=== PATIENT | female | born 1960 | race Caucasian/White ===

== ENCOUNTER 2024-03-31 09:37 | Emergency (ER) | payer MEDICAID, SELFPAY ==
[2024-03-31 09:44] VITALS: BP 147/82; PULSE 70; RESP 19; TEMP 36.8; O2SAT 99; BMI 32.1
--- NOTE | 2024-03-31 09:47 | PD.EDRME ---
Rapid Medical Screening Exam E Arrival date/time: 03/31/24 09:37 63-year-old female with history of gastric bypass in 2018 with hiatal hernia repair requiring multiple surgeries since presents with complaints of upper abdominal pain Chief Complaint: Abdominal Pain Time Seen by Provider: 03/31/24 09:40 Vital signs: Vital Signs Temperature 98.3 F 03/31/24 09:44 Pulse Rate 70 03/31/24 09:44 Respiratory Rate 19 03/31/24 09:44 Blood Pressure 147/82 H 03/31/24 09:44 Pulse Oximetry (%) 99 03/31/24 09:44 Oxygen Delivery Method Room Air 03/31/24 09:44
[2024-03-31] MEDS: KETOROLAC INJ 30 MG/ML VIAL IM (09:56)
[2024-03-31] MEDS: ONDANSETRON ODT 4 MG TABRAP PO (09:57)
[2024-03-31 10:50] LABS: Basophils % (Auto) 1 % (0-2.5); Eosinophils % (Auto) 1 % (0-10); Hematocrit 33.9 % (36.0-46.0); Hemoglobin 10.6 g/dL (12.0-16.0); Immature Granulocytes % (Auto) 0 % (0-0); Immature Granulocytes Auto 0.02 Thou/mm3 (0.00-0.00); Lymphocytes # (Auto) 2.4 Thou/mm3 (1.0-4.8); Lymphocytes % (Auto) 33 % (10-50); Mean Corpuscular HGB Conc 31.3 g/dl (31.0-37.0); Mean Corpuscular Hemoglobin 24.8 pg (25.0-35.0); Mean Corpuscular Volume 79 fL (80-100); Monocytes # (Auto) 0.9 Thou/mm3 (0.0-0.8); Monocytes % (Auto) 12 % (0-12); Neutrophils % (Auto) 54 % (37-80); Nucleated Red Blood Cell % 0 /100 WBC (0); Platelet Count 275 Thou/mm3 (140-440); Red Blood Count 4.28 Miln/mm3 (4.00-5.20); White Blood Count 7.5 Thou/mm3 (3.6-11.0)
[2024-03-31 11:10] LABS: Alanine Aminotransferase 29 U/L (10-49); Albumin, Serum 4.1 gm/dL (3.4-4.8); Albumin/Globulin Ratio 1.5 (1.2-2.2); Alkaline Phosphatase 107 U/L (46-116); Anion Gap 5 (7-16); Aspartate Amino Transferase 22 U/L (0-34); BUN/Creatinine Ratio 20 Ratio (12-20); Bilirubin,Total 0.3 mg/dL (0.3-1.2); Blood Urea Nitrogen 14 mg/dL (9-23); Calcium 9.5 mg/dL (8.3-10.6); Calcium (Corrected) 9.5 mg/dL (8.5-10.1); Carbon Dioxide 27.2 mMol/L (20.0-31.0); Chloride 106 mMol/L (98-107); Creatinine (Component) 0.7 mg/dL (0.6-1.3); Estimated Creatinine Clearance 91.9 mL/min (>60); Globulin 2.7 gm/dL (2.3-3.5); Glucose 115 mg/dL (74-106); Lipase 49 U/L (12-53); Osmolality,Calculated 277 (275-295); Sodium 138 mMol/L (136-145); Total Protein 6.8 gm/dL (5.7-8.2); Troponin I < 0.020 ng/mL (0.0-0.045); eGFR > 60 See Note
[2024-03-31 13:25] LABS: Collection Type, Urine Clean Catch
[2024-03-31 13:41] LABS: Bacteria,Urine Rare; Bilirubin,Urine Negative (Negative); Blood,Urine Negative (Negative); Clarity,Urine Clear (Clear/Hazy); Color,Urine Yellow (Lt Yel-Yel); Culture Indicated,Urine Not Indicated; Glucose, Urine Negative (Negative); Ketones,Urine Negative (Negative); Leukocyte Esterase,Urine Positive (Negative); Nitrite,Urine Negative (Negative); Protein,Urine 1+ (Neg - Trace); RBC,Urine 3 /hpf (0-3); Specific Gravity,Urine 1.034 (1.001-1.035); Squamous Epithelial Cell,Urine 2 /hpf (0-5); WBC,Urine 1 /hpf (0-5)
--- NOTE | 2024-03-31 13:45 | EDNOTE_ITS ---
ED Abdominal Pain RME/HPI General Chief Complaint: Abdominal Pain Stated complaint: Epigastric pain due to hiatel hernia x 4 days Time seen by provider: 03/31/24 09:40 Arrival date/time: 03/31/24 09:37 RME / HPI RME / HPI narrative: 03/31/24 09:37 63-year-old female with history of gastric bypass in 2018 with hiatal hernia repair requiring multiple surgeries since presents with complaints of upper abdominal pain DR. FRANKEL MAIN ED EVALUATION 63 year old female with history of gastric bypass and hiatal hernia surgery with multiple hernia revisions, no complications of the gastric bypass (stenosis, leak) who presents to the ED for complaint of abdominal pain today. States the pain is located most to the epigastric region that radiates up to chest and back. Describes as aching in sensation, rating as moderate. Accompanied by nausea and nonbloody vomiting. Denies fevers, chills, cough, shortness of breath, diarrhea, constipation, or urinary symptoms. She notes the pain is chronic and recurring and she typically attributes it to hernia pain . No known modifying factors reported. Related Data Home Medications ?Medication ?Instructions ?Recorded ?Confirmed hydrocodone 10 mg-acetaminophen 1 tab PO Q4H PRN Pain #0 tabs 02/11/14 02/20/24 325 mg tablet omeprazole 20 mg tablet,delayed 20 mg PO QDAY 12/07/18 02/20/24 release calcium citrate 150 mg capsule 150 mg PO QAM 08/24/20 02/20/24 chlorthalidone 50 mg tablet 50 mg PO QDAY 08/24/20 02/20/24 citalopram 20 mg tablet (Celexa) 20 mg PO QDAY 08/24/20 02/20/24 cyclobenzaprine 10 mg tablet 10 mg PO BID PRN Spasms 08/24/20 02/20/24 docusate sodium 250 mg capsule 250 mg PO BID PRN Constipation 08/24/20 02/20/24 gabapentin 600 mg tablet 600 mg PO TID 08/24/20 02/20/24 multivitamin 1 tab PO QAM 08/24/20 02/20/24 ondansetron 4 mg disintegrating 4 mg PO Q6H PRN Nausea 08/24/20 02/20/24 tablet phentermine 37.5 mg capsule 37.5 mg PO QAM 08/24/20 02/20/24 pregabalin 75 mg capsule (Lyrica) 75 mg PO BID PRN Pain 08/24/20 02/20/24 ropinirole 0.5 mg tablet 0.5 mg PO QDAY 08/24/20 02/20/24 Previous Rx's ?Medication ?Instructions ?Recorded docusate sodium 100 mg capsule 100 mg PO QDAY #30 caps 08/24/20 (Colace) ferrous sulfate 325 mg (65 mg 325 mg PO BID #120 tabs 08/24/20 iron) tablet ibuprofen 800 mg tablet 800 mg PO TID PRN pain #30 tabs 08/03/21 hydrocodone 5 mg-acetaminophen 325 1 tab PO Q6H PRN pain #10 tabs 03/22/22 mg tablet amoxicillin 500 mg-potassium 1 tab PO BID #20 tabs 08/07/22 clavulanate 125 mg tablet (Augmentin) hydrocodone 5 mg-acetaminophen 325 1 - 2 tab PO Q8H PRN pain #7 tabs 05/13/23 mg tablet Allergies Allergy/AdvReac Type Severity Reaction Status Date / Time metoclopramide [From Reglan] Allergy Shakiness Verified 03/31/24 09:38 Review of Systems Review of Systems Narrative Review of Systems: Gen: No fever, no chills, no weight loss EYES: No discharge, no visual changes, no pain HEENT: No ear pain, no congestion, no sore throat PULM: no shortness of breath, no cough, no congestion CV: + chest pain, no dyspnea on exertion, no palpitations, no chest tightness GI: + nausea, +vomiting, no diarrhea, + pain, no constipation : No frequency, no urgency,? no dysuria Musc/skel: No joint pain, +back pain Skin: No rash, no ecchymosis, no lesions Psyc: No hallucinations, no depression Heme/Lymph: No easy bleeding or bruising tendencies Neuro: No weakness, no headache Past Medical History Past Medical History NEUROLOGIC: Positive Peripheral Neuropathy CARDIAC: Positive Hypercholesterolemia and Hypertension RESPIRATORY: Positive Chronic Obstructive Pulmonary Disease (COPD), Asthma, Smoking and Smoking Cessation Counseling GASTROINTESTINAL: Positive Hiatal Hernia and Obesity MUSCULOSKELETAL: Positive Musculoskeletal Disorders, Arthritis and Fibromyalgia ENDOCRINE: Positive Diabetes Mellitus Type 2 Surgical History SURGICAL: Positive Abdominal Surgery, Gastric Bypass Surgery and Tubal Ligation Social History SMOKING STATUS: Light (< 1 pack/day) SUBSTANCE USE: does not use ED Exam Narrative Physical exam: GENERAL APPEARANCE: AxOx4, nontoxic appearing HEENT: NC, AT. MMM. EOMI, clear conjunctiva, oropharynx clear. NECK: Supple without lymphadenopathy. No stiffness or restricted ROM. HEART: Normal rate and regular rhythm, normal S1/S1, no m/r/g LUNGS: CTAB, moving air well. No crackles or wheezes are heard. ABDOMEN: Soft, mild to moderate epigastric tenderness, no rebound tenderness, nondistended with good bowel sounds heard. BACK: No midline C/T/L spine pain or deformity, No CVAT, no obvious deformity. EXTREMITIES: Without cyanosis, clubbing or edema. MUSCULOSKELETAL: FROM of all major joints, no chest tenderness NEUROLOGICAL: Grossly nonfocal. Alert and oriented, moving all 4 extremities. CN not formally tested but appear grossly intact. Skin: Warm and dry without any rash. Course Quality Measures none Orders Category Date Time Status CT Screening NOW Care 03/31/24 13:49 Completed EKG (ED ONLY) *Do not use* NOW Care 03/31/24 09:[address] abdomen pelvis w con Stat Exams 03/31/24 13:49 Completed EKG (ED Only) Stat Exams 03/31/24 09:47 Ordered CBC Stat Lab 03/31/24 10:23 Completed Comprehensive Metabolic Panel Stat Lab 03/31/24 10:23 Completed Lipase Stat Lab 03/31/24 10:23 Completed Troponin I Stat Lab 03/31/24 10:23 Completed UA, C/S IF [Urinalysis, C/S if Indicated] Stat Lab 03/31/24 13:15 Completed DiphenhydrAMINE INJ [Benadryl Inj] Med 03/31/24 13:47 Discontinued 50 mg IV X1 ONE Famotidine Inj [Pepcid Inj] Med 03/31/24 13:50 Discontinued 40 mg IVP X1 ONE Ketorolac Inj [Toradol Inj] Med 03/31/24 16:09 Discontinued 15 mg IVP X1 ONE Ketorolac Inj [Toradol Inj] Med 03/31/24 09:47 Discontinued 30 mg IM X1 ONE Ondansetron Inj [Zofran Inj] Med 03/31/24 13:50 Discontinued 4 mg IV X1 ONE Ondansetron Odt [Zofran Odt] Med 03/31/24 09:47 Discontinued 4 mg PO X1 ONE Sodium Chloride 0.9% 1000 ml [Ns] 1,000 ml Med 03/31/24 13:47 Discontinued IV 999 mls/hr Vital Signs Vital signs: Vital Signs Temperature 98.3 F 03/31/24 09:44 Pulse Rate 70 03/31/24 09:44 Respiratory Rate 19 03/31/24 09:44 Blood Pressure 147/82 H 03/31/24 09:44 Pulse Oximetry (%) 99 03/31/24 09:44 Oxygen Delivery Method Room Air 03/31/24 09:44 Pulse ox is 99% on room air which is adequate. Abdominal Pain MDM MDM Narrative MDM Narrative:: 63-year-old female with a history of chronic recurrent epigastric pain, gastric bypass, and hiatal hernia repair, who presents with recurrence of her chronic epigastric pain of which she describes as her hernia pain. Laboratory testing and CT scan shows no acute issues such as stenosis, or leak of her gastric bypass. She does have a nonspecific dilation of her common bile duct. As she has a chronic recurrent issue there are concerns for retained stone versus even tumor mass in this area. This could account for the recurrent nature of her pain and they not actually be due to hernia pain . We discussed these findings with the option of remaining here in the emergency department for an MRCP in the morning, or if she would like to remain in the comfort of her home. She does comment on how the emergency department is very noisy and full (the ED is currently boarding several inpatients due to capacity issues) and she would like to rest at home. We will have her n.p.o. after midnight for for the most precise a.m. MRCP. She agrees to return in the morning for an MRCP Natasha Arguelles am scribing for and in the presence of Dr. Frankel. Patient data External records reviewed:: [facility] previous records (I reviewed ED visit 05/21/2023) Clinical information provided by:: patient Social determinants that could affect healthcare access:: none Patient has the following chronic illnesses:: gastric bypass and hiatal hernia surgery with multiple revisions, mostly because of failed revisions, and stenosis leaking How is presenting disease/condition affected by chronic disease/condition?: exacerbated by Evaluation data The following diagnostics were reviewed and interpreted by me:: lab results, radiology exam(s) and EKG tracing(s) (Normal sinus rhythm, HR 70, normal axis, normal interval, no acute ST or T-wave changes, no STEMI. ) Lab and/or radiology exams considered but not ordered:: None Interpretation Summary: Procedure(s): CT abdomen pelvis w con Accession Number(s): [id number] cc: José Frankel MD; Rodney Santos MD; Hilda Sky MD~ Examination: CT abdomen with intravenous contrast CT pelvis with intravenous contrast 2-D coronal reconstructions 2-D sagittal reconstructions Date and time of exam:March 31, 2024 1457 hours Comparison March 22, 2022 INDICATIONS: Epigastric pain months. CTDI: vol (mGy) 24.11 DLP: (mGycm) 1018 Technique: Multiple axial sections of the abdomen and pelvis have been obtained. 64 slice high-resolution scanner used. 3 mm axial sections have been obtained, post intravenous injection 60 cc [id number] 2-D sagittal, coronal reconstructions obtained. Low dose protocols were performed. One or more of the following dose reduction techniques were used; automated exposure control, adjustment of the mA and/or KV according to patient size, use of iterative reconstruction technique. Findings: No focal liver or splenic lesions Gastric sutures No pancreatic or adrenal mass Moderate bilateral renal parenchymal scar formation Absent gallbladder, common hepatic duct 10 mm Abdominal aortic calcification no aneurysmal dilatation No pericecal inflammatory change No diverticulitis Air distended sigmoid colon Significant osteopenia Contracted urinary bladder IMPRESSION: Absent gallbladder, common bile duct 10 mm no stones noted Moderate bilateral renal parenchymal scar formation No CT findings of appendicitis bowel obstruction or diverticulitis Given the patient's presentation, consider hepatobiliary sonography follow-up Dictated By: Rodney Santos MD Medications / Prescriptions Medications or Prescriptions considered but not ordered:: None Medication administrations:: Medication Administration History Discontinued Medications Diphenhydramine HCl (Diphenhydramine Inj 50 Mg/Ml Vial) 50 mg IV X1 ONE Stop: 03/31/24 13:48 Last Admin: 03/31/24 14:38 Dose: 50 mg Documented By: TM Famotidine (Famotidine Inj 10 Mg/Ml Vial 2 Ml) 40 mg IVP X1 ONE Stop: 03/31/24 13:51 Last Admin: 03/31/24 14:38 Dose: 40 mg Documented By: TM Sodium Chloride (Ns) 1,000 mls @ 999 mls/hr IV .Q1H1M ONE Stop: 03/31/24 14:47 Last Admin: 03/31/24 14:39 Dose: 999 mls/hr Documented By: TM Ketorolac Tromethamine (Ketorolac Inj 30 Mg/Ml Vial) 30 mg IM X1 ONE Stop: 03/31/24 09:48 Last Admin: 03/31/24 09:56 Dose: 30 mg Documented By: TM Ketorolac Tromethamine (Ketorolac Inj 30 Mg/Ml Vial) 15 mg IVP X1 ONE Stop: 03/31/24 16:10 Last Admin: 03/31/24 16:51 Dose: 15 mg Documented By: TM Ondansetron HCl (Ondansetron Odt 4 Mg Tabrap) 4 mg PO X1 ONE; Protocol Stop: 03/31/24 09:48 Last Admin: 03/31/24 09:57 Dose: 4 mg Documented By: TM Ondansetron HCl (Ondansetron Inj 2 Mg/Ml Inj 2 Ml) 4 mg IV X1 ONE; Protocol Stop: 03/31/24 13:51 Last Admin: 03/31/24 14:38 Dose: 4 mg Documented By: TM See above Consultations Consultation(s) initiated? (list below): No Diagnosis Differential diagnosis abdominal pain: abdominal pain, calculus of kidney, diverticulitis, gastroenteritis and pancreatitis Most likely diagnosis given after review of the tests above:: Chronic epigastric pain Admission Indicated Admission indicated?: not indicated Admission Request Was there a request for admission?: No Disposition Plan Disposition Plan: Discharge Discharge Attestation Discharge Attestation: The patient and all family members were given an opportunity to ask questions and understood the discharge instructions. Discharge instructions specifically effects, indications for sooner follow up or return to the emergency department, and the expected course of current diagnosis. Patient condition: Stable Discharge Plan Plan Patient Disposition: HOME (Self Care) Prescriptions/Referrals Prescriptions/Med Rec: No Action hydrocodone-acetaminophen 10-325 mg Tablet 1 tab PO Q4H PRN (Reason: Pain) Qty: 0 omeprazole 20 mg tablet,delayed release (DR/EC) 20 mg PO QDAY Patient Comments: TAKE TWO TABLETS BY MOUTH EVERY DAY HEARTBURN GASTRIC ACIDITY multivitamin Tablet 1 tab PO QAM cyclobenzaprine [Flexeril] 10 mg Tablet 10 mg PO BID PRN (Reason: Spasms) citalopram [Celexa] 20 mg Tablet 20 mg PO QDAY ondansetron [Zofran ODT] 4 mg Tablet,Disintegrating 4 mg PO Q6H PRN (Reason: Nausea) pregabalin [Lyrica] 75 mg Capsule 75 mg PO BID PRN (Reason: Pain) gabapentin 600 mg Tablet 600 mg PO TID chlorthalidone 50 mg Tablet 50 mg PO QDAY ropinirole [Requip] 0.5 mg Tablet 0.5 mg PO QDAY calcium citrate 150 mg Capsule 150 mg PO QAM docusate sodium 250 mg Capsule 250 mg PO BID PRN (Reason: Constipation) phentermine 37.5 mg Capsule 37.5 mg PO QAM ferrous sulfate 325 mg (65 mg iron) tablet 325 mg PO BID Qty: 120 0RF Rx Instructions: Be sure to take your iron pills on an empty stomach, with orange juice docusate sodium [Colace] 100 mg capsule 100 mg PO QDAY Qty: 30 0RF ibuprofen 800 mg tablet 800 mg PO TID PRN (Reason: pain) Qty: 30 0RF amoxicillin-pot clavulanate [Augmentin] 500-125 mg tablet 1 tab PO BID Qty: 20 0RF hydrocodone-acetaminophen 5-325 mg tablet 1 - 2 tab PO Q8H MDD 6 tablets PRN (Reason: pain) Qty: 7 0RF hydrocodone-acetaminophen 5-325 mg tablet 1 tab PO Q6H MDD 3 PRN (Reason: pain) Qty: 10 0RF Referrals: Hilda Sky MD [Primary Care Provider] - In 1 week Problem List Clinical Impression: Chronic epigastric pain Patient/Caregiver Discharge Instructions Education Materials: ED Epigastric Pain (Uncertain Cause) Additional Instructions: Please consider returning to the emergency department ADM for an MRI/MRCP to assess what looks to be some dilation of your liver drainage ducts. Feel free return to the emergency department sooner if symptoms worsen or there is any new, concerning issues. Print Language: Mongolian Stand Alone Forms: [employer] Award Info., Patient Portal Info Letter
--- NOTE | 2024-03-31 13:49 | XR_ITS ---
Examination: CT abdomen with intravenous contrast CT pelvis with intravenous contrast 2-D coronal reconstructions 2-D sagittal reconstructions Date and time of exam:March 31, 2024 1457 hours Comparison March 22, 2022 INDICATIONS: Epigastric pain months. CTDI: vol (mGy) 24.11 DLP: (mGycm) 1018 Technique: Multiple axial sections of the abdomen and pelvis have been obtained. 64 slice high-resolution scanner used. 3 mm axial sections have been obtained, post intravenous injection 60 cc [id number] 2-D sagittal, coronal reconstructions obtained. Low dose protocols were performed. One or more of the following dose reduction techniques were used; automated exposure control, adjustment of the mA and/or KV according to patient size, use of iterative reconstruction technique. Findings: No focal liver or splenic lesions Gastric sutures No pancreatic or adrenal mass Moderate bilateral renal parenchymal scar formation Absent gallbladder, common hepatic duct 10 mm Abdominal aortic calcification no aneurysmal dilatation No pericecal inflammatory change No diverticulitis Air distended sigmoid colon Significant osteopenia Contracted urinary bladder IMPRESSION: Absent gallbladder, common bile duct 10 mm no stones noted Moderate bilateral renal parenchymal scar formation No CT findings of appendicitis bowel obstruction or diverticulitis Given the patient's presentation, consider hepatobiliary sonography follow-up
[2024-03-31] MEDS: FAMOTIDINE INJ 10 MG/ML VIAL 2 ML 40 MG IVP (14:38)
[2024-03-31] MEDS: DiphenhydrAMINE INJ 50 MG/ML VIAL IV (14:38)
[2024-03-31] MEDS: ONDANSETRON INJ 2 MG/ML INJ 2 ML 4 MG IV (14:38)
[2024-03-31] MEDS: SODIUM CHLORIDE 0.9% 1000 ML 1,000 ML 999 ML IV (14:39)
[2024-03-31 16:37] VITALS: BP 171/83; PULSE 79; RESP 18; TEMP 36.8; O2SAT 95
[2024-03-31] MEDS: KETOROLAC INJ 30 MG/ML VIAL 15 MG IVP (16:51)
== END 2024-03-31 16:59 | disposition home or self-care (01) ==
PROVIDERS: Nurse Practitioner Primary Care; Emergency Provider Emergency Medicine; PCP Family Medicine
DX: N28.89 Other specified disorders of kidney and ureter (principal)
CPT/HCPCS: 36415; 74177; 80053; 81001; 83690; 84484; 85025; 93005; 96372; 96374; 96375; 99285; A4649; J1200; J1885; J2405; J3490; J7030; Q0162; Q9967

== ENCOUNTER 2024-04-01 06:54 | Emergency (ER) | payer MEDICAID, SELFPAY ==
--- NOTE | 2024-04-01 | XR_ITS ---
MRI abdomen, without contrast. MRCP Date and time of exam: April 01, 2024 1040 hours INDICATIONS: Epigastric pain abdominal pain beginning yesterday with nausea and vomiting, common bile duct [address] abdomen study yesterday March 31, 2024 Technique: Multiple axial and coronal images of the abdomen have been obtained with the Siemens 1.5T MRI scanner. Images obtained included T1 weighted transverse images, T2-weighted transverse images, T2-weighted transverse images fat-suppressed, T2 weighted haste fat suppressed transverse images, T1 weighted images, in and out of phase images, T2-weighted coronal images, breath hold, T2 weighted haze coronal images as well as T2 weighted coronal thick slab images, MRCP. Findings: No focal liver lesions Absent gallbladder Common hepatic common bile duct 9 mm No common bile duct stones Pancreatic duct is not dilated No pancreatic edema No ascites Aorta normal size Spleen not enlarged IMPRESSION: Negative for common hepatic or common bile duct stones
[2024-04-01 06:55] VITALS: BMI 32.1
[2024-04-01 06:59] VITALS: BP 163/93; PULSE 88; RESP 18; TEMP 36.9; O2SAT 99
--- NOTE | 2024-04-01 07:19 | EDNOTE_ITS ---
ED Abdominal Pain RME/HPI General Chief Complaint: Abdominal Pain Stated complaint: ABDOMINAL PAIN, NEEDS MRI Time seen by provider: 04/01/24 06:55 Arrival date/time: 04/01/24 06:54 RME / HPI RME / HPI narrative: 63 year old female with history of gastric bypass and hiatal hernia surgery with multiple hernia revisions, no complications of the gastric bypass (stenosis, leak) who returns to the ED for complaint of abdominal pain. Pain located most to the epigastric region that remains unchanged from yesterday. Described as aching in sensation, rating 9/10. Accompanied by nausea and vomiting. Patient was evaluated here yesterday and advised to return today for an MRI. Patient last ate at 01:00 am today. Related Data Home Medications ?Medication ?Instructions ?Recorded ?Confirmed hydrocodone 10 mg-acetaminophen 1 tab PO Q4H PRN Pain #0 tabs 02/11/14 02/20/24 325 mg tablet omeprazole 20 mg tablet,delayed 20 mg PO QDAY 12/07/18 02/20/24 release calcium citrate 150 mg capsule 150 mg PO QAM 08/24/20 02/20/24 chlorthalidone 50 mg tablet 50 mg PO QDAY 08/24/20 02/20/24 citalopram 20 mg tablet (Celexa) 20 mg PO QDAY 08/24/20 02/20/24 cyclobenzaprine 10 mg tablet 10 mg PO BID PRN Spasms 08/24/20 02/20/24 docusate sodium 250 mg capsule 250 mg PO BID PRN Constipation 08/24/20 02/20/24 gabapentin 600 mg tablet 600 mg PO TID 08/24/20 02/20/24 multivitamin 1 tab PO QAM 08/24/20 02/20/24 ondansetron 4 mg disintegrating 4 mg PO Q6H PRN Nausea 08/24/20 02/20/24 tablet phentermine 37.5 mg capsule 37.5 mg PO QAM 08/24/20 02/20/24 pregabalin 75 mg capsule (Lyrica) 75 mg PO BID PRN Pain 08/24/20 02/20/24 ropinirole 0.5 mg tablet 0.5 mg PO QDAY 08/24/20 02/20/24 Previous Rx's ?Medication ?Instructions ?Recorded docusate sodium 100 mg capsule 100 mg PO QDAY #30 caps 08/24/20 (Colace) ferrous sulfate 325 mg (65 mg 325 mg PO BID #120 tabs 08/24/20 iron) tablet ibuprofen 800 mg tablet 800 mg PO TID PRN pain #30 tabs 08/03/21 hydrocodone 5 mg-acetaminophen 325 1 tab PO Q6H PRN pain #10 tabs 03/22/22 mg tablet amoxicillin 500 mg-potassium 1 tab PO BID #20 tabs 08/07/22 clavulanate 125 mg tablet (Augmentin) hydrocodone 5 mg-acetaminophen 325 1 - 2 tab PO Q8H PRN pain #7 tabs 05/13/23 mg tablet Allergies Allergy/AdvReac Type Severity Reaction Status Date / Time metoclopramide [From Reglan] Allergy Shakiness Verified 03/31/24 09:38 Review of Systems Review of Systems Narrative Review of Systems: Gen: No fever, no chills, no weight loss EYES: No discharge, no visual changes, no pain HEENT: No ear pain, no congestion, no sore throat PULM: no shortness of breath, no cough, no congestion CV: No chest pain, no dyspnea on exertion, no palpitations, no chest tightness GI: +nausea, +vomiting, no diarrhea, +pain, no constipation : No frequency, no urgency,? no dysuria Musc/skel: No joint pain, no back pain Skin: No rash, no ecchymosis, no lesions Neuro: No weakness, no headache Past Medical History Past Medical History NEUROLOGIC: Positive Peripheral Neuropathy CARDIAC: Positive Hypercholesterolemia and Hypertension RESPIRATORY: Positive Chronic Obstructive Pulmonary Disease (COPD), Asthma, Smoking and Smoking Cessation Counseling GASTROINTESTINAL: Positive Hiatal Hernia and Obesity MUSCULOSKELETAL: Positive Musculoskeletal Disorders, Arthritis and Fibromyalgia ENDOCRINE: Positive Diabetes Mellitus Type 2 Surgical History SURGICAL: Positive Abdominal Surgery, Gastric Bypass Surgery and Tubal Ligation Social History SMOKING STATUS: Current every day smoker SUBSTANCE USE: does not use ED Exam Narrative Physical exam: GENERAL APPEARANCE: AxOx4, nontoxic appearing HEENT: NC, AT. MMM. EOMI, clear conjunctiva, oropharynx clear. NECK: Supple without lymphadenopathy. No stiffness or restricted ROM. HEART: Normal rate and regular rhythm, normal S1/S1, no m/r/g LUNGS: CTAB, moving air well. No crackles or wheezes are heard. ABDOMEN: Soft, epigastric tenderness, no rebound, nondistended with good bowel sounds heard. BACK: No midline C/T/L spine pain or deformity, No CVAT, no obvious deformity. EXTREMITIES: Without cyanosis, clubbing or edema. MUSCULOSKELETAL: FROM of all major joints, no chest tenderness NEUROLOGICAL: Grossly nonfocal. Alert and oriented, moving all 4 extremities. CN not formally tested but appear grossly intact. Skin: Warm and dry without any rash. Course Quality Measures none Orders Category Date Time Status Insert IV NOW Care 04/01/24 07:02 Completed MRI Screening NOW Care 04/01/24 07:01 Completed NPO NOW Care 04/01/24 07:04 Completed Diet NPO (NOW) Diet 04/01/24 07:04 Active MR MRCP Stat Exams 04/01/24 Completed CBC Stat Lab 04/01/24 07:29 Completed CMP [Comprehensive Metabolic Panel] Stat Lab 04/01/24 07:29 Completed Lipase Stat Lab 04/01/24 07:29 Completed Diazepam [Valium] Med 04/01/24 07:24 Discontinued 5 mg PO X1 ONE Famotidine [Pepcid] Med 04/01/24 12:29 Discontinued 40 mg PO X1 ONE Ketorolac Inj [Toradol Inj] Med 04/01/24 07:04 Discontinued 15 mg IVP X1 ONE Lidocaine 2% Viscous [Xylocaine 2% Viscous] Med 04/01/24 12:28 Discontinued 15 ml PO X1 ONE Ondansetron Inj [Zofran Inj] Med 04/01/24 07:04 Discontinued 4 mg IV X1 ONE Sodium Chloride 0.9% 1000 ml [Ns] 1,000 ml Med 04/01/24 07:04 Discontinued IV 999 mls/hr mg Hyd/Al Hyd/Olaf Susp [Maalox Susp] Med 04/01/24 12:28 Discontinued 30 ml PO X1 ONE Reevaluation(s) Reevaluation #1: Patient remains clinically stable throughout the emergency department visit. We reviewed all the results, analysis, and treatment plans. Patient is amenable to discharge. Strict return precautions were outlined. Patient was discharged in stable condition. Time: 12:36 Vital Signs Vital signs: Vital Signs Temperature 98.4 F 04/01/24 06:59 Pulse Rate 88 04/01/24 06:59 Respiratory Rate 18 04/01/24 06:59 Blood Pressure 163/93 H 04/01/24 06:59 Pulse Oximetry (%) 99 04/01/24 06:59 Oxygen Delivery Method Room Air 04/01/24 06:59 Pulse ox is 99% on room air which is adequate. Abdominal Pain MDM MDM Narrative MDM Narrative:: Natasha Arguelles am scribing for and in the presence of Dr. Christensen. Patient data External records reviewed:: [facility] previous records (I reviewed yesterday CT scan which showed an enlarge common bile duct at 10mm ) Clinical information provided by:: patient Social determinants that could affect healthcare access:: none Patient has the following chronic illnesses:: Gastric bypass and hiatal hernia surgery with multiple hernia revisions, no complications of the gastric bypass (stenosis, leak) Chronic recurring abdominal pain How is presenting disease/condition affected by chronic disease/condition?: exacerbated by Evaluation data The following diagnostics were reviewed and interpreted by me:: lab results and radiology exam(s) Lab and/or radiology exams considered but not ordered:: None Interpretation Summary: Ordering Physician: José Christensen MD Date of Service: 04/01/24 Procedure(s): MR MRCP Accession Number(s): [id number] cc: José Christensen MD; Rodney Santos MD; Hilda Sky MD~ MRI abdomen, without contrast. MRCP Date and time of exam: April 01, 2024 1040 hours INDICATIONS: Epigastric pain abdominal pain beginning yesterday with nausea and vomiting, common bile duct [address] abdomen study yesterday March 31, 2024 Technique: Multiple axial and coronal images of the abdomen have been obtained with the Siemens 1.5T MRI scanner. Images obtained included T1 weighted transverse images, T2-weighted transverse images, T2-weighted transverse images fat-suppressed, T2 weighted haste fat suppressed transverse images, T1 weighted images, in and out of phase images, T2-weighted coronal images, breath hold, T2 weighted haze coronal images as well as T2 weighted coronal thick slab images, MRCP. Findings: No focal liver lesions Absent gallbladder Common hepatic common bile duct 9 mm No common bile duct stones Pancreatic duct is not dilated No pancreatic edema No ascites Aorta normal size Spleen not enlarged IMPRESSION: Negative for common hepatic or common bile duct stones Dictated By:Rodney Santos MD Signed By:<Electronically signed by Rodney Santos MD in OV>04/01/24 1114 Medications / Prescriptions Medications or Prescriptions considered but not ordered:: None Medication administrations:: Medication Administration History Discontinued Medications Al Hydrox/Mg Hydrox/Simethicone (Mg Hyd/Al Hyd/Olaf (Maalox Reg) Susp 30 Ml Udc) 30 ml PO X1 ONE Stop: 04/01/24 12:29 Last Admin: 04/01/24 12:54 Dose: 30 ml Documented By: ARF Diazepam (Diazepam 5 Mg Tablet) 5 mg PO X1 ONE Stop: 04/01/24 07:25 Last Admin: 04/01/24 08:13 Dose: 5 mg Documented By: MS Famotidine (Famotidine 20 Mg Tablet) 40 mg PO X1 ONE Stop: 04/01/24 12:30 Last Admin: 04/01/24 12:54 Dose: 40 mg Documented By: ARF Sodium Chloride (Ns) 1,000 mls @ 999 mls/hr IV .Q1H1M ONE Stop: 04/01/24 08:04 Last Infusion: 04/01/24 09:37 Dose: Infused Documented By: Admin: 04/01/24 08:14 Dose: 999 mls/hr Documented By: MS Ketorolac Tromethamine (Ketorolac Inj 30 Mg/Ml Vial) 15 mg IVP X1 ONE Stop: 04/01/24 07:05 Last Admin: 04/01/24 08:13 Dose: 15 mg Documented By: MS Lidocaine HCl (Lidocaine Viscous 2% 15 Ml Udc) 15 ml PO X1 ONE Stop: 04/01/24 12:29 Last Admin: 04/01/24 12:54 Dose: 15 ml Documented By: ARF Ondansetron HCl (Ondansetron Inj 2 Mg/Ml Inj 2 Ml) 4 mg IV X1 ONE; Protocol Stop: 04/01/24 07:05 Last Admin: 04/01/24 08:12 Dose: 4 mg Documented By: MS See above Consultations Consultation(s) initiated? (list below): No Diagnosis Differential diagnosis abdominal pain: abdominal pain and other ([place] olithiasis, cholelithiasis ) Most likely diagnosis given after review of the tests above:: Chronic epigastric pain Gastritis Admission Indicated Admission indicated?: not indicated Admission Request Was there a request for admission?: No Disposition Plan Disposition Plan: Discharge Discharge Attestation Discharge Attestation: The patient and all family members were given an opportunity to ask questions and understood the discharge instructions. Discharge instructions specifically effects, indications for sooner follow up or return to the emergency department, and the expected course of current diagnosis. Patient condition: Stable Discharge Plan Plan Patient Disposition: HOME (Self Care) Prescriptions/Referrals Prescriptions/Med Rec: No Action hydrocodone-acetaminophen 10-325 mg Tablet 1 tab PO Q4H PRN (Reason: Pain) Qty: 0 omeprazole 20 mg tablet,delayed release (DR/EC) 20 mg PO QDAY Patient Comments: TAKE TWO TABLETS BY MOUTH EVERY DAY HEARTBURN GASTRIC ACIDITY multivitamin Tablet 1 tab PO QAM cyclobenzaprine [Flexeril] 10 mg Tablet 10 mg PO BID PRN (Reason: Spasms) citalopram [Celexa] 20 mg Tablet 20 mg PO QDAY ondansetron [Zofran ODT] 4 mg Tablet,Disintegrating 4 mg PO Q6H PRN (Reason: Nausea) pregabalin [Lyrica] 75 mg Capsule 75 mg PO BID PRN (Reason: Pain) gabapentin 600 mg Tablet 600 mg PO TID chlorthalidone 50 mg Tablet 50 mg PO QDAY ropinirole [Requip] 0.5 mg Tablet 0.5 mg PO QDAY calcium citrate 150 mg Capsule 150 mg PO QAM docusate sodium 250 mg Capsule 250 mg PO BID PRN (Reason: Constipation) phentermine 37.5 mg Capsule 37.5 mg PO QAM ferrous sulfate 325 mg (65 mg iron) tablet 325 mg PO BID Qty: 120 0RF Rx Instructions: Be sure to take your iron pills on an empty stomach, with orange juice docusate sodium [Colace] 100 mg capsule 100 mg PO QDAY Qty: 30 0RF ibuprofen 800 mg tablet 800 mg PO TID PRN (Reason: pain) Qty: 30 0RF amoxicillin-pot clavulanate [Augmentin] 500-125 mg tablet 1 tab PO BID Qty: 20 0RF hydrocodone-acetaminophen 5-325 mg tablet 1 - 2 tab PO Q8H MDD 6 tablets PRN (Reason: pain) Qty: 7 0RF hydrocodone-acetaminophen 5-325 mg tablet 1 tab PO Q6H MDD 3 PRN (Reason: pain) Qty: 10 0RF Referrals: Hilda Sky MD [Primary Care Provider] - In 1 week Problem List Clinical Impression: Chronic epigastric pain, Gastritis Patient/Caregiver Discharge Instructions Education Materials: ED PEPTIC ULCER vs GASTRITIS Additional Instructions: You can continue with your normal and acids, omeprazole. For the next 5 days also take [id number] famotidine (Pepcid) 20 mg twice a day. You can also take Maalox 2 large tablespoons twice a day for the next 5 days as well. Follow-up with your primary care doctor in 3 to 5 days for recheck if you are not feeling better. You can return to the emergency department sooner if symptoms worsen or if you notice any new, concerning issues. Print Language: Maori Stand Alone Forms: [employer] Award Info., Patient Portal Info Letter Attestation Attestation The patient was seen by the midlevel practitioner. I, the co-signing physician, was present during the entire ER visit. While I did not physically examine the patient, I was available for consultation as needed.
[2024-04-01 07:36] LABS: Basophils # (Auto) 0.1 Thou/mm3 (0.0-0.2); Basophils % (Auto) 1 % (0-2.5); Eosinophils # (Auto) 0.1 Thou/mm3 (0.0-0.5); Eosinophils % (Auto) 1 % (0-10); Hematocrit 36.3 % (36.0-46.0); Hemoglobin 11.3 g/dL (12.0-16.0); Immature Granulocytes % (Auto) 0 % (0-0); Immature Granulocytes Auto 0.02 Thou/mm3 (0.00-0.00); Lymphocytes # (Auto) 2.5 Thou/mm3 (1.0-4.8); Lymphocytes % (Auto) 31 % (10-50); Mean Corpuscular HGB Conc 31.1 g/dl (31.0-37.0); Mean Corpuscular Hemoglobin 24.5 pg (25.0-35.0); Mean Corpuscular Volume 79 fL (80-100); Monocytes # (Auto) 0.7 Thou/mm3 (0.0-0.8); Monocytes % (Auto) 9 % (0-12); Neutrophils # (Auto) 4.7 Thou/mm3 (1.8-7.7); Neutrophils % (Auto) 59 % (37-80); Nucleated Red Blood Cell % 0 /100 WBC (0); Platelet Count 318 Thou/mm3 (140-440); RDW Standard Deviation 49.9 fL (36.4-46.3); Red Blood Count 4.62 Miln/mm3 (4.00-5.20); White Blood Count 8.1 Thou/mm3 (3.6-11.0)
[2024-04-01 07:57] LABS: Alanine Aminotransferase 33 U/L (10-49); Albumin, Serum 4.6 gm/dL (3.4-4.8); Albumin/Globulin Ratio 1.4 (1.2-2.2); Alkaline Phosphatase 120 U/L (46-116); Anion Gap 8 (7-16); Aspartate Amino Transferase 36 U/L (0-34); BUN/Creatinine Ratio 17 Ratio (12-20); Bilirubin,Total 0.3 mg/dL (0.3-1.2); Blood Urea Nitrogen 17 mg/dL (9-23); Calcium 9.6 mg/dL (8.3-10.6); Calcium (Corrected) 9.6 mg/dL (8.5-10.1); Carbon Dioxide 24.4 mMol/L (20.0-31.0); Chloride 102 mMol/L (98-107); Estimated Creatinine Clearance 64.3 mL/min (>60); Globulin 3.2 gm/dL (2.3-3.5); Glucose 119 mg/dL (74-106); Lipase 55 U/L (12-53); Osmolality,Calculated 270 (275-295); Potassium 4.1 mMol/L (3.4-5.1); Sodium 134 mMol/L (136-145); Total Protein 7.8 gm/dL (5.7-8.2); eGFR > 60 See Note
[2024-04-01] MEDS: ONDANSETRON INJ 2 MG/ML INJ 2 ML 4 MG IV (08:12)
[2024-04-01] MEDS: DIAZEPAM 5 MG TABLET PO (08:13)
[2024-04-01] MEDS: KETOROLAC INJ 30 MG/ML VIAL 15 MG IVP (08:13)
[2024-04-01] MEDS: SODIUM CHLORIDE 0.9% 1000 ML 1,000 ML 999 ML IV (08:14)
[2024-04-01] MEDS: FAMOTIDINE 20 MG TABLET 40 MG PO (12:54)
[2024-04-01] MEDS: MG HYD/AL HYD/SIME (Maalox Reg) SUSP 30 ML UDC PO (12:54)
[2024-04-01] MEDS: LIDOCAINE VISCOUS 2% 15 ML UDC PO (12:54)
== END 2024-04-01 12:55 | disposition home or self-care (01) ==
PROVIDERS: Emergency Provider Emergency Medicine; PCP Family Medicine
DX: K29.70 Gastritis, unspecified, without bleeding (principal)
CPT/HCPCS: 36415; 80053; 83690; 85025; 96374; 99284; J1885; J2405; J3490; J7030; S8037; 74181; A9270

== ENCOUNTER 2024-05-22 14:50 | Outpatient (AMB) | payer MEDICAID, SELFPAY ==
[2024-05-22 15:32] VITALS: BP 123/55; PULSE 77; RESP 8; TEMP 36.1; O2SAT 97; BMI 32.7
--- NOTE | 2024-05-22 15:32 | ORTHONT_ITS ---
Vital signs 05/22/24 15:32 Height 1.68 m Height Method Stated Weight 92.334 kg Weight Measurement Method Standing Scale BMI 32.7 BP 123/55 L Blood Pressure Source Automatic Cuff Blood Pressure Location Left Upper Arm Position Sitting Respiration 8 L Pulse 77 Pulse Source Monitor Temp 97 F Temp Source Temporal Artery Scan Pulse Oximetry (%) 97 Oxygen Delivery Method Room Air Med/Allergies Allergies & Medications Allergies metoclopramide [From Reglan] Allergy (Verified 05/22/24 15:33) Shakiness Medication Reconciliation hydrocodone 10 mg-acetaminophen 325 mg tablet 1 tab PO Q4H PRN Pain #0 tabs 02/11/14 [History Confirmed 05/22/24] omeprazole 20 mg tablet,delayed release 20 mg PO QDAY 12/07/18 [History Confirmed 05/22/24] calcium citrate 150 mg capsule 150 mg PO QAM 08/24/20 [History Confirmed 05/22/24] chlorthalidone 50 mg tablet 50 mg PO QDAY 08/24/20 [History Confirmed 05/22/24] citalopram 20 mg tablet (Celexa) 20 mg PO QDAY 08/24/20 [History Confirmed 05/22/24] cyclobenzaprine 10 mg tablet 10 mg PO BID PRN Spasms 08/24/20 [History Confirmed 05/22/24] docusate sodium 100 mg capsule (Colace) 100 mg PO QDAY #30 caps 08/24/20 [Rx Confirmed 05/22/24] docusate sodium 250 mg capsule 250 mg PO BID PRN Constipation 08/24/20 [History Confirmed 05/22/24] ferrous sulfate 325 mg (65 mg iron) tablet 325 mg PO BID #120 tabs 08/24/20 [Rx Confirmed 05/22/24] gabapentin 600 mg tablet 600 mg PO TID 08/24/20 [History Confirmed 05/22/24] multivitamin 1 tab PO QAM 08/24/20 [History Confirmed 05/22/24] ondansetron 4 mg disintegrating tablet 4 mg PO Q6H PRN Nausea 08/24/20 [History Confirmed 05/22/24] phentermine 37.5 mg capsule 37.5 mg PO QAM 08/24/20 [History Confirmed 05/22/24] pregabalin 75 mg capsule (Lyrica) 75 mg PO BID PRN Pain 08/24/20 [History Confirmed 05/22/24] ropinirole 0.5 mg tablet 0.5 mg PO QDAY 08/24/20 [History Confirmed 05/22/24] ibuprofen 800 mg tablet 800 mg PO TID PRN pain #30 tabs 08/03/21 [Rx Confirmed 05/22/24] hydrocodone 5 mg-acetaminophen 325 mg tablet 1 tab PO Q6H PRN pain #10 tabs 03/22/22 [Rx Confirmed 05/22/24] amoxicillin 500 mg-potassium clavulanate 125 mg tablet (Augmentin) 1 tab PO BID #20 tabs 08/07/22 [Rx Confirmed 05/22/24] hydrocodone 5 mg-acetaminophen 325 mg tablet 1 - 2 tab PO Q8H PRN pain #7 tabs 05/13/23 [Rx Confirmed 05/22/24] Exam Exam Patient is in no acute distress and is cooperative with the examination today. Patient has a normal mood and affect. Breathing is nonlabored. In no respiratory distress. Bilateral extremities were evaluated and demonstrates sensation intact to light touch. Palpable pedal pulses are present. No significant edema is present. Skin demonstrates lesions and open wounds Patient has significant pain with palpation laterally. Range of motion is 5 to 100 degrees X-rays from [facility] view are reviewed this demonstrates lateral joint space narrowing Assessment and Plan Problem List (1) Arthritis of both knees: Status: Acute Plan: 62-year-old female with bilateral knee osteoarthritis. She has failed conservative treatment. She is previously done well with cortisone injections and she would like knee cortisone injections today. She is not an operative candidate due to the lymphedema. Lymphedema has improved however. Recommend knee cortisone injections as patient would like to proceed with conservative treatment at this time. The risks and benefits of the procedure were reviewed with the patient and patient gave verbal consent to continue with the procedure. Procedure: performed by Dr. Mitchell Using sterile technique the Bilateral knees were thoroughly prepped with alcohol, and approximately 1 cc of Kenalog 40 mg/mL and 4 cc of 1% lidocaine was injected into each knee without resistance into the medial tibial femoral joint space. The patient tolerated the procedure. Office Procedures GNS Level of Care Nursing/Assessment Patient Status: Established Patient Nursing Assessment/Reassesment: Medication Reconciliation, Update PMH in EMR and Vital Signs Coordination of Care: Complex Care and Chronic Disease 1-5, Education Complex Pt/Fam, Consent,records obtained, informed consent, Results/Orders obtained and Staff clarify orders Established Patient Charge Established Patient Point Assignment: 95 Established Patient Point Charge: EP Level 3 (80-115) Surgical Proc/IM SQ injection Major Surgical Procedure: Yes (BILATERAL KNEE INJECTIONS ) Medication Given Medication Given Medication Given: Yes Route: Infiitration Medication Given Medication Given Medication Given: Yes Documented Dose Given: 2 Route: Infiitration Office Meds Xylocaine 10 mg/mL (1 %) injection solution Performing Provider: Bolivar Mitchell MD Performing Location: [facility] Administered by: Bolivar Mitchell MD on 05/22/24 16:06 Dose Route Admin Location Dispensed Lot Number Expiration Date [facility] [employer] 40 mL Infiltration 40 mL [id number] [employer] triamcinolone acetonide 40 mg/mL suspension for injection Performing Provider: Bolivar Mitchell MD Performing Location: [facility] Administered by: Bolivar Mitchell MD on 05/22/24 16:06 Dose Route Admin Location Dispensed Lot Number Expiration Date [facility] [employer] 80 mg intra-articular 2 mL [id number] [employer] MA Intake Visit Data Collection New Patient or Established: Established Patient (seen at [facility] within 3 years) Reason for Visit:: REQ INJECTION Seen by Clinical Staff ONLY (RN/MA): No Enterostomal Therapy Nurse Required: No PCP or OBGYN visit in last 3 months: Yes Hx Now: No Do You Feel Safe at Home: Yes Authorities Contacted: N/A Questionairres Past Medical History Past Medical History Have you ever been diagnosed with any of the following: Neurological Problems Peripheral Neuropathy: Yes Cardiology Problems Hypercholesterolemia: Yes Congestive Heart Failure: No Hypertension: Yes Respiratory Problems Chronic Obstructive Pulmonary Disease (COPD): Yes Asthma: Yes Smoking: Yes Smoking Cessation Counseling: Yes Stomache/Intestinal Problems Hiatal Hernia: Yes Obesity: Yes Genital/Urinary Problems Renal Disease: No Musculoskeletal Problems Arthritis: Yes Fibromyalgia: Yes Endocrine Problems Diabetes Mellitus Type 1: No Diabetes Mellitus Type 2: Yes Blood Problems Sickle Cell Disease: No Subjective Visit Visit for: follow up visit and injections Immunization / Flu Flu Vaccine in the Last 12 Months: No Flu Vaccine Exclusion Criteria: No Exclusion Criteria History of Present Illness Chief complaint: bilateral knee injections Patient has bilateral knee pain and significant arthritis. She has lymphedema of bilateral knees and thus cannot get total knee replacement as possible candidate. The injections have provided some relief and she would like new injections today. She has had about 3 months of relief with the injection Pain Pain level (0-10): 10 Pain duration: CONSTANT Pain location: inside (medial) Pain quality: sharp Pain timing: increases with activity Associated signs & symptoms: weakness Ambulatory data Ambulatory device: none Treatments Improvement with previous injections: No Improvement with PT: No Improvement with NSAIDS: no Review of Systems Review of Systems: All systems negative unless otherwise noted in HPI.
== END 2024-05-22 15:49 | disposition home or self-care (01) ==
LOC: HODSRG 14:50
PROVIDERS: Supervising Provider Orthopaedic Surgery Adult Reconstructive Orthopaedic Surgery; Visit Provider Orthopaedic Surgery Adult Reconstructive Orthopaedic Surgery
DX: M17.0 Bilateral primary osteoarthritis of knee (principal); M25.562 Pain in left knee; M25.561 Pain in right knee; I10 Essential (primary) hypertension; E78.00 Pure hypercholesterolemia, unspecified; I89.0 Lymphedema, not elsewhere classified; J44.9 Chronic obstructive pulmonary disease, unspecified; E11.9 Type 2 diabetes mellitus without complications
CPT/HCPCS: 20610; 99213; J3301; J3490; G0463

== ENCOUNTER 2024-08-20 13:12 | Outpatient (AMB) | payer MEDICARE, SELFPAY ==
--- NOTE | 2024-08-20 13:08 | ORTHONT_ITS ---
Vital signs 08/20/24 13:18 Height 1.68 m Height Method Stated Weight 93.015 kg Weight Measurement Method Standing Scale BMI 33.0 BP 145/97 H Blood Pressure Source Automatic Cuff Blood Pressure Location Left Upper Arm Position Sitting Respiration 18 Pulse 119 H Pulse Source Monitor Temp 97.3 F Temp Source Temporal Artery Scan Pulse Oximetry (%) 98 Oxygen Delivery Method Room Air Med/Allergies Allergies & Medications Allergies metoclopramide (From Reglan) Allergy (Verified 08/20/24 13:19) Shakiness Medication Reconciliation hydrocodone 10 mg-acetaminophen 325 mg tablet 1 tab PO Q4H PRN Pain #0 tabs 02/11/14 [History Confirmed 08/20/24] omeprazole 20 mg tablet,delayed release 20 mg PO QDAY 12/07/18 [History Confirmed 08/20/24] calcium citrate 150 mg capsule 150 mg PO QAM 08/24/20 [History Confirmed 08/20/24] chlorthalidone 50 mg tablet 50 mg PO QDAY 08/24/20 [History Confirmed 08/20/24] citalopram 20 mg tablet (Celexa) 20 mg PO QDAY 08/24/20 [History Confirmed 08/20/24] cyclobenzaprine 10 mg tablet 10 mg PO BID PRN Spasms 08/24/20 [History Confirmed 08/20/24] docusate sodium 100 mg capsule (Colace) 100 mg PO QDAY #30 caps 08/24/20 [Rx Confirmed 08/20/24] docusate sodium 250 mg capsule 250 mg PO BID PRN Constipation 08/24/20 [History Confirmed 08/20/24] ferrous sulfate 325 mg (65 mg iron) tablet 325 mg PO BID #120 tabs 08/24/20 [Rx Confirmed 08/20/24] gabapentin 600 mg tablet 600 mg PO TID 08/24/20 [History Confirmed 08/20/24] multivitamin 1 tab PO QAM 08/24/20 [History Confirmed 08/20/24] ondansetron 4 mg disintegrating tablet 4 mg PO Q6H PRN Nausea 08/24/20 [History Confirmed 08/20/24] phentermine 37.5 mg capsule 37.5 mg PO QAM 08/24/20 [History Confirmed 08/20/24] pregabalin 75 mg capsule (Lyrica) 75 mg PO BID PRN Pain 08/24/20 [History Confirmed 08/20/24] ropinirole 0.5 mg tablet 0.5 mg PO QDAY 08/24/20 [History Confirmed 08/20/24] ibuprofen 800 mg tablet 800 mg PO TID PRN pain #30 tabs 08/03/21 [Rx Confirmed 08/20/24] hydrocodone 5 mg-acetaminophen 325 mg tablet 1 tab PO Q6H PRN pain #10 tabs 03/22/22 [Rx Confirmed 08/20/24] amoxicillin 500 mg-potassium clavulanate 125 mg tablet (Augmentin) 1 tab PO BID #20 tabs 08/07/22 [Rx Confirmed 08/20/24] hydrocodone 5 mg-acetaminophen 325 mg tablet 1 - 2 tab PO Q8H PRN pain #7 tabs 05/13/23 [Rx Confirmed 08/20/24] Exam Exam Patient is in no acute distress and is cooperative with the examination today. Patient has a normal mood and affect. Breathing is nonlabored. In no respiratory distress. Bilateral extremities were evaluated and demonstrates sensation intact to light touch. Palpable pedal pulses are present. No significant edema is present. Skin demonstrates lesions and open wounds Patient has significant pain with palpation laterally. Range of motion is 5 to 100 degrees X-rays from [facility] are reviewed this demonstrates lateral joint space narrowing Assessment and Plan Problem List (1) Arthritis of both knees: Status: Acute Plan: 62-year-old female with bilateral knee osteoarthritis. She has failed conservative treatment. She is previously done well with cortisone injections and she would like knee cortisone injections today. She is not an operative can didate due to the lymphedema. Lymphedema has improved however. Recommend knee cortisone injections as patient would like to proceed with conservative treatment at this time. The risks and benefits of the procedure were reviewed with the patient and patient gave verbal consent to continue with the procedure. Procedure: performed by Dr. Mitchell Using sterile technique the Bilateral knees were thoroughly prepped with alcohol, and approximately 1 cc of Kenalog 40 mg/mL and 4 cc of 1% lidocaine was injected into each knee without resistance into the medial tibial femoral joint space. The patient tolerated the procedure. Advanced Care Planning Discussion Advance care planning discussed with:: patient Office Procedures GNS Level of Care Nursing/Assessment Patient Status: Established Patient Nursing Assessment/Reassesment: Medication Reconciliation, Update PMH in EMR and Vital Signs Coordination of Care: Complex Care and Chronic Disease 1-5, Consent,records obtained, informed consent, Education Simp Pt/Fam, Results/Orders obtained and Staff clarify orders Established Patient Charge Established Patient Point Assignment: 90 Established Patient Point Charge: EP Level 3 (80-115) Surgical Proc/IM SQ injection Major Surgical Procedure: Yes (BILATERAL KNEE INJECTION) Medication Given Medication Given Medication Given: Yes Documented Dose Given: 8 Route: Infiitration Medication Given Medication Given Medication Given: Yes Documented Dose Given: 2 Route: Infiitration Office Meds Xylocaine 10 mg/mL (1 %) injection solution Performing Provider: Bolivar Mitchell MD Performing Location: [facility] Administered by: Bolivar Mitchell MD on 08/20/24 13:26 Dose Route Admin Location Dispensed Lot Number Expiration Date [facility] [employer] Super[employer] 40 mL Infiltration 40 mL [id number] 11/03/27 66278-733-84 [facility] triamcinolone acetonide 40 mg/mL suspension for injection Performing Provider: Bolivar Mitchell MD Performing Location: [facility] Administered by: Bolivar Mitchell MD on 08/20/24 13:26 Dose Route Admin Location Dispensed Lot Number Expiration Date [place] [employer] Super[employer] 80 mg intra-articular 2 mL [id number] 03/04/26 0326-3891-58 [employer] Intake Visit Data Collection New Patient or Established: Established Patient (seen at [facility] within 3 years) Reason for Visit:: RT KNEE FU INJECTION Seen by Clinical Staff ONLY (RN/MA): No 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 PCP or OBGYN visit in last 3 months: Yes Hx Now: No Do You Feel Safe at Home: Yes Authorities Contacted: N/A Questionairres Past Medical History Past Medical History Have you ever been diagnosed with any of the following: Neurological Problems Peripheral Neuropathy: Yes Cardiology Problems Hypercholesterolemia: Yes Congestive Heart Failure: No Hypertension: Yes Respiratory Problems Chronic Obstructive Pulmonary Disease (COPD): Yes Asthma: Yes Smoking: Yes Smoking Cessation Counseling: Yes Stomache/Intestinal Problems Hiatal Hernia: Yes Obesity: Yes Genital/Urinary Problems Renal Disease: No Musculoskeletal Problems Arthritis: Yes Fibromyalgia: Yes Endocrine Problems Diabetes Mellitus Type 1: No Diabetes Mellitus Type 2: Yes Blood Problems Sickle Cell Disease: No Subjective Visit Visit for: follow up visit and knee (RIGHT KNEE ) Immunization / Flu Flu Vaccine in the Last 12 Months: Yes Flu Vaccine Exclusion Criteria: Already Received History of Present Illness Chief complaint: bilateral knee injections Patient has bilateral knee pain and significant arthritis. She has lymphedema of bilateral knees and thus cannot get total knee replacement as possible candidate. The injections have provided some relief and she would like new injections today. She has had about 3 months of relief with the injection Personal History Red flag PMH: none Pain Pain level (0-10): 9 Pain duration: 3 DAYS Pain location: anterior Pain quality: sharp, aching and shocking Pain timing: night and increases with activity Associated signs & symptoms: stiffness Ambulatory data Ambulatory device: none Walking distance (minutes): 1 Treatments Number of previous injections: 3 Improvement with previous injections: No Number of Physical Therapy sessions: 0 Improvement with PT: No Improvement with NSAIDS: n/a Review of Systems Review of Systems: All systems negative unless otherwise noted in HPI.
[2024-08-20 13:18] VITALS: BP 145/97; PULSE 119; RESP 18; TEMP 36.3; O2SAT 98; BMI 33.0
== END 2024-08-20 13:28 | disposition home or self-care (01) ==
PROVIDERS: PCP Family Medicine; Referring Provider Family Medicine; Supervising Provider Orthopaedic Surgery Adult Reconstructive Orthopaedic Surgery; Visit Provider Orthopaedic Surgery Adult Reconstructive Orthopaedic Surgery
DX: M17.0 Bilateral primary osteoarthritis of knee (principal); M25.562 Pain in left knee; M25.561 Pain in right knee; I10 Essential (primary) hypertension; E78.00 Pure hypercholesterolemia, unspecified; J44.9 Chronic obstructive pulmonary disease, unspecified; E11.9 Type 2 diabetes mellitus without complications
CPT/HCPCS: 20610; 99213; J3301; J3490; G0463

== ENCOUNTER 2024-11-03 10:53 | Inpatient (IN) | payer MEDICARE, MEDICAID, SELFPAY ==
[2024-11-03 11:19] VITALS: BP 130/85; PULSE 120; RESP 18; TEMP 36.6; O2SAT 97
--- NOTE | 2024-11-03 11:22 | PD.EDRME ---
Rapid Medical Screening Exam [facility] Arrival date/time: 11/03/24 10:53 64-year-old female with no known medical history presents to the emergency room with a chief complaint of a cat bite to his left ankle. This bite occurred 4 days ago and since then the patient has developed severe swelling, tenderness, and erythema to the area I have greeted and performed a focused initial assessment of this patient. A comprehensive ED assessment and evaluation of the patient, analysis of all test results, and completion of the medical decision making process will be conducted by additional ED providers. Chief Complaint: Extremity Injury, Lower Time Seen by Provider: 11/03/24 11:10 Vital signs: Vital Signs Temperature 97.9 F 11/03/24 11:19 Pulse Rate 120 H 11/03/24 11:19 Respiratory Rate 18 11/03/24 11:19 Blood Pressure 130/85 H 11/03/24 11:19 Pulse Oximetry (%) 97 11/03/24 11:19 Oxygen Delivery Method Room Air 11/03/24 11:19 Vital signs reviewed by provider: Yes
[2024-11-03] MEDS: HYDROcodone/APAP 5/325 TABLET 1 TAB PO (11:43)
[2024-11-03 12:17] LABS: Lactate (Lactic Acid) 1.1 mMol/L (0.4-2.0)
[2024-11-03 12:31] LABS: Basophils # (Auto) 0.0 Thou/mm3 (0.0-0.2); Basophils % (Auto) 0 % (0-2.5); Eosinophils # (Auto) 0.0 Thou/mm3 (0.0-0.5); Eosinophils % (Auto) 0 % (0-10); Hematocrit 32.6 % (36.0-46.0); Hemoglobin 10.0 g/dL (12.0-16.0); Immature Granulocytes Auto 0.03 Thou/mm3 (0.00-0.00); Lymphocytes # (Auto) 2.2 Thou/mm3 (1.0-4.8); Lymphocytes % (Auto) 20 % (10-50); Mean Corpuscular HGB Conc 30.7 g/dl (31.0-37.0); Mean Corpuscular Hemoglobin 23.7 pg (25.0-35.0); Mean Corpuscular Volume 77 fL (80-100); Monocytes # (Auto) 1.2 Thou/mm3 (0.0-0.8); Monocytes % (Auto) 11 % (0-12); Neutrophils # (Auto) 7.4 Thou/mm3 (1.8-7.7); Neutrophils % (Auto) 68 % (37-80); Nucleated Red Blood Cell # 0.00 Thou/mm3 (0.00-0.00); Nucleated Red Blood Cell % 0 /100 WBC (0); Platelet Count 321 Thou/mm3 (140-440); RDW Standard Deviation 48.4 fL (36.4-46.3); Red Blood Count 4.22 Miln/mm3 (4.00-5.20); White Blood Count 10.9 Thou/mm3 (3.6-11.0)
[2024-11-03] MEDS: PIPER/TAZO 3.375 GM PREMIX 3.375 GM/50 ML BAG IV (12:50)
[2024-11-03 12:54] VITALS: BMI 35.2
[2024-11-03 12:57] LABS: Alanine Aminotransferase 21 U/L (10-49); Albumin, Serum 4.3 gm/dL (3.4-4.8); Albumin/Globulin Ratio 1.4 (1.2-2.2); Alkaline Phosphatase 122 U/L (46-116); Anion Gap 7 (7-16); Aspartate Amino Transferase 23 U/L (0-34); BUN/Creatinine Ratio 14 Ratio (12-20); Bilirubin,Total 0.3 mg/dL (0.3-1.2); Blood Urea Nitrogen 11 mg/dL (9-23); Calcium 9.4 mg/dL (8.3-10.6); Calcium (Corrected) 9.4 mg/dL (8.5-10.1); Carbon Dioxide 24.3 mMol/L (20.0-31.0); Chloride 106 mMol/L (98-107); Creatinine (Component) 0.8 mg/dL (0.6-1.3); Estimated Creatinine Clearance 83.2 mL/min (>60); Globulin 3.0 gm/dL (2.3-3.5); Glucose 120 mg/dL (74-106); Osmolality,Calculated 274 (275-295); Potassium 4.0 mMol/L (3.4-5.1); Procalcitonin < 0.04 ng/ml (0.0-0.49); Sodium 137 mMol/L (136-145); Total Protein 7.3 gm/dL (5.7-8.2); eGFR > 60 See Note
[2024-11-03 13:00] VITALS: BP 122/70; PULSE 120; RESP 16; TEMP 36.9; O2SAT 98
[2024-11-03] MEDS: ONDANSETRON INJ 2 MG/ML INJ 2 ML 4 MG IVP (13:06)
[2024-11-03] MEDS: MORPHINE SULF INJ 10 MG/ML VIAL 4 MG IVP (13:07)
[2024-11-03 17:37] VITALS: BP 154/84; PULSE 110; RESP 20; TEMP 37.1; O2SAT 96
[2024-11-03 17:58] LABS: Collection Type, Urine Clean Catch
[2024-11-03 18:19] LABS: Bilirubin,Urine Negative (Negative); Blood,Urine Negative (Negative); Clarity,Urine Clear (Clear/Hazy); Color,Urine Yellow (Lt Yel-Yel); Glucose, Urine Negative (Negative); Ketones,Urine Negative (Negative); Leukocyte Esterase,Urine Negative (Negative); Nitrite,Urine Negative (Negative); PH,Urine 6.0 (5.0-7.0); Protein,Urine Negative (Neg - Trace); RBC,Urine 1 /hpf (0-3); Specific Gravity,Urine 1.022 (1.001-1.035); Squamous Epithelial Cell,Urine 1 /hpf (0-5); Urobilinogen,Urine Negative mg/dL (0.0-1.0); WBC,Urine 1 /hpf (0-5)
[2024-11-03 19:47] VITALS: BP 123/85; PULSE 109; RESP 18; TEMP 37.1; O2SAT 94
--- NOTE | 2024-11-03 20:53 | EDNOTE_ITS ---
Lower Extremity Injury RME/HPI General Chief Complaint: Extremity Injury, Lower Stated Complaint: RLL SWELLING/REDNESS/PAIN 02/12 Time Seen by Provider: 11/03/24 11:10 Arrival date/time: 11/03/24 10:53 64-year-old female with a past medical history of hypertension, lymphedema of the left lower extremity, and GERD presents to the ED with a complaint of pain and redness to her left lower extremity after her cat scratched her in the medial ankle area 4 days ago. She denies a cat bite. Very early this morning she woke up with significant pain and mild redness from the [place] distally to the foot. RME / HPI RME / HPI Narrative: 11/03/24 10:53 64-year-old female with no known medical history presents to the emergency room with a chief complaint of a cat bite to his left ankle. This bite occurred 4 days ago and since then the patient has developed severe swelling, tenderness, and erythema to the area I have greeted and performed a focused initial assessment of this patient. A comprehensive ED assessment and evaluation of the patient, analysis of all test results, and completion of the medical decision making process will be conducted by additional ED providers. Related Data Home Medications ?Medication ?Instructions ?Recorded ?Confirmed hydrocodone 10 mg-acetaminophen 1 tab PO Q4H PRN Pain #0 tabs 02/11/14 08/20/24 325 mg tablet omeprazole 20 mg tablet,delayed 20 mg PO QDAY 12/07/18 08/20/24 release calcium citrate 150 mg capsule 150 mg PO QAM 08/24/20 08/20/24 chlorthalidone 50 mg tablet 50 mg PO QDAY 08/24/20 citalopram 20 mg tablet (Celexa) 20 mg PO QDAY 2 1 08/20/24 cyclobenzaprine 10 mg tablet 10 mg PO BID PRN Spasms 0 08/24/20 08/20/24 docusate sodium 250 mg capsule 250 mg PO BID PRN Const ipation 08/24/20 08/20/24 gabapentin 600 mg tablet 600 mg PO TID 08/24/2008/20 multivitamin 1 tab PO QAM 08/24/20 ondansetron 4 mg disintegrating 4 mg PO Q6H PRN Nausea 08/24/20 08/20/24 tablet phentermine 37.5 mg capsule 37.5 mg PO QAM 08/24/20 pregabalin 75 mg capsule (Lyrica) 75 mg PO BID PRN Robin n 08/24/20 08/20/24 ropinirole 0.5 mg tablet 0.5 mg PO QDAY 08/24/2008/04 Previous Rx's ?Medication ?Instructions ?Recorded docusate sodium 100 mg capsule 100 mg PO QDAY #30 caps 08/24/20 (Colace) ferrous sulfate 325 mg (65 mg 325 mg PO BID #120 tabs 08/24/20 iron) tablet ibuprofen 800 mg tablet 800 mg PO TID PRN pain #30 t abs 08/03/21 hydrocodone 5 mg-acetaminophen 325 1 tab PO Q6H PRN pa in #10 tabs 03/22/22 mg tablet amoxicillin 500 mg-potassium 1 tab PO BID #20 tabs 08/26 clavulanate 125 mg tablet (Augmentin) hydrocodone 5 mg-acetaminophen 325 1 - 2 tab PO Q8H AL N pain #7 tabs 05/13/23 mg tablet Allergies Allergy/AdvReac Type Severity Reaction Status Date / Time metoclopramide (From Reglan) Allergy Shakiness Verified 11/03/24 10:57 ED Exam Narrative Physical exam: Alert and oriented, nontoxic-appearing 64-year-old female, mild to moderate acute pain distress. Initial vital signs blood pressure 130/85, pulse 120, respirations 18 nonlabored, temperature 97.9, O2 sat 97% on room air. Lungs are clear, regular rate and rhythm. Abdomen is obese, soft and nontender. Left lower extremity with previously known lymphedema. There is mild erythema, warmth and tenderness noted to the mid lower leg, circumferential in nature, with possible increased swelling. A scratch is noted to the medial portion of her left ankle. Course Course Course Narrative: Labs reveal a normal white count of 10.9, mildly low H&H of 10.0/33.6 with normal platelets of 321. Lactic acid is normal at 1.1, procalcitonin is normal at less than 0.04. Chemistry panel is normal with the exception of a glucose of 120. Urinalysis is negative for infection. Patient was given Zosyn 3.375 mg upon initial arrival to [facility]. She was also given hydrocodone 5 mg p.o. She was also given morphine 4 mg IVP and Zofran IVP. Later she required additional pain medications. She was given Dilaudid 1 mg IVP and Ativan 1 mg IVP. In addition to Zosyn, she was also started on vancomycin 1 g IV. Orders Category Date Time Status Insert IV STAT Care 11/03/24 11:24 Active Blood Culture (Lab) Stat Lab 11/03/24 12:01 Received CBC Stat Lab 11/03/24 12:01 Completed CMP [Comprehensive Metabolic Panel] Stat Lab 11/03/24 11:22 Completed Lactate (Lactic Acid) Stat Lab 11/03/24 12:01 Completed Procalcitonin Stat Lab 11/03/24 11:22 Completed UA [Urinalysis] Stat Lab 11/03/24 17:50 Completed Urine Culture Stat Lab 11/03/24 17:50 Received HYDROcodone*/APAP 5/325 [Cowden 5/325] Med 11/03/24 11:24 Discontinued 1 tab PO X1 ONE HYDROmorphone INJ [Dilaudid Inj] Med 11/03/24 20:39 Discontinued 1 mg IVP X1 ONE LORazepam [Ativan Inj] Med 11/03/24 20:39 Discontinued 1 mg IVP X1 ONE Morphine Inj Med 11/03/24 12:54 Discontinued 4 mg IVP X1 ONE Ondansetron Inj [Zofran Inj] Med 11/03/24 12:54 Discontinued 4 mg IVP X1 ONE Piper/Tazo 3.375 gm Premix [Zosyn] Med 11/03/24 11:24 Discontinued 3.375 gm in 50 ml IV X1 Vancomycin Inj 1,000 mg Med 11/03/24 22:10 Ordered Sodium Chloride 0.9% 250 ml [Ns] 250 ml IV X1 Vital Signs Vital signs: Vital Signs Temperature 97.9 F 11/03/24 11:19 Pulse Rate 120 H 11/03/24 11:19 Respiratory Rate 18 11/03/24 11:19 Blood Pressure 130/85 H 11/03/24 11:19 Pulse Oximetry (%) 97 11/03/24 11:19 Oxygen Delivery Method Room Air 11/03/24 11:19 Extremity Injury, Lower MDM Narrative MDM Narrative:: 64-year-old female with a past medical history of hypertension, lymphedema of the left lower extremity, and GERD presents to the ED with a complaint of pain and redness to her left lower extremity after her cat scratched her in the medial ankle area 4 days ago. She denies a cat bite. Very early this morning she woke up with significant pain and mild redness from the [place] distally to the foot. Alert and oriented, nontoxic-appearing 64-year-old female, mild to moderate acute pain distress. Initial vital signs blood pressure 130/85, pulse 120, respirations 18 nonlabored, temperature 97.9, O2 sat 97% on room air. Lungs are clear, regular rate and rhythm. Abdomen is obese, soft and nontender. Left lower extremity with previously known lymphedema. There is mild erythema, warmth and tenderness noted to the mid lower leg, circumferential in nature, with possible increased swelling. A scratch is noted to the medial portion of her left ankle. Labs reveal a normal white count of 10.9, mildly low H&H of 10.0/33.6 with normal platelets of 321. Lactic acid is normal at 1.1, procalcitonin is normal at less than 0.04. Chemistry panel is normal with the exception of a glucose of 120. Urinalysis is negative for infection. Patient was given Zosyn 3.375 mg upon initial arrival to [facility]. She was also given hydrocodone 5 mg p.o. She was also given morphine 4 mg IVP and Zofran IVP. Later she required additional pain medications. She was given Dilaudid 1 mg IVP and Ativan 1 mg IVP. In addition to Zosyn, she was also started on vancomycin 1 g IV. Discussed case with Dr. Hinojosa who feels the patient needs to be admitted. Contacted hospitalist service who came into evaluate the patient for admission. Patient data External records reviewed:: None Clinical information provided by:: patient Social determinants that could affect healthcare access:: none Patient has the following chronic illnesses:: Hypertension and chronic left lower extremity lymphedema. How is presenting disease/condition affected by chronic disease/condition?: exacerbated by Evaluation data The following diagnostics were reviewed and interpreted by me:: lab results Interpretation Summary: Labs reveal a normal white count of 10.9, mildly low H&H of 10.0/33.6 with normal platelets of 321. Lactic acid is normal at 1.1, procalcitonin is normal at less than 0.04. Chemistry panel is normal with the exception of a glucose of 120. Urinalysis is negative for infection. Medications / Prescriptions Medications or Prescriptions considered but not ordered:: N/A Medication administrations:: Medication Administration History Vancomycin HCl 1,000 mg/ (Sodium Chloride) 250 mls @ 150 mls/hr IV X1 ONE Stop: 11/03/24 23:49 Discontinued Medications Hydrocodone Bitart/Acetaminophen (Hydrocodone/Apap 5/325 Tablet) 1 tab PO X1 ONE Stop: 11/03/24 11:25 Last Admin: 11/03/24 11:43 Dose: 1 tab Documented By: WAYNE Hydromorphone HCl (Hydromorphone Inj 2 Mg/Ml Vial) 1 mg IVP X1 ONE Stop: 11/03/24 20:40 Piperacillin/Tazobactam/Dextrose (Zosyn) 3.375 gm in 50 mls @ 100 mls/hr IV X1 ONE Stop: 11/03/24 11:53 Last Infusion: 11/03/24 13:20 Dose: Infused Documented By: Admin: 11/03/24 12:50 Dose: 100 mls/hr Documented By: WING Lorazepam (Lorazepam 2 Mg/Ml Vial) 1 mg IVP X1 ONE Stop: 11/03/24 20:40 Last Admin: 11/03/24 20:55 Dose: 1 mg Documented By: COLE Morphine Sulfate (Morphine Sulf Inj 10 Mg/Ml Vial) 4 mg IVP X1 ONE Stop: 11/03/24 12:55 Last Admin: 11/03/24 13:07 Dose: 4 mg Documented By: WING Ondansetron HCl (Ondansetron Inj 2 Mg/Ml Inj 2 Ml) 4 mg IVP X1 ONE; Protocol Stop: 11/03/24 12:55 Last Admin: 11/03/24 13:06 Dose: 4 mg Documented By: WING Hydrocodone 5 mg p.o., Zosyn 3.375 g IV, morphine 4 mg IVP, Zofran 4 mg IVP, Dilaudid 1 mg IVP, Ativan 1 mg IVP, vancomycin 1 g IV Consultations Consultation(s) initiated? (list below): Yes Consultation #1 (Physician, Specialty, Details): Discussed case with hospitalist service who agrees to evaluate the patient for admission. Diagnosis Extremity Injury, Lower Differential Diagnosis: other (Left lower extremity cellulitis, cat scratch disease, lymphedema) Most likely diagnosis given after review of the tests above:: All of the above Admission Indicated Admission indicated?: indicated Explain why admission is indicated or not indicated:: Patient will require IV antibiotics for control of the circumferential cellulitis of the left lower extremity. Admission Request Was there a request for admission?: Yes Admission Attestation Admission request attestation: Discussed case with Kraft from Hospitalist service regarding admission. Discussed patients ED course, exam findings, lab results. The Hospitalist agrees to evaluate the patient for admission. Disposition Plan Disposition Plan: Admit Discharge Plan Plan Patient Disposition: Admit Acute Care w/in Hospital Discharge Disposition comment: Stable Prescriptions/Referrals Prescriptions/Med Rec: No Action hydrocodone-acetaminophen 10-325 mg Tablet 1 tab PO Q4H PRN (Reason: Pain) Qty: 0 omeprazole 20 mg tablet,delayed release (DR/EC) 20 mg PO QDAY Patient Comments: TAKE TWO TABLETS BY MOUTH EVERY DAY HEARTBURN GASTRIC ACIDITY multivitamin Tablet 1 tab PO QAM cyclobenzaprine [Flexeril] 10 mg Tablet 10 mg PO BID PRN (Reason: Spasms) citalopram [Celexa] 20 mg Tablet 20 mg PO QDAY ondansetron [Zofran ODT] 4 mg Tablet,Disintegrating 4 mg PO Q6H PRN (Reason: Nausea) pregabalin [Lyrica] 75 mg Capsule 75 mg PO BID PRN (Reason: Pain) gabapentin 600 mg Tablet 600 mg PO TID chlorthalidone 50 mg Tablet 50 mg PO QDAY ropinirole [Requip] 0.5 mg Tablet 0.5 mg PO QDAY calcium citrate 150 mg Capsule 150 mg PO QAM docusate sodium 250 mg Capsule 250 mg PO BID PRN (Reason: Constipation) phentermine 37.5 mg Capsule 37.5 mg PO QAM ferrous sulfate 325 mg (65 mg iron) tablet 325 mg PO BID Qty: 120 0RF Rx Instructions: Be sure to take your iron pills on an empty stomach, with orange juice docusate sodium [Colace] 100 mg capsule 100 mg PO QDAY Qty: 30 0RF ibuprofen 800 mg tablet 800 mg PO TID PRN (Reason: pain) Qty: 30 0RF amoxicillin-pot clavulanate [Augmentin] 500-125 mg tablet 1 tab PO BID Qty: 20 0RF hydrocodone-acetaminophen 5-325 mg tablet 1 - 2 tab PO Q8H MDD 6 tablets PRN (Reason: pain) Qty: 7 0RF hydrocodone-acetaminophen 5-325 mg tablet 1 tab PO Q6H MDD 3 PRN (Reason: pain) Qty: 10 0RF Referrals: No Primary/Family,Physician [Primary Care Provider] - In 1 week Problem List Clinical Impression: Cellulitis, Cat scratch of left lower leg, Lymphedema Patient/Caregiver Discharge Instructions Print Language: Upper Sorbian Stand Alone Forms: [employer] Award Info., Patient Portal Info Letter PA/BOARD RUNNER Supervising Physician PA/BOARD RUNNER Supervising Physician: Dr. Hinojosa
[2024-11-03] MEDS: LORazepam 2 MG/ML VIAL 1 MG IVP (20:55)
--- NOTE | 2024-11-03 22:34 | XR_ITS ---
Examination: Venous duplex lower extremity sonogram, bilateral. Date and time of exam: November 03, 2024 1124 hours INDICATIONS: Left leg swelling redness and pain 5 days Technique: Multiple sonographic images of the deep venous system have been obtained. B-mode/2-D grayscale imaging of vascular structures and Doppler spectral analysis (waveforms) and color performed Both legs are examined. Findings: Deep venous systems do not demonstrate abnormal echogenicity. All visualized deep veins exhibit compressibility. All visualized deep veins exhibit augmentation. Impression: Negative for deep vein thrombosis
--- NOTE | 2024-11-03 22:52 | ESHP_ITS ---
<Statement entered by Brandan Boyle MD - 11/04/24 03:09> I have personally seen and examined the patient. I agree with the resident's assessment and plan as documented below. Brandan Boyle, PGY-2 Internal Medicine - [facility] Documentation for date of: 11/03/24 HPI History of Present Illness Chief complaint: pain History of present illness: Gertrude Norris is a 64F pmhx significant for DM, HTN and BLE lymphedema who presents with severe left lower leg pain. History collection limited due to extreme drowsiness, and often falls asleep mid-interview. Patient reports being scratched at her left inner ankle by a cat 4 days ago. Progressively, the pain and redness became worse spreading from ankle to mid-calf, prompting ED visit. States she has bilateral lower leg lymphedema due to abdominal hernia surgery. 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 Severe left leg pain to touch and on passive left ankle movement, but denies chest pain, SOB or fever. In ED, BP 130/85, WBC 10.9 wnl, lactic acid 1.1, glucose 120, UA neg for infection. In ED, given Zosyn, [place] 5, Zofran, morphine 4 mg, lorazepam 1 mg, and vanc was started. B/l venous doppler neg for DVT. Unable to obtain PMH, surgical, family or social history, allergies or medications due to drowsiness. Reports lives at home with son and is able to ambulate without assistance at baseline. Patient was admitted for further workup. Review of Systems Review of Systems Systems Reviewed: All systems reviewed, normal except as documented Exam Vital Signs Temp Pulse Resp BP Pulse Ox O2 Del Method 98.8 F 109 H 18 123/85 H 94 L Room Air 11/03/24 19:47 11/03/24 19:47 11/03/24 19:47 11/03/24 19:47 11/03/24 19:47 11/03/24 19:47 Narrative Exam General: AOx3, no acute distress, asleep HEENT: NC/AT, mucous membranes moist, bilateral sclera anicteric Cardiovascular: regular rate and rhythm, S1/S2 present, no murmurs appreciated Pulmonary: clear to auscultation bilaterally, no rales/rhonchi/wheezes Abdominal: soft, non-tender, non-distended, no rebound/guarding, bowel sounds present Extremities: - Lt le+ pitting edema, erythema from foot to below knee, warm to touch, extreme pain on dorsiflexion and plantarflexion, amuptated tip of Lt second toe, 1 cm scab under medial malleolus, pedal pulse 2+ - Rt le+ pitting edema, no erythema, pedal pulse 2+ Neuro CN II-XII grossly intact, no focal deficits, following commands Results: Labs 11/03/24 12:01 11/03/24 11:22 Labs: Short CBC 11/03/24 Range/Units 12:01 WBC 10.9 (3.6-11.0) Thou/mm3 Hgb 10.0 L (12.0-16.0) g/dL Hct 32.6 L (36.0-46.0) % Plt Count 321 (140-440) Thou/mm3 BMP 11/03/24 11:22 Sodium 137 Potassium 4.0 Chloride 106 Carbon Dioxide 24.3 BUN 11 Creatinine 0.8 Glucose 120 H Calcium 9.4 Liver Function 11/03/24 Range/Units 11:22 Total Bilirubin 0.3 (0.3-1.2) mg/dL AST 23 (0-34) U/L ALT 21 (10-49) U/L Alkaline Phosphatase 122 H (46-116) U/L Albumin 4.3 (3.4-4.8) gm/dL Urine 11/03/24 Range/Units 17:50 Urine Color Yellow (Lt Yel-Yel) Urine Clarity Clear (Clear/Hazy) Urine pH 6.0 (5.0-7.0) Ur Specific [place] 1.022 (1.001-1.035) Urine Protein Negative (Neg - Trace) Urine Glucose (UA) Negative (Negative) Quality Measures Quality Measures VTE prophylaxis Advance care planning discussed with:: patient Medications Home Medications and Allergies Home Medications ?Medication ?Instructions ?Recorded ?Confirmed ?Type hydrocodone 10 mg-acetaminophen 1 tab PO Q4H PRN Pain #0 tabs 02/11/14 08/20/24 History 325 mg tablet omeprazole 20 mg tablet,delayed 20 mg PO QDAY 12/07/18 08/20/24 History release calcium citrate 150 mg capsule 150 mg PO QAM 08/24/20 08/20/24 History chlorthalidone 50 mg tablet 50 mg PO QDAY 08/24/20 History citalopram 20 mg tablet (Celexa) 20 mg PO QDAY 1 08/20/24 History cyclobenzaprine 10 mg tablet 10 mg PO BID PRN Spasms 0 08/24/20 08/20/24 History docusate sodium 250 mg capsule 250 mg PO BID PRN Const ipation 08/24/20 08/20/24 History gabapentin 600 mg tablet 600 mg PO TID 08/24/2008/20 History multivitamin 1 tab PO QAM 08/24/20 History ondansetron 4 mg disintegrating 4 mg PO Q6H PRN Nausea 08/24/20 08/20/24 History tablet phentermine 37.5 mg capsule 37.5 mg PO QAM 08/24/20 History pregabalin 75 mg capsule (Lyrica) 75 mg PO BID PRN Robin n 08/24/20 08/20/24 History ropinirole 0.5 mg tablet 0.5 mg PO QDAY 08/24/2008/04 History furosemide 40 mg tablet 40 mg PO BID 11/04/24 History losartan 100 mg tablet 100 mg PO DAILY 11/04/2406/30 History Allergies Allergy/AdvReac Type Severity Reaction Status Date / Time metoclopramide (From Reglan) Allergy Shakiness Verified 11/03/24 10:57 Visit Medications Vancomycin HCl 1,000 mg/ (Sodium Chloride) 250 mls @ 150 mls/hr IV X1 ONE Stop: 11/03/24 23:49 Discontinued Medications Hydrocodone Bitart/Acetaminophen (Hydrocodone/Apap 5/325 Tablet) 1 tab PO X1 ONE Stop: 11/03/24 11:25 Last Admin: 11/03/24 11:43 Dose: 1 tab Hydromorphone HCl (Hydromorphone Inj 2 Mg/Ml Vial) 1 mg IVP X1 ONE Stop: 11/03/24 20:40 Piperacillin/Tazobactam/Dextrose (Zosyn) 3.375 gm in 50 mls @ 100 mls/hr IV X1 ONE Stop: 11/03/24 11:53 Last Infusion: 11/03/24 13:20 Dose: Infused Lorazepam (Lorazepam 2 Mg/Ml Vial) 1 mg IVP X1 ONE Stop: 11/03/24 20:40 Last Admin: 11/03/24 20:55 Dose: 1 mg Morphine Sulfate (Morphine Sulf Inj 10 Mg/Ml Vial) 4 mg IVP X1 ONE Stop: 11/03/24 12:55 Last Admin: 11/03/24 13:07 Dose: 4 mg Ondansetron HCl (Ondansetron Inj 2 Mg/Ml Inj 2 Ml) 4 mg IVP X1 ONE; Protocol Stop: 11/03/24 12:55 Last Admin: 11/03/24 13:06 Dose: 4 mg Assessment & Plan Plan Gertrude Norris is a 64F pmhx significant for DM, HTN and BLE lymphedema who is admitted for LLE cellulitis. # LLE cellulitis # B/l lymphedema Hx of cat scratch 4 days ago with progressive increase in pain and spreading redness. WBC 10.9 and lactic acid 1.1. B/l venous doppler neg for DVT. Unable to communicate if lymphedema is being treated or has been worked up. - s/p Zosyn and Vanc in ED - Pain scale regimen - F/u CBC, CMP, Lipid panel, TSH # DM Patient states she is a diabetic and is on medication, but unable to recall. Glucose 120 on admission. - SSI - F/u HbA1c Hospital management: Disposition: admit for abx Diet: cardiac DVT prophylaxis: heparin CODE STATUS: Full code Plan of care discussed with attending Dr. Perez, and PGY-2 Dr. Boyle. Yasemin Kraft, PGY-1 Attending Provider Attestation/Addendum Patient being admitted for left lower extremity cellulitis related to cat scratch, she will recieve IV antibiotics. Discussed with housestaff. I discussed with and supervised the resident physician who took care of this patient. I agree with the assessment and plan as above.
[2024-11-03] MEDS: Vancomycin Inj 1,000 MG in SODIUM CHLORIDE 0.9% 250 ML 250 ML 150 MG IV (23:25)
[2024-11-04] VITALS (9 sets, daily range): BP systolic 107–145; BP diastolic 67–94; PULSE 95–129; RESP 15–20; TEMP 36.2–37.1; O2SAT 93–96; BMI 34.0
[2024-11-04 06:06] LABS: Basophils # (Auto) 0.0 Thou/mm3 (0.0-0.2); Basophils % (Auto) 0 % (0-2.5); Eosinophils # (Auto) 0.0 Thou/mm3 (0.0-0.5); Eosinophils % (Auto) 1 % (0-10); Hematocrit 32.1 % (36.0-46.0); Hemoglobin 9.6 g/dL (12.0-16.0); Immature Granulocytes Auto 0.02 Thou/mm3 (0.00-0.00); Lymphocytes # (Auto) 2.0 Thou/mm3 (1.0-4.8); Lymphocytes % (Auto) 23 % (10-50); Mean Corpuscular HGB Conc 29.9 g/dl (31.0-37.0); Mean Corpuscular Hemoglobin 23.2 pg (25.0-35.0); Mean Corpuscular Volume 78 fL (80-100); Monocytes # (Auto) 1.5 Thou/mm3 (0.0-0.8); Monocytes % (Auto) 17 % (0-12); Neutrophils # (Auto) 5.2 Thou/mm3 (1.8-7.7); Neutrophils % (Auto) 59 % (37-80); Nucleated Red Blood Cell # 0.00 Thou/mm3 (0.00-0.00); Nucleated Red Blood Cell % 0 /100 WBC (0); Platelet Count 300 Thou/mm3 (140-440); RDW Standard Deviation 48.7 fL (36.4-46.3); Red Blood Count 4.13 Miln/mm3 (4.00-5.20); White Blood Count 8.7 Thou/mm3 (3.6-11.0)
[2024-11-04 06:52] LABS: Glucose Estimated Average 114 mg/dL (80-131); Hemoglobin A1C 5.6 % Hgb (4.8-6.0)
[2024-11-04 07:27] LABS: Alanine Aminotransferase 17 U/L (10-49); Albumin, Serum 3.8 gm/dL (3.4-4.8); Albumin/Globulin Ratio 1.4 (1.2-2.2); Alkaline Phosphatase 109 U/L (46-116); Anion Gap 6 (7-16); Aspartate Amino Transferase 18 U/L (0-34); BUN/Creatinine Ratio 19 Ratio (12-20); Bilirubin,Total 0.3 mg/dL (0.3-1.2); Blood Urea Nitrogen 13 mg/dL (9-23); Calcium 9.0 mg/dL (8.3-10.6); Calcium (Corrected) 9.2 mg/dL (8.5-10.1); Carbon Dioxide 25.5 mMol/L (20.0-31.0); Cardiac Risk Estimate 2.7 RATIO (3.7-5.6); Chloride 109 mMol/L (98-107); Cholesterol 96 mg/dL (132-200); Creatinine (Component) 0.7 mg/dL (0.6-1.3); Estimated Creatinine Clearance 93.5 mL/min (>60); Globulin 2.7 gm/dL (2.3-3.5); Glucose 93 mg/dL (74-106); HDL Cholesterol 36 mg/dL (40-60); LDL Cholesterol,Calculated 48 mg/dL (0-130); Osmolality,Calculated 279 (275-295); Potassium 4.0 mMol/L (3.4-5.1); Sodium 140 mMol/L (136-145); Thyroid Stimulating Hormone 0.69 uIU/mL (0.55-4.78); Total Protein 6.5 gm/dL (5.7-8.2); Triglycerides 61 mg/dL (30-150); eGFR > 60 See Note
[2024-11-04] MEDS: INSULIN LISPRO (AdmeLOG) 1 UNIT/0.01 ML UNIT SC ×2 (08:03→17:01)
[2024-11-04] MEDS: DOXYCYCLINE 100 MG TABLET PO ×2 (08:03→23:32)
[2024-11-04] MEDS: HEPARIN SOD INJ 5000 UNIT/ML VIAL SC (08:03)
--- NOTE | 2024-11-04 08:35 | EKG_ITS ---
[facility] Test Date: 2024-11-04 Pat Name: RADHA JORDAN [facility] Gender: Female Pattern Puncher: IBANFranny : 1960 Requested By: Iggy Ornelas Order Number: [id number] Reading MD: Iggy Ornelas Measurements Intervals [place] Rate: 116 P: PA: QRS: -21 QRSD: 100 T: 29 QT: 331 QTc: 460 Interpretive Statements ATRIAL FIBRILLATION WITH RAPID VENTRICULAR RESPONSE INFERIOR MYOCARDIAL INFARCTION , PROBABLY OLD ANTEROSEPTAL MYOCARDIAL INFARCTION , OF INDETERMINATE AGE Compared to ECG 05/21/2023 14:55:53 No significant changes /store/S0/[id number].pdf
--- NOTE | 2024-11-04 08:47 | PC.NURSE ---
notified Dr. connor of pt in a fib at 129. pt asymptomatic and denies chest pain or any SOB. Dr at bedside evaluating pt. new orders received.
[2024-11-04] MEDS: LOSARTAN POTASSIUM 25 MG TABLET 100 MG PO (09:44)
[2024-11-04] MEDS: CITALOPRAM 20 MG TABLET PO (09:48)
--- NOTE | 2024-11-04 10:14 | PC.SS ---
Patient Gertrude Norris is a 64 Year old female admitted for Left Lower Leg Cellulitis. SS met with patient at bedside to discuss discharge plan. patient reports she lives at home with her son, Teodoro Norris who is patient's surrogate decision maker, [phone]. Patient reports she is able to complete all ADL's independently and utilizes a Rollator walker to assist with ambulation. Patient's PCP is Manpreet Meyers. Choice of pharmacy is [facility]. At time of discharge patient will return back home. Discharge plan: Home Next of kin: Son, Teodoro Norris
--- NOTE | 2024-11-04 12:06 | PC.SS ---
SS follow up note; Patient is getting IV ABX. Patient will discharge back home when medically cleared.
[2024-11-04] MEDS: METOPROLOL SUCCINATE XL 25 MG TABCR PO (12:35)
[2024-11-04] MEDS: AZITHROMYCIN 250 MG TABLET 500 MG PO (12:36)
--- NOTE | 2024-11-04 14:41 | PD.IMCONS ---
HPI Data of Consult Requesting Physician: Eliecer Lam MD Primary Care Provider: Physician No Primary/Family Consult Narrative History of present illness: 64 yrs old F with PMX- HTN Lymphoedema , DM admitted with redness and swelln of the legs EKG showed afib ; HR 85-100 cardiology consulted pt poor historian - confused no chest pain / sob/ palpitations troponin negative Unable to obtain PMH, surgical, family or social history, allergies or medications due to drowsiness. Reports lives at home with son and is able to ambulate without assistance at baseline. cc:: cc: Eliecer Lam MD Meds Home Medications and Allergies Home Medications ?Medication ?Instructions ?Recorded ?Confirmed ?Type hydrocodone 10 mg-acetaminophen 1 tab PO Q4H PRN Pain #0 tabs 02/11/14 11/04/24 History 325 mg tablet Held on 11/04/24. Instructions: Doctor's Order omeprazole 20 mg tablet,delayed 20 mg PO QDAY 12/07/18 11/04/24 History release calcium citrate 150 mg capsule 150 mg PO QAM 08/24/20 11/04/24 History Held on 11/04/24. Instructions: Doctor's Order chlorthalidone 50 mg tablet 50 mg PO QDAY 08/24/20 11/04/24 History Held on 11/04/24. Instructions: Doctor's Order citalopram 20 mg tablet (Celexa) 20 mg PO QDAY 08/24/20 11/04/24 History cyclobenzaprine 10 mg tablet 10 mg PO BID PRN Spasms 08/24/20 11/04/24 History Held on 11/04/24. Instructions: Doctor's Order docusate sodium 250 mg capsule 250 mg PO BID PRN Constipation 08/24/20 11/04/24 History Held on 11/04/24. Instructions: Doctor's Order gabapentin 600 mg tablet 600 mg PO TID 08/24/20 11/04/24 History Held on 11/04/24. Instructions: Doctor's Order multivitamin 1 tab PO QAM 08/24/20 11/04/24 History ondansetron 4 mg disintegrating 4 mg PO Q6H PRN Nausea 08/24/20 11/04/24 History tablet phentermine 37.5 mg capsule 37.5 mg PO QAM 08/24/20 11/04/24 History Held on 11/04/24. Instructions: Doctor's Order pregabalin 75 mg capsule (Lyrica) 75 mg PO BID PRN Pain 08/24/20 11/04/24 History Held on 11/04/24. Instructions: Doctor's Order ropinirole 0.5 mg tablet 0.5 mg PO QDAY 08/24/20 11/04/24 History furosemide 40 mg tablet 40 mg PO BID 11/04/24 11/04/24 History losartan 100 mg tablet 100 mg PO DAILY 11/04/24 11/04/24 History Allergies Allergy/AdvReac Type Severity Reaction Status Date / Time metoclopramide (From Reglan) Allergy Shakiness Verified 11/03/24 10:57 Exam Vital Signs Temp Pulse Resp BP Pulse Ox O2 Del Method 97.8 F 95 18 107/76 94 L Room Air 11/04/24 12:00 11/04/24 12:35 11/04/24 12:00 11/04/24 12:35 11/04/24 12:00 11/04/24 12:00 Routine HEENT Exam Head: Present normocephalic and atraumatic Eye: Present EOMI and PERRL ENT: Present mucous membranes moist Routine Neck Exam Neck: Present supple and trachea midline Routine Respiratory Exam Respiratory: Present chest non-tender, lungs clear, normal breath sounds and no resp distress Routine Cardiovascular Exam Cardiovascular: Present RRR Routine Abdominal Exam Abdominal: Present soft and normoactive bowel sounds Routine Extremities Exam Extremities: Present full ROM Routine Skin Exam Skin: Present intact, dry and warm Routine Neurological Exam Neurological: Present alert, oriented X3 and CN II-XII intact Routine Psychiatric Exam Psychiatric: Present normal affect and normal thought process Results Labs 11/04/24 05:24 11/04/24 05:24 Labs: Short CBC 11/04/24 Range/Units 05:24 WBC 8.7 (3.6-11.0) Thou/mm3 Hgb 9.6 L (12.0-16.0) g/dL Hct 32.1 L (36.0-46.0) % Plt Count 300 (140-440) Thou/mm3 BMP 11/04/24 05:24 Sodium 140 Potassium 4.0 Chloride 109 H Carbon Dioxide 25.5 BUN 13 Creatinine 0.7 Glucose 93 Calcium 9.0 Liver Function 11/04/24 Range/Units 05:24 Total Bilirubin 0.3 (0.3-1.2) mg/dL AST 18 (0-34) U/L ALT 17 (10-49) U/L Alkaline Phosphatase 109 (46-116) U/L Albumin 3.8 D (3.4-4.8) gm/dL Urine 11/03/24 Range/Units 17:50 Urine Color Yellow (Lt Yel-Yel) Urine Clarity Clear (Clear/Hazy) Urine pH 6.0 (5.0-7.0) Ur Specific [place] 1.022 (1.001-1.035) Urine Protein Negative (Neg - Trace) Urine Glucose (UA) Negative (Negative) Assessment and Plan Assessment and plan (1) Lymphedema: Status: Acute (2) Cellulitis: Status: Acute (3) HTN (hypertension): Status: Acute (4) Diabetes 1.5, managed as type 2: Status: Acute (5) Atrial fibrillation: Status: Acute Additional Assessment & Plan Additional Plan: obtain echo HR controlled will benefit form anticaogualtion troponin negative stable hemodynamics
[2024-11-04] MEDS: ceFAZolin/D5W 2 GM IV 2 GM/100 ML BAG IV ×2 (14:42→23:32)
--- NOTE | 2024-11-04 18:33 | ESPR_ITS ---
<Statement entered by Eliecer Lam MD - 11/06/24 09:35> I have discussed and was present for the essential components of the history, physical examination, diagnosis, and treatment plan with the resident. I agree with the patient's care as documented by the resident and amended herein by me. Eliecer Lam MD FACP. Documentation for date of: 11/04/24 Subjective Subjective Interval history: no acute events overnight Cards consulted for new afib with rvr Exam Vital Signs Temp Pulse Resp BP Pulse Ox O2 Del Method 97.1 F 99 16 127/94 H 95 Room Air 11/04/24 16:00 11/04/24 16:00 11/04/24 16:00 11/04/24 16:00 11/04/24 16:00 11/04/24 16:00 Narrative Exam General: AOx3, no acute distress, somnolent. HEENT: NC/AT, mucous membranes moist, bilateral sclera anicteric Cardiovascular: tachycardic Pulmonary: CTAB Abdominal: soft, non-tender, non-distended, no rebound/guarding, bowel sounds present Extremities: - Lt le+ pitting edema, erythema from foot to below knee, warm to touch,amuptated tip of Lt second toe, 1 cm scab under medial malleolus, pedal pulse 2+ - Rt le+ pitting edema, no erythema, pedal pulse 2+ Neuro following commands Objective Labs 11/04/24 05:24 11/04/24 05:24 Labs: Laboratory Results - last 24 hr 11/04/24 05:24 WBC 8.7 RBC 4.13 Hgb 9.6 L Hct 32.1 L MCV 78 L MCH 23.2 L MCHC 29.9 L RDW Std Deviation 48.7 H Plt Count 300 Neut % (Auto) 59 Lymph % (Auto) 23 [place] % (Auto) 17 H Eos % (Auto) 1 Baso % (Auto) 0 Neut # (Auto) 5.2 Lymph # (Auto) 2.0 [place] # (Auto) 1.5 H Eos # (Auto) 0.0 Baso # (Auto) 0.0 Immature Gran # (Auto) 0.02 H Absolute Nucleated RBC 0.00 Immature Gran % 0 Nucleated RBC % 0 Sodium 140 Potassium 4.0 Chloride 109 H Carbon Dioxide 25.5 Anion Gap 6 L BUN 13 Creatinine 0.7 Estim Creat Clear Calc 93.5 eGFR > 60 BUN/Creatinine Ratio [address] Glu mg/dL 114 Hemoglobin A1c 5.6 Calculated Osmolality 279 Calcium 9.0 Corrected Calcium 9.2 Total Bilirubin 0.3 AST 18 ALT 17 Alkaline Phosphatase 109 Total Protein 6.5 Albumin 3.8 D Globulin 2.7 Albumin/Globulin Ratio 1.4 Triglycerides 61 Cholesterol 96 L LDL Cholesterol, Calc 48 HDL Cholesterol 36 L Cholesterol/HDL Ratio 2.7 L TSH 0.69 Quality Measures Quality Measures VTE prophylaxis Advance care planning discussed with:: patient Assessment & Plan Assessment Current Active Medications: Generic Name Dose Route Start Last Admin Trade Name Freq PRN Reason Stop Dose Admin Acetaminophen 650 mg 11/03/24 22:42 Acetaminophen 325 Mg Tablet PO 12/03/24 22:41 Q6H PRN pain 1-3 &/or fever >100.1 Hydrocodone Bitart/Acetaminophen 1 tab 11/03/24 22:42 Hydrocodone/Apap 5/325 Tablet PO 11/08/24 22:41 Q4HR PRN PAIN SCALE 4-6 (Moderate Hydrocodone Bitart/Acetaminophen 1 tab 11/03/24 22:42 11/04/24 08:03 Hydrocodone/Apap 10/325 Tab PO 11/08/24 22:41 1 tab Q4HR PRN Administration PAIN SCALE 7-10 (Severe Apixaban 5 mg 11/05/24 09:00 Apixaban 2.5 Mg Tablet PO 12/05/24 08:59 BID ANTONIA Azithromycin 250 mg 11/05/24 09:00 Azithromycin 250 Mg Tablet PO 11/09/24 09:01 QDAY ANTONIA Citalopram Hydrobromide 20 mg 11/04/24 09:30 11/04/24 09:48 Citalopram 20 Mg Tablet PO 12/04/24 09:29 20 mg QDAY ANTONIA Administration Dextrose 25 ml 11/04/24 01:48 Dextrose 50%-Water Inj 50 Ml Syringe IV 12/04/24 01:47 Q15MIN PRN BG 50-70 responsive npo pt Dextrose 50 ml 11/04/24 01:48 Dextrose 50%-Water Inj 50 Ml Syringe IV 12/04/24 01:47 Q15MIN PRN BG <50 OR BG <70 & pt unresponsive Doxycycline Hyclate 100 mg 11/04/24 09:00 11/04/24 08:03 Doxycycline 100 Mg Tablet PO 11/11/24 08:59 100 mg BID ANTONIA Administration Glucagon 1 mg 11/04/24 01:48 Glucagon Inj 1 Mg Vial IM Q15MIN PRN BG <70, and no IV access Cefazolin Sodium 2 gm in 100 mls @ 100 mls/hr 11/04/24 14:10 11/04/24 15:42 Ancef 2gm Ivpb IV 11/11/24 14:09 Infused Q8HR ANTONIA Infusion Insulin Human Lispro 0 unit 11/04/24 07:30 11/04/24 17:01 Insulin Lispro (Admelog) 1 Unit/0.01 Ml Unit SC 12/04/24 07:29 1 unit AC ANTONIA Administration Protocol Losartan Potassium 100 mg 11/04/24 09:30 11/04/24 09:44 Losartan Potassium 25 Mg Tablet PO 12/04/24 09:29 100 mg DAILY ANTONIA Administration Metoprolol Succinate 25 mg 11/04/24 11:45 11/04/24 12:35 Metoprolol Succinate Xl 25 Mg Tabcr PO 12/04/24 11:44 25 mg QDAY ANTONIA Administration Ondansetron HCl 4 mg 11/03/24 22:42 Ondansetron Inj 2 Mg/Ml Inj 2 Ml IVP 12/03/24 22:41 Q6H PRN NAUSEA OR VOMITING Protocol Plan Gertrude Norris is a 64F pmhx significant for DM, HTN and BLE lymphedema who is admitted for LLE swelling post cat scratch 4 days ago c/f cellulitis vs cat scratch disease. #new Afib with RVR Dx - Cards consulted, appreciate recs, - ECHO ordered - Apixiban 5mg BID - metoprolol succs 25 mg QD # LLE possible cellulitis vs cat scratch disease # B/l lymphedema Hx of cat scratch 4 days ago with progressive increase in pain and spreading redness. WBC 10.9 and lactic acid 1.1. B/l venous doppler neg for DVT. Unable to communicate if lymphedema is being treated or has been worked up. - s/p Zosyn and Vanc in ED - Pain scale regimen Tx - doxy 100 mg po BID - azithromycin 500 day 1 and 250 day 2-5 (started 11/04- - cefazolin 2 gm q8h (11/04- # DM Patient states she is a diabetic and is on medication, but unable to recall. Glucose 120 on admission. now wnl - SSI - HbA1c: 5.6 Hospital management: Disposition: admit for abx Diet: cardiac DVT prophylaxis: apix 5mg bid CODE STATUS: Full code Case discussed with my attending Dr. Genaro Whatley MD PGY-1 Patient seen and examined at bedside, no acute overnight events. I discussed and supervised with the environmental intern physician who took care of this patient. I personally saw and examined the patient. I agree with most of the assessment and plan. Patient noted to have rapid heart rate on monitor. EKG showed afib with RVR. CHADVASC score 4, patient started on Eliquis and metoprolol. Cardiology consulted. Patient on doxy, azithromycin, and cefazolin tro cover cath scratch fever and cellulitis. Plan of care discussed with attending Dr. Lam. Iggy Gupta MD PGY-2
--- NOTE | 2024-11-04 19:22 | PC.NURSE ---
MD Kraft made aware that pt had a new episodes of Afib RVR with highest rate of 144 and still on AFIB 108 at this time, pt will be upgraded to Tele floor.
[2024-11-04] MEDS: HYDROcodone/APAP 5/325 TABLET 1 TAB PO (23:47)
[2024-11-05] VITALS (8 sets, daily range): BP systolic 120–146; BP diastolic 74–93; PULSE 77–104; RESP 18–20; TEMP 36.2–36.7; O2SAT 95; BMI 33.7
[2024-11-05] MEDS: ceFAZolin/D5W 2 GM IV 2 GM/100 ML BAG IV ×3 (05:31→21:03)
[2024-11-05 06:24] LABS: Basophils # (Auto) 0.0 Thou/mm3 (0.0-0.2); Basophils % (Auto) 0 % (0-2.5); Eosinophils # (Auto) 0.0 Thou/mm3 (0.0-0.5); Eosinophils % (Auto) 1 % (0-10); Hematocrit 29.8 % (36.0-46.0); Hemoglobin 9.0 g/dL (12.0-16.0); Immature Granulocytes Auto 0.03 Thou/mm3 (0.00-0.00); Lymphocytes # (Auto) 1.9 Thou/mm3 (1.0-4.8); Lymphocytes % (Auto) 24 % (10-50); Mean Corpuscular HGB Conc 30.2 g/dl (31.0-37.0); Mean Corpuscular Hemoglobin 23.6 pg (25.0-35.0); Mean Corpuscular Volume 78 fL (80-100); Monocytes # (Auto) 1.0 Thou/mm3 (0.0-0.8); Monocytes % (Auto) 13 % (0-12); Neutrophils # (Auto) 4.8 Thou/mm3 (1.8-7.7); Neutrophils % (Auto) 62 % (37-80); Nucleated Red Blood Cell # 0.00 Thou/mm3 (0.00-0.00); Nucleated Red Blood Cell % 0 /100 WBC (0); Platelet Count 279 Thou/mm3 (140-440); RDW Standard Deviation 48.9 fL (36.4-46.3); Red Blood Count 3.82 Miln/mm3 (4.00-5.20); White Blood Count 7.8 Thou/mm3 (3.6-11.0)
[2024-11-05 06:44] LABS: Alanine Aminotransferase 13 U/L (10-49); Albumin, Serum 3.4 gm/dL (3.4-4.8); Albumin/Globulin Ratio 1.4 (1.2-2.2); Alkaline Phosphatase 93 U/L (46-116); Anion Gap 6 (7-16); Aspartate Amino Transferase 15 U/L (0-34); BUN/Creatinine Ratio 12 Ratio (12-20); Bilirubin,Total 0.2 mg/dL (0.3-1.2); Blood Urea Nitrogen 11 mg/dL (9-23); Calcium 8.7 mg/dL (8.3-10.6); Calcium (Corrected) 9.2 mg/dL (8.5-10.1); Carbon Dioxide 26.3 mMol/L (20.0-31.0); Chloride 106 mMol/L (98-107); Creatinine (Component) 0.9 mg/dL (0.6-1.3); Estimated Creatinine Clearance 72.4 mL/min (>60); Globulin 2.5 gm/dL (2.3-3.5); Glucose 195 mg/dL (74-106); Osmolality,Calculated 280 (275-295); Potassium 4.1 mMol/L (3.4-5.1); Sodium 138 mMol/L (136-145); Total Protein 5.9 gm/dL (5.7-8.2); eGFR > 60 See Note
--- NOTE | 2024-11-05 08:23 | ESPR_ITS ---
<Statement entered by Eliecer Lam MD - 11/08/24 15:00> I have discussed and was present for the essential components of the history, physical examination, diagnosis, and treatment plan with the resident. I agree with the patient's care as documented by the resident and amended herein by me. Eliecer Lam MD FACP. <Statement entered by Iggy Gupta MD - 11/06/24 13:13> Patient seen and examined at bedside, no acute overnight events. I discussed and supervised with the internet marketing specialist physician who took care of this patient. I personally saw and examined the patient. I agree with most of the assessment and plan. Plan of care discussed with attending Dr. Lam. Iggy Gupta MD PGY-2 Documentation for date of: 11/05/24 Subjective Subjective Interval history: transitioned to telemetry for afib monitoring Exam Vital Signs Temp Pulse Resp BP Pulse Ox O2 Del Method 97.2 F 89 18 146/93 H 95 Room Air 11/05/24 08:00 11/05/24 08:00 11/05/24 08:00 11/05/24 08:00 11/05/24 08:00 11/05/24 08:00 Narrative Exam General: AOx3, no acute distress, alert, HEENT: NC/AT, mucous membranes moist, bilateral sclera anicteric Cardiovascular: RRR Pulmonary: CTAB, nl work of breathing Abdominal: soft, non-tender, non-distended, no rebound/guarding, bowel sounds present Extremities: - allodynia of Lt le+ pitting edema, erythema from foot to below knee, warm to touch,amuptated tip of Lt second toe, 1 cm scab under medial malleolus, pedal pulse 2+ - Rt le+ pitting edema, no erythema, pedal pulse 2+ Objective Labs 11/05/24 05:23 11/05/24 05:23 Labs: Laboratory Results - last 24 hr 11/05/24 05:23 WBC 7.8 RBC 3.82 L Hgb 9.0 L Hct 29.8 L MCV 78 L MCH 23.6 L MCHC 30.2 L RDW Std Deviation 48.9 H Plt Count 279 Neut % (Auto) 62 Lymph % (Auto) 24 [place] % (Auto) 13 H Eos % (Auto) 1 Baso % (Auto) 0 Neut # (Auto) 4.8 Lymph # (Auto) 1.9 [place] # (Auto) 1.0 H Eos # (Auto) 0.0 Baso # (Auto) 0.0 Immature Gran # (Auto) 0.03 H Absolute Nucleated RBC 0.00 Immature Gran % 0 Nucleated RBC % 0 Sodium 138 Potassium 4.1 Chloride 106 Carbon Dioxide 26.3 Anion Gap 6 L BUN 11 Creatinine 0.9 Estim Creat Clear Calc 72.4 eGFR > 60 BUN/Creatinine Ratio 12 Glucose 195 H D Calculated Osmolality 280 Calcium 8.7 Corrected Calcium 9.2 Total Bilirubin 0.2 L AST 15 ALT 13 Alkaline Phosphatase 93 Total Protein 5.9 Albumin 3.4 Globulin 2.5 Albumin/Globulin Ratio 1.4 Quality Measures Quality Measures VTE prophylaxis Advance care planning discussed with:: patient Assessment & Plan Assessment Current Active Medications: Generic Name Dose Route Start Last Admin Trade Name Freq PRN Reason Stop Dose Admin Acetaminophen 650 mg 11/03/24 22:42 Acetaminophen 325 Mg Tablet PO 12/03/24 22:41 Q6H PRN pain 1-3 &/or fever >100.1 Hydrocodone Bitart/Acetaminophen 1 tab 11/03/24 22:42 11/04/24 23:47 Hydrocodone/Apap 5/325 Tablet PO 11/08/24 22:41 1 tab Q4HR PRN Administration PAIN SCALE 4-6 (Moderate Hydrocodone Bitart/Acetaminophen 1 tab 11/03/24 22:42 11/05/24 03:38 Hydrocodone/Apap 10/325 Tab PO 11/08/24 22:41 1 tab Q4HR PRN Administration PAIN SCALE 7-10 (Severe Apixaban 5 mg 11/05/24 09:00 Apixaban 2.5 Mg Tablet PO 12/05/24 08:59 BID ANTONIA Azithromycin 250 mg 11/05/24 09:00 Azithromycin 250 Mg Tablet PO 11/08/24 09:01 QDAY ANTONIA Citalopram Hydrobromide 20 mg 11/04/24 09:30 11/04/24 09:48 Citalopram 20 Mg Tablet PO 12/04/24 09:29 20 mg QDAY ANTONIA Administration Dextrose 25 ml 11/04/24 01:48 Dextrose 50%-Water Inj 50 Ml Syringe IV 12/04/24 01:47 Q15MIN PRN BG 50-70 responsive npo pt Dextrose 50 ml 11/04/24 01:48 Dextrose 50%-Water Inj 50 Ml Syringe IV 12/04/24 01:47 Q15MIN PRN BG <50 OR BG <70 & pt unresponsive Doxycycline Hyclate 100 mg 11/04/24 09:00 11/04/24 23:32 Doxycycline 100 Mg Tablet PO 11/11/24 08:59 100 mg BID ANTONIA Administration Glucagon 1 mg 11/04/24 01:48 Glucagon Inj 1 Mg Vial IM Q15MIN PRN BG <70, and no IV access Cefazolin Sodium 2 gm in 100 mls @ 100 mls/hr 11/04/24 14:10 11/05/24 05:31 Ancef 2gm Ivpb IV 11/11/24 14:09 100 mls/hr Q8HR ANTONIA Administration Insulin Human Lispro 0 unit 11/04/24 07:30 11/05/24 07:51 Insulin Lispro (Admelog) 1 Unit/0.01 Ml Unit SC 12/04/24 07:29 Not Given AC ANTONIA Protocol Losartan Potassium 100 mg 11/04/24 09:30 11/04/24 09:44 Losartan Potassium 25 Mg Tablet PO 12/04/24 09:29 100 mg DAILY ANTONIA Administration Metoprolol Succinate 25 mg 11/04/24 11:45 11/04/24 12:35 Metoprolol Succinate Xl 25 Mg Tabcr PO 12/04/24 11:44 25 mg QDAY ANTONIA Administration Ondansetron HCl 4 mg 11/03/24 22:42 Ondansetron Inj 2 Mg/Ml Inj 2 Ml IVP 12/03/24 22:41 Q6H PRN NAUSEA OR VOMITING Protocol Pharmacy Consult 1 each 11/05/24 03:43 Pharmacy To Consult Patient XX 12/05/24 03:42 PRN PRN CONSULT Plan Gertrude Norris is a 64F pmhx significant for DM, HTN and BLE lymphedema who is admitted for LLE swelling post cat scratch 4 days ago c/f cellulitis vs cat scratch disease,fth new afib with rvr, cards consulted. Continuing abx managment for left LE soft tissue infxn #new Afib with RVR Dx - Cards consulted, appreciate recs, - ECHO pending - Apixiban 5mg BID - metoprolol succs 25 mg QD # LLE possible cellulitis vs cat scratch disease # B/l lymphedema Hx of cat scratch 4 days ago with progressive increase in pain and spreading redness. WBC 10.9 and lactic acid 1.1. B/l venous doppler neg for DVT. Unable to communicate if lymphedema is being treated or has been worked up. - s/p Zosyn and Vanc in ED - Pain scale regimen Tx - doxy 100 mg po BID - azithromycin 500 day 1 and 250 day 2-5 (started 11/04- - cefazolin 2 gm q8h (11/04- # DM Patient states she is a diabetic and is on medication, but unable to recall. Glucose 120 on admission. now wnl - SSI - HbA1c: 5.6 Hospital management: Disposition: admit for abx Diet: cardiac DVT prophylaxis: apix 5mg bid CODE STATUS: Full code Case discussed with my attending Dr. Genaro Whatley MD PGY-1
[2024-11-05] MEDS: APIXABAN 2.5 MG TABLET 5 MG PO ×2 (08:48→21:03)
[2024-11-05] MEDS: METOPROLOL SUCCINATE XL 25 MG TABCR PO (08:49)
[2024-11-05] MEDS: CITALOPRAM 20 MG TABLET PO (08:49)
[2024-11-05] MEDS: LOSARTAN POTASSIUM 25 MG TABLET 100 MG PO (08:49)
[2024-11-05] MEDS: AZITHROMYCIN 250 MG TABLET PO (08:50)
[2024-11-05] MEDS: ONDANSETRON INJ 2 MG/ML INJ 2 ML 4 MG IVP (08:54)
[2024-11-05] MEDS: DOXYCYCLINE 100 MG TABLET PO ×2 (08:57→21:03)
[2024-11-05 09:01] LABS: Magnesium 2.0 mg/dL (1.6-2.6); Phosphorous 3.1 mg/dL (2.4-5.1)
--- NOTE | 2024-11-05 09:34 | XR_ITS ---
Examination: Abdomen AP single view Technique: AP portable supine abdomen, single view Exam date and time: November 05, 2024 1016 hours INDICATIONS: Abdominal pain beginning 2 days ago. FINDINGS: Moderate stool throughout the colon No obstruction Severe osteopenia IMPRESSION: Moderate stool throughout the colon
--- NOTE | 2024-11-05 11:39 | ECHO_ITS ---
Transthoracic Echo Report Ht (in): 66 Wt (lb): 211 Exam Location: Echo Lab Status: Inpatient Leave Manager: Veronika Barrera Indications: Procedure Performed: BP: 107 / 76 HR: 115 Technical Quality: Technically difficult study MEASUREMENTS (Male / Female) Normal Values 2D ECHO LV Diastolic Diameter PLAX 4.2 cm 4.2 - 5.9 / 3.9 - 5.3 cm LV Systolic Diameter PLAX 2.6 cm IVS Diastolic Thickness 1.1 cm 0.6 - 1.0 / 0.6 - 0.9 cm LVPW Diastolic Thickness 1.0 cm 0.6 - 1.0 / 0.6 - 0.9 cm LV Relative Wall Thickness 0.5 LVOT Diameter 1.9 cm Aortic Root Diameter 2.3 cm LA Systolic Diameter LX 3.6 cm 3.0 - 4.0 / 2.7 - 3.8 cm LA Volume Index 37.5 cm?/m? 16 - 28 cm?/m? M-MODE Aortic Root Diameter MM 2.1 cm LA Systolic Diameter MM 4.3 cm LA Ao Ratio MM 2.0 AV Cusp Separation MM 1.3 cm DOPPLER AV Peak Velocity 166.5 cm/s AV Peak Gradient 11.1 mmHg AV Mean Gradient 7.0 mmHg AV Velocity Time Integral 32.2 cm LVOT Peak Velocity 101.3 cm/s LVOT Peak Gradient 4.1 mmHg LVOT Velocity Time Integral 19.2 cm LVOT Cardiac Index 2914.3 cm?/min?m? AV Area Cont Eq vti 1.7 cm? AV Area Cont Eq pk 1.7 cm? MV Peak Velocity 132.5 cm/s MV Peak Gradient 7.0 mmHg MV Mean Velocity 74.9 cm/s MV Mean Gradient 2.5 mmHg MV Area PHT 5.0 cm? MR Peak Velocity 418.0 cm/s MR Peak Gradient 69.9 mmHg Mitral E Point Velocity 121.0 cm/s LV E' Lateral Velocity 9.4 cm/s Mitral E to LV E' Lateral Ratio 12.9 LV E' Septal Velocity 8.2 cm/s Mitral E to LV E' Septal Ratio 14.8 TR Peak Velocity 281.7 cm/s TR Peak Gradient 31.7 mmHg PV Peak Velocity 107.0 cm/s PV Peak Gradient 4.6 mmHg FINDINGS Left Ventricle Normal left ventricular size, wall thickness, systolic function with no obvious regional wall motion abnormalities. Normal left ventricular diastolic filling pattern for age. The ejection fraction is visually estimated at 55-60%. Right Ventricle The right ventricle is normal in size. The right ventricular systolic function is mildly decreased. The estimated right ventricular systolic pressure,48 mmHg. RAP 15. Left Atrium Mildly increased left atrial volume 37.5 mL/m?. Right Atrium The right atrium is normal by two-dimensional imaging, color flow and Doppler imaging with no structural abnormalities, no thrombus formation present. Atrial Septum The interatrial septum appears normal with no evidence of a shunt. Aorta The aorta is normal by two-dimensional, color flow and Doppler interrogation. Mitral Valve Mild mitral annular calcification. Mild mitral regurgitation. Aortic Valve The aortic valve is trileaflet and normal by two-dimensional, color flow and Doppler interrogation. There is no significant aortic valve regurgitation. Tricuspid Valve The tricuspid valve is normal by two-dimensional, color flow and Doppler interrogation. There is mild tricuspid valve regurgitation. Pulmonic Valve The pulmonic valve is not well visualized. There is no significant pulmonic valve regurgitation. Vessels Dilated inferior vena cava. Pericardium The pericardium is normal by two-dimensional imaging. There is no significant pericardial effusion. CONCLUSIONS Indication: New Afib with RVR Normal left ventricular size and function. Estimated EF at 55-60%. The RV is normal in size. The RV systolic function is mildly decreased. The estimated RVSP, 48 mmHg. Mildly dilated left atrium. Mitral annulus calcification mitral valve thickening mild mitral regurgitation. Mild tricuspid valve regurgitation. Marly Holm (Electronically Signed) Final Date: 06 November 2024 15:50
--- NOTE | 2024-11-05 12:07 | PC.SS ---
SS follow up note; Urine cultures pending, Patient is on IV ABX. Patient will discharge home when medically cleared.
[2024-11-06] VITALS (8 sets, daily range): BP systolic 108–141; BP diastolic 69–91; PULSE 84–104; RESP 13–20; TEMP 36.3–37.2; O2SAT 94–98; BMI 33.7
[2024-11-06] MEDS: ceFAZolin/D5W 2 GM IV 2 GM/100 ML BAG IV (05:21)
[2024-11-06] MEDS: SIMETHICONE 80 MG CHEW PO (05:46)
[2024-11-06 07:17] LABS: Alanine Aminotransferase 11 U/L (10-49); Albumin, Serum 3.8 gm/dL (3.4-4.8); Albumin/Globulin Ratio 1.3 (1.2-2.2); Alkaline Phosphatase 104 U/L (46-116); Anion Gap 8 (7-16); Aspartate Amino Transferase 33 U/L (0-34); BUN/Creatinine Ratio 16 Ratio (12-20); Bilirubin,Total < 0.2 mg/dL (0.3-1.2); Blood Urea Nitrogen 11 mg/dL (9-23); Calcium 9.3 mg/dL (8.3-10.6); Calcium (Corrected) 9.5 mg/dL (8.5-10.1); Carbon Dioxide 24.2 mMol/L (20.0-31.0); Chloride 107 mMol/L (98-107); Creatinine (Component) 0.7 mg/dL (0.6-1.3); Estimated Creatinine Clearance 93.1 mL/min (>60); Globulin 2.9 gm/dL (2.3-3.5); Glucose 116 mg/dL (74-106); Magnesium 2.0 mg/dL (1.6-2.6); Osmolality,Calculated 277 (275-295); Phosphorous 3.8 mg/dL (2.4-5.1); Potassium 5.4 mMol/L (3.4-5.1); Sodium 139 mMol/L (136-145); Total Protein 6.7 gm/dL (5.7-8.2); eGFR > 60 See Note
[2024-11-06 08:22] LABS: Basophils # (Auto) 0.0 Thou/mm3 (0.0-0.2); Basophils % (Auto) 0 % (0-2.5); Eosinophils # (Auto) 0.1 Thou/mm3 (0.0-0.5); Eosinophils % (Auto) 1 % (0-10); Hematocrit 30.6 % (36.0-46.0); Hemoglobin 9.2 g/dL (12.0-16.0); Immature Granulocytes Auto 0.04 Thou/mm3 (0.00-0.00); Lymphocytes # (Auto) 1.9 Thou/mm3 (1.0-4.8); Lymphocytes % (Auto) 22 % (10-50); Mean Corpuscular HGB Conc 30.1 g/dl (31.0-37.0); Mean Corpuscular Hemoglobin 23.5 pg (25.0-35.0); Mean Corpuscular Volume 78 fL (80-100); Monocytes # (Auto) 1.0 Thou/mm3 (0.0-0.8); Monocytes % (Auto) 11 % (0-12); Neutrophils # (Auto) 5.8 Thou/mm3 (1.8-7.7); Neutrophils % (Auto) 65 % (37-80); Nucleated Red Blood Cell # 0.00 Thou/mm3 (0.00-0.00); Nucleated Red Blood Cell % 0 /100 WBC (0); Platelet Count 306 Thou/mm3 (140-440); RDW Standard Deviation 47.8 fL (36.4-46.3); Red Blood Count 3.91 Miln/mm3 (4.00-5.20); White Blood Count 8.9 Thou/mm3 (3.6-11.0)
[2024-11-06] MEDS: APIXABAN 2.5 MG TABLET 5 MG PO ×2 (08:35→20:44)
[2024-11-06] MEDS: METOPROLOL SUCCINATE XL 25 MG TABCR PO (08:35)
[2024-11-06] MEDS: DOXYCYCLINE 100 MG TABLET PO (08:36)
[2024-11-06] MEDS: CITALOPRAM 20 MG TABLET PO (08:36)
[2024-11-06] MEDS: AZITHROMYCIN 250 MG TABLET PO (08:36)
[2024-11-06] MEDS: LOSARTAN POTASSIUM 25 MG TABLET 100 MG PO (08:36)
[2024-11-06] MEDS: CALCIUM GLUCONATE 10% INJ 1 GM/10 ML VIAL IV (09:45)
[2024-11-06] MEDS: SOD POLYSTYRENE SULFON SUSP 15 GM/60 ML BTL 30 GM PO (09:45)
[2024-11-06] MEDS: TRIMETHOPRIM/SULFA 160/800 DS TABLET 1 TAB PO ×2 (11:56→20:44)
--- NOTE | 2024-11-06 20:17 | PD.RESPRO ---
Documentation for date of: 11/06/24 Subjective Subjective Interval history: Patient was seen and examined at the bedside. No acute overnight events were reported. Patient reported improvement in her pain in her left lower leg however she stated that pain is still there. jack wrap was placed to decrease edema of left leg. She had abdominal discomfort likely related to Kayexalate given for hyperkalemia. Additionally, calcium gluconate was given. Antibiotics were de-escalated to Bactrim likely to be given for 10 days. Echocardiogram showed EF 55 to 60%. Mildly dilated LA. Mitral annulus calcification mitral valve thickening and mild MR. PT evaluation was ordered to make sure patient is able to ambulate before discharge. Anticipate discharge tomorrow. Exam Vital Signs Temp Pulse Resp BP Pulse Ox O2 Del Method 97.3 F 96 18 108/69 98 Room Air 11/06/24 16:00 11/06/24 16:00 11/06/24 16:00 11/06/24 16:00 11/06/24 16:00 11/06/24 16:00 Narrative Exam General: AOx3, no acute distress, alert. Saturating well on room air. HEENT: NC/AT, mucous membranes moist, bilateral sclera anicteric Cardiovascular: Regular rate and rhythm. Normal S1-S2. Pulmonary: CTAB, nl work of breathing Abdominal: soft, non-tender, non-distended, no rebound/guarding, bowel sounds present Extremities: - allodynia of Lt le+ pitting edema, erythema from foot to below knee, warm to touch,amuptated tip of Lt second toe, 1 cm scab under medial malleolus, pedal pulse 2+ - Rt le+ pitting edema, no erythema, pedal pulse 2+ Objective Labs 11/07/24 04:55 11/07/24 04:55 Labs: Laboratory Results - last 24 hr 11/06/24 11/06/24 05:14 08:30 WBC 8.9 RBC 3.91 L Hgb 9.2 L Hct 30.6 L MCV 78 L MCH 23.5 L MCHC 30.1 L RDW Std Deviation 47.8 H Plt Count 306 Neut % (Auto) 65 Lymph % (Auto) 22 [place] % (Auto) 11 Eos % (Auto) 1 Baso % (Auto) 0 Neut # (Auto) 5.8 Lymph # (Auto) 1.9 [place] # (Auto) 1.0 H Eos # (Auto) 0.1 Baso # (Auto) 0.0 Immature Gran # (Auto) 0.04 H Absolute Nucleated RBC 0.00 Immature Gran % 1 H Nucleated RBC % 0 Sodium 139 Potassium 5.4 H D Chloride 107 Carbon Dioxide 24.2 Anion Gap 8 BUN 11 Creatinine 0.7 Estim Creat Clear Calc 93.1 eGFR > 60 BUN/Creatinine Ratio 16 Glucose 116 H D Calculated Osmolality 277 Calcium 9.3 Corrected Calcium 9.5 Phosphorus 3.8 Magnesium 2.0 Total Bilirubin < 0.2 L AST 33 ALT 11 Alkaline Phosphatase 104 Total Protein 6.7 Albumin 3.8 Globulin 2.9 Albumin/Globulin Ratio 1.3 Quality Measures Quality Measures VTE prophylaxis (Eliquis 5 mg twice daily) Advance care planning discussed with:: other Assessment & Plan Assessment Current Active Medications: Generic Name Dose Route Start Last Admin Trade Name Freq PRN Reason Stop Dose Admin Acetaminophen 650 mg 11/03/24 22:42 Acetaminophen 325 Mg Tablet PO 12/03/24 22:41 Q6H PRN pain 1-3 &/or fever >100.1 Hydrocodone Bitart/Acetaminophen 1 tab 11/03/24 22:42 11/04/24 23:47 Hydrocodone/Apap 5/325 Tablet PO 11/08/24 22:41 1 tab Q4HR PRN Administration PAIN SCALE 4-6 (Moderate Hydrocodone Bitart/Acetaminophen 1 tab 11/03/24 22:42 11/06/24 14:17 Hydrocodone/Apap 10/325 Tab PO 11/08/24 22:41 1 tab Q4HR PRN Administration PAIN SCALE 7-10 (Severe Apixaban 5 mg 11/05/24 09:00 11/06/24 08:35 Apixaban 2.5 Mg Tablet PO 12/05/24 08:59 5 mg BID ANTONIA Administration Citalopram Hydrobromide 20 mg 11/04/24 09:30 11/06/24 08:36 Citalopram 20 Mg Tablet PO 12/04/24 09:29 20 mg QDAY ANTONIA Administration Dextrose 25 ml 11/04/24 01:48 Dextrose 50%-Water Inj 50 Ml Syringe IV 12/04/24 01:47 Q15MIN PRN BG 50-70 responsive npo pt Dextrose 50 ml 11/04/24 01:48 Dextrose 50%-Water Inj 50 Ml Syringe IV 12/04/24 01:47 Q15MIN PRN BG <50 OR BG <70 & pt unresponsive Glucagon 1 mg 11/04/24 01:48 Glucagon Inj 1 Mg Vial IM Q15MIN PRN BG <70, and no IV access Insulin Human Lispro 0 unit 11/04/24 07:30 11/06/24 19:26 Insulin Lispro (Admelog) 1 Unit/0.01 Ml Unit SC 12/04/24 07:29 Not Given AC ANTONIA Protocol Losartan Potassium 100 mg 11/04/24 09:30 11/06/24 08:36 Losartan Potassium 25 Mg Tablet PO 12/04/24 09:29 100 mg DAILY ANTONIA Administration Metoprolol Succinate 25 mg 11/04/24 11:45 11/06/24 08:35 Metoprolol Succinate Xl 25 Mg Tabcr PO 12/04/24 11:44 25 mg QDAY ANTONIA Administration Ondansetron HCl 4 mg 11/03/24 22:42 11/05/24 08:54 Ondansetron Inj 2 Mg/Ml Inj 2 Ml IVP 12/03/24 22:41 4 mg Q6H PRN Administration NAUSEA OR VOMITING Protocol Simethicone 80 mg 11/06/24 05:32 11/06/24 05:46 Simethicone 80 Mg Chew PO 12/06/24 05:31 80 mg QID PRN Administration GAS Trimethoprim/Sulfamethoxazole 1 tab 11/06/24 10:15 11/06/24 11:56 Trimethoprim/Sulfa 160/800 Ds Tablet PO 11/16/24 10:14 1 tab BID ANTONIA Administration Plan Gertrude Norris is a 64F pmhx significant for DM, HTN and BLE lymphedema who is admitted for LLE swelling post cat scratch 4 days ago c/f cellulitis vs cat scratch disease,fth new afib with rvr, cards consulted. Continuing abx managment for left LE soft tissue infxn #new Afib with RVR Dx - Cards consulted, appreciate recs, - ECHO showed Normal left ventricular size and function. Estimated EF at 55-60%. The RV is normal in size. The RV systolic function is mildly decreased. The estimated RVSP, 48 mmHg. Mildly dilated left atrium. Mitral annulus calcification mitral valve thickening mild mitral regurgitation. Mild tricuspid valve regurgitation. -[id number] 2 Tx - Apixiban 5mg BID - metoprolol succs 25 mg QD # LLE possible cellulitis vs cat scratch disease # B/l lymphedema Hx of cat scratch 4 days ago with progressive increase in pain and spreading redness. WBC 10.9 and lactic acid 1.1. B/l venous doppler neg for DVT. Unable to communicate if lymphedema is being treated or has been worked up. - s/p Zosyn and Vanc in ED - Pain scale regimen Tx - Pending PT eval - jack wrap was placed to decrease edema of left leg. -Will give Bactrim 1 tablet twice daily for 10 days - Discontinued azithromycin, Doxy and Ancef - Cultures negative # T2DM Patient states she is a diabetic and is on medication, but unable to recall. Glucose 120 on admission. now wnl - SSI - HbA1c: 5.6 Hospital management: Disposition: Admitted for management of cellulitis. Anticipating discharge tomorrow after PT evaluation. Diet: cardiac DVT prophylaxis: Eliquis 5 mg twice daily CODE STATUS: Full code Patient was seen and discussed with attending physician, Dr. Nirmala Lopez MD, PGY 3 Attending Provider Attestation/Addendum I, Estrellita Silvestre, , attest that I was physically present for the garcia portions of the service and evaluated the patient with the resident and I reviewed and discussed the case with the resident and agree with the resident's findings and plans of care as documented above Patient seen and evaluated this AM. She complains of epigastric pain and left lower extremity pain which has significant edema and mild erythema. LLE remains very tender to palpation. Will apply compression wrap. Patient states she has been seeing vascular surgery outpatient and has pumps at home for her lymphedema. Will switch abx to bactrim due to concern for bartonella and can also cover for MRSA and GNR. Will dc doxycycline, cefazolin and azithromycin. Will continue to monitor overnight. Pending Physical therapy. Anticipate DC within 24h
[2024-11-07] VITALS: BP 130/75; PULSE 103; PULSE 108; RESP 16; TEMP 36.1; O2SAT 97
[2024-11-07] MEDS: HYDROcodone/APAP 5/325 TABLET 1 TAB PO ×2 (01:43→07:08)
[2024-11-07 04:00] VITALS: BP 133/84; PULSE 109; PULSE 92; RESP 16; TEMP 36.2; O2SAT 96
[2024-11-07 06:00] VITALS: BMI 35.6
[2024-11-07 06:02] LABS: Basophils # (Auto) 0.0 Thou/mm3 (0.0-0.2); Basophils % (Auto) 0 % (0-2.5); Eosinophils # (Auto) 0.1 Thou/mm3 (0.0-0.5); Eosinophils % (Auto) 1 % (0-10); Hematocrit 30.8 % (36.0-46.0); Hemoglobin 9.4 g/dL (12.0-16.0); Immature Granulocytes Auto 0.05 Thou/mm3 (0.00-0.00); Lymphocytes # (Auto) 2.1 Thou/mm3 (1.0-4.8); Lymphocytes % (Auto) 27 % (10-50); Mean Corpuscular HGB Conc 30.5 g/dl (31.0-37.0); Mean Corpuscular Hemoglobin 23.4 pg (25.0-35.0); Mean Corpuscular Volume 77 fL (80-100); Monocytes # (Auto) 0.9 Thou/mm3 (0.0-0.8); Monocytes % (Auto) 11 % (0-12); Neutrophils # (Auto) 4.7 Thou/mm3 (1.8-7.7); Neutrophils % (Auto) 60 % (37-80); Nucleated Red Blood Cell # 0.00 Thou/mm3 (0.00-0.00); Nucleated Red Blood Cell % 0 /100 WBC (0); Platelet Count 317 Thou/mm3 (140-440); RDW Standard Deviation 47.9 fL (36.4-46.3); Red Blood Count 4.01 Miln/mm3 (4.00-5.20); White Blood Count 7.9 Thou/mm3 (3.6-11.0)
[2024-11-07 06:52] LABS: Alanine Aminotransferase 9 U/L (10-49); Albumin, Serum 3.6 gm/dL (3.4-4.8); Albumin/Globulin Ratio 1.3 (1.2-2.2); Alkaline Phosphatase 104 U/L (46-116); Anion Gap 9 (7-16); Aspartate Amino Transferase 21 U/L (0-34); BUN/Creatinine Ratio 20 Ratio (12-20); Bilirubin,Total < 0.2 mg/dL (0.3-1.2); Blood Urea Nitrogen 14 mg/dL (9-23); Calcium 9.0 mg/dL (8.3-10.6); Calcium (Corrected) 9.3 mg/dL (8.5-10.1); Carbon Dioxide 27.7 mMol/L (20.0-31.0); Chloride 105 mMol/L (98-107); Creatinine (Component) 0.7 mg/dL (0.6-1.3); Estimated Creatinine Clearance 95.6 mL/min (>60); Globulin 2.7 gm/dL (2.3-3.5); Glucose 136 mg/dL (74-106); Magnesium 2.0 mg/dL (1.6-2.6); Osmolality,Calculated 285 (275-295); Phosphorous 3.8 mg/dL (2.4-5.1); Potassium 4.2 mMol/L (3.4-5.1); Sodium 142 mMol/L (136-145); Total Protein 6.3 gm/dL (5.7-8.2); eGFR > 60 See Note
[2024-11-07 08:00] VITALS: BP 133/68; PULSE 90; PULSE 95; RESP 18; TEMP 36.1; O2SAT 94
--- NOTE | 2024-11-07 08:05 | ESDS_ITS ---
<Statement entered by Estrellita Silvestre DO - 11/08/24 08:58> I, Estrellita Silvestre DO, attest that I was physically present for the garcia portions of the service and evaluated the patient with the resident and I reviewed and discussed the case with the resident and agree with the resident's findings and plans of care as documented above <Statement entered by Leonardo Lopez MD - 11/07/24 19:21> I discussed and supervised with the senior internet sales consultant physician who took care of this patient. I personally saw and examined the patient. I agree with most of the assessment and plan. Disclaimer: Despite multiple revisions, due to the dictation software being used, the document bellow may not be free of grammatical errors including phonetic/typographic errors. However, this does not deter from our commitment to providing health care in the patient's best interest in mind. Plan of care discussed with attending Physician Dr. Nirmala Lopez MD PGY-3 Planned Discharge Date 11/07/24 DS: Providers Provider Date of admission: 11/03/24 22:42 Primary care physician: Physician Gayle Primary/Family Admitting Provider: Parag Perez MD Attending Provider on Admission: Eliecer Lam MD Consults: 11/04/24 11:27 Consult to Cardiology Urgent Comment: new afib with rvr Consulting Provider: Richard Murillo 11/06/24 10:14 Referral Physical Therapy Routine Comment: Physician Instructions: Attending Provider on DC: Dr. Silvestre Discharging Provider: RESIDENT Gogo DS: Diagnosis Problem List Completed Was Problem List Reviewed/Reconciled?: Yes Hospital Course Hospital Course Hospital course: Ms. Norris is a 64 woman with pmhx significant for DM, HTN and BLE lymphedema who is admitted for LLE swelling post cat scratch 4 days ago c/f cellulitis vs cat scratch disease,fth new afib with rvr, cards consulted while inpatient. Her ECHO showed Normal left ventricular size and function. Estimated EF at 55-60%.[id number] 2, so she was started on apixiban 5mg bid. Her Left leg swelling improved while on ABx. Diagnoses #Cellulitis vs cat scratch #BLE lymphedema #new afib with RVR #T2DM d/c plan : Continue taking Bactrim 1 tablet twice daily for 9 more days to complete course for cellulitis of your left lower leg Apply Prince wrap/compression to help with swelling in your leg You were diagnosed with A-fib during the hospital stay continue taking metoprolol succinate 25 mg once a day daily, Eliquis 5 mg twice daily Take simethicone 80 mg 4 times a day as needed for bloating Continue taking your home medications as prescribed Follow-up with your PCP as outpatient within a week Follow-up with your water pollution scientist as outpatient within a week In case of emergency or worsening signs symptoms call 911 or come back to the ED Case discussed with my attending Dr. Nirmala Whatley MD PGY-1 Time Spent with Patient Time attestation: Total time spent providing and/or coordinating discharge services: Time spent: Greater than 30 minutes Exam Vital Signs Temp Pulse Resp BP Pulse Ox O2 Del Method 97.1 F 92 16 133/84 H 96 Room Air 11/07/24 04:00 11/07/24 04:00 11/07/24 04:00 11/07/24 04:00 11/07/24 04:00 11/07/24 04:00 Narrative Exam General: AOx3, no acute distress, alert. Saturating well on room air. HEENT: NC/AT, mucous membranes moist, bilateral sclera anicteric Cardiovascular: Regular rate and rhythm. Normal S1-S2. Pulmonary: CTAB, nl work of breathing Abdominal: soft, non-tender, non-distended, no rebound/guarding, bowel sounds present Extremities: - Lt leg (decreased swelling and no allodynia) : 3+ pitting edema, erythema from foot to below knee, warm to touch,amuptated tip of Lt second toe, 1 cm scab under medial malleolus, pedal pulse 2+ - Rt le+ pitting edema, no erythema, pedal pulse 2+ Discharge Plan Plan Patient Disposition: Home w/HOME HEALTH Patient condition on transfer: Stable Care Plan Goals: Continue taking Bactrim 1 tablet twice daily for 9 more days to complete course for cellulitis of your left lower leg Apply Prince wrap/compression to help with swelling in your leg You were diagnosed with A-fib during the hospital stay continue taking metoprolol succinate 25 mg once a day daily, Eliquis 5 mg twice daily Take simethicone 80 mg 4 times a day as needed for bloating Continue taking your home medications as prescribed Follow-up with your PCP as outpatient within a week Follow-up with your water pollution scientist as outpatient within a week In case of emergency or worsening signs symptoms call 911 or come back to the ED Prescriptions/Referrals Prescriptions/Med Rec: New apixaban 5 mg tablet 5 mg PO BID Qty: 90 0RF sulfamethoxazole-trimethoprim 800-160 mg Tablet 1 tab PO BID 9 Days Qty: 18 0RF simethicone 80 mg Tablet,Chewable 80 mg PO QID PRN (Reason: Gas) Qty: 90 0RF metoprolol succinate 25 mg Tablet Extended Release 24 Hr 25 mg PO QDAY Qty: 90 0RF tramadol 25 mg tablet 25 mg PO Q8H PRN (Reason: pain) Qty: 5 0RF Continued omeprazole 20 mg tablet,delayed release (DR/EC) 20 mg PO QDAY Patient Comments: TAKE TWO TABLETS BY MOUTH EVERY DAY HEARTBURN GASTRIC ACIDITY multivitamin Tablet 1 tab PO QAM citalopram [Celexa] 20 mg Tablet 20 mg PO QDAY ondansetron 4 mg Tablet,Disintegrating 4 mg PO Q6H PRN (Reason: Nausea) ropinirole 0.5 mg Tablet 0.5 mg PO QDAY furosemide 40 mg tablet 40 mg PO BID Patient Comments: TAKE ONE TABLET EVERY DAY A DIURETIC losartan 100 mg tablet 100 mg PO DAILY Patient Comments: TAKE ONE TABLET BY MOUTH EVERY DAY FOR BLOOD PRESSURE Discontinued hydrocodone-acetaminophen 10-325 mg Tablet 1 tab PO Q4H PRN (Reason: Pain) Qty: 0 cyclobenzaprine [Flexeril] 10 mg Tablet 10 mg PO BID PRN (Reason: Spasms) chlorthalidone 50 mg Tablet 50 mg PO QDAY calcium citrate 150 mg Capsule 150 mg PO QAM docusate sodium 250 mg Capsule 250 mg PO BID PRN (Reason: Constipation) phentermine 37.5 mg Capsule 37.5 mg PO QAM ferrous sulfate 325 mg (65 mg iron) tablet 325 mg PO BID Qty: 120 0RF Rx Instructions: Be sure to take your iron pills on an empty stomach, with orange juice docusate sodium [Colace] 100 mg capsule 100 mg PO QDAY Qty: 30 0RF amoxicillin-pot clavulanate [Augmentin] 500-125 mg tablet 1 tab PO BID Qty: 20 0RF hydrocodone-acetaminophen 5-325 mg tablet 1 - 2 tab PO Q8H MDD 6 tablets PRN (Reason: pain) Qty: 7 0RF hydrocodone-acetaminophen 5-325 mg tablet 1 tab PO Q6H MDD 3 PRN (Reason: pain) Qty: 10 0RF No Action pregabalin [Lyrica] 75 mg Capsule 75 mg PO BID PRN (Reason: Pain) gabapentin 600 mg Tablet 600 mg PO TID ibuprofen 800 mg tablet 800 mg PO TID PRN (Reason: pain) Qty: 30 0RF Referrals: No Primary/Family,Physician [Primary Care Provider] - Patient/Caregiver Discharge Instructions Education Materials: AFL/Afib, Animal Bites and Scratches, ED Cellulitis Print Language: Bolivian Stand Alone Forms: [facility] Award Info., Patient Portal Info Letter Discharge Order Discharge Orders: Discharge (Routine); Ordered 11/07/24 Ordered By: Estrellita Silvestre Quality Discharge Quality Measures VTE prophylaxis
[2024-11-07 08:58] VITALS: BMI 35.4
[2024-11-07 09:10] VITALS: BP 133/68; PULSE 90
[2024-11-07] MEDS: METOPROLOL SUCCINATE XL 25 MG TABCR PO (09:10)
[2024-11-07] MEDS: APIXABAN 2.5 MG TABLET 5 MG PO (09:10)
[2024-11-07 09:11] VITALS: BP 133/68; PULSE 90
[2024-11-07] MEDS: TRIMETHOPRIM/SULFA 160/800 DS TABLET 1 TAB PO (09:11)
[2024-11-07] MEDS: CITALOPRAM 20 MG TABLET PO (09:11)
[2024-11-07] MEDS: LOSARTAN POTASSIUM 25 MG TABLET 100 MG PO (09:11)
[2024-11-07 12:00] VITALS: BP 133/85; PULSE 90; RESP 17; TEMP 36.2; O2SAT 97
--- NOTE | 2024-11-07 12:23 | PC.CC ---
Case opened on [facility]
--- NOTE | 2024-11-07 13:51 | PC.PT ---
Patient is safe to ambulate to the bathroom xI with the FWW. Patient will need a FWW and 1 staff assist to ambulate in the hallway. RN made aware.
--- NOTE | 2024-11-10 08:12 | PC.CC ---
[facility] is 11/11/2024
--- NOTE | 2024-11-17 08:50 | PC.CC ---
ASW received a call from the pt who reported she was recently d/c from the hospital and was supposed to receive a wheel chair. Pt reported she has not received her wheel chair and wanted to f/u with SS with updates. ASW transferred pt to for assistance.
== END 2024-11-07 12:25 | disposition home health service (06) | DRG 603 ==
LOC: SERX 22:31 → SERHOLD 22:59 → S3NX 11-04 01:41
PROVIDERS: Nurse Practitioner Family; Admitting Provider Internal Medicine; Emergency Provider Emergency Medicine; Visit Provider Internal Medicine
DX: L03.116 Cellulitis of left lower limb (principal); E11.9 Type 2 diabetes mellitus without complications; I10 Essential (primary) hypertension; I89.0 Lymphedema, not elsewhere classified; W55.03XA Scratched by cat, initial encounter; K21.9 Gastro-esophageal reflux disease without esophagitis; I48.91 Unspecified atrial fibrillation; E87.5 Hyperkalemia; E13.9 Other specified diabetes mellitus without complications; I34.81 Nonrheumatic mitral (valve) annulus calcification; Z79.01 Long term (current) use of anticoagulants; Z79.899 Other long term (current) drug therapy
CPT/HCPCS: 36415; 74018; 80053; 80061; 81001; 83036; 83605; 83735; 84100; 84145; 84443; 85025; 87040; 87086; 93005; 93225; 93306; 93970; 96365; 96366; 96375; 97162; 99285; J0612; J0689; J1644; J1815; J2060; J2270; J2405; J2543; J3370; J7050; A9270

== ENCOUNTER 2024-11-27 13:03 | Outpatient (AMB) | payer MEDICARE, MEDICAID, SELFPAY ==
--- NOTE | 2024-11-27 13:11 | PD.ORTHCLVIS ---
Vital signs 11/27/24 13:12 Height 1.68 m Height Method Stated Weight 92.731 kg Weight Measurement Method Standing Scale BMI 32.8 BP 97/66 Blood Pressure Source Automatic Cuff Blood Pressure Location Left Upper Arm Position Sitting Respiration 18 Pulse 115 H Pulse Source Monitor Temp 96.8 F Temp Source Temporal Artery Scan Pulse Oximetry (%) 98 Oxygen Delivery Method Room Air Med/Allergies Allergies & Medications Allergies metoclopramide (From Reglan) Allergy (Verified 11/27/24 13:13) Shakiness Medication Reconciliation omeprazole 20 mg tablet,delayed release 20 mg PO QDAY 12/07/18 [History Confirmed 11/27/24] citalopram 20 mg tablet (Celexa) 20 mg PO QDAY 08/24/20 [History Confirmed 11/27/24] gabapentin 600 mg tablet 600 mg PO TID 08/24/20 [History Confirmed 11/27/24] Held on 11/04/24. Instructions: Doctor's Order multivitamin 1 tab PO QAM 08/24/20 [History Confirmed 11/27/24] ondansetron 4 mg disintegrating tablet 4 mg PO Q6H PRN Nausea 08/24/20 [History Confirmed 11/27/24] pregabalin 75 mg capsule (Lyrica) 75 mg PO BID PRN Pain 08/24/20 [History Confirmed 11/27/24] Held on 11/04/24. Instructions: Doctor's Order ropinirole 0.5 mg tablet 0.5 mg PO QDAY 08/24/20 [History Confirmed 11/27/24] ibuprofen 800 mg tablet 800 mg PO TID PRN pain #30 tabs 08/03/21 [Rx Confirmed 11/27/24] Held on 11/04/24. Instructions: Doctor's Order furosemide 40 mg tablet 40 mg PO BID 11/04/24 [History Confirmed 11/27/24] losartan 100 mg tablet 100 mg PO DAILY 11/04/24 [History Confirmed 11/27/24] apixaban 5 mg tablet 5 mg PO BID #90 tabs 11/07/24 [Rx Confirmed 11/27/24] metoprolol succinate 25 mg tablet,extended release 24 hr 25 mg PO QDAY #90 tabs 11/07/24 [Rx Confirmed 11/27/24] simethicone 80 mg chewable tablet 80 mg PO QID PRN Gas #90 tabs 11/07/24 [Rx Confirmed 11/27/24] tramadol 25 mg tablet 25 mg PO Q8H PRN pain #5 tabs 11/07/24 [Rx Confirmed 11/27/24] Exam Exam Patient is in no acute distress and is cooperative with the examination today. Patient has a normal mood and affect. Breathing is nonlabored. In no respiratory distress. Bilateral extremities were evaluated and demonstrates sensation intact to light touch. Palpable pedal pulses are present. No significant edema is present. Skin demonstrates lesions and open wounds Patient has significant pain with palpation laterally. Range of motion is 5 to 100 degrees X-rays from [facility] view are reviewed this demonstrates lateral joint space narrowing Assessment and Plan Problem List (1) Arthritis of both knees: Status: Acute Plan: 62-year-old female with bilateral knee osteoarthritis. She has failed conservative treatment. She is previously done well with cortisone injections and she would like knee cortisone injections today. She is not an operative candidate due to the lymphedema. Lymphedema has improved however. Recommend knee cortisone injection as patient would like to proceed with conservative treatment at this time. The risks and benefits of the procedure were reviewed with the patient and patient gave verbal consent to continue with the procedure. Procedure: performed by Dr. Mitchell Using sterile technique the left knee was thoroughly prepped with alcohol, and approximately 1 cc of Depo-Medrol 80mg/mL and 4 cc of 0.2% ropivacaine was injected without resistance into the medial tibial femoral joint space. The patient tolerated the procedure. Recommend knee cortisone injection as patient would like to proceed with conservative treatment at this time. The risks and benefits of the procedure were reviewed with the patient and patient gave verbal consent to continue with the procedure. Procedure: performed by Dr. Mitchell Using sterile technique the left knee was thoroughly prepped with alcohol, and approximately 1 cc of Depo-Medrol 80mg/mL and 4 cc of 0.2% ropivacaine was injected without resistance into the medial tibial femoral joint space. The patient tolerated the procedure. Advanced Care Planning Discussion Advance care planning discussed with:: patient Office Procedures GNS Level of Care Nursing/Assessment Patient Status: Established Patient Nursing Assessment/Reassesment: Medication Reconciliation, Update PMH in EMR and Vital Signs Coordination of Care: Complex Care and Chronic Disease 1-5, Education Complex Pt/Fam, Consent,records obtained, informed consent, Results/Orders obtained and Staff clarify orders Established Patient Charge Established Patient Point Assignment: 95 Established Patient Point Charge: EP Level 3 (80-115) MA Intake Visit Data Collection New Patient or Established: Established Patient (seen at [facility] within 3 years) Reason for Visit:: FOLLOW UP BL KNEE INJECTION Seen by Clinical Staff ONLY (RN/MA): No Carbonating Stone Cleaner Required: No PCP or OBGYN visit in last 3 months: Yes Hx Now: No Do You Feel Safe at Home: Yes Authorities Contacted: N/A Questionairres Past Medical History Past Medical History Have you ever been diagnosed with any of the following: Neurological Problems Peripheral Neuropathy: Yes Cardiology Problems Hypercholesterolemia: Yes Congestive Heart Failure: No Hypertension: Yes Respiratory Problems Chronic Obstructive Pulmonary Disease (COPD): Yes Asthma: Yes Smoking: Yes Smoking Cessation Counseling: Yes Stomache/Intestinal Problems Hiatal Hernia: Yes Obesity: Yes Genital/Urinary Problems Renal Disease: No Musculoskeletal Problems Arthritis: Yes Fibromyalgia: Yes Endocrine Problems Diabetes Mellitus Type 1: No Diabetes Mellitus Type 2: Yes Blood Problems Sickle Cell Disease: No Subjective Visit Visit for: follow up visit, knee (RIGHT KNEE ) and injections Immunization / Flu Flu Vaccine in the Last 12 Months: Yes Flu Vaccine Exclusion Criteria: Already Received History of Present Illness Chief complaint: bilateral knee injections Patient has bilateral knee pain and significant arthritis. She has lymphedema of bilateral knees and thus cannot get total knee replacement as possible candidate. The injections have provided some relief and she would like new injections today. She has had about 3 months of relief with the injection Personal History Red flag PMH: none Pain Pain level (0-10): 9 Pain duration: 3 DAYS Pain location: anterior Pain quality: sharp, aching and shocking Pain timing: night and increases with activity Associated signs & symptoms: stiffness Ambulatory data Ambulatory device: none Walking distance (minutes): 1 Treatments Number of previous injections: 3 Improvement with previous injections: Yes Number of Physical Therapy sessions: 0 Improvement with PT: No Improvement with NSAIDS: n/a Review of Systems Review of Systems: All systems negative unless otherwise noted in HPI.
[2024-11-27 13:12] VITALS: BP 97/66; PULSE 115; RESP 18; TEMP 36; O2SAT 98; BMI 32.8
== END 2024-11-27 13:18 | disposition home or self-care (01) ==
LOC: HODSRG 13:03
PROVIDERS: PCP Family Medicine; Referring Provider Family Medicine; Supervising Provider Orthopaedic Surgery Adult Reconstructive Orthopaedic Surgery; Visit Provider Orthopaedic Surgery Adult Reconstructive Orthopaedic Surgery
DX: M17.0 Bilateral primary osteoarthritis of knee (principal); M25.562 Pain in left knee; M25.561 Pain in right knee; I89.0 Lymphedema, not elsewhere classified; I10 Essential (primary) hypertension; E78.00 Pure hypercholesterolemia, unspecified; J44.9 Chronic obstructive pulmonary disease, unspecified; E66.9 Obesity, unspecified; Z68.32 Body mass index [BMI] 32.0-32.9, adult
CPT/HCPCS: 20610; 99213; J1010; J2795; G0463

== ENCOUNTER 2025-01-10 10:21 | Inpatient (IN) | payer MEDICARE, MEDICAID, SELFPAY ==
[2025-01-10 10:22] VITALS: PULSE 98; RESP 20; O2SAT 98; BMI 32.5
[2025-01-10 10:25] VITALS: BP 120/87; PULSE 90; RESP 18; TEMP 36.4; O2SAT 99
--- NOTE | 2025-01-10 10:36 | EKG_ITS ---
[facility] Test Date: 2025-01-10 Pat Name: RADHA JORDAN Department: Room: - Gender: Female Rn Hyperbaric: : 1960 Requested By: ED Temporary Provider Order Number: [id number] Reading MD: ED Temporary Provider Measurements Intervals [place] Rate: 87 P: MO: QRS: -27 QRSD: 85 T: 50 QT: 382 QTc: 462 Interpretive Statements ATRIAL FIBRILLATION ANTEROSEPTAL MYOCARDIAL INFARCTION , PROBABLY OLD [40+ ms Q WAVE IN V1-V4] Compared to ECG 11/04/2024 09:11:23 No significant changes /store/S0/[id number].pdf
--- NOTE | 2025-01-10 10:36 | PC.NURSE ---
PT WAS TRIAGED OFF [facility] THEN SENT TO WAIT IN THE E.D. LOBBY. PT WAS WITHOUT COMPLAINTS UNTIL FAMILY ARRIVED THEN STARTED C/O CHEST PAIN
--- NOTE | 2025-01-10 10:49 | PD.EDRME ---
Rapid Medical Screening Exam RME Arrival date/time: 01/10/25 10:21 This is a 64-year-old female that comes into the emergency room with complaints of chest pain. Patient states she went grocery shopping and approximately at 930 she started having the chest pain and shortness of breath. Patient admits to using meth this morning. 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 Patient has a history of high blood pressure, depression, newly diagnosed atrial fibrillation. And diabetes I have greeted and performed a focused initial assessment of this patient. Initial appropriate labs ordered at this time. A comprehensive ED assessment and evaluation of the patient and analysis of all test and completion of medical decision making process will be conducted by additional ED provider. Chief Complaint: Abdominal Pain Time Seen by Provider: 01/10/25 10:36 Vital signs: Vital Signs Temperature 97.6 F 01/10/25 10:25 Pulse Rate 90 01/10/25 10:25 Respiratory Rate 18 01/10/25 10:25 Blood Pressure 120/87 H 01/10/25 10:25 Pulse Oximetry (%) 99 01/10/25 10:25 Oxygen Delivery Method Room Air 01/10/25 10:25
--- NOTE | 2025-01-10 10:51 | XR_ITS ---
Examination: AP chest single view Technique: Sitting AP portable chest single view Date and time: January 10, 2025, 11:20 AM, comparison May 21, 2023. Indications: Chest pain. Findings: Possible air beneath right hemidiaphragm versus colon interposed between the liver and the hemidiaphragm Mild enlargement cardiac contour. No lobar pneumonia Impression: Recommend 3 way abdominal series follow-up to exclude free air as clinically warranted
[2025-01-10 12:11] LABS: Basophils # (Auto) 0.0 Thou/mm3 (0.0-0.2); Basophils % (Auto) 1 % (0-2.5); Eosinophils # (Auto) 0.0 Thou/mm3 (0.0-0.5); Eosinophils % (Auto) 0 % (0-10); Hematocrit 36.3 % (36.0-46.0); Hemoglobin 10.6 g/dL (12.0-16.0); Immature Granulocytes Auto 0.02 Thou/mm3 (0.00-0.00); Lymphocytes # (Auto) 2.3 Thou/mm3 (1.0-4.8); Lymphocytes % (Auto) 30 % (10-50); Mean Corpuscular HGB Conc 29.2 g/dl (31.0-37.0); Mean Corpuscular Hemoglobin 22.8 pg (25.0-35.0); Mean Corpuscular Volume 78 fL (80-100); Monocytes # (Auto) 0.6 Thou/mm3 (0.0-0.8); Monocytes % (Auto) 8 % (0-12); Neutrophils # (Auto) 4.5 Thou/mm3 (1.8-7.7); Neutrophils % (Auto) 61 % (37-80); Nucleated Red Blood Cell # 0.00 Thou/mm3 (0.00-0.00); Nucleated Red Blood Cell % 0 /100 WBC (0); Platelet Count 299 Thou/mm3 (140-440); RDW Standard Deviation 54.7 fL (36.4-46.3); Red Blood Count 4.64 Miln/mm3 (4.00-5.20); White Blood Count 7.4 Thou/mm3 (3.6-11.0)
[2025-01-10 12:40] LABS: Alanine Aminotransferase 20 U/L (10-49); Albumin, Serum 4.3 gm/dL (3.4-4.8); Albumin/Globulin Ratio 1.4 (1.2-2.2); Alkaline Phosphatase 109 U/L (46-116); Anion Gap 14 (7-16); Aspartate Amino Transferase 30 U/L (0-34); BUN/Creatinine Ratio 12 Ratio (12-20); Bilirubin,Total 0.4 mg/dL (0.3-1.2); Blood Urea Nitrogen 16 mg/dL (9-23); Calcium 9.8 mg/dL (8.3-10.6); Calcium (Corrected) 9.8 mg/dL (8.5-10.1); Carbon Dioxide 23.9 mMol/L (20.0-31.0); Chloride 104 mMol/L (98-107); Creatinine (Component) 1.3 mg/dL (0.6-1.3); Estimated Creatinine Clearance 49.2 mL/min (>60); Globulin 3.1 gm/dL (2.3-3.5); Glucose 96 mg/dL (74-106); Osmolality,Calculated 284 (275-295); Potassium 3.2 mMol/L (3.4-5.1); Sodium 142 mMol/L (136-145); Total Protein 7.4 gm/dL (5.7-8.2); Troponin I < 0.020 ng/mL (0.0-0.045); eGFR 46 See Note
--- NOTE | 2025-01-10 12:43 | PD.EDABDPN ---
ED Abdominal Pain RME/HPI General Chief Complaint: Abdominal Pain Stated complaint: ABDOMINAL PAIN Time seen by provider: 01/10/25 10:36 Arrival date/time: 01/10/25 10:21 RME / HPI RME / HPI narrative: 01/10/25 10:21 This is a 64-year-old female that comes into the emergency room with complaints of chest pain. Patient states she went grocery shopping and approximately at 930 she started having the chest pain and shortness of breath. Patient admits to using meth this morning. 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 Patient has a history of high blood pressure, depression, newly diagnosed atrial fibrillation. And diabetes I have greeted and performed a focused initial assessment of this patient. Initial appropriate labs ordered at this time. A comprehensive ED assessment and evaluation of the patient and analysis of all test and completion of medical decision making process will be conducted by additional ED provider. See MDM for Dr. Polanco's HPI documentation. Related Data Home Medications ?Medication ?Instructions ?Recorded ?Confirmed omeprazole 20 mg tablet,delayed 20 mg PO QDAY 12/07/18 11/27/24 release citalopram 20 mg tablet (Celexa) 20 mg PO QDAY 08/24/20 11/27/24 gabapentin 600 mg tablet 600 mg PO TID 08/24/20 11/27/24 Held on 11/04/24. Instructions: Doctor's Order multivitamin 1 tab PO QAM 08/24/20 11/27/24 ondansetron 4 mg disintegrating 4 mg PO Q6H PRN Nausea 08/24/20 11/27/24 tablet pregabalin 75 mg capsule (Lyrica) 75 mg PO BID PRN Pain 08/24/20 11/27/24 Held on 11/04/24. Instructions: Doctor's Order ropinirole 0.5 mg tablet 0.5 mg PO QDAY 08/24/20 11/27/24 furosemide 40 mg tablet 40 mg PO BID 11/04/24 11/27/24 losartan 100 mg tablet 100 mg PO DAILY 11/04/24 11/27/24 Previous Rx's ?Medication ?Instructions ?Recorded ibuprofen 800 mg tablet 800 mg PO TID PRN pain #30 tabs 08/03/21 Held on 11/04/24. Instructions: Doctor's Order apixaban 5 mg tablet 5 mg PO BID #90 tabs 11/07/24 metoprolol succinate 25 mg 25 mg PO QDAY #90 tabs 11/07/24 tablet,extended release 24 hr simethicone 80 mg chewable tablet 80 mg PO QID PRN Gas #90 tabs 11/07/24 tramadol 25 mg tablet 25 mg PO Q8H PRN pain #5 tabs 11/07/24 Allergies Allergy/AdvReac Type Severity Reaction Status Date / Time metoclopramide (From Reglan) Allergy Shakiness Verified 01/10/25 10:26 Review of Systems Review of Systems Systems Reviewed: All systems reviewed, normal except as documented Past Medical History Past Medical History NEUROLOGIC: Positive Peripheral Neuropathy CARDIAC: Positive Hypercholesterolemia and Hypertension; Negative Cardiac Disorders or Congestive Heart Failure RESPIRATORY: Positive Chronic Obstructive Pulmonary Disease (COPD), Asthma, Smoking and Smoking Cessation Counseling GASTROINTESTINAL: Positive Hiatal Hernia and Obesity GENITOURINARY: Negative Renal Disease MUSCULOSKELETAL: Positive Musculoskeletal Disorders, Arthritis and Fibromyalgia ENDOCRINE: Positive Diabetes Mellitus Type 2; Negative Diabetes Mellitus Type 1 HEMATOLOGIC: Negative Sickle Cell Disease Surgical History SURGICAL: Positive Abdominal Surgery, Gastric Bypass Surgery and Tubal Ligation Social History SMOKING STATUS: Current every day smoker SUBSTANCE USE: does not use ED Exam Narrative Physical exam: See [facility] for Dr. Polanco's physical exam documentation. Course Course Course Narrative: CXR is ordered for determining the etiology of chest pain. Quality Measures none Orders Category Date Time Status CT Screening NOW Care 01/10/25 13:13 Active Fast Food Shift Lead STAT Care 01/10/25 12:51 Active Continuous Pulse Oximetry ONCE Care 01/10/25 12:51 Active EKG (ED ONLY) *Do not use* NOW Care 01/10/25 10:36 Completed In and Out Catheter X1 Care 01/10/25 12:51 Active Insert IV STAT Care 01/10/25 12:[address] chest abdomen pelvis w Stat Exams 01/10/25 13:12 Taken EKG (ED Only) Stat Exams 01/10/25 10:36 Draft XR chest 1V Stat Exams 01/10/25 10:51 Completed BNP [B-Type Natriuretic Peptide] Stat Lab 01/10/25 11:35 Completed Blood Culture (Lab) Stat Lab 01/10/25 16:24 Received CBC Stat Lab 01/10/25 11:35 Completed Comprehensive Metabolic Panel Stat Lab 01/10/25 11:35 Completed Drug Screen,Urine Stat Lab 01/10/25 17:41 Ordered Lactate (Lactic Acid) Stat Lab 01/10/25 16:24 Completed Magnesium Stat Lab 01/10/25 11:35 Completed Procalcitonin Stat Lab 01/10/25 16:24 Completed Prothrombin Time with INR Stat Lab 01/10/25 11:35 Completed Troponin I Stat Lab 01/10/25 11:35 Completed Urinalysis, C/S if Indicated Stat Lab 01/10/25 17:41 Ordered Doxycycline Inj [Vibramycin Inj] 100 mg Med 01/10/25 15:53 Discontinued Sodium Chloride 0.9% (Pop) [NS 0.9% mini bag] 100 ml IV X1 HYDROmorphone INJ [Dilaudid Inj] Med 01/10/25 14:45 Discontinued 1 mg IVP X1 ONE Morphine* Inj Med 01/10/25 13:15 Discontinued 2 mg IVP Q30M PRN Ondansetron Inj [Zofran Inj] Med 01/10/25 13:15 Discontinued 4 mg IVP X1 ONE Piper/Tazo Inj [Zosyn Inj] 4.5 gm Med 01/10/25 15:53 Discontinued Sodium Chloride 0.9% (Pop) [NS 0.9% mini bag] 100 ml IV X1 Potassium Chloride [K-Dur] Med 01/10/25 12:45 Discontinued 20 meq PO X1 ONE Sodium Chloride 0.9% 1000 ml [Ns] 1,000 ml Med 01/10/25 15:54 Discontinued IV 999 mls/hr Oxygen Delivery NOW RT 01/10/25 12:51 Active Vital Signs Vital signs: Vital Signs Temperature 97.6 F 01/10/25 10:25 Pulse Rate 90 01/10/25 10:25 Respiratory Rate 18 01/10/25 10:25 Blood Pressure 120/87 H 01/10/25 10:25 Pulse Oximetry (%) 99 01/10/25 10:25 Oxygen Delivery Method Room Air 01/10/25 10:25 Abdominal Pain MDM MDM Narrative MDM Narrative:: This section includes all my notes and documentations, including HPI, PE, and ED course. Jamari Polanco MD HPI: 64yo female with a history of gastric bypass, aFib on Eliquis BIBA presents to the ED for a chief complaint of chest pain that started this morning while she was out in the grocery store. Pain radiates to her neck and shoulders. She also has chronic abdominal pain that has worsened since yesterday. She is on Ozempic. Denies any fever, chills, or any other associated symptoms. ROS: All negative except as documented in HPI. Physical Exam: GENERAL APPEARANCE: alert and oriented x 4, well-developed, well-nourished, appears to be in pain VITALS: All vitals were reviewed and the pulse ox is 99% on room air, which is normal according to my interpretation. HEENT: Normocephalic, atraumatic; pupils equal, round, reactive to light; EOMI; mucous membranes pink, moist; oropharynx clear NECK: Supple LUNGS: CTABL; no wheezes, no rales, no rhonchi HEART: Regular rate, regular rhythm; normal S1, S2; no murmurs ABDOMEN: non distended; normal BS; soft, exquisite generalized tenderness, voluntary guarding EXTREMITIES: atraumatic; no edema NEUROLOGIC: awake; alert and oriented x4; cranial nerves II-XII grossly intact; no focal sensory or motor deficits; observed to stand with minimal assistance SKIN: warm, dry, normal color; no rashes I reviewed EMS notes. I reviewed all diagnostic test results. My interpretation of the EKG is aFib without STEMI. My interpretation of the chest x-ray is possible air beneath right hemidiaphragm versus colon interposed between the liver and the hemidiaphragm. My review of the CT chest abdomen pelvis report is Blood tests are unremarkable except for K 3.2. At this point, diagnoses include: perforated bowel Treatment here included: Oral KCl, Dilaudid, Zofran, IV fluid, Doxycycline, Zosyn At 1547, I discussed case with Dr. Blandon from general surgery regarding consultation. Discussed patients ED course, exam findings, labs, and radiology results. States she will come and evaluate the patient. 1800: Care signed out to Dr. Meyers (emergency physician). Past medical, surgical, social and family history reviewed. Vitals and home medications reviewed. Results and treatment plan discussed. They will assume the care of the patient at this time and will follow the patient, pending CT chest abdomen pelvis and evaluation by Dr. Blandon. Patient data External records reviewed:: [facility] previous records (Per chart review, patient was seen here on 03/31/24 for chronic epigastric pain.) Clinical information provided by:: patient Social determinants that could affect healthcare access:: substance use Patient has the following chronic illnesses:: DM, HTN, HLD How is presenting disease/condition affected by chronic disease/condition?: uneffected by Evaluation data The following diagnostics were reviewed and interpreted by me:: lab results, radiology exam(s) and EKG tracing(s) (done at 1039, aFib, rate of 87, normal axis, Q waves in V1-V4, no STEMI, according to my interpretation.) Lab and/or radiology exams considered but not ordered:: none Interpretation Summary: [facility] Report Signed Patient: RADHA JORDAN Record#: [id number] Birthdate: 1960 Age/Sex: 64 / F Location: [facility] Attending Dr: Ordering Physician: Jessa Ulrich NP Date of Service: 01/10/25 Procedure(s): XR chest 1V Accession Number(s): [id number] cc: Елена Parkinson; Rodney Santos MD; Jessa Ulrich NP~ Examination: AP chest single view Technique: Sitting AP portable chest single view Date and time: January 10, 2025, 11:20 AM, comparison May 21, 2023. Indications: Chest pain. Findings: Possible air beneath right hemidiaphragm versus colon interposed between the liver and the hemidiaphragm Mild enlargement cardiac contour. No lobar pneumonia Impression: Recommend 3 way abdominal series follow-up to exclude free air as clinically warranted Dictated By: Rodney Santos MD Signed By: <Electronically signed by Rodney Santos MD in OV> 01/10/25 1341 Medications / Prescriptions Medications or Prescriptions considered but not ordered:: none Medication administrations:: Medication Administration History Discontinued Medications Hydromorphone HCl (Hydromorphone Inj 2 Mg/Ml Vial) 1 mg IVP X1 ONE Stop: 01/10/25 14:46 Last Admin: 01/10/25 14:52 Dose: 1 mg Documented By: AA Piperacillin Sod/Tazobactam (Sod 4.5 gm/ Sodium Chloride) 100 mls @ 200 mls/hr IV X1 ONE Stop: 01/10/25 16:22 Last Admin: 01/10/25 16:44 Dose: 200 mls/hr Documented By: CS Doxycycline Hyclate 100 mg/ (Sodium Chloride) 100 mls @ 100 mls/hr IV X1 ONE Stop: 01/10/25 16:52 Last Admin: 01/10/25 16:44 Dose: 100 mls/hr Documented By: CS Sodium Chloride (Ns) 1,000 mls @ 999 mls/hr IV .Q1H1M ONE Stop: 01/10/25 16:54 Last Admin: 01/10/25 16:45 Dose: 999 mls/hr Documented By: BHAKTI Morphine Sulfate (Morphine Sulf Inj 4 Mg/Ml Vial) 2 mg IVP Q30M PRN PRN Reason: abdominal pain Ondansetron HCl (Ondansetron Inj 2 Mg/Ml Inj 2 Ml) 4 mg IVP X1 ONE; Protocol Stop: 01/10/25 13:16 Last Admin: 01/10/25 14:52 Dose: 4 mg Documented By: CORINNA Potassium Chloride (Potassium Chloride 20 Meq Tabcr) 20 meq PO X1 ONE Stop: 01/10/25 12:46 Last Admin: 01/10/25 16:44 Dose: 20 meq Documented By: BHAKTI see above Consultations Consultation(s) initiated? (list below): Yes Consultation #1 (Physician, Specialty, Details): At 1547, I discussed case with Dr. Blandon from general surgery regarding consultation. Discussed patients ED course, exam findings, labs, and radiology results. States she will come and evaluate the patient. Diagnosis Differential diagnosis abdominal pain: small bowel obstruction and other (acute appendicitis, gallbladder pathology, bowel perforation) Most likely diagnosis given after review of the tests above:: pending at signout Admission Indicated Admission indicated?: not indicated Admission Request Was there a request for admission?: No Disposition Plan Disposition Plan: other (specify) (Signed out to Dr. Meyers at 1800.) Discharge Plan Prescriptions/Referrals Prescriptions/Med Rec: No Action omeprazole 20 mg tablet,delayed release (DR/EC) 20 mg PO QDAY Patient Comments: TAKE TWO TABLETS BY MOUTH EVERY DAY HEARTBURN GASTRIC ACIDITY multivitamin Tablet 1 tab PO QAM citalopram [Celexa] 20 mg Tablet 20 mg PO QDAY ondansetron 4 mg Tablet,Disintegrating 4 mg PO Q6H PRN (Reason: Nausea) pregabalin [Lyrica] 75 mg Capsule 75 mg PO BID PRN (Reason: Pain) gabapentin 600 mg Tablet 600 mg PO TID ropinirole 0.5 mg Tablet 0.5 mg PO QDAY ibuprofen 800 mg tablet 800 mg PO TID PRN (Reason: pain) Qty: 30 0RF furosemide 40 mg tablet 40 mg PO BID Patient Comments: TAKE ONE TABLET EVERY DAY A DIURETIC losartan 100 mg tablet 100 mg PO DAILY Patient Comments: TAKE ONE TABLET BY MOUTH EVERY DAY FOR BLOOD PRESSURE apixaban 5 mg tablet 5 mg PO BID Qty: 90 0RF simethicone 80 mg Tablet,Chewable 80 mg PO QID PRN (Reason: Gas) Qty: 90 0RF metoprolol succinate 25 mg Tablet Extended Release 24 Hr 25 mg PO QDAY Qty: 90 0RF tramadol 25 mg tablet 25 mg PO Q8H PRN (Reason: pain) Qty: 5 0RF Referrals: Елена Parkinson FNP-C [Primary Care Provider] - In 1 week Problem List Clinical Impression: Perforated bowel Patient/Caregiver Discharge Instructions Print Language: Syriac
--- NOTE | 2025-01-10 13:12 | XR_ITS ---
Examination: CT chest with intravenous contrast CT abdomen with intravenous contrast CT pelvis with intravenous contrast 2-D coronal and sagittal reconstructions Time of exam: January 10, 2025, 1519 hrs. Indications: Onset abdominal pain shortness of breath today. CTDI: vol (mGy) : 11.6. DLP: (mGycm): 706. Technique: Multiple axial images of the chest, abdomen and pelvis with intravenous contrast, 3.0 mm slice thickness. Images obtained post intravenous injection Isovue 370 60 cc. 2-D sagittal and coronal reconstructions. Low dose protocols were performed. One or more of the following dose reduction techniques were used; automated exposure control, adjustment of the mA and/or KV according to patient size, use of iterative reconstruction technique. Findings: No thoracic aortic aneurysm dilatation No pulmonary artery emboli. No pneumonia or pulmonary edema or pleural disease. Extensive pneumoperitoneum. Enlarged common bile duct 12 mm no definite stones No pancreatic mass Extensive colonic diverticula with air droplets adjacent to the sigmoid diverticula Significant free fluid in the pelvis Urinary bladder is intact Impression: Extensive pneumoperitoneum Extensive colonic diverticula with air droplets adjacent to the sigmoid colon diverticula, but extensive free fluid in the pelvis, differential would include rupture of the diverticula as well as ischemia involving the colon, clinical correlation advised
[2025-01-10 13:32] LABS: INR 1.1 (0.9-1.3); Prothrombin Time 11.8 Seconds (9.0-12.2)
[2025-01-10 14:23] LABS: Magnesium 1.8 mg/dL (1.6-2.6)
[2025-01-10] MEDS: HYDROmorphone INJ 2 MG/ML VIAL 1 MG IVP ×2 (14:52→21:15)
[2025-01-10] MEDS: ONDANSETRON INJ 2 MG/ML INJ 2 ML 4 MG IVP (14:52)
[2025-01-10 15:00] LABS: B-Type Natriuretic Peptide 132 pg/mL (0-100)
[2025-01-10 16:38] LABS: Lactate (Lactic Acid) 1.0 mMol/L (0.4-2.0)
[2025-01-10] MEDS: PIPER/TAZO INJ 4.5 GM in SODIUM CHLORIDE 0.9% (POP) 100 ML IV (16:44)
[2025-01-10] MEDS: DOXYCYCLINE INJ 100 MG in SODIUM CHLORIDE 0.9% (POP) 100 ML IV (16:44)
[2025-01-10] MEDS: SODIUM CHLORIDE 0.9% 1000 ML 1,000 ML 999 ML IV (16:45)
[2025-01-10 17:09] LABS: Procalcitonin 0.28 ng/ml (0.0-0.49)
--- NOTE | 2025-01-10 18:21 | EDNOTE_ITS ---
Emergency Room Addendum <Katlin Solis - Last Filed: 01/10/25 20:29> Addendum Narrative: 1800: Care assumed from Dr. Polanco (emergency physician). Past medical, surgical, social and family history reviewed. Vitals and home medications reviewed. Results and treatment plan discussed. I will assume the care of the patient at this time and will follow the patient, pending CT and evaluation by Dr. Blandon. The following addendum documentation note is intended to reflect any pending information, findings, or radiology results not included in the patient?s initial chart by the previous shift scribe. RADIOLOGY Chest/Abdomen/Pelvis CT: Findings: No thoracic aortic aneurysm dilatation No pulmonary artery emboli. No pneumonia or pulmonary edema or pleural disease. Extensive pneumoperitoneum. Enlarged common bile duct 12 mm no definite stones No pancreatic mass Extensive colonic diverticula with air droplets adjacent to the sigmoid diverticula Significant free fluid in the pelvis Urinary bladder is intact Impression: Extensive pneumoperitoneum Extensive colonic diverticula with air droplets adjacent to the sigmoid colon diverticula, but extensive free fluid in the pelvis, differential would include rupture of the diverticula as well as ischemia involving the colon, clinical correlation advised 2028: Dr. Blandon made aware of the patient?s HPI, PMHx, lab and/or radiology results. Discussed treatment plan. Will consult an admission to the hospitalist. <Sanford Meyers DO - Last Filed: 01/10/25 20:40> Addendum Narrative: 1800: Care assumed from Dr. Polanco (emergency physician). Past medical, surgical, social and family history reviewed. Vitals and home medications reviewed. Results and treatment plan discussed. I will assume the care of the patient at this time and will follow the patient, pending CT and evaluation by Dr. Blandon. The following addendum documentation note is intended to reflect any pending information, findings, or radiology results not included in the patient?s initial chart by the previous shift scribe. RADIOLOGY Chest/Abdomen/Pelvis CT: Findings: No thoracic aortic aneurysm dilatation No pulmonary artery emboli. No pneumonia or pulmonary edema or pleural disease. Extensive pneumoperitoneum. Enlarged common bile duct 12 mm no definite stones No pancreatic mass Extensive colonic diverticula with air droplets adjacent to the sigmoid diverticula Significant free fluid in the pelvis Urinary bladder is intact Impression: Extensive pneumoperitoneum Extensive colonic diverticula with air droplets adjacent to the sigmoid colon diverticula, but extensive free fluid in the pelvis, differential would include rupture of the diverticula as well as ischemia involving the colon, clinical correlation advised 2028: Dr. Blandon made aware of the patient?s HPI, PMHx, lab and/or radiology results. Discussed treatment plan. Will consult an admission to the hospitalist. Case was signed out to me. General surgeon, Dr. Blandon has already come down and seeing the patient. It is uncertain whether or not the patient has pneumoperitoneum versus a loop of bowel between the liver and diaphragm. Patient has had 3 abdominal wall hernia surgeries in the past as well as gastric bypass surgery. She has atrial fibrillation and is on Eliquis last taking Eliquis last night. She also has recently done methamphetamine. CT scan done of the chest abdomen and pelvis with IV contrast did not fact show extensive pneumoperitoneum. Patient has received Zosyn for antibiotic coverage through the IV. I have discussed this case again with general surgeon Dr. Blandon who eliz l follow the patient. She is asking for the hospitalist to admit the patient to the for further treatment and evaluation. I went to examine the patient. The patient's abdomen is tender but no rebound tenderness. Patient will receive morphine for pain. I have discussed this case with the hospitalist who will admit the patient to hospital for further treatment and evaluation for her abdominal pain with pneumoperitoneum.
[2025-01-10 18:39] VITALS: BP 163/110; PULSE 78; RESP 19; TEMP 36.6; O2SAT 95
--- NOTE | 2025-01-10 20:36 | PD.SURCONS ---
HPI Consult details History of present illness: 64F with HTN, DMII, afib, history of gastric bypass in 2006 who presented to ER this am initially reporting chest pain and shortness of breath after using meth. Pt underwent CXR read as possible pneumoperitoneum vs colon interposed above the liver, followed by CT CAP read as extensive pneumoperitoneum however she does not have any clinical signs of peritonitis, has remained afebrile with intermittent tachycardia and EKG consistent with her known afib, has received one dose of pain medicine at 3pm On my exam pt stated she does have abdominal pain which has been present for the last two (2) days and is similar to pain she has experienced before. She reports nausea and decreased appetite, last had a BM yesterday. Her last colonoscopy was years ago and she has not had any recent EGD PMH: HTN, DMII, afib PSHx: Gastric bypass in 2006 in [place], multiple hernia repairs Meds: includes eliquis last taken yesterday morning Allergies: Reglan Social hx: smokes 1/2 PPD cigarettes Review of Systems Review of Systems ROS Unobtainable: All systems reviewed & no additional complaints except as documented Meds Home Medications and Allergies Home Medications ?Medication ?Instructions ?Recorded ?Confirmed ?Type omeprazole 20 mg tablet,delayed 20 mg PO QDAY 12/07/18 11/27/24 History release citalopram 20 mg tablet (Celexa) 20 mg PO QDAY 08/24/20 11/27/24 History gabapentin 600 mg tablet 600 mg PO TID 08/24/20 11/27/24 History Held on 11/04/24. Instructions: Doctor's Order multivitamin 1 tab PO QAM 08/24/20 11/27/24 History ondansetron 4 mg disintegrating 4 mg PO Q6H PRN Nausea 08/24/20 11/27/24 History tablet pregabalin 75 mg capsule (Lyrica) 75 mg PO BID PRN Pain 08/24/20 11/27/24 History Held on 11/04/24. Instructions: Doctor's Order ropinirole 0.5 mg tablet 0.5 mg PO QDAY 08/24/20 11/27/24 History furosemide 40 mg tablet 40 mg PO BID 11/04/24 11/27/24 History losartan 100 mg tablet 100 mg PO DAILY 11/04/24 11/27/24 History Allergies Allergy/AdvReac Type Severity Reaction Status Date / Time metoclopramide (From Reglan) Allergy Shakiness Verified 01/10/25 10:26 Exam Vital Signs Temp Pulse Resp BP Pulse Ox O2 Del Method 97.8 F 78 19 163/110 H 95 Room Air 01/10/25 18:39 01/10/25 18:39 01/10/25 18:39 01/10/25 18:39 01/10/25 18:39 01/10/25 18:39 Constitutional Constitutional: no acute distress Routine Respiratory Exam Respiratory: Present no resp distress Routine Abdominal Exam Abdominal: Present soft, tenderness (moderate tenderness at left abdomen), distended (mild distention) and surgical scars (healed midline scar); Absent rebound, guarding, firm or rigid Results Results: Laboratory Laboratory results: results reviewed Results: Imaging Chest x-ray: report reviewed and image reviewed CT scan - abdomen: report reviewed and image reviewed Assessment & Plan Plan 64F with HTN, DMII, afib, history of gastric bypass in 2006 who presented to ER this am initially reporting chest pain and shortness of breath after using meth. Pt underwent CXR read as possible pneumoperitoneum vs colon interposed above the liver, followed by CT CAP read as extensive pneumoperitoneum however she does not have any clinical signs of peritonitis, with a benign abdominal exam, overall normal vitals, normal WBC with no shift, normal lactate and procalcitonin. Given the reported duration of her pain I would not expect this clinical picture if she truly had a perforated viscus and so I do not recommend surgical exploration but will follow up tomorrow am NPO for now Will follow
--- NOTE | 2025-01-10 21:10 | XR_ITS ---
Examination: Abdomen AP single view Technique: AP portable supine abdomen, single view Exam date and time: January 10 mm thousand 25, 2123 hrs. Indications: Onset abdominal pain beginning 2 days ago Findings: Moderate to large amounts of stool throughout the colon. No obstruction. No free air. Surgical clips right and left abdomen Impression: Nonobstructive bowel gas pattern
[2025-01-10 21:21] VITALS: PULSE 71; PULSE 88; RESP 19; RESP 93
--- NOTE | 2025-01-10 21:27 | PD.RESHP ---
Documentation for date of: 01/10/25 HPI History of Present Illness Chief complaint: acute severe abdominal pain and nausea History of present illness: Patient is a 64year-old female with past medical history HTN, DMII, A-fib (on eliquis) who presented to the ED on 01/10/2025 with abdominal pain and nausea.Patient reported acute onset constant severe abdominal pain that started about 2 days ago. The abdominal pain is sharp, acute, and severe pain that radiates to the left shoulder then from chest to right shoulder, the pain radiates in cyclical pattern. Pain associated with nausea and shortness of breath and decrease appetite.Last bowel movement was 2 days ago with diarrhea but no hematochezia, melena. Patient also reported associated shortness of breath worsen on inspiration. She denies, chills, fever, lightheadedness, chest palpitation and vomiting. Of note, patient had a fall 5 days ago at home and hit her chin on the coffee table and another one in the clinic 2 days ago while standing up. ED Course: -Initial vitals were BP 120/87, pulse 90, respiratory 1897.6 O2 sat 99% on room air. -Labs significant for leukocytosis WBC 15.5, Hgb 10.5, HCT 35.3, MCV 74, hypokalemia 3.2, eGFR 46, BNP 132. Trops negative (<0.002). Utox positive for meth and opiates. -Imaging included kub showed evidence of right hemidiaphragm and non-obstructive bowel gas pattern, CT CAP extensive pneumoperitoneum. EKG showed A-fib with rate 87 -In the ED, patient was given Zofran, 1mg Dilaudid x2, potassium chloride, Zosyn, doxycycline, 1L NS -Patient was admitted for pneumoperitoneum evaluation and management Review of Systems Review of systems otherwise negative except what is mentioned above. Past Medical History: HTN, DMII, afib Family History: dad- [place] Surgical History: Gastric bypass in 2006 in [place], multiple hernia repairs Social History:smokes 1/2 [employer] cigarettes, meth user. Denies alcohol use Current Medications: (Source: ) Allergies: reglan Exam Vital Signs Temp Pulse Resp BP Pulse Ox O2 Del Method 97.8 F 71 19 163/110 H 95 Room Air 01/10/25 18:39 01/10/25 21:21 01/10/25 21:21 01/10/25 18:39 01/10/25 18:39 01/10/25 18:39 Narrative Exam General: Alert,moderate distress and ill-appearing Skin: Warm, dry, intact. No rash or ecchymoses. Head: Normocephalic, atraumatic. Eye: Normal conjunctiva, PERRL. Throat: dry oral mucosa. No obvious lesions in oropharynx. Cardiovascular: Regular rate and rhythm, no murmur, +S1/S2. Respiratory: Lungs are clear to auscultation, respirations unlabored, no crackles, no wheezing. Gastrointestinal:diffusely tender to palpation left>right, distended. Bowel sound present Extremities:Bilateral lymphedema, varicoses vein, right knee contusion Neuro: Alert and oriented x3.No focal deficits observed. Conversant, moving all extremities. No overt cerebellar signs/incoordination. Psychiatric: Cooperative, appropriate affect Results: Labs 01/16/25 05:27 01/16/25 05:27 Labs: Short CBC 01/10/25 Range/Units 11:35 WBC 7.4 (3.6-11.0) Thou/mm3 Hgb 10.6 L (12.0-16.0) g/dL Hct 36.3 (36.0-46.0) % Plt Count 299 (140-440) Thou/mm3 BMP 01/10/25 11:35 Sodium 142 Potassium 3.2 L Chloride 104 Carbon Dioxide 23.9 BUN 16 Creatinine 1.3 Glucose 96 Calcium 9.8 Cardiac Enzymes 01/10/25 Range/Units 11:35 Troponin I < 0.020 (0.0-0.045) ng/mL Liver Function 01/10/25 Range/Units 11:35 Total Bilirubin 0.4 (0.3-1.2) mg/dL AST 30 (0-34) U/L ALT 20 (10-49) U/L Alkaline Phosphatase 109 (46-116) U/L Albumin 4.3 (3.4-4.8) gm/dL Quality Measures Quality Measures VTE prophylaxis and none Advance care planning discussed with:: patient and child Medications Home Medications and Allergies Home Medications ?Medication ?Instructions ?Recorded ?Confirmed ?Type omeprazole 20 mg tablet,delayed 20 mg PO QDAY 12/07/18 01/11/25 History release citalopram 20 mg tablet (Celexa) 20 mg PO QDAY 08/24/20 01/11/25 History multivitamin 1 tab PO QAM 08/24/20 01/11/25 History ropinirole 0.5 mg tablet 0.5 mg PO QDAY 08/24/20 01/11/25 History furosemide 40 mg tablet 40 mg PO BID 11/04/24 01/11/25 History losartan 100 mg tablet 100 mg PO DAILY 11/04/24 01/11/25 History citalopram 40 mg tablet 40 mg PO DAILY 01/11/25 01/11/25 History ergocalciferol (vitamin D2) 1,250 1,250 mcg PO QWEEK 01/11/25 01/11/25 History mcg (50,000 unit) capsule loratadine 10 mg tablet 10 mg PO Q24H 01/11/25 01/11/25 History omeprazole 20 mg capsule,delayed 40 mg PO QAM 01/11/25 01/11/25 History release potassium chloride 20 mEq 20 meq PO DAILY 01/11/25 01/11/25 History tablet,extended release(part/cryst) tirzepatide 2.5 mg/0.5 mL 2.5 mg subcut QWEEK 01/11/25 01/11/25 History subcutaneous pen injector (Trini) Allergies Allergy/AdvReac Type Severity Reaction Status Date / Time metoclopramide (From Reglan) Allergy Shakiness Verified 01/10/25 10:26 Visit Medications Hydromorphone HCl (Hydromorphone Inj 2 Mg/Ml Vial) 1 mg IVP Q4H PRN PRN Reason: PAIN SCALE 7-10 (Severe Stop: 01/15/25 21:10 Acetaminophen (Ofirmev Inj) 1,000 mg in 100 mls @ 250 mls/hr IV Q6HR PRN PRN Reason: Fever > 100.4, pain 1-3 Stop: 01/11/25 12:23 Amiodarone HCl/Dextrose (Nexterone Ivpb) 360 mg in 200 mls @ 33.333 mls/hr IV .Q6H ONE Stop: 01/11/25 03:16 Amiodarone HCl/Dextrose (Nexterone Ivpb) 360 mg in 200 mls @ 16.667 mls/hr IV .Q12H ANTONIA Stop: 01/11/25 21:16 Piperacillin/Tazobactam/Dextrose (Zosyn) 50 mls @ 100 mls/hr IV Q6HR [facility] Stop: 01/17/25 21:18 Doxycycline Hyclate 100 mg/ (Sodium Chloride) 100 mls @ 100 mls/hr IV BID [facility] Stop: 01/18/25 08:59 Lactated Ringer's (Lactated Ringers) 1,000 mls @ 60 mls/hr IV .[id number] [facility] Stop: 01/11/25 13:59 Morphine Sulfate (Morphine Sulf Inj 4 Mg/Ml Vial) 2 mg IVP Q6HR PRN PRN Reason: PAIN SCALE 4-6 (Moderate Stop: 01/15/25 21:10 Discontinued Medications Hydromorphone HCl (Hydromorphone Inj 2 Mg/Ml Vial) 1 mg IVP X1 ONE Stop: 01/10/25 14:46 Last Admin: 01/10/25 14:52 Dose: 1 mg Hydromorphone HCl (Hydromorphone Inj 2 Mg/Ml Vial) 1 mg IVP X1 ONE Stop: 01/10/25 21:00 Last Admin: 01/10/25 21:15 Dose: 1 mg Piperacillin Sod/Tazobactam (Sod 4.5 gm/ Sodium Chloride) 100 mls @ 200 mls/hr IV X1 ONE Stop: 01/10/25 16:22 Last Infusion: 01/10/25 21:20 Dose: Infused Doxycycline Hyclate 100 mg/ (Sodium Chloride) 100 mls @ 100 mls/hr IV X1 ONE Stop: 01/10/25 16:52 Last Infusion: 01/10/25 21:19 Dose: Infused Sodium Chloride (Ns) 1,000 mls @ 999 mls/hr IV .Q1H1M ONE Stop: 01/10/25 16:54 Last Infusion: 01/10/25 21:20 Dose: Infused Morphine Sulfate (Morphine Sulf Inj 4 Mg/Ml Vial) 2 mg IVP Q30M PRN PRN Reason: abdominal pain Ondansetron HCl (Ondansetron Inj 2 Mg/Ml Inj 2 Ml) 4 mg IVP X1 ONE; Protocol Stop: 01/10/25 13:16 Last Admin: 01/10/25 14:52 Dose: 4 mg Potassium Chloride (Potassium Chloride 20 Meq Tabcr) 20 meq PO X1 ONE Stop: 01/10/25 12:46 Last Admin: 01/10/25 16:44 Dose: 20 meq Assessment & Plan Plan Patient is a 64 year-old female with past medical history HTN, DMII, A-fib (on eliquis) who presented to the ED on 01/10/2025 with abdominal pain and nausea. Found to have extensive extensive pneumoperitoneumon on CTCAP admitted for pneumoperitoneum evaluation management. #Pneumoperitoneum #Abdominal pain/ Nausea and vomiting #s/p hernia repair surgery (2006) #Leukocytosis Patient presented with acute abdominal pain, moderately diffusely tender to palpation more prevalent on the left quadrant.CXR showed possible air beneath right hemidiaphragm. CT CAP was ordered and showed extensive pneumoperitoneum, extensive colonic diverticula with air droplets adjacent to sigmoid colon diverticula. Surgery consulted, however had no surgical exploration recommendations. Repeat CBC was positive for leukocytosis WBC 15.5 likely reactive. Pt was afebrile but tachycardic due to pain. Repeat lactate was order to rule out bowel ischemia, however was 1.7 (normal). In ED patient recieved Zosyn and doxycycline. Dilaudid for pain. Concern for Pnemoperitoneum likely due to rupture of colonic diverticula. Plan - Per Surgery - does not recommend surgical exploration but will follow up tomorrow am - Diet NPO - Pain control with Dilaudid 1mg q4h prn and morphine 2mg Q6H PRN - Continue with Zosyn 3.275 - Follow up with PTT and PT W/INR - 1L NS IVF at 60mls/hr - Pending blood culture #A-fib, rate controlled Patient has a history of atrial fibrillation on Eliquis 5mg. Home meds eliquis, metoprolol succinate EKG showed a-fib with rate of 87 and QTc 462. Troponin normal CHADsVAS score 4?AND 6.7% risk of stroke/TIA/systemic embolism HAS BLED score 2 Repleted potassium and Magnesium Plan - Held all home po meds for pneumoperitoneum suspicion - Started amiodarone drip - Labetatol IV 10mg Q2H PRN - Plan to resumed home Eliquis 5mg p.o after surgery - Will continue to monitor telemetry - Keep K > 4 and Mg > #ANNALISA, pre-renal #Hypokalemia Cr on admission is 1.3. Last creatinine 0.7 on 11/07/24. ANNALISA likely prerenal secondary to dehydration and poor oral intake due to acute abdominal pain. On admission k3.2, repleted with 30meq KCl Plan - IV fluids as above - Daily BMP - Avoid nephrotoxin - Renally dose medications # Primary Hypertension Pt of home medication losartan 100mg Plan - consider resuming home meds once ANNALISA resolved - Labetalol PRN on board(as above) #Chronic microcytic anemia On admission hemoglobin 10.5 (previous 9.4), hematocrit 35.3, MCV 77, MCH 23. Pt is not actively bleeding. Denies hematemesis, hematochezia and melena. Plan -Continue to monitor H&H -Follow outpatient with pcp #Methamphetamine intoxication Utox positive for amphetamine/methamphetamine - Monitor for withdrawals symptoms -Counseled regarding dangers and consequences. -Social service referral #Non-insulin dependent Type 2 diabetes Patient reports history of diabetes that resolve after gastric bypass. Last A1c 5.6 on 11/04/24 Plan - Pending A1c - glucose checks ACHS #Hx Bilateral Lymphedema Hospital management: Lines: peripheral IV Diet: NPO DVT prophylaxis: heparin SC Disposition: tele for possible perforated viscus evaluation and management. CODE STATUS: Full code Patient seen and assessed under supervision of attending physician and discuss with senior resident Dr. Ferrara PGY-2 Marissa Dickson MD PGY-1, Internal Medicine Please note: this document was transcribed using voice recognition technology; minor inaccuracies may be present. Attending Provider Attestation/Addendum After examination of the patient and review of the clinical data I feel that this patient needs admission to the hospital for further treatment/evaluation. Plan of care discussed with patient and is in agreement. I Lina Marks MD, attest that I was physically present for garcia portions of evaluation, and examined patient, labs and imagings and plan of care were discussed with IM residents team, and I agree with the findings and plans documented above.
[2025-01-10 21:47] VITALS: BP 141/93; PULSE 101; RESP 16; TEMP 36.9; O2SAT 93
[2025-01-10 21:50] VITALS: BP 141/93; PULSE 111
[2025-01-10] MEDS: AMIODARONE 360 MG IVPB 360 MG/200 ML BAG 33.333 MG IV (21:50)
[2025-01-10] MEDS: RINGERS LACTATED 1000 ML 1,000 ML 60 ML IV (21:55)
[2025-01-10] MEDS: Magnesium Sulfate 2 GM Ivpb 2 GM/50 ML BAG IV (21:58)
[2025-01-10] MEDS: POTASSIUM CHL 10 mEq IVPB 10 MEQ/100 ML BAG 100 MEQ IV (21:59)
--- NOTE | 2025-01-10 22:02 | PC.NURSE ---
CALLED TO VERIFY IF SHE WANTED LOADING DOES OF AMIODARONE SHE STATED NO LOADING DOSE
[2025-01-10 22:07] LABS: Lactate (Lactic Acid) 1.7 mMol/L (0.4-2.0)
[2025-01-10 22:10] LABS: Basophils # (Auto) 0.0 Thou/mm3 (0.0-0.2); Basophils % (Auto) 0 % (0-2.5); Eosinophils # (Auto) 0.0 Thou/mm3 (0.0-0.5); Eosinophils % (Auto) 0 % (0-10); Hematocrit 35.3 % (36.0-46.0); Hemoglobin 10.5 g/dL (12.0-16.0); Immature Granulocytes Auto 0.06 Thou/mm3 (0.00-0.00); Lymphocytes # (Auto) 0.6 Thou/mm3 (1.0-4.8); Lymphocytes % (Auto) 4 % (10-50); Mean Corpuscular HGB Conc 29.7 g/dl (31.0-37.0); Mean Corpuscular Hemoglobin 23.0 pg (25.0-35.0); Mean Corpuscular Volume 77 fL (80-100); Monocytes # (Auto) 0.6 Thou/mm3 (0.0-0.8); Monocytes % (Auto) 4 % (0-12); Neutrophils # (Auto) 14.2 Thou/mm3 (1.8-7.7); Neutrophils % (Auto) 92 % (37-80); Nucleated Red Blood Cell # 0.00 Thou/mm3 (0.00-0.00); Nucleated Red Blood Cell % 0 /100 WBC (0); Platelet Count 288 Thou/mm3 (140-440); RDW Standard Deviation 54.1 fL (36.4-46.3); Red Blood Count 4.56 Miln/mm3 (4.00-5.20); White Blood Count 15.5 Thou/mm3 (3.6-11.0)
[2025-01-10 22:28] LABS: Troponin I < 0.002 ng/mL (0.0-0.045)
--- NOTE | 2025-01-10 22:53 | PC.NURSE ---
HEPARIN WAS ORDERED IVP PAHRMACY CALLED ADVISED PROVIDER PHARMACY ADVISED SHOULD BE SUBQ WILL PUT NEW ORDER IN FOR SUBQ HEPARIN
[2025-01-10] MEDS: POTASSIUM CHL 10 mEq IVPB 10 MEQ/100 ML BAG 75 MEQ IV (23:57)
[2025-01-11] VITALS (73 sets, daily range): BP systolic 79–134; BP diastolic 39–94; PULSE 50–117; RESP 8–96; TEMP 36.1–36.7; O2SAT 84–99; BMI 32.9
[2025-01-11] MEDS: SODIUM CHLORIDE 0.9% 1000 ML 1,000 ML 60 ML IV (00:06)
[2025-01-11] MEDS: PIPER/TAZO 3.375 GM PREMIX 3.375 GM/50 ML BAG IV ×5 (00:15→23:21)
[2025-01-11 00:45] LABS: Collection Type, Urine Clean Catch; Squamous Epithelial Cell,Urine 0 /hpf (0-5); WBC,Urine 0 /hpf (0-5)
[2025-01-11 01:00] LABS: Amphetamine/Methamp Scrn,U Positive (Negative); Barbiturate Screen,Urine Negative (Negative); Benzodiazepines Screen,Urine Negative (Negative); Benzoylecgonine Screen, Ur Negative (Negative); Fentanyl Screen,Urine Negative (Negative); Opiate Screen,Urine Positive (Negative); THC Screen,Urine Negative (Negative)
--- NOTE | 2025-01-11 01:01 | PRELIM_ITS ---
Radiograph of the chest (single view). January 10, 2025 1119 hours Clinical history: chest pain No prior study is available for comparison. Findings: The heart, mediastinum and pulmonary juany are unremarkable. The lungs are clear. There is no pleural effusion. The bony thorax is unremarkable. Impression: No acute cardiopulmonary process. Report Electronically Signed By: Alex Don 01/11/2025 1:01:12 AM [EST]
[2025-01-11 01:35] LABS: Bilirubin,Urine Negative (Negative); Blood,Urine Negative (Negative); Clarity,Urine Clear (Clear/Hazy); Color,Urine Yellow (Lt Yel-Yel); Culture Indicated,Urine Not Indicated; Glucose, Urine Negative (Negative); Ketones,Urine Negative (Negative); Leukocyte Esterase,Urine Positive (Negative); Nitrite,Urine Negative (Negative); PH,Urine 6.0 (5.0-7.0); Protein,Urine Trace (Neg - Trace); RBC,Urine < 1 /hpf (0-3); Urobilinogen,Urine Negative mg/dL (0.0-1.0)
[2025-01-11 01:36] LABS: Specific Gravity,Urine 1.020 (1.001-1.035)
[2025-01-11] MEDS: POTASSIUM CHL 10 mEq IVPB 10 MEQ/100 ML BAG 50 MEQ IV ×2 (01:41→03:40)
[2025-01-11] MEDS: HYDROmorphone INJ 2 MG/ML VIAL 1 MG IVP ×2 (02:43→12:16)
[2025-01-11] MEDS: AMIODARONE 360 MG IVPB 360 MG/200 ML BAG 16.667 MG IV ×2 (03:45→16:47)
[2025-01-11] MEDS: HEPARIN SOD INJ 5000 UNIT/ML VIAL SC (03:47)
[2025-01-11 05:50] LABS: Basophils # (Auto) 0.0 Thou/mm3 (0.0-0.2); Basophils % (Auto) 0 % (0-2.5); Eosinophils # (Auto) 0.0 Thou/mm3 (0.0-0.5); Eosinophils % (Auto) 0 % (0-10); Lymphocytes # (Auto) 0.7 Thou/mm3 (1.0-4.8); Lymphocytes % (Auto) 6 % (10-50); Mean Corpuscular Volume 79 fL (80-100); Monocytes # (Auto) 0.7 Thou/mm3 (0.0-0.8); Monocytes % (Auto) 6 % (0-12); Neutrophils % (Auto) 88 % (37-80); Nucleated Red Blood Cell # 0.00 Thou/mm3 (0.00-0.00); Nucleated Red Blood Cell % 0 /100 WBC (0)
[2025-01-11 05:51] LABS: Hematocrit 25.5 % (36.0-46.0); INR 1.3 (0.9-1.3); Immature Granulocytes Auto 0.04 Thou/mm3 (0.00-0.00); Mean Corpuscular HGB Conc 29.4 g/dl (31.0-37.0); Mean Corpuscular Hemoglobin 23.1 pg (25.0-35.0); Neutrophils # (Auto) 10.9 Thou/mm3 (1.8-7.7); Partial Thromboplastin Time 31.7 Seconds (22.0-36.0); Platelet Count 190 Thou/mm3 (140-440); Prothrombin Time 14.0 Seconds (9.0-12.2); RDW Standard Deviation 55.4 fL (36.4-46.3); Red Blood Count 3.25 Miln/mm3 (4.00-5.20); White Blood Count 12.3 Thou/mm3 (3.6-11.0)
[2025-01-11] MEDS: MORPHINE SULF INJ 4 MG/ML VIAL 2 MG IVP (06:31)
[2025-01-11 07:01] LABS: Magnesium 2.0 mg/dL (1.6-2.6); Phosphorous 4.1 mg/dL (2.4-5.1)
[2025-01-11 07:50] LABS: Glucose Estimated Average 131 mg/dL (80-131); Hemoglobin 7.5 g/dL (12.0-16.0); Hemoglobin A1C 6.2 % Hgb (4.8-6.0)
[2025-01-11] MEDS: POTASSIUM CHL 10 mEq IVPB 100 ML 100 MEQ IV ×2 (09:32→17:53)
[2025-01-11] MEDS: oxyCODONE HCL 5 MG IR TAB PO (09:33)
[2025-01-11] MEDS: LIDOCAINE 5% 1 PATCH TOP (09:33)
--- NOTE | 2025-01-11 10:00 | ESCONSULT_ITS ---
HPI Data of Consult Patient: new to practice Consult date: 01/11/25 Requesting Physician: Sammie Dickinson MD Admitting Provider: Lina Marks MD Attending Provider: Sammie Dickinson MD Primary Care Provider: SHEY Joel Consult Narrative Reason for consult: Pneumoperitoneum History of present illness: HPI: Patient is a 64-year-old female past medical history significant for paroxysmal atrial fibrillation on Eliquis, primary hypertension, pfo-cfstmfu-wzdlnrixa diabetes mellitus type 2 [6.2%], osteoarthritis of bilateral knees and chronic bilateral lower extremity lymphedema presenting with a chief complaint of acute onset generalized abdominal pain over the past 48 hours. Patient describes the pain as acute onset, stabbing, left abdomen, radiating to her left arm and constant. Associated with nausea, shortness of breath and palpitations. No relieving factors and aggravated by movement. Since onset of the pain patient has had decreased appetite and no bowel movements in the past 48 hours. At this moment patient denies passing any flatus. Denies any diarrhea, vomiting, fever, sick contacts and recent travel. Of note patient was recently hospitalized from 11/03 - 11/07 for left lower extremity cellulitis and was treated with a doxycycline and azithromycin for 2 days while in hospital and discharged with a 10-day course of sulfamethoxazole/trimethoprim. ED course: BP 120/87, pulse 90, RR 18, temp 97 Labs WBC 15.5, Hb 10.5, PLT 288, NA 143, K3.2, BNP 142, troponin <0.02. EKG showed atrial fibrillation, rate 87. No acute ST changes. Chest x-ray showed right sided pneumoperitoneum. CT abdomen/pelvis with contrast extensive colonic diverticulae with air droplets adjacent to sigmoid colon Extensive free fluid in the pelvis and extensive pneumoperitoneum In the ED patient received ondansetron 4 Mg IV x 1, hydromorphone 1 Mg IV x 1, KCl 20 mEq p.o. x 1, Zosyn 4.5 g IV x 1 and doxycycline 100 mg IV x1. Patient was initially admitted to the floor for treatment and management of pneumoperitoneum secondary to suspected perforated viscus. General surgery, Dr. Blandon was consulted. Overnight patient's abdominal pain worsened and today she appears to have an acute abdomen on exam. Patient was upgraded to the ICU for serial monitoring of bladder pressures due to high risk of progression to abdominal compartment syndrome. cc:: cc: Sammie Dickinson MD Review of Systems Review of Systems Narrative Review of Systems: GENERAL: Denies fever/chills or diaphoresis. HEENT: Denies headaches or visual changes. Denies discharge. Neuro: Denies unusual weakness or difficulty speaking. CARDIO: Denies chest pain. Palpitations PULM: As above GI: As above URO: Denies burning/itching/pain/urinary changes. 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 MSK/EXT/SKIN: Denies joint/skeletal/muscle pain, issues/changes in upper or lower extremities, itchiness, or superficial pain. PSYCH: In pain The rest of the review of systems is otherwise negative. Past Medical History Past Medical History Comments PMH COMMENT: Past medical history: Primary hypertension Avh-dtutlbg-iipedivfp diabetes mellitus type 2 Bilateral knees osteoarthritis Chronic bilateral lower extremity lymphedema Atrial fibrillation on Eliquis Medication list: Apixaban 5 mg p.o. twice daily Simethicone 80 mg p.o. 4 times daily as needed Metoprolol XL 25 mg p.o. daily Tramadol 25 mg p.o. Q8 hourly Omeprazole 20 mg p.o. daily Citalopram 20 mg p.o. daily Ropinirole 0.5 mg p.o. daily Furosemide 40 mg p.o. twice daily Losartan 100 mg p.o. daily Past surgical history: Yessi-en-Y gastric bypass?2007 in [place] Multiple abdominal wall hernia repairs Allergies: Metoclopramide?tremors Social history: Occupational History: Unemployed. 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 Education Level: Graduated high school Marital Status: , 2 kids Tobacco use: Approximately 92-anef-lwue history ETHO use: Denies Illicit drug use: Methamphetamine use. Social History Note: Lives with her son, ambulates independently but requires help provide some ADLs Exam Vital Signs Temp Pulse Resp BP Pulse Ox O2 Del Method 97.0 F 92 19 105/80 90 L Room Air 01/11/25 08:00 01/11/25 08:00 01/11/25 08:00 01/11/25 08:00 01/11/25 08:00 01/11/25 08:00 Narrative Exam Constitutional Alert, oriented x 3 and in mild distress. Elderly female, disheveled HEENT Vision grossly intact. Patent nares. Trachea midline Respiratory Chest normal on inspection and clear auscultation bilaterally. Reduced air entry at bases Cardiovascular S1 and S2 audible, RRR. No murmurs carotid bruit. No gross JVD. Abdominal Distended, extremely tender to palpation in left quadrant, rebound tenderness, reduced bowel sounds, multiple healed surgical scars noted. Genitourinary No bladder tenderness, no flank pain. Normal to palpation. Pulido catheter noted Musculoskeletal Extremities tone within normal limits. Nonpitting edema bilateral lower extremities up to knees Neurological CN II - XII grossly intact. Extremity motor and sensation grossly intact. Skin Warm, dry and intact. Diffuse area approximately 8 x 5 cm ecchymoses below right knee Psychiatric Patient has agitated affect, is cooperative Results Labs 01/13/25 04:30 01/13/25 04:30 Labs: Short CBC 01/10/25 01/10/25 01/11/25 Range/Units 11:35 21:51 04:17 WBC 7.4 15.5 H D 12.3 H (3.6-11.0) Thou/mm3 Hgb 10.6 L 10.5 L 7.5 L D (12.0-16.0) g/dL Hct 36.3 35.3 L 25.5 L (36.0-46.0) % Plt Count 299 288 190 D (140-440) Thou/mm3 BMP 01/10/25 01/11/25 11:35 04:17 Sodium 142 Cancelled Potassium 3.2 L Cancelled Chloride 104 Cancelled Carbon Dioxide 23.9 Cancelled BUN 16 Cancelled Creatinine 1.3 Cancelled Glucose 96 Cancelled Calcium 9.8 Cancelled Cardiac Enzymes 01/10/25 01/10/25 Range/Units 11:35 21:51 Troponin I < 0.020 < 0.002 (0.0-0.045) ng/mL Liver Function 01/10/25 01/11/25 Range/Units 11:35 04:17 Total Bilirubin 0.4 Cancelled (0.3-1.2) mg/dL AST 30 Cancelled (0-34) U/L ALT 20 Cancelled (10-49) U/L Alkaline Phosphatase 109 Cancelled (46-116) U/L Albumin 4.3 Cancelled (3.4-4.8) gm/dL Urine 01/11/25 Range/Units 00:27 Urine Color Yellow (Lt Yel-Yel) Urine Clarity Clear (Clear/Hazy) Urine pH 6.0 (5.0-7.0) Ur Specific [place] 1.020 (1.001-1.035) Urine Protein Trace (Neg - Trace) Urine Glucose (UA) Negative (Negative) Quality Measures Quality Measures VTE prophylaxis and none Advance care planning discussed with:: patient Medications Home Medications and Allergies Home Medications ?Medication ?Instructions ?Recorded ?Confirmed ?Type omeprazole 20 mg tablet,delayed 20 mg PO QDAY 12/07/18 01/11/25 History release citalopram 20 mg tablet (Celexa) 20 mg PO QDAY 1 01/11/25 History multivitamin 1 tab PO QAM 08/24/20 History ropinirole 0.5 mg tablet 0.5 mg PO QDAY 08/24/2012/28 History furosemide 40 mg tablet 40 mg PO BID 11/04/24 History losartan 100 mg tablet 100 mg PO DAILY 11/04/2412/28 History citalopram 40 mg tablet 40 mg PO DAILY 01/11/2512/28 History ergocalciferol (vitamin D2) 1,250 1,250 mcg PO QWEEK 0 01/11/25 01/11/25 History mcg (50,000 unit) capsule loratadine 10 mg tablet 10 mg PO Q24H 01/11/2501/11 History omeprazole 20 mg capsule,delayed 40 mg PO QAM 01/11/25 01/11/25 History release potassium chloride 20 mEq 20 meq PO DAILY 01/11/2512/28 History tablet,extended release(part/cryst) tirzepatide 2.5 mg/0.5 mL 2.5 mg subcut QWEEK 01/11/25 01/11/25 History subcutaneous pen injector (Mounjaro) Allergies Allergy/AdvReac Type Severity Reaction Status Date / Time metoclopramide (From Reglan) Allergy Shakiness Verified 01/10/25 10:26 Visit Medications Heparin Sodium (Porcine) (Heparin Sod Inj 5000 Unit/Ml Vial) 5,000 unit SC BID ANTONIA On Hold: 01/10/25 23:50 Stop: 01/24/25 22:44 Hydromorphone HCl (Hydromorphone Inj 2 Mg/Ml Vial) 1 mg IVP Q4H PRN On Hold: 01/11/25 09:18 Comment: OXYCODONE ACTIVE FOR PAIN 7-10 PRN Reason: PAIN SCALE 7-10 (Severe Stop: 01/15/25 21:10 Last Admin: 01/11/25 02:43 Dose: 1 mg Amiodarone HCl/Dextrose (Nexterone Ivpb) 360 mg in 200 mls @ 16.667 mls/hr IV .Q12H [facility] Stop: 01/11/25 21:16 Last Admin: 01/11/25 03:45 Dose: 16.667 mls/hr Piperacillin/Tazobactam/Dextrose (Zosyn) 3.375 gm in 50 mls @ 12.5 mls/hr IV Q6HR [facility] Stop: 01/17/25 22:29 Last Admin: 01/11/25 05:41 Dose: 12.5 mls/hr Sodium Chloride (Ns) 1,000 mls @ 60 mls/hr IV .[id number] ONE Stop: 01/11/25 16:29 Last Admin: 01/11/25 00:06 Dose: 60 mls/hr Potassium Chloride (Kcl Ivpb) 100 mls @ 100 mls/hr IV Q1H [facility] Stop: 01/11/25 12:59 Last Admin: 01/11/25 09:32 Dose: 100 mls/hr Acetaminophen (Ofirmev Inj) 1,000 mg in 100 mls @ 250 mls/hr IV Q6HR [facility] Stop: 01/13/25 12:23 Lactated Ringer's (Lactated Ringers) 1,000 mls @ 999 mls/hr IV .Q1H1M ONE Stop: 01/11/25 10:46 Labetalol HCl (Labetalol Inj 5 Mg/Ml Vial 20 Ml) 10 mg IVP Q2H PRN PRN Reason: SBP>170 Stop: 02/09/25 21:31 Lidocaine (Lidocaine 5% 1 Patch) 1 patch TOP UD [facility] Stop: 02/10/25 09:14 Last Admin: 01/11/25 09:33 Dose: 1 patch Morphine Sulfate (Morphine Sulf Inj 4 Mg/Ml Vial) 2 mg IVP Q6HR PRN PRN Reason: PAIN SCALE 4-6 (Moderate Stop: 01/15/25 21:10 Last Admin: 01/11/25 06:31 Dose: 2 mg Oxycodone HCl (Oxycodone Hcl 5 Mg Ir Tab) 5 mg PO Q6HR PRN PRN Reason: PAIN SCALE 7-10 (Severe Stop: 01/16/25 09:12 Last Admin: 01/11/25 09:33 Dose: 5 mg Discontinued Medications Heparin Sodium (Porcine) (Heparin Sod Inj 5000 Unit/Ml Vial) 5,000 unit IVP BID ANTONIA Stop: 01/24/25 21:44 Last Admin: 01/10/25 22:53 Dose: Not Given Heparin Sodium (Porcine) (Heparin Sod Inj 5000 Unit/Ml Vial) 5,000 unit SC X1 ONE Stop: 01/11/25 03:34 Last Admin: 01/11/25 03:47 Dose: 5,000 unit Hydromorphone HCl (Hydromorphone Inj 2 Mg/Ml Vial) 1 mg IVP X1 ONE Stop: 01/10/25 14:46 Last Admin: 01/10/25 14:52 Dose: 1 mg Hydromorphone HCl (Hydromorphone Inj 2 Mg/Ml Vial) 1 mg IVP X1 ONE Stop: 01/10/25 21:00 Last Admin: 01/10/25 21:15 Dose: 1 mg Piperacillin Sod/Tazobactam (Sod 4.5 gm/ Sodium Chloride) 100 mls @ 200 mls/hr IV X1 ONE Stop: 01/10/25 16:22 Last Infusion: 01/10/25 21:20 Dose: Infused Doxycycline Hyclate 100 mg/ (Sodium Chloride) 100 mls @ 100 mls/hr IV X1 ONE Stop: 01/10/25 16:52 Last Infusion: 01/10/25 21:19 Dose: Infused Sodium Chloride (Ns) 1,000 mls @ 999 mls/hr IV .Q1H1M ONE Stop: 01/10/25 16:54 Last Infusion: 01/10/25 21:20 Dose: Infused Acetaminophen (Ofirmev Inj) 1,000 mg in 100 mls @ 250 mls/hr IV Q6HR PRN PRN Reason: Fever > 100.4, pain 1-3 Stop: 01/11/25 12:23 Amiodarone HCl/Dextrose (Nexterone Ivpb) 360 mg in 200 mls @ 33.333 mls/hr IV .Q6H ONE Stop: 01/11/25 03:16 Last Infusion: 01/11/25 03:53 Dose: Infused Doxycycline Hyclate 100 mg/ (Sodium Chloride) 100 mls @ 100 mls/hr IV BID ANTONIA Stop: 01/18/25 08:59 Lactated Ringer's (Lactated Ringers) 1,000 mls @ 60 mls/hr IV .[id number] ANTONIA Stop: 01/11/25 13:59 Last Infusion: 01/11/25 00:07 Dose: 0 mls/hr Magnesium Sulfate (Magnesium Sulfate Ivpb) 2 gm in 50 mls @ 25 mls/hr IV X1 ONE Stop: 01/10/25 23:29 Last Infusion: 01/11/25 00:07 Dose: Infused Potassium Chloride (Kcl Ivpb) 10 meq in 100 mls @ 100 mls/hr IV Q1H ANTONIA Stop: 01/11/25 01:29 Last Admin: 01/11/25 03:40 Dose: 50 mls/hr Potassium Chloride (Kcl Ivpb) 20 meq in 100 mls @ 50 mls/hr IV Q2H ANTONIA Stop: 01/11/25 11:57 Morphine Sulfate (Morphine Sulf Inj 4 Mg/Ml Vial) 2 mg IVP Q30M PRN PRN Reason: abdominal pain Ondansetron HCl (Ondansetron Inj 2 Mg/Ml Inj 2 Ml) 4 mg IVP X1 ONE; Protocol Stop: 01/10/25 13:16 Last Admin: 01/10/25 14:52 Dose: 4 mg Potassium Chloride (Potassium Chloride 20 Meq Tabcr) 20 meq PO X1 ONE Stop: 01/10/25 12:46 Last Admin: 01/10/25 16:44 Dose: 20 meq Assessment & Plan Plan Patient is a 64-year-old female past medical history significant for paroxysmal atrial fibrillation on Eliquis, primary hypertension, fnx-aogqmoj-ealwhodqd diabetes mellitus type 2 [6.2%], osteoarthritis of bilateral knees and chronic bilateral lower extremity lymphedema presenting with a chief complaint of acute onset generalized abdominal pain over the past [address] abdomen/pelvis with contrast extensive colonic diverticulae with air droplets adjacent to sigmoid colon Extensive free fluid in the pelvis and extensive pneumoperitoneum. Patient was initially admitted to the floor for treatment and management of pneumoperitoneum secondary to suspected perforated viscus. General surgery, Dr. Blandon was consulted. Overnight patient's abdominal pain worsened and today she appears to have an acute abdomen on exam. Patient was upgraded to the ICU for serial monitoring of bladder pressures due to high risk of progression to abdominal compartment syndrome. 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 Currently has signs of acute abdomen with rebound tenderness and distention DDx: Perforated viscus, ruptured sigmoid diverticula Dx: - CT abdomen/pelvis with contrast extensive colonic diverticulae with air droplets adjacent to sigmoid colon Extensive free fluid in the pelvis and extensive pneumoperitoneum. - Lactic acid 1.0?>1.7?>2 ? Bladder pressure 9 mmHg at 10 AM. Rx: -Serial bladder pressure monitoring every 4 hours, serial abdominal exams. -Trend lactates and BMP every 4 hourly to monitor kidney function and signs of hypoperfusion RRX: Follow lactate levels for signs of hypoperfusion. Possible CT mesenteric angiogram if signs of hypoperfusion. General surgery, Dr. Blandon consulted. Appreciate recommendations NEURO No acute problems CVS History of primary hypertension Rx: Antihypertensives on hold due to normotension PULM No acute problems RENAL Acute kidney injury, prerenal versus postrenal DDx: dehydration, compression from increased intra-abdominal pressure Dx: Baseline CR 0.7. This admission CR 1.3 Rx: Lactated Ringer's 1L IVF bolus. Continue maintenance LR IVF at 90 cc/h RRX: Monitor BMP and lactate. HEME/ONC Acute blood loss anemia Chronic microcytic anemia DDx: Perforated viscus, dilutional, SCOOTER Dx: Baseline Hb 10.5. Hb today 7.5 Rx: 1 unit PRBC ordered for transfusion. 2 units for standby RRX: Posttransfusion H&H Leukocytosis DDx: Reactive Dx: WBC 12.3 Rx: Monitor CBC ENDO Gfk-rhxhptx-wccqqjuom diabetes mellitus type [6.2%] Rx: Insulin sliding scale Q6 hourly ID Possible peritonitis DDx:Peritonits, complicated diverticulitis Dx: CT showed possible perforated sigmoid diverticulosis. Abdomen tender with rebound on exam Rx: Zosyn 3.375 g IV every 6 hourly started on [01/11? ICU Health maintenance: Dispo: Admit to ICU for IV pain control, serial abdominal exams, bladder pressure monitoring Diet: NPO DVT ppx: None GI ppx: None IV lines: 2 pIV, 22G Central line: No Arterial line: No Pulido: Yes (started 01/11 - Code status: FULL CODE Plan of care discussed with Attending Dr. Rosalba Salomon MD PGY 2 Disclaimer: This note was dictated by speech recognition. Minor errors in ballroom dance instructor may be present due to voice recognition software. Attending Provider Attestation/Addendum Patient seen and examined with above resident, Cristobal Salomon MD. patient with free air in the abdomen without clear etiology though suspected potentially within the lower GI tract with free fluid and has been expanding on serial CT imaging. General surgery continues to follow with transfer the patient and started broad-spectrum antibiotics for appropriate anaerobic and gram-negative eryn coverage. Patient remains clinically stable otherwise significant pain. Continues to have adequate urine output after volume resuscitation and no need for pressor requirements at this point. No suspicion of ischemic bowel with continued normal lactic acid and CK. Patient will continue to be closely monitored in the ICU with general surgery aware of potential need for intervention should the patient have clinical deterioration. Patient may develop loculated peritoneal fluid/abscess and require drainage in the future this has been discussed with the patient and her family. Delayed surgical intervention is reasonable given the patient also has use of Eliquis and risk of bleeding as well as recent methamphetamine use which she continues to improve from. Low threshold for repeat discussion with general surgery for intervention. In interim continue continue to maintain adequate fluid resuscitation and pain control. Monitor urine output closely as per sign of intra-abdominal hypertension/compartment syndrome. Total critical care time: Personally spent 35 minutes for review of physiologic parameters, directing plan of care for today, coordination of care with other specialists, and counseling patient and her family at bedside. This is exclusive of time spent teaching of staff performing any separate billable procedures. Patient remains at significant risk for further morbidity and mortality warranting close monitoring and care when available in the ICU. Critical care services required for acute peritonitis secondary to possible viscus perforation and acute renal failure.
[2025-01-11] MEDS: ACETAMINOPHEN IVPB 1,000 MG/100 ML VIAL 250 MG IV ×3 (10:02→23:20)
[2025-01-11] MEDS: RINGERS LACTATED 1000 ML 1,000 ML 999 ML IV (10:36)
[2025-01-11 10:45] LABS: Lactate (Lactic Acid) 2.0 mMol/L (0.4-2.0)
[2025-01-11 11:14] LABS: Alanine Aminotransferase < 7 U/L (10-49); Albumin, Serum 3.6 gm/dL (3.4-4.8); Albumin/Globulin Ratio 1.5 (1.2-2.2); Alkaline Phosphatase 81 U/L (46-116); Anion Gap 13 (7-16); Aspartate Amino Transferase 21 U/L (0-34); BUN/Creatinine Ratio 14 Ratio (12-20); Bilirubin,Total 0.3 mg/dL (0.3-1.2); Blood Urea Nitrogen 14 mg/dL (9-23); Calcium 9.2 mg/dL (8.3-10.6); Calcium (Corrected) 9.5 mg/dL (8.5-10.1); Carbon Dioxide 22.4 mMol/L (20.0-31.0); Chloride 104 mMol/L (98-107); Creatine Kinase 31 U/L (34-171); Creatinine (Component) 1.0 mg/dL (0.6-1.3); Estimated Creatinine Clearance 64.4 mL/min (>60); Globulin 2.4 gm/dL (2.3-3.5); Glucose 262 mg/dL (74-106); Osmolality,Calculated 287 (275-295); Potassium 4.0 mMol/L (3.4-5.1); Sodium 139 mMol/L (136-145); Total Protein 6.0 gm/dL (5.7-8.2); eGFR > 60 See Note
--- NOTE | 2025-01-11 12:06 | ESPR_ITS ---
<Statement entered by Perico Harrell MD - 01/11/25 20:38> Overnight admission and found to have extensive pneumoperitoneum and free fluid throughout the abdomen. Seen and examined at bedside and patient appeared to be in significant pain and stated that pain radiated across abdomen and up into left shoulder that was not relieved with morphine. General surgery consulted immediately and recommended continuing medical management. Due to patient's clinical picture, decision was made to speak with ICU who decided to take patient in for serial monitoring. ----- Note reviewed and agree with care plan as documented. Please refer to the note below for further details. Plan discussed with attending physician Dr. Alok Harrell MD PGY-2 Internal Medicine Documentation for date of: 01/11/25 Subjective Subjective Interval history: The patient reports a sudden onset of constant, severe abdominal pain that began approximately two days ago. The pain is described as sharp and severe, rated 10/10, radiating to the left shoulder, then across the chest to the right shoulder, occurring in a cyclical pattern. It is accompanied by nausea, shortness of breath (worsening with inspiration), and decreased appetite. The last bowel movement was two days ago and consisted of diarrhea, with no hematochezia or melena. She denies fever, chills, lightheadedness, palpitations, or vomiting. Exam Vital Signs Temp Pulse Resp BP Pulse Ox O2 Del Method 97.0 F 92 19 105/80 90 L Room Air 01/11/25 08:00 01/11/25 08:00 01/11/25 08:00 01/11/25 08:00 01/11/25 08:00 01/11/25 08:00 Narrative Exam General: Alert and oriented x3, in acute distress Skin: Intact, Warm, no rashes. HEENT: Normocephalic, Atraumatic. Normal neck range of motion, Supple. Trachea midline. Dry muscus membranes. Respiratory: Lungs are clear to auscultation, Breath sounds are equal bilaterally with equal chest expansion. Cardiovascular: RRR, normal S1, S2, No murmurs. Distal pulses 2+ Abdomen: Abdomen firm, guarding, and diffusely tender to palpation Lt >Rt, without erythema, or lesions. Decreased bowel sounds x4. Percussion tympanic. Palpation nontender in all four quadrants. No organomagely. No guarding or rebound present. Musculoskeletal/Extremities: No erythema, swelling, tenderness of any joints. No edema of BLE. DP pulses +2/3 b/l. Full active ROM of all four extremities. b/l lymphedema, varicose veins, right knee contusion. Neurologic: NEURO: Oriented x3, cranial nerves II to XII grossly intact. Muscle strength 5/5 on UE and LE b/l, Moves extremities x4. Sensation intact to gross touch along C6-T1 and L2-S1 dermatomes. No focal neurologic deficits noted Psych: Thoughts linear and responses appropriate. Objective Labs 01/14/25 05:10 01/14/25 05:10 Labs: Laboratory Results - last 24 hr 01/10/25 01/10/25 01/10/25 11:35 16:24 21:51 WBC 7.4 15.5 H D RBC 4.64 4.56 Hgb 10.6 L 10.5 L Hct 36.3 35.3 L MCV 78 L 77 L MCH 22.8 L 23.0 L MCHC 29.2 L 29.7 L RDW Std Deviation 54.7 H 54.1 H Plt Count 299 288 Neut % (Auto) 61 92 H Lymph % (Auto) 30 4 L [place] % (Auto) 8 4 Eos % (Auto) 0 0 Baso % (Auto) 1 0 Neut # (Auto) 4.5 14.2 H Lymph # (Auto) 2.3 0.6 L [place] # (Auto) 0.6 0.6 Eos # (Auto) 0.0 0.0 Baso # (Auto) 0.0 0.0 Immature Gran # (Auto) 0.02 H 0.06 H Absolute Nucleated RBC 0.00 0.00 Immature Gran % 0 0 Nucleated RBC % 0 0 PT 11.8 INR 1.1 APTT Sodium 142 Potassium 3.2 L Chloride 104 Carbon Dioxide 23.9 Anion Gap 14 BUN 16 Creatinine 1.3 Estim Creat Clear Calc 49.2 L eGFR 46 L BUN/Creatinine Ratio [address] Glu mg/dL Hemoglobin A1c Calculated Osmolality 284 Lactic Acid 1.0 1.7 Calcium 9.8 Corrected Calcium 9.8 Phosphorus Magnesium 1.8 Total Bilirubin 0.4 AST 30 ALT 20 Alkaline Phosphatase 109 Total Creatine Kinase Troponin I < 0.020 < 0.002 B-Natriuretic Peptide 132 H Total Protein 7.4 Albumin 4.3 Globulin 3.1 Albumin/Globulin Ratio 1.4 Procalcitonin 0.28 Ur Collection Type Urine Color Urine Clarity Urine pH Ur Specific [place] Urine Protein Urine Glucose (UA) Urine Ketones Urine Blood Urine Nitrite Urine Bilirubin Urine Urobilinogen (Auto) Ur Leukocyte Esterase Urine RBC Urine WBC Ur Squamous Epith Cells Urine Bacteria Ur Culture Indicated? Urine Opiates Screen Urine Fentanyl Screen Ur Barbiturates Screen U Amphetamin/Meth Scrn U Benzodiazepines Scrn U Cocaine Metab Screen U Marijuana (THC) Screen Blood Type Antibody Screen Crossmatch Blood Bank Wristband ID 01/11/25 01/11/25 01/11/25 00:27 04:17 06:24 WBC 12.3 H RBC 3.25 L Hgb 7.5 L D Hct 25.5 L MCV 79 L MCH 23.1 L MCHC 29.4 L RDW Std Deviation 55.4 H Plt Count 190 D Neut % (Auto) 88 H Lymph % (Auto) 6 L [place] % (Auto) 6 Eos % (Auto) 0 Baso % (Auto) 0 Neut # (Auto) 10.9 H Lymph # (Auto) 0.7 L [place] # (Auto) 0.7 Eos # (Auto) 0.0 Baso # (Auto) 0.0 Immature Gran # (Auto) 0.04 H Absolute Nucleated RBC 0.00 Immature Gran % 0 Nucleated RBC % 0 PT 14.0 H INR 1.3 APTT 31.7 Sodium Cancelled Potassium Cancelled Chloride Cancelled Carbon Dioxide Cancelled Anion Gap Cancelled BUN Cancelled Creatinine Cancelled Estim Creat Clear Calc Cancelled eGFR Cancelled BUN/Creatinine Ratio Cancelled Glucose Cancelled Estimated Ave Glu mg/dL 131 Hemoglobin A1c 6.2 H Calculated Osmolality Cancelled Lactic Acid Calcium Cancelled Corrected Calcium Cancelled Phosphorus 4.1 Magnesium 2.0 Total Bilirubin Cancelled AST Cancelled ALT Cancelled Alkaline Phosphatase Cancelled Total Creatine Kinase Troponin I B-Natriuretic Peptide Total Protein Cancelled Albumin Cancelled Globulin Cancelled Albumin/Globulin Ratio Cancelled Procalcitonin Ur Collection Type Clean Catch Urine Color Yellow Urine Clarity Clear Urine pH 6.0 Ur Specific [place] 1.020 Urine Protein Trace Urine Glucose (UA) Negative Urine Ketones Negative Urine Blood Negative Urine Nitrite Negative Urine Bilirubin Negative Urine Urobilinogen (Auto) Negative Ur Leukocyte Esterase Positive Urine RBC < 1 Urine WBC 0 Ur Squamous Epith Cells 0 Urine Bacteria None Ur Culture Indicated? Not Indicated Urine Opiates Screen Positive A Urine Fentanyl Screen Negative Ur Barbiturates Screen Negative U Amphetamin/Meth Scrn Positive A U Benzodiazepines Scrn Negative U Cocaine Metab Screen Negative U Marijuana (THC) Screen Negative Blood Type Antibody Screen Crossmatch Blood Bank Wristband ID 01/11/25 10:17 WBC RBC Hgb Hct MCV MCH MCHC RDW Std Deviation Plt Count Neut % (Auto) Lymph % (Auto) [place] % (Auto) Eos % (Auto) Baso % (Auto) Neut # (Auto) Lymph # (Auto) [place] # (Auto) Eos # (Auto) Baso # (Auto) Immature Gran # (Auto) Absolute Nucleated RBC Immature Gran % Nucleated RBC % PT INR APTT Sodium 139 Potassium 4.0 D Chloride 104 Carbon Dioxide 22.4 Anion Gap 13 BUN 14 Creatinine 1.0 Estim Creat Clear Calc 64.4 eGFR > 60 BUN/Creatinine Ratio 14 Glucose [address] Glu mg/dL Hemoglobin A1c Calculated Osmolality 287 Lactic Acid 2.0 Calcium 9.2 Corrected Calcium 9.5 Phosphorus Magnesium Total Bilirubin 0.3 AST 21 ALT < 7 L Alkaline Phosphatase 81 D Total Creatine Kinase 31 L Troponin I B-Natriuretic Peptide Total Protein 6.0 Albumin 3.6 D Globulin 2.4 Albumin/Globulin Ratio 1.5 Procalcitonin Ur Collection Type Urine Color Urine Clarity Urine pH Ur Specific [place] Urine Protein Urine Glucose (UA) Urine Ketones Urine Blood Urine Nitrite Urine Bilirubin Urine Urobilinogen (Auto) Ur Leukocyte Esterase Urine RBC Urine WBC Ur Squamous Epith Cells Urine Bacteria Ur Culture Indicated? Urine Opiates Screen Urine Fentanyl Screen Ur Barbiturates Screen U Amphetamin/Meth Scrn U Benzodiazepines Scrn U Cocaine Metab Screen U Marijuana (THC) Screen Blood Type O Positive Antibody Screen NEGATIVE Crossmatch See Detail Blood Bank Wristband ID Yes Quality Measures Quality Measures VTE prophylaxis and none Advance care planning discussed with:: patient Assessment & Plan Assessment Current Active Medications: Generic Name Dose Route Start Last Admin Trade Name Freq PRN Reason Stop Dose Admin Dextrose 50 ml 01/11/25 11:33 Dextrose 50%-Water Inj 50 Ml Syringe IV 02/10/25 11:32 Q15MIN PRN BG <50 OR BG <70 & pt unresponsive Glucagon 1 mg 01/11/25 11:33 Glucagon Inj 1 Mg Vial IM Q15MIN PRN BG <70, and no IV access Hydromorphone HCl 1 mg 01/10/25 21:11 01/11/25 02:43 Hydromorphone Inj 2 Mg/Ml Vial IVP 01/15/25 21:10 1 mg On Hold: 01/11/25 09:18 Q4H PRN Administration Comment: OXYCODONE ACTIVE FOR PAIN SCALE 7-10 (Severe PAIN 7-10 Amiodarone HCl/Dextrose 360 mg in 200 mls @ 16.667 mls/hr 01/10/25 21:17 01/11/25 03:45 Nexterone Ivpb IV 01/11/25 21:16 16.667 mls/hr .Q12H ANTONIA Administration Piperacillin/Tazobactam/Dextrose 3.375 gm in 50 mls @ 12.5 mls/hr 01/10/25 22:30 01/11/25 05:41 Zosyn IV 01/17/25 22:29 12.5 mls/hr Q6HR ANTONIA Administration Potassium Chloride 100 mls @ 100 mls/hr 01/11/25 09:00 01/11/25 09:32 Kcl Ivpb IV 01/11/25 12:59 100 mls/hr Q1H ANTONIA Administration Acetaminophen 1,000 mg in 100 mls @ 250 mls/hr 01/11/25 09:17 01/11/25 10:02 Ofirmev Inj IV 01/13/25 12:23 250 mls/hr Q6HR ANTONIA Administration Lactated Ringer's 1,000 mls @ 90 mls/hr 01/11/25 11:37 Lactated Ringers IV 02/10/25 11:36 .Q11H7M ANTONIA Insulin Human Lispro 0 unit 01/11/25 12:00 Insulin Lispro (Admelog) 1 Unit/0.01 Ml Unit SC 02/10/25 11:59 Q6HR ANTONIA Protocol Lidocaine 1 patch 01/11/25 09:15 01/11/25 09:33 Lidocaine 5% 1 Patch TOP 02/10/25 09:14 1 patch UD ANTONIA Administration Morphine Sulfate 2 mg 01/10/25 21:11 01/11/25 06:31 Morphine Sulf Inj 4 Mg/Ml Vial IVP 01/15/25 21:10 2 mg Q6HR PRN Administration PAIN SCALE 4-6 (Moderate Ondansetron HCl 4 mg 01/11/25 11:08 Ondansetron Inj 2 Mg/Ml Inj 2 Ml IVP 02/10/25 11:07 Q6HR PRN NAUSEA OR VOMITING Protocol Oxycodone HCl 5 mg 01/11/25 09:13 01/11/25 09:33 Oxycodone Hcl 5 Mg Ir Tab PO 01/16/25 09:12 5 mg Q6HR PRN Administration PAIN SCALE 7-10 (Severe Plan #Pneumoperitoneum #Abdominal pain/ Nausea and vomiting #s/p hernia repair surgery (2006) #Leukocytosis Patient presented with acute abdominal pain, moderately diffusely tender to palpation more prevalent on the left quadrant.CXR showed possible air beneath right hemidiaphragm.? CT CAP was ordered and showed? extensive pneumoperitoneum, extensive colonic diverticula with air droplets adjacent to sigmoid colon diverticula. Surgery consulted, however had no surgical exploration recommendations. Pt was afebrile but tachycardic due to pain. Repeat lactate was order to rule out bowel ischemia, however was 1.7 (normal). In ED patient recieved Zosyn and doxycycline. Dilaudid for pain. Concern for Pnemoperitoneum likely due to rupture of colonic diverticula. + Repeat CBC was positive for leukocytosis WBC 15.5 likely reactive, trended down to 12.3. + procalcitonin negative Plan - Per Surgery - does not recommend surgical exploration but will follow up tomorrow am - Diet NPO - Pain control with Dilaudid 1mg q4h prn and morphine 2mg Q6H PRN - Continue with Zosyn 3.275 - Follow up with PTT and PT W/INR - 1L NS IVF at 60mls/hr - Pending blood culture #A-fib, rate controlled Patient has a history of atrial fibrillation on Eliquis 5mg. Home meds eliquis, metoprolol succinate EKG showed a-fib with rate of 87 and QTc 462. Troponin normal CHADsVAS score 4 AND 6.7% risk of stroke/TIA/systemic embolism HAS BLED score 2 Repleted potassium and Magnesium Plan - Held all home po meds for pneumoperitoneum suspicion - Started amiodarone drip - Labetatol IV 10mg Q2H PRN - Plan to resumed home Eliquis 5mg p.o after surgery - Will continue to monitor telemetry - Keep K > 4 and Mg > #ANNALISA, pre-renal #Hypokalemia Cr on admission is 1.3. Last creatinine 0.7 on 11/07/24. ANNALISA likely prerenal secondary to dehydration and poor oral intake due to acute abdominal pain. On admission k3.2, repleted with 30meq KCl Plan - IV fluids as above - Daily BMP - Avoid nephrotoxin - Renally dose medications # Primary Hypertension Pt of home medication losartan 100mg Plan - consider resuming home meds once ANNALISA resolved - Labetalol PRN on board(as above) #Chronic microcytic anemia On admission hemoglobin 10.5 (previous 9.4), hematocrit 35.3, MCV 77, MCH 23. Pt is not actively bleeding. Denies hematemesis, hematochezia and melena. Plan -Continue to monitor H&H -Follow outpatient with pcp #Methamphetamine intoxication Utox positive for amphetamine/methamphetamine - Monitor for withdrawals symptoms -Counseled regarding dangers and consequences. -Social service referral #Non-insulin dependent Type 2 diabetes Patient reports history of diabetes that resolve after gastric bypass. Last A1c 5.6 on 11/04/24 Plan - Pending A1c - glucose checks ACHS #Hx Bilateral Lymphedema Hospital management: Lines: peripheral IV Diet: NPO DVT prophylaxis: heparin SC Disposition: tele for possible perforated viscus evaluation and management.? CODE STATUS: Full code This case was discussed with my attending physician, Dr. Dickinson, and senior resident, Dr Sharri Perez, DO PGY I Attending Provider Attestation/Addendum 64-year-old female with multiple comorbidities including hypertension, hyperlipidemia and atrial fibrillation on Eliquis who presented with abdominal pain found to have pneumoperitoneum likely related to gastric perforation. As of now, patient is n.p.o. and likely will undergo surgical intervention. In addition, plan to continue IV antibiotic therapy and appreciate general surgery input.I reviewed above note and agree with findings and plans. I have also personally examined the patient with medicine team and went over assessment and plan with medical team including culinary intern and resident physician.
[2025-01-11] MEDS: RINGERS LACTATED 1000 ML 1,000 ML 90 ML IV (12:25)
[2025-01-11] MEDS: ONDANSETRON INJ 2 MG/ML INJ 2 ML 4 MG IVP (12:26)
--- NOTE | 2025-01-11 13:20 | XR_ITS ---
Examination: CTA abdomen, with intravenous contrast. CTA pelvis, with intravenous contrast. 2-D sagittal and coronal reconstructions. 3-D reconstructions. Date and time of exam: January 11, 2025 1511 hours, comparison 01/10/2025 INDICATIONS: Pneumoperitoneum, clinical diagnosis bowel ischemia CTDI vol (mgy) 15.1 DLP (MGycm) 708 Technique: Multiple CTA images, 2.0 mm slice thickness, obtained abdomen, pelvis, with the high-resolution 64 slice scanner. 100 cc Isovue-370 is administered intravenously. Sagittal and coronal 2-D reconstructions are obtained. 3-D reconstructions, angiographic images are obtained. 3-D postprocessing, including vascular maximum intensity projections. Low dose protocols were performed. One or more of the following dose reduction techniques were used; automated exposure control, adjustment of the mA and/or KV according to patient size, use of iterative reconstruction technique. Findings: Extensive pneumoperitoneum Mild free fluid throughout the abdomen No visualized liver lesions No hydronephrosis No pancreatic mass Stool and fluid distended colon Colonic diverticulosis with air droplets outside the diverticula in the sigmoid colon Air distended rectosigmoid Contracted urinary bladder Prominent osteopenia IMPRESSION: Extensive pneumoperitoneum Mild free fluid throughout the abdomen Colonic diverticulosis with air droplets outside the diverticula in the sigmoid colon Mildly dilated small bowel loops No definite ischemic bowel
--- NOTE | 2025-01-11 14:04 | XR_ITS ---
Examination: AP chest single view TECHNIQUE: AP portable semiupright chest single view Date and time: January 11, 2025 1413 hours, comparison 01/10/2025 INDICATIONS: Post central line placement FINDINGS: Free air beneath right hemidiaphragm. Mild enlargement cardiac contour. Mitral valvular calcification. Right internal jugular central line tip right atrium No pneumothorax IMPRESSION: Right internal jugular central line tip right atrium, no pneumothorax
--- NOTE | 2025-01-11 14:18 | PD.INTPROC ---
PROCEDURES: Procedure Date / Time 01/11/25 1418 Procedure Narrative Procedure Narrative: Attending attestation: I was not present at the time of procedure. However, I am agreeable to placement patient is in need of appropriate vascular access in case of worsening/decline due to potential intra-abdominal catastrophe. Primary complications. Follow-up chest x-ray shows no significant postprocedural pneumothorax. Tip of CVC catheter closer to right atrium, will retract in case of any ectopy. Central Line Placement Right IJ: Procedure comment: PROCEDURE: Right IJ vascular catheter INDICATION: Venous access PROCEDURE MOTOR EQUIPMENT CAPTAIN : Dr Salomon ATTENDING PHYSICIAN : Dr Navarrete CONSENT : Informed consent was obtained from family, with discussion regarding the procedure, or treatment. I explained the following to the designee: a. Nature of the procedure or treatment and who will perform the procedure or treatment b. Necessity for procedure and the possible benefits. c. Risks and complications (most common and serious) d. Alternative treatments and the risks, benefits and side effects of each (including no treatment). e. Likelihood of the patient achieving his/her goals without this procedure and surgery treatment f. Problems that might occur during the recuperation g. Conflicts of interest, if any PROCEDURE SUMMARY: The Central Line Venous Catheter Insertion Practices form was completed. Starting with the first handwash prior to starting sterile technique. A time out was performed . My hands were washed immediately prior to the procedure. I wore a surgical cap, mask with protective eyewear, full gown and sterile gloves throughout the procedure. The patient was placed in Trendelenburg position. RIGHT chest region was prepped using chlorhexidine scrub and draped in sterile fashion using a full drape and sterile probe cover and sterile gel employed. The medial and lateral heads of the sternocliedomastoid muscle were identified as was the carotid pulse. The Right Internal Jugular vein was identified using the ultrasound. Anesthesia was achieved over the vein using 1% lidocaine. Using real-time out of plane guidance, the introducer needle was inserted into the Right Internal Jugular Vein by ultrasound. A small incision was made at the skin surface with a scalpel and the introducer needle was exchanged for a dilator over the guidewire. After appropriate dilation was obtained, the dilator was exchanged over the wire for a central venous catheter. The wire was removed and the catheter was sutured in place at skin. A sterile sobraview shield was placed over the catheter at the insertion site. The patient tolerated the procedure without any hemodynamic compromise. At time of procedure completion, all ports aspirated and flushed properly. Estimated blood loss is ~ 5 ml. Post-procedure chest x-ray confirmed appropriate placement Under the supervision of my attending Dr Rosalba Salomon MD [PGY2]
[2025-01-11] MEDS: POTASSIUM CHL 10 mEq IVPB 100 ML 25 MEQ IV (14:56)
[2025-01-11] MEDS: RINGERS LACTATED 500 ML 500 ML 999 ML IV (15:00)
--- NOTE | 2025-01-11 15:54 | ESPR_ITS ---
Documentation for date of: 01/11/25 Subjective Subjective Brief History: 64F with HTN, DMII, afib, history of gastric bypass in 2006 who presented to ER this am initially reporting chest pain and shortness of breath after using meth. Pt underwent CXR read as possible pneumoperitoneum vs colon interposed above the liver, followed by CT CAP read as extensive pneumoperitoneum however she does not have any clinical signs of peritonitis, has remained afebrile with intermittent tachycardia and EKG consistent with her known afib, has received one dose of pain medicine at 3pm On my exam pt stated she does have abdominal pain which has been present for the last two (2) days and is similar to pain she has experienced before. She reports nausea and decreased appetite, last had a BM yesterday. Her last colonoscopy was years ago and she has not had any recent EGD PMH: HTN, DMII, afib PSHx: Gastric bypass in 2006 in [place], multiple hernia repairs Meds: includes eliquis last taken yesterday morning Allergies: Reglan Social hx: smokes 1/2 PPD cigarettes Narrative: Pt was examined this morning and afternoon, in the morning she was continuing to have significant pain as well as nausea. In the interim she was transferred to ICU for pain management and started on an amiodarone drip, has remained afebrile with some periodic hypotension but has not required pressor support. As of around 330pm pt reported pain is zero (0) out of 10 and she is feeling hungry, denies nausea though she has not passed gas or had a BM. She underwent repeat CT again showing pneumoperitoneum with air droplets adjacent to sigmoid diverticula though no signs of diverticulitis Exam Vital Signs Temp Pulse Resp BP Pulse Ox O2 Del Method 98.0 F 96 13 92/61 95 Room Air 01/11/25 12:00 01/11/25 12:45 01/11/25 12:45 01/11/25 12:45 01/11/25 12:45 01/11/25 12:00 Constitutional Constitutional: no acute distress Routine Respiratory Exam Respiratory: Present no resp distress Routine Abdominal Exam Abdominal: Present soft and tenderness (mild tenderness diffusely); Absent distended, rebound or guarding Results Results: Laboratory Laboratory results: results reviewed Results: Imaging Chest x-ray: report reviewed and image reviewed CT scan - abdomen: report reviewed and image reviewed Assessment & Plan Plan 64F with HTN, DMII, afib, history of gastric bypass in 2006 who presented to ER 01/10 initially reporting chest pain and shortness of breath after using meth, with now two CTs indicating extensive pneumoperitoneum. Pt had been having si gnificant abdominal pain for which she was transferred to ICU, but has remained afebrile, with intermittent hypotension on IV amiodarone and now reporting pain is resolved. As pt is overall clinically well I recommend continuing medical management, but if pt has any decline in her overall status would discuss with her and family the risks/benefits of laparotomy. Per ACS NSQIP risk calculator she has a 37% risk of serious complication, 35% risk of any complication and approximately 9% risk of . Pt expressed understanding at this plan and also prefers not to have surgery Continue abx and close observation Will follow up AM, please reach out if clinical status changes in the meantime
[2025-01-11 16:34] LABS: Lactate (Lactic Acid) 0.7 mMol/L (0.4-2.0)
[2025-01-11] MEDS: POTASSIUM CHL 10 mEq IVPB 100 ML 75 MEQ IV (16:41)
[2025-01-11 16:58] LABS: Albumin, Serum 3.3 gm/dL (3.4-4.8); Anion Gap 10 (7-16); BUN/Creatinine Ratio 20 Ratio (12-20); Blood Urea Nitrogen 18 mg/dL (9-23); Calcium 8.7 mg/dL (8.3-10.6); Calcium (Corrected) 9.3 mg/dL (8.5-10.1); Carbon Dioxide 23.3 mMol/L (20.0-31.0); Chloride 108 mMol/L (98-107); Creatinine (Component) 0.9 mg/dL (0.6-1.3); Estimated Creatinine Clearance 71.6 mL/min (>60); Glucose 111 mg/dL (74-106); Osmolality,Calculated 284 (275-295); Phosphorous 3.4 mg/dL (2.4-5.1); Potassium 3.6 mMol/L (3.4-5.1); Sodium 141 mMol/L (136-145); eGFR > 60 See Note
--- NOTE | 2025-01-11 17:21 | ESCONSULT_ITS ---
HPI Data of Consult Requesting Physician: Sammie Dickinson MD Admitting Provider: Lina Marks MD Attending Provider: Sammie Dickinson MD Primary Care Provider: SHEY Joel Consult Narrative Reason for consult: Afib with RVR History of present illness: HPI: A 64-year-old female patient with past medical history of paroxysmal A-fib on Eliquis, hypertension, type 2 diabetes mellitus, osteoarthritis, bilateral lower extremity lymphedema, presented to the ED due to abdominal pain that radiate to the left shoulder for 2 days before admission. Patient reported that the pain started gradually epigastric and worsened over time become severe and. She reported 1 episode of diarrhea however she denied any nausea or vomiting. Of note patient has been on Eliquis for her A-fib since she was initially diagnosed with paroxysmal A-fib during her previous admission in November. She was also prescribed metoprolol 25 mg for rate control. At the ED patient was found to Have WBC of 15.5, hemoglobin 10.5, 771, 132, troponin 7, creatinine 2.7. CT abdomen and pelvis showed extensive pneumoperitoneum with possible diverticular perforation. EKG showed atrial fibrillation, troponin was negative and BNP was 200s. General surgeon Dr. Henriquez was consulted she recommended no surgical intervention at that time and recommended conservative management. Patient was admitted for management of intractable abdominal pain with possible sepsis secondary to peritonitis. Today 01/11/2025, patient seen, with mild localized rigidity. Patient was upgraded to the ICU for serial blood pressure monitoring due to the high risk of progression to abdominal compartment syndrome. Patient was noticed to have some episodes of drop in the blood pressure to 79/45, patient was resuscitated with IV fluids, and was put on IV amiodarone drip secondary to her worsening atrial fibrillation. Her Eliquis was held due to anticipated possible surgery and laparotomy. Past Medical History: HTN, DMII, afib On Eliquis, Lymphedema Family History: dad- [place] Surgical History: Gastric bypass in 2006 in [place], multiple hernia repairs Social History:smokes 1/2 PPD cigarettes, meth user. Denies alcohol use Allergies: reglan cc:: cc: Sammie Dickinson MD Exam Vital Signs Temp Pulse Resp BP Pulse Ox O2 Del Method 98.1 F 102 H 20 116/77 95 Room Air 01/11/25 17:14 01/11/25 17:14 01/11/25 17:14 01/11/25 17:14 01/11/25 17:14 01/11/25 16:00 Narrative Exam GEN: AOx3, sleepy, able to speak full sentences HEENT: NC/AC, PERRLA, oral mucosa dry, neck supple CVS: RRR, S1-S2 present, no murmurs appreciated RESP: CTAB GI: Multiple healed surgical scar, moderately distended, tender, localized rigidity on the umbilical area, and right flank. Reduced bowel sounds MSK: able to move all 4 limbs, no lower extremity edema SKIN: warm and dry LEASE ADMINISTRATOR: CN II-XII and Sensation grossly intact. Results Labs 01/12/25 04:55 01/12/25 04:55 Labs: Short CBC 01/10/25 01/11/25 Range/Units 21:51 04:17 WBC 15.5 H D 12.3 H (3.6-11.0) Thou/mm3 Hgb 10.5 L 7.5 L D (12.0-16.0) g/dL Hct 35.3 L 25.5 L (36.0-46.0) % Plt Count 288 190 D (140-440) Thou/mm3 BMP 01/11/25 01/11/25 01/11/25 04:17 10:17 16:32 Sodium Cancelled 139 141 Potassium Cancelled 4.0 D 3.6 Chloride Cancelled 104 108 H Carbon Dioxide Cancelled 22.4 23.3 BUN Cancelled 14 18 Creatinine Cancelled 1.0 0.9 Glucose Cancelled 262 H D 111 H D Calcium Cancelled 9.2 8.7 Cardiac Enzymes 01/10/25 01/11/25 Range/Units 21:51 10:17 Total Creatine Kinase 31 L (34-171) U/L Troponin I < 0.002 (0.0-0.045) ng/mL Liver Function 01/11/25 01/11/25 01/11/25 Range/Units 04:17 10:17 16:32 Total Bilirubin Cancelled 0.3 AST Cancelled 21 ALT Cancelled < 7 L Alkaline Phosphatase Cancelled 81 D Albumin Cancelled 3.6 D 3.3 L Urine 01/11/25 Range/Units 00:27 Urine Color Yellow (Lt Yel-Yel) Urine Clarity Clear (Clear/Hazy) Urine pH 6.0 (5.0-7.0) Ur Specific [place] 1.020 (1.001-1.035) Urine Protein Trace (Neg - Trace) Urine Glucose (UA) Negative (Negative) Quality Measures Quality Measures VTE prophylaxis and none Advance care planning discussed with:: patient and child Medications Home Medications and Allergies Home Medications ?Medication ?Instructions ?Recorded ?Confirmed ?Type omeprazole 20 mg tablet,delayed 20 mg PO QDAY 12/07/18 01/11/25 History release citalopram 20 mg tablet (Celexa) 20 mg PO QDAY 1 01/11/25 History multivitamin 1 tab PO QAM 08/24/20 History ropinirole 0.5 mg tablet 0.5 mg PO QDAY 08/24/2012/28 History furosemide 40 mg tablet 40 mg PO BID 11/04/24 History losartan 100 mg tablet 100 mg PO DAILY 11/04/2412/28 History citalopram 40 mg tablet 40 mg PO DAILY 01/11/2512/28 History ergocalciferol (vitamin D2) 1,250 1,250 mcg PO QWEEK 0 01/11/25 01/11/25 History mcg (50,000 unit) capsule loratadine 10 mg tablet 10 mg PO Q24H 01/11/2501/11 History omeprazole 20 mg capsule,delayed 40 mg PO QAM 01/11/25 01/11/25 History release potassium chloride 20 mEq 20 meq PO DAILY 01/11/2512/28 History tablet,extended release(part/cryst) tirzepatide 2.5 mg/0.5 mL 2.5 mg subcut QWEEK 01/11/25 01/11/25 History subcutaneous pen injector (Mounjaro) Allergies Allergy/AdvReac Type Severity Reaction Status Date / Time metoclopramide (From Reglan) Allergy Shakiness Verified 01/10/25 10:26 Visit Medications Dextrose (Dextrose 50%-Water Inj 50 Ml Syringe) 50 ml IV Q15MIN PRN PRN Reason: BG <50 OR BG <70 & pt unresponsive Stop: 02/10/25 11:32 Glucagon (Glucagon Inj 1 Mg Vial) 1 mg IM Q15MIN PRN PRN Reason: BG <70, and no IV access Heparin Sodium (Porcine) (Heparin Sod Inj 1000 Unit/Ml Vial 10 Ml) 5,000 unit INDWELLCAT PRN PRN PRN Reason: After Use for Hep Lock Stop: 01/25/25 15:40 Hydromorphone HCl (Hydromorphone Inj 2 Mg/Ml Vial) 1 mg IVP Q4H PRN PRN Reason: PAIN SCALE 7-10 (Severe Stop: 01/15/25 21:10 Last Admin: 01/11/25 12:16 Dose: 1 mg Amiodarone HCl/Dextrose (Nexterone Ivpb) 360 mg in 200 mls @ 16.667 mls/hr IV .Q12H [facility] Stop: 01/11/25 21:16 Last Admin: 01/11/25 16:47 Dose: 16.667 mls/hr Piperacillin/Tazobactam/Dextrose (Zosyn) 3.375 gm in 50 mls @ 12.5 mls/hr IV Q6HR [facility] Stop: 01/17/25 22:29 Last Admin: 01/11/25 12:25 Dose: 12.5 mls/hr Acetaminophen (Ofirmev Inj) 1,000 mg in 100 mls @ 250 mls/hr IV Q6HR [facility] Stop: 01/13/25 12:23 Last Admin: 01/11/25 16:48 Dose: Not Given Lactated Ringer's (Lactated Ringers) 1,000 mls @ 100 mls/hr IV .Q10H [facility] Stop: 02/10/25 15:39 Insulin Human Lispro (Insulin Lispro (Admelog) 1 Unit/0.01 Ml Unit) 0 unit SC Q6HR [facility]; Protocol Stop: 02/10/25 11:59 Last Admin: 01/11/25 12:40 Dose: Not Given Lidocaine (Lidocaine 5% 1 Patch) 1 patch [facility] [place] [place] Stop: 02/10/25 09:14 Last Admin: 01/11/25 09:33 Dose: 1 patch Morphine Sulfate (Morphine Sulf Inj 4 Mg/Ml Vial) 2 mg IVP Q6HR PRN PRN Reason: PAIN SCALE 4-6 (Moderate Stop: 01/15/25 21:10 Last Admin: 01/11/25 06:31 Dose: 2 mg Ondansetron HCl (Ondansetron Inj 2 Mg/Ml Inj 2 Ml) 4 mg IVP Q6HR PRN; Protocol PRN Reason: NAUSEA OR VOMITING Stop: 02/10/25 11:07 Last Admin: 01/11/25 12:26 Dose: 4 mg Oxycodone HCl (Oxycodone Hcl 5 Mg Ir Tab) 5 mg PO Q6HR PRN On Hold: 01/11/25 12:08 Comment: ON HYDROMORPHONE IVP PRN Reason: PAIN SCALE 7-10 (Severe Stop: 01/16/25 09:12 Last Admin: 01/11/25 09:33 Dose: 5 mg Discontinued Medications Heparin Sodium (Porcine) (Heparin Sod Inj 5000 Unit/Ml Vial) 5,000 unit IVP BID [facility] Stop: 01/24/25 21:44 Last Admin: 01/10/25 22:53 Dose: Not Given Heparin Sodium (Porcine) (Heparin Sod Inj 5000 Unit/Ml Vial) 5,000 unit SC BID [facility] Stop: 01/24/25 22:44 Heparin Sodium (Porcine) (Heparin Sod Inj 5000 Unit/Ml Vial) 5,000 unit SC X1 ONE Stop: 01/11/25 03:34 Last Admin: 01/11/25 03:47 Dose: 5,000 unit Hydromorphone HCl (Hydromorphone Inj 2 Mg/Ml Vial) 1 mg IVP X1 ONE Stop: 01/10/25 14:46 Last Admin: 01/10/25 14:52 Dose: 1 mg Hydromorphone HCl (Hydromorphone Inj 2 Mg/Ml Vial) 1 mg IVP X1 ONE Stop: 01/10/25 21:00 Last Admin: 01/10/25 21:15 Dose: 1 mg Piperacillin Sod/Tazobactam (Sod 4.5 gm/ Sodium Chloride) 100 mls @ 200 mls/hr IV X1 ONE Stop: 01/10/25 16:22 Last Infusion: 01/10/25 21:20 Dose: Infused Doxycycline Hyclate 100 mg/ (Sodium Chloride) 100 mls @ 100 mls/hr IV X1 ONE Stop: 01/10/25 16:52 Last Infusion: 01/10/25 21:19 Dose: Infused Sodium Chloride (Ns) 1,000 mls @ 999 mls/hr IV .Q1H1M ONE Stop: 01/10/25 16:54 Last Infusion: 01/10/25 21:20 Dose: Infused Acetaminophen (Ofirmev Inj) 1,000 mg in 100 mls @ 250 mls/hr IV Q6HR PRN PRN Reason: Fever > 100.4, pain 1-3 Stop: 01/11/25 12:23 Amiodarone HCl/Dextrose (Nexterone Ivpb) 360 mg in 200 mls @ 33.333 mls/hr IV .Q6H ONE Stop: 01/11/25 03:16 Last Infusion: 01/11/25 03:53 Dose: Infused Doxycycline Hyclate 100 mg/ (Sodium Chloride) 100 mls @ 100 mls/hr IV BID [facility] Stop: 01/18/25 08:59 Lactated Ringer's (Lactated Ringers) 1,000 mls @ 60 mls/hr IV .[id number] [facility] Stop: 01/11/25 13:59 Last Infusion: 01/11/25 00:07 Dose: 0 mls/hr Magnesium Sulfate (Magnesium Sulfate Ivpb) 2 gm in 50 mls @ 25 mls/hr IV X1 ONE Stop: 01/10/25 23:29 Last Infusion: 01/11/25 00:07 Dose: Infused Potassium Chloride (Kcl Ivpb) 10 meq in 100 mls @ 100 mls/hr IV Q1H [facility] Stop: 01/11/25 01:29 Last Admin: 01/11/25 03:40 Dose: 50 mls/hr Sodium Chloride (Ns) 1,000 mls @ 60 mls/hr IV .[id number] ONE Stop: 01/11/25 16:29 Last Admin: 01/11/25 00:06 Dose: 60 mls/hr Potassium Chloride (Kcl Ivpb) 20 meq in 100 mls @ 50 mls/hr IV Q2H [facility] Stop: 01/11/25 11:57 Potassium Chloride (Kcl Ivpb) 100 mls @ 100 mls/hr IV Q1H [facility] Stop: 01/11/25 12:59 Last Admin: 01/11/25 16:41 Dose: 75 mls/hr Lactated Ringer's (Lactated Ringers) 1,000 mls @ 999 mls/hr IV .Q1H1M ONE Stop: 01/11/25 10:46 Last Admin: 01/11/25 10:36 Dose: 999 mls/hr Lactated Ringer's (Lactated Ringers) 1,000 mls @ 90 mls/hr IV .Q11H7M [facility] Stop: 02/10/25 11:36 Last Admin: 01/11/25 12:25 Dose: 90 mls/hr Lactated Ringer's (Lactated Ringers) 500 mls @ 999 mls/hr IV .Q31M ONE Stop: 01/11/25 14:39 Last Admin: 01/11/25 15:00 Dose: 999 mls/hr Labetalol HCl (Labetalol Inj 5 Mg/Ml Vial 20 Ml) 10 mg IVP Q2H PRN PRN Reason: SBP>170 Stop: 02/09/25 21:31 Morphine Sulfate (Morphine Sulf Inj 4 Mg/Ml Vial) 2 mg IVP Q30M PRN PRN Reason: abdominal pain Ondansetron HCl (Ondansetron Inj 2 Mg/Ml Inj 2 Ml) 4 mg IVP X1 ONE; Protocol Stop: 01/10/25 13:16 Last Admin: 01/10/25 14:52 Dose: 4 mg Potassium Chloride (Potassium Chloride 20 Meq Tabcr) 20 meq PO X1 ONE Stop: 01/10/25 12:46 Last Admin: 01/10/25 16:44 Dose: 20 meq Assessment & Plan Plan Summary: A 64-year-old female patient with past medical history of paroxysmal A- fib on Eliquis, hypertension, type 2 diabetes mellitus, osteoarthritis, bilateral lower extremity lymphedema, presented to the ED due to abdominal pain that radiate to the left shoulder for 2 days before admission. Patient reported that the pain started gradually epigastric and worsened over time become severe. Patient was admitted for management of pneumoperitoneum with possible peritonitis. Assessment and plan #Paroxysmal A-fib Patient recently diagnosed with A-fib in November 2024, she was discharged metoprolol 25 and Eliquis 5 mg twice daily. Patient developed abdominal pain and found to have pneumoperitoneum with possible peritonitis. Patient was noticed to have A-fib on telemetry, she was also found to have some episodes of drop in her blood pressure to the 70s systolic. Patient was started on amiodarone drip by the primary team and Eliquis was held in anticipation for surgery. Troponin was normal, EKG showed atrial fibrillation. No ischemic changes, BNP was in the 200s. Echo was done in November during her last admission and showed Normal left ventricular size and function. Estimated EF at 55-60%. The RV is normal in size. The RV systolic function is mildly decreased. The estimated RVSP, 48 mmHg. Mildly dilated left atrium. Mitral annulus calcification mitral valve thickening mild mitral regurgitation. Mild tricuspid valve regurgitation Plan ? Continue patient on amiodarone drip ? Continue holding on Eliquis in anticipation for surgery ? Keep magnesium and potassium above 2 and 4 respectively within normal range. ? Keep telemonitoring ? Strict in and out #Diabetes mellitus #Pneumoperitoneum #Questionable peritonitis #Hypertension #Osteoarthritis #Lymphedema Plan ? Follow-up with the primary team recommendations Thank you for your consultation please do not hesitate to reach out if you have any question or concern - Patient's plan and care discussed with my attending, Dr. Brandin Boykin MD Internal Medicine PGY-3 Attending Provider Attestation/Addendum I have personally seen and examined the patient separately on the above date of service and discussed the plan of care with the resident. I reviewed the resident consultation progress note and agree with the resident findings and plan in the note above and have also edited the documentation to reflect my findings and plan. Brandin العلي M.D. Interventional Cardiology
[2025-01-11] MEDS: RINGERS LACTATED 1000 ML 1,000 ML 100 ML IV (20:36)
[2025-01-11 20:55] LABS: Hematocrit 34.6 % (36.0-46.0); Hemoglobin 10.5 g/dL (12.0-16.0)
[2025-01-12] VITALS (72 sets, daily range): BP systolic 106–169; BP diastolic 66–114; PULSE 93–133; RESP 9–96; TEMP 36.2–36.9; O2SAT 91–100
[2025-01-12] MEDS: HYDROmorphone INJ 2 MG/ML VIAL 1 MG IVP ×2 (00:20→07:44)
[2025-01-12] MEDS: ACETAMINOPHEN IVPB 1,000 MG/100 ML VIAL 250 MG IV ×3 (05:35→23:47)
[2025-01-12] MEDS: PIPER/TAZO 3.375 GM PREMIX 3.375 GM/50 ML BAG IV ×4 (05:35→23:47)
[2025-01-12] MEDS: RINGERS LACTATED 1000 ML 1,000 ML 100 ML IV ×2 (05:43→21:50)
[2025-01-12 06:11] LABS: Basophils # (Auto) 0.0 Thou/mm3 (0.0-0.2); Basophils % (Auto) 0 % (0-2.5); Eosinophils # (Auto) 0.0 Thou/mm3 (0.0-0.5); Eosinophils % (Auto) 0 % (0-10); Hematocrit 33.9 % (36.0-46.0); Hemoglobin 10.3 g/dL (12.0-16.0); Immature Granulocytes Auto 0.08 Thou/mm3 (0.00-0.00); Lymphocytes # (Auto) 1.1 Thou/mm3 (1.0-4.8); Lymphocytes % (Auto) 7 % (10-50); Mean Corpuscular HGB Conc 30.4 g/dl (31.0-37.0); Mean Corpuscular Hemoglobin 23.8 pg (25.0-35.0); Mean Corpuscular Volume 78 fL (80-100); Monocytes # (Auto) 1.2 Thou/mm3 (0.0-0.8); Monocytes % (Auto) 7 % (0-12); Neutrophils # (Auto) 13.9 Thou/mm3 (1.8-7.7); Neutrophils % (Auto) 85 % (37-80); Nucleated Red Blood Cell # 0.00 Thou/mm3 (0.00-0.00); Nucleated Red Blood Cell % 0 /100 WBC (0); Platelet Count 247 Thou/mm3 (140-440); RDW Standard Deviation 54.4 fL (36.4-46.3); Red Blood Count 4.33 Miln/mm3 (4.00-5.20); White Blood Count 16.2 Thou/mm3 (3.6-11.0)
[2025-01-12 06:32] LABS: Anion Gap 11 (7-16); BUN/Creatinine Ratio 25 Ratio (12-20); Blood Urea Nitrogen 20 mg/dL (9-23); Calcium 9.2 mg/dL (8.3-10.6); Carbon Dioxide 23.7 mMol/L (20.0-31.0); Chloride 107 mMol/L (98-107); Creatinine (Component) 0.8 mg/dL (0.6-1.3); Estimated Creatinine Clearance 80.6 mL/min (>60); Glucose 101 mg/dL (74-106); Magnesium 1.8 mg/dL (1.6-2.6); Osmolality,Calculated 285 (275-295); Phosphorous 2.8 mg/dL (2.4-5.1); Potassium 3.4 mMol/L (3.4-5.1); Sodium 142 mMol/L (136-145); eGFR > 60 See Note
[2025-01-12] MEDS: LIDOCAINE 5% 1 PATCH TOP (08:17)
--- NOTE | 2025-01-12 08:22 | PD.SURPROG ---
Documentation for date of: 01/12/25 Subjective Subjective Brief History: 64F with HTN, DMII, afib, history of gastric bypass in 2006 who presented to ER this am initially reporting chest pain and shortness of breath after using meth. Pt underwent CXR read as possible pneumoperitoneum vs colon interposed above the liver, followed by CT CAP read as extensive pneumoperitoneum however she does not have any clinical signs of peritonitis, has remained afebrile with intermittent tachycardia and EKG consistent with her known afib, has received one dose of pain medicine at 3pm On my exam pt stated she does have abdominal pain which has been present for the last two (2) days and is similar to pain she has experienced before. She reports nausea and decreased appetite, last had a BM yesterday. Her last colonoscopy was years ago and she has not had any recent EGD PMH: HTN, DMII, afib PSHx: Gastric bypass in 2006 in [place], multiple hernia repairs Meds: includes eliquis last taken yesterday morning Allergies: Reglan Social hx: smokes 1/2 PPD cigarettes Narrative: Pt reports having more pain this morning, 9/10 and most pronounced on the left abdomen but it is improved with dilaudid. Denies nausea/vomiting, has not yet passed gas or had a BM. Remaining afebrile, WBC 16 from 12, Hgb 10.5 after 1u PRBC for Hgb 7.5. HRs 90s-120s which pt states is baseline (takes metoprolol at home), BPs normal-high off amlodipine, having normal urine output Exam Vital Signs Temp Pulse Resp BP Pulse Ox O2 Del Method O2 Flow Rate 97.3 F 102 H 28 H 154/69 H 99 Nasal Cannula 2 01/12/25 08:00 01/12/25 08:00 01/12/25 08:00 01/12/25 08:00 01/12/25 08:00 01/12/25 08:00 01/12/25 08:00 Constitutional Constitutional: mild distress Routine Respiratory Exam Respiratory: Present no resp distress Routine Abdominal Exam Abdominal: Present soft, tenderness (diffusely tender) and surgical scars (midline scar healed); Absent distended, rebound, guarding, firm or rigid Results Results: Laboratory Laboratory results: results reviewed Results: Imaging Chest x-ray: report reviewed and image reviewed CT scan - abdomen: report reviewed and image reviewed Assessment & Plan Plan 64F with HTN, DMII, afib, history of gastric bypass in 2006 who presented to ER 01/10 initially reporting chest pain and shortness of breath after using meth, with now two CTs indicating extensive pneumoperitoneum. Patient does have ongoing abdominal pain, however she has remained hemodynamically normal (aside from her baseline A-fib), with no fever and normal urine output. I explained to patient in person and to her daughter by phone that per ACS NSQIP risk calculator she has a 37% risk of serious complication, translating to a greater than 1 out of 3 chance that surgery would cause more harm than benefit. I did let them know that if her clinical status were to decline, we can visit the option of surgery but for now we all agreed to continue medical management. All questions were answered and patient and daughter expressed understanding
--- NOTE | 2025-01-12 08:56 | PD.RESCONSUL ---
HPI Data of Consult Requesting Physician: Tomi Navarrete MD Admitting Provider: Lina Marks MD Attending Provider: Tomi Navarrete MD Primary Care Provider: SHEY Joel Consult Narrative cc:: cc: Tomi Navarrete MD Exam Vital Signs Temp Pulse Resp BP Pulse Ox O2 Del Method O2 Flow Rate 97.3 F 102 H 28 H 154/69 H 99 Nasal Cannula 2 01/12/25 08:00 01/12/25 08:00 01/12/25 08:00 01/12/25 08:00 01/12/25 08:00 01/12/25 08:00 01/12/25 08:00 Results Labs 01/12/25 04:55 01/12/25 04:55 Labs: Short CBC 01/11/25 01/12/25 Range/Units 20:17 04:55 WBC 16.2 H (3.6-11.0) Thou/mm3 Hgb 10.5 L D 10.3 L (12.0-16.0) g/dL Hct 34.6 L 33.9 L (36.0-46.0) % Plt Count 247 D (140-440) Thou/mm3 BMP 01/11/25 01/11/25 01/12/25 10:17 16:32 04:55 Sodium 139 141 142 Potassium 4.0 D 3.6 3.4 Chloride 104 108 H 107 Carbon Dioxide 22.4 23.3 23.7 BUN 14 18 20 Creatinine 1.0 0.9 0.8 Glucose 262 H D 111 H D 101 Calcium 9.2 8.7 9.2 Cardiac Enzymes 01/11/25 Range/Units 10:17 Total Creatine Kinase 31 L (34-171) U/L Liver Function 01/11/25 01/11/25 Range/Units 10:17 16:32 Total Bilirubin 0.3 (0.3-1.2) mg/dL AST 21 (0-34) U/L ALT < 7 L (10-49) U/L Alkaline Phosphatase 81 D (46-116) U/L Albumin 3.6 D 3.3 L (3.4-4.8) gm/dL Quality Measures Quality Measures VTE prophylaxis and none Medications Home Medications and Allergies Home Medications ?Medication ?Instructions ?Recorded ?Confirmed ?Type omeprazole 20 mg tablet,delayed 20 mg PO QDAY 12/07/18 01/11/25 History release citalopram 20 mg tablet (Celexa) 20 mg PO QDAY 08/24/20 01/11/25 History multivitamin 1 tab PO QAM 08/24/20 01/11/25 History ropinirole 0.5 mg tablet 0.5 mg PO QDAY 08/24/20 01/11/25 History furosemide 40 mg tablet 40 mg PO BID 11/04/24 01/11/25 History losartan 100 mg tablet 100 mg PO DAILY 11/04/24 01/11/25 History citalopram 40 mg tablet 40 mg PO DAILY 01/11/25 01/11/25 History ergocalciferol (vitamin D2) 1,250 1,250 mcg PO QWEEK 01/11/25 01/11/25 History mcg (50,000 unit) capsule loratadine 10 mg tablet 10 mg PO Q24H 01/11/25 01/11/25 History omeprazole 20 mg capsule,delayed 40 mg PO QAM 01/11/25 01/11/25 History release potassium chloride 20 mEq 20 meq PO DAILY 01/11/25 01/11/25 History tablet,extended release(part/cryst) tirzepatide 2.5 mg/0.5 mL 2.5 mg subcut QWEEK 01/11/25 01/11/25 History subcutaneous pen injector (Trini) Allergies Allergy/AdvReac Type Severity Reaction Status Date / Time metoclopramide (From Reglan) Allergy Shakiness Verified 01/10/25 10:26 Visit Medications Dextrose (Dextrose 50%-Water Inj 50 Ml Syringe) 50 ml IV Q15MIN PRN PRN Reason: BG <50 OR BG <70 & pt unresponsive Stop: 02/10/25 11:32 Glucagon (Glucagon Inj 1 Mg Vial) 1 mg IM Q15MIN PRN PRN Reason: BG <70, and no IV access Heparin Sodium (Porcine) (Heparin Sod Inj 1000 Unit/Ml Vial 10 Ml) 5,000 unit INDWELLCAT PRN PRN PRN Reason: After Use for Hep Lock Stop: 01/25/25 15:40 Hydromorphone HCl (Hydromorphone Inj 2 Mg/Ml Vial) 1 mg IVP Q4H PRN PRN Reason: PAIN SCALE 7-10 (Severe Stop: 01/15/25 21:10 Last Admin: 01/12/25 07:44 Dose: 1 mg Piperacillin/Tazobactam/Dextrose (Zosyn) 3.375 gm in 50 mls @ 12.5 mls/hr IV Q6HR [facility] Stop: 01/17/25 22:29 Last Admin: 01/12/25 05:35 Dose: 12.5 mls/hr Acetaminophen (Ofirmev Inj) 1,000 mg in 100 mls @ 250 mls/hr IV Q6HR [facility] Stop: 01/13/25 12:23 Last Admin: 01/12/25 05:35 Dose: 250 mls/hr Lactated Ringer's (Lactated Ringers) 1,000 mls @ 100 mls/hr IV .Q10H [facility] Stop: 02/10/25 15:39 Last Admin: 01/12/25 05:43 Dose: 100 mls/hr Magnesium Sulfate (Magnesium Sulfate Ivpb) 4 gm in 50 mls @ 12.5 mls/hr IV X1 ONE Stop: 01/12/25 12:13 Potassium Chloride (Kcl Ivpb) 100 mls @ 50 mls/hr IV Q2H [facility] Stop: 01/12/25 14:59 Insulin Human Lispro (Insulin Lispro (Admelog) 1 Unit/0.01 Ml Unit) 0 unit SC Q6HR [facility]; Protocol Stop: 02/10/25 11:59 Last Admin: 01/12/25 05:21 Dose: Not Given Lidocaine (Lidocaine 5% 1 Patch) 1 patch [facility] [place]: 02/10/25 09:14 Last Admin: 01/12/25 08:17 Dose: 1 patch Morphine Sulfate (Morphine Sulf Inj 4 Mg/Ml Vial) 2 mg IVP Q6HR PRN PRN Reason: PAIN SCALE 4-6 (Moderate Stop: 01/15/25 21:10 Last Admin: 01/11/25 06:31 Dose: 2 mg Ondansetron HCl (Ondansetron Inj 2 Mg/Ml Inj 2 Ml) 4 mg IVP Q6HR PRN; Protocol PRN Reason: NAUSEA OR VOMITING Stop: 02/10/25 11:07 Last Admin: 01/11/25 12:26 Dose: 4 mg Oxycodone HCl (Oxycodone Hcl 5 Mg Ir Tab) 5 mg PO Q6HR PRN On Hold: 01/11/25 12:08 Comment: ON HYDROMORPHONE IVP PRN Reason: PAIN SCALE 7-10 (Severe Stop: 01/16/25 09:12 Last Admin: 01/11/25 09:33 Dose: 5 mg Discontinued Medications Heparin Sodium (Porcine) (Heparin Sod Inj 5000 Unit/Ml Vial) 5,000 unit IVP BID [facility] Stop: 01/24/25 21:44 Last Admin: 01/10/25 22:53 Dose: Not Given Heparin Sodium (Porcine) (Heparin Sod Inj 5000 Unit/Ml Vial) 5,000 unit SC BID [facility] Stop: 01/24/25 22:44 Heparin Sodium (Porcine) (Heparin Sod Inj 5000 Unit/Ml Vial) 5,000 unit SC X1 ONE Stop: 01/11/25 03:34 Last Admin: 01/11/25 03:47 Dose: 5,000 unit Hydromorphone HCl (Hydromorphone Inj 2 Mg/Ml Vial) 1 mg IVP X1 ONE Stop: 01/10/25 14:46 Last Admin: 01/10/25 14:52 Dose: 1 mg Hydromorphone HCl (Hydromorphone Inj 2 Mg/Ml Vial) 1 mg IVP X1 ONE Stop: 01/10/25 21:00 Last Admin: 01/10/25 21:15 Dose: 1 mg Piperacillin Sod/Tazobactam (Sod 4.5 gm/ Sodium Chloride) 100 mls @ 200 mls/hr IV X1 ONE Stop: 01/10/25 16:22 Last Infusion: 01/10/25 21:20 Dose: Infused Doxycycline Hyclate 100 mg/ (Sodium Chloride) 100 mls @ 100 mls/hr IV X1 ONE Stop: 01/10/25 16:52 Last Infusion: 01/10/25 21:19 Dose: Infused Sodium Chloride (Ns) 1,000 mls @ 999 mls/hr IV .Q1H1M ONE Stop: 01/10/25 16:54 Last Infusion: 01/10/25 21:20 Dose: Infused Acetaminophen (Ofirmev Inj) 1,000 mg in 100 mls @ 250 mls/hr IV Q6HR PRN PRN Reason: Fever > 100.4, pain 1-3 Stop: 01/11/25 12:23 Amiodarone HCl/Dextrose (Nexterone Ivpb) 360 mg in 200 mls @ 33.333 mls/hr IV .Q6H ONE Stop: 01/11/25 03:16 Last Infusion: 01/11/25 03:53 Dose: Infused Amiodarone HCl/Dextrose (Nexterone Ivpb) 360 mg in 200 mls @ 16.667 mls/hr IV .Q12H [facility] Stop: 01/11/25 21:16 Last Admin: 01/11/25 16:47 Dose: 16.667 mls/hr Doxycycline Hyclate 100 mg/ (Sodium Chloride) 100 mls @ 100 mls/hr IV BID [facility] Stop: 01/18/25 08:59 Lactated Ringer's (Lactated Ringers) 1,000 mls @ 60 mls/hr IV .[id number] [facility] Stop: 01/11/25 13:59 Last Infusion: 01/11/25 00:07 Dose: 0 mls/hr Magnesium Sulfate (Magnesium Sulfate Ivpb) 2 gm in 50 mls @ 25 mls/hr IV X1 ONE Stop: 01/10/25 23:29 Last Infusion: 01/11/25 00:07 Dose: Infused Potassium Chloride (Kcl Ivpb) 10 meq in 100 mls @ 100 mls/hr IV Q1H [facility] Stop: 01/11/25 01:29 Last Admin: 01/11/25 03:40 Dose: 50 mls/hr Sodium Chloride (Ns) 1,000 mls @ 60 mls/hr IV .[id number] ONE Stop: 01/11/25 16:29 Last Admin: 01/11/25 00:06 Dose: 60 mls/hr Potassium Chloride (Kcl Ivpb) 20 meq in 100 mls @ 50 mls/hr IV Q2H [facility] Stop: 01/11/25 11:57 Last Admin: 01/11/25 20:59 Dose: Not Given Potassium Chloride (Kcl Ivpb) 100 mls @ 100 mls/hr IV Q1H [facility] Stop: 01/11/25 12:59 Last Admin: 01/11/25 17:53 Dose: 100 mls/hr Lactated Ringer's (Lactated Ringers) 1,000 mls @ 999 mls/hr IV .Q1H1M ONE Stop: 01/11/25 10:46 Last Admin: 01/11/25 10:36 Dose: 999 mls/hr Lactated Ringer's (Lactated Ringers) 1,000 mls @ 90 mls/hr IV .Q11H7M [facility] Stop: 02/10/25 11:36 Last Admin: 01/11/25 12:25 Dose: 90 mls/hr Lactated Ringer's (Lactated Ringers) 500 mls @ 999 mls/hr IV .Q31M ONE Stop: 01/11/25 14:39 Last Admin: 01/11/25 15:00 Dose: 999 mls/hr Potassium Chloride (Kcl Ivpb) 100 mls @ 50 mls/hr IV Q1H [facility] Stop: 01/12/25 11:59 Labetalol HCl (Labetalol Inj 5 Mg/Ml Vial 20 Ml) 10 mg IVP Q2H PRN PRN Reason: SBP>170 Stop: 02/09/25 21:31 Morphine Sulfate (Morphine Sulf Inj 4 Mg/Ml Vial) 2 mg IVP Q30M PRN PRN Reason: abdominal pain Ondansetron HCl (Ondansetron Inj 2 Mg/Ml Inj 2 Ml) 4 mg IVP X1 ONE; Protocol Stop: 01/10/25 13:16 Last Admin: 01/10/25 14:52 Dose: 4 mg Potassium Chloride (Potassium Chloride 20 Meq Tabcr) 20 meq PO X1 ONE Stop: 01/10/25 12:46 Last Admin: 01/10/25 16:44 Dose: 20 meq Assessment & Plan Plan Summary: A 64-year-old female patient with past medical history of paroxysmal A-fib on Eliquis, hypertension, type 2 diabetes mellitus, osteoarthritis, bilateral lower extremity lymphedema, presented to the ED due to abdominal pain that radiate to the left shoulder for 2 days before admission. Patient reported that the pain started gradually epigastric and worsened over time become severe. Patient was admitted for management of pneumoperitoneum with possible peritonitis. Assessment and plan #Paroxysmal A-fib Patient recently diagnosed with A-fib in November 2024, she was discharged metoprolol 25 and Eliquis 5 mg twice daily. Patient developed abdominal pain and found to have pneumoperitoneum with possible peritonitis. Patient was noticed to have A-fib on telemetry, she was also found to have some episodes of drop in her blood pressure to the 70s systolic. Patient was started on amiodarone drip by the primary team and Eliquis was held in anticipation for surgery. Troponin was normal, EKG showed atrial fibrillation. No ischemic changes, BNP was in the 200s. Echo was done in November during her last admission and showed Normal left ventricular size and function. Estimated EF at 55-60%. The RV is normal in size. The RV systolic function is mildly decreased. The estimated RVSP, 48 mmHg. Mildly dilated left atrium. Mitral annulus calcification mitral valve thickening mild mitral regurgitation. Mild tricuspid valve regurgitation 01/12/2025, patient was seen and examined at bedside. Reviewed with the patient telemonitoring showed only A-fib with heart rate range between 100-120, however her blood pressure is stable. Plan ? Continue patient on amiodarone drip ? We recommend there is no anticipated surgery patient to be started on heparin drip for anticoagulation after 48 hours stopping the Eliquis and if no contraindication. ? Keep magnesium and potassium above 2 and 4 respectively within normal range. ? Keep telemonitoring ? Strict in and out #Diabetes mellitus #Pneumoperitoneum #Questionable peritonitis #Hypertension #Osteoarthritis #Lymphedema Plan ? Follow-up with the primary team recommendations Thank you for your consultation please do not hesitate to reach out if you have any question or concern - Patient's plan and care discussed with my attending, Dr. Brandin Boykin MD Internal Medicine PGY-3
[2025-01-12] MEDS: Magnesium Sulfate 4 GM Ivpb 4 GM/50 ML BAG IV (09:06)
[2025-01-12] MEDS: POTASSIUM CHL 20 mEq IVPB 100 ML 50 MEQ IV ×3 (09:07→17:09)
--- NOTE | 2025-01-12 11:25 | ESPR_ITS ---
Documentation for date of: 01/12/25 Subjective Subjective Interval history: Patient was seen and examined at bedside. Patient denied any palpitation, shortness of breath, orthopnea, or paroxysmal nocturnal dyspnea. She still have some chest pain especially when she takes a deep breath. Regarding her pneumoperitoneum as per surgery patient is not a candidate for surgical intervention. Patient still off Eliquis in anticipation for any need for surgical intervention. Review of the patient today monitor showed fluctuation of heart rate between 130 and low 90s. However, her blood pressure stable throughout the day. Exam Vital Signs Temp Pulse Resp BP Pulse Ox O2 Del Method O2 Flow Rate 97.3 F 113 H 17 147/90 H 100 Nasal Cannula 2 01/12/25 08:00 01/12/25 10:30 01/12/25 10:30 01/12/25 10:30 01/12/25 10:30 01/12/25 08:00 01/12/25 08:00 Narrative Exam GEN: AOx3, sleepy, able to speak full sentences HEENT: NC/AC, PERRLA, oral mucosa dry, neck supple CVS: RRR, S1-S2 present, no murmurs appreciated RESP: CTAB GI: Multiple healed surgical scar, moderately distended, tender, localized rigidity on the umbilical area, and right flank. Reduced bowel sounds MSK: able to move all 4 limbs, no lower extremity edema SKIN: warm and dry ACCOUNTS RECEIVABLE COORDINATOR: CN II-XII and Sensation grossly intact. Objective Labs 01/12/25 04:55 01/12/25 04:55 Labs: Laboratory Results - last 24 hr 01/11/25 01/11/25 01/11/25 10:17 16:32 20:17 WBC RBC Hgb 10.5 L D Hct 34.6 L MCV MCH MCHC RDW Std Deviation Plt Count Neut % (Auto) Lymph % (Auto) [place] % (Auto) Eos % (Auto) Baso % (Auto) Neut # (Auto) Lymph # (Auto) [place] # (Auto) Eos # (Auto) Baso # (Auto) Immature Gran # (Auto) Absolute Nucleated RBC Immature Gran % Nucleated RBC % Sodium 139 141 Potassium 4.0 D 3.6 Chloride 104 108 H Carbon Dioxide 22.4 23.3 Anion Gap 13 10 BUN 14 18 Creatinine 1.0 0.9 Estim Creat Clear Calc 64.4 71.6 eGFR > 60 > 60 BUN/Creatinine Ratio 14 20 Glucose 262 H D 111 H D Calculated Osmolality 287 284 Lactic Acid 0.7 Calcium 9.2 8.7 Corrected Calcium 9.5 9.3 Phosphorus 3.4 Magnesium Total Bilirubin 0.3 AST 21 ALT < 7 L Alkaline Phosphatase 81 D Total Creatine Kinase 31 L Total Protein 6.0 Albumin 3.6 D 3.3 L Globulin 2.4 Albumin/Globulin Ratio 1.5 Blood Type O Positive Antibody Screen NEGATIVE Crossmatch See Detail Blood Bank Wristband ID Yes 01/12/25 04:55 WBC 16.2 H RBC 4.33 Hgb 10.3 L Hct 33.9 L MCV 78 L MCH 23.8 L MCHC 30.4 L RDW Std Deviation 54.4 H Plt Count 247 D Neut % (Auto) 85 H Lymph % (Auto) 7 L [place] % (Auto) 7 Eos % (Auto) 0 Baso % (Auto) 0 Neut # (Auto) 13.9 H Lymph # (Auto) 1.1 [place] # (Auto) 1.2 H Eos # (Auto) 0.0 Baso # (Auto) 0.0 Immature Gran # (Auto) 0.08 H Absolute Nucleated RBC 0.00 Immature Gran % 1 H Nucleated RBC % 0 Sodium 142 Potassium 3.4 Chloride 107 Carbon Dioxide 23.7 Anion Gap 11 BUN 20 Creatinine 0.8 Estim Creat Clear Calc 80.6 eGFR > 60 BUN/Creatinine Ratio 25 H Glucose 101 Calculated Osmolality 285 Lactic Acid Calcium 9.2 Corrected Calcium Phosphorus 2.8 Magnesium 1.8 Total Bilirubin AST ALT Alkaline Phosphatase Total Creatine Kinase Total Protein Albumin Globulin Albumin/Globulin Ratio Blood Type Antibody Screen Crossmatch Blood Bank Wristband ID Quality Measures Quality Measures VTE prophylaxis and none Advance care planning discussed with:: patient Assessment & Plan Assessment Current Active Medications: Generic Name Dose Route Start Last Admin Trade Name Freq PRN Reason Stop Dose Admin Dextrose 50 ml 01/11/25 11:33 Dextrose 50%-Water Inj 50 Ml Syringe IV 02/10/25 11:32 Q15MIN PRN BG <50 OR BG <70 & pt unresponsive Glucagon 1 mg 01/11/25 11:33 Glucagon Inj 1 Mg Vial IM Q15MIN PRN BG <70, and no IV access Heparin Sodium (Porcine) 5,000 unit 01/11/25 15:41 Heparin Sod Inj 1000 Unit/Ml Vial 10 Ml INDWELLCAT 01/25/25 15:40 PRN PRN After Use for Hep Lock Hydromorphone HCl 1 mg 01/10/25 21:11 01/12/25 07:44 Hydromorphone Inj 2 Mg/Ml Vial IVP 01/15/25 21:10 1 mg Q4H PRN Administration PAIN SCALE 7-10 (Severe Piperacillin/Tazobactam/Dextrose 3.375 gm in 50 mls @ 12.5 mls/hr 01/10/25 22:30 01/12/25 05:35 Zosyn IV 01/17/25 22:29 12.5 mls/hr Q6HR [facility] Administration Acetaminophen 1,000 mg in 100 mls @ 250 mls/hr 01/11/25 09:17 01/12/25 05:35 Ofirmev Inj IV 01/13/25 12:23 250 mls/hr Q6HR [facility] Administration Lactated Ringer's 1,000 mls @ 100 mls/hr 01/11/25 15:40 01/12/25 05:43 Lactated Ringers IV 02/10/25 15:39 100 mls/hr .Q10H [facility] Administration Magnesium Sulfate 4 gm in 50 mls @ 12.5 mls/hr 01/12/25 08:14 01/12/25 09:06 Magnesium Sulfate Ivpb IV 01/12/25 12:13 12.5 mls/hr X1 ONE Administration Potassium Chloride 100 mls @ 50 mls/hr 01/12/25 09:00 01/12/25 10:37 Kcl Ivpb IV 01/12/25 14:59 50 mls/hr Q2H [facility] Administration Insulin Human Lispro 0 unit 01/11/25 12:00 01/12/25 05:21 Insulin Lispro (Admelog) 1 Unit/0.01 Ml Unit SC 02/10/25 11:59 Not Given Q6HR [facility] Protocol Lidocaine 1 patch 01/11/25 09:15 01/12/25 08:17 Lidocaine 5% 1 Patch TOP 02/10/25 09:14 1 patch UD [facility] Administration Morphine Sulfate 2 mg 01/10/25 21:11 01/11/25 06:31 Morphine Sulf Inj 4 Mg/Ml Vial IVP 01/15/25 21:10 2 mg Q6HR PRN Administration PAIN SCALE 4-6 (Moderate Ondansetron HCl 4 mg 01/11/25 11:08 01/11/25 12:26 Ondansetron Inj 2 Mg/Ml Inj 2 Ml IVP 02/10/25 11:07 4 mg Q6HR PRN Administration NAUSEA OR VOMITING Protocol Oxycodone HCl 5 mg 01/11/25 09:13 01/11/25 09:33 Oxycodone Hcl 5 Mg Ir Tab PO 01/16/25 09:12 5 mg On Hold: 01/11/25 12:08 Q6HR PRN Administration Comment: ON HYDROMORPHONE IVP PAIN SCALE 7-10 (Severe Plan Summary: A 64-year-old female patient with past medical history of paroxysmal A- fib on Eliquis, hypertension, type 2 diabetes mellitus, osteoarthritis, bilateral lower extremity lymphedema, presented to the ED due to abdominal pain that radiate to the left shoulder for 2 days before admission. Patient reported that the pain started gradually epigastric and worsened over time become severe. Patient was admitted for management of pneumoperitoneum with possible peritonitis. Assessment and plan #Paroxysmal A-fib Patient recently diagnosed with A-fib in November 2024, she was discharged metoprolol 25 and Eliquis 5 mg twice daily. Patient developed abdominal pain and found to have pneumoperitoneum with possible peritonitis. Patient was noticed to have A-fib on telemetry, she was also found to have some episodes of drop in her blood pressure to the 70s systolic. Patient was started on amiodarone drip by the primary team and Eliquis was held in anticipation for surgery. Troponin was normal, EKG showed atrial fibrillation. No ischemic changes, BNP was in the 200s. Echo was done in November during her last admission and showed Normal left ventricular size and function. Estimated EF at 55-60%. The RV is normal in size. The RV systolic function is mildly decreased. The estimated RVSP, 48 mmHg. Mildly dilated left atrium. Mitral annulus calcification mitral valve thickening mild mitral regurgitation. Mild tricuspid valve regurgitation 01/12/2025, patient 3.4, magnesium 2.2. Review of her telemetry box showed max heart rate of 140 and lowest low 90s irregularly irregular heartbeat. No V. tach or V-fib. ? Continue patient on amiodarone drip ? Continue holding on Eliquis in anticipation for surgery ? Keep magnesium and potassium above 2 and 4 respectively within normal range. ? Keep telemonitoring ? Strict in and out #Diabetes mellitus #Pneumoperitoneum #Questionable peritonitis #Hypertension #Osteoarthritis #Lymphedema Plan ? Follow-up with the primary team recommendations Thank you for your consultation please do not hesitate to reach out if you have any question or concern - Patient's plan and care discussed with my attending, Dr.Anumandla Eugenio Boykin MD Internal Medicine PGY-3 Attending Provider Attestation/Addendum I have personally seen and examined the patient separately on the above date of service and discussed the plan of care with the resident. I reviewed the resident consultation progress note and agree with the resident findings and plan in the note above and have also edited the documentation to reflect my findings and plan. Brandin العلي M.D. Interventional Cardiology
--- NOTE | 2025-01-12 12:30 | PC.NURSE ---
Patient taken to surgery. Dr. Blandon was at bedside and spoke with patient and daughter (shoshana) regarding procedure. Patient and family questions were answered. They both verbalized to proceed with surgery. 1240: surgical team here to pick patient up and take to OR.
--- NOTE | 2025-01-12 12:51 | PC.SS ---
COST MANAGER conducted bedside contact with the patient conduct initial assessment and to discuss discharge planning.? Patient confirmed demographic information.? Patient resides alone at home.? Patient receives disability from [employer].? Patient does not utilize DME to assist with ambulation.? Patient does not utilize home oxygen.? Patient describes ability to complete ADL?s independently.? Patient reports still possessing the ability to drive vehicle.? Patient identified daughter, Renetta Norris ; as surrogate medical decision maker.? Patient?s PCP is Marivel Joel; [facility].? Patient?s supervisor properties is Dr. العلي.? Patient utilizes [facility] for medication services.? If oxygen required at the time of discharge, social science research assistant to order.? No preferred vendor identified.? COST MANAGER informed by patient that PCP has submitted order for patient to obtain a walker.? COST MANAGER addressed with the patient results of toxicology report indicating that patient was positive for methamphetamine.? Patient confirmed recent use of methamphetamine.? Per patient use is not daily.? Patient informed COST MANAGER plan to discontinue use.? Patient receptive to receiving AOD resources.? Patient reports not being coerced into use of methamphetamine.? Patient possesses access to appropriate provisions and utilizes.? No concerns reported by the patient.? No further discharge needs identified by the patient.? No further intervention required at this time, social science research assistant will be available to address any further concerns.? Next of Kin: Renetta Norris D/C Plan: Home
--- NOTE | 2025-01-12 15:13 | ESOP_ITS ---
Date of Procedure 01/12/25 Pre Op Diagnosis Perforated viscus Post Op Diagnosis Gastric perforation Procedure Exploratory laparotomy, repair of gastric perforation with Tommy patch, washout and drain placement Findings Perforation at the anterior stomach with clean edges, no palpable mass Procedure Description After discussion of risks and benefits with patient and family, patient was brought to the operating room, SCDs were placed and general anesthesia was induced. She was placed in lithotomy position with proper padding and was pre pped and draped in the usual sterile fashion. Given the concern for possible diverticular perforation, first the incision was made in the low midline. The tissues were dissected with electrocautery and the mesh was encountered which was also dissected with electrocautery. There was a small amount of seropurulent fluid in the abdomen, no feculent contamination in the sigmoid colon was examined with no signs of perforation. At this point I opted to extend the incision cephalad again using electrocautery. There were some adhesions of the omentum to the mesh which were dissected bluntly and sharply with scissors. In the right paracolic gutter there was a fair amount of purulent drainage which was irrigated and there were some dense adhesions of the omentum to the surface of the liver. These were bluntly and sharply dissected with scissors until the stomach was visible. In this area there was more purulent drainage and a circular 5 x 5 mm perforation was noted at the anterior surface of the stomach. This was repaired in 2 layers, first with interrupted 3-0 silk sutures and then a Tommy patch was placed with adjacent omentum which was sutured over the this repair again using interrupted 3-0 silk sutures. The abdomen was irrigated with warm saline until the effluent was clear. A 19 Arabic JEROMY was placed through the left lower quadrant with the end terminating near the site of gastric perforation. The fascia was closed with two #1 PDS sutures and the wound was irrigated. The skin was reapproximated with 2-0 Vicryl sutures and then reinforced with blanca. The wound was covered with gauze and secured with Medipore tape. Patient was extubated and brought to PACU in stable condition Pathology / specimen None Estimated Blood Loss 100 Surgeon Yas Blandon MD Surgical Staff Operation Date: 01/12/25 12:45 Case Staff Assisting Surgeon: Rosa Isela Flaherty SHIPS OR BARGES LOADER: Rad Rodriguez RN First Assistant: Karuna Campos
--- NOTE | 2025-01-12 15:18 | SUR.PHASEI ---
1518: Pt. AAOx4, vitals stable, breathing unlabored, no complaint of pain or nausea, dressing to ABD CDI, JEROMY Drain in place draining serosanguinous fluid, davila catheter in place, NG tube in place on LIS, report received from Rad GREENWOOD and Nicholas PANIAGUA.
--- NOTE | 2025-01-12 15:29 | PD.RESPRO ---
Documentation for date of: 01/12/25 Subjective Subjective Interval history: Patient is a 64-year-old female past medical history significant for paroxysmal atrial fibrillation on Eliquis, primary hypertension, hte-[id number]-blhopeqbf diabetes mellitus type 2 [6.2%], osteoarthritis of bilateral knees and chronic bilateral lower extremity lymphedema presenting with a chief complaint of acute onset generalized abdominal pain over the past 48 hours. Patient describes the pain as acute onset, stabbing, left abdomen, radiating to her left arm and constant. Associated with nausea, shortness of breath and palpitations. No relieving factors and aggravated by movement. Since onset of the pain patient has had decreased appetite and no bowel movements in the past 48 hours. At this moment patient denies passing any flatus. Denies any diarrhea, vomiting, fever, sick contacts and recent travel. Of note patient was recently hospitalized from 11/03 - 11/07 for left lower extremity cellulitis and was treated with a doxycycline and azithromycin for 2 days while in hospital and discharged with a 10-day course of sulfamethoxazole/trimethoprim. ED course: BP 120/87, pulse 90, RR 18, temp 97 Labs WBC 15.5, Hb 10.5, PLT 288, NA 143, K3.2, BNP 142, troponin <0.02. EKG showed atrial fibrillation, rate 87. No acute ST changes. Chest x-ray showed right sided pneumoperitoneum. CT abdomen/pelvis with contrast extensive colonic diverticulae with air droplets adjacent to sigmoid colon Extensive free fluid in the pelvis and extensive pneumoperitoneum In the ED patient received ondansetron 4 Mg IV x 1, hydromorphone 1 Mg IV x 1, KCl 20 mEq p.o. x 1, Zosyn 4.5 g IV x 1 and doxycycline 100 mg IV x1. Patient was initially admitted to the floor for treatment and management of pneumoperitoneum secondary to suspected perforated viscus. General surgery, Dr. Blandon was consulted. Overnight patient's abdominal pain worsened and today she appears to have an acute abdomen on exam. Patient was upgraded to the ICU for serial monitoring of bladder pressures due to high risk of progression to abdominal compartment syndrome. 01/12/2025: Overnight patient had no events. This morning patient complained of left-sided abdominal pain but only 1/10 in intensity with no radiation. Labs showed WBC 16.2, Hb 10.3, PLT 247, NA 142, K3.4, BUN 20, CR 0.8, Mg 1.8.Abdomen/pelvis CTA showed extensive pneumoperitoneum, mild free fluid throughout the abdomen. Colonic diverticulosis with air droplets outside the diverticuli in the sigmoid colon. KCl 60 mEq IV x 1 and magnesium sulfate 2 g IV x 1 given. General surgeon, Dr. Blandon plans to take patient to the OR today for exploratory laparotomy. Exam Vital Signs Temp Pulse Resp BP Pulse Ox O2 Del Method O2 Flow Rate 97.5 F 118 H 22 H 137/82 H 98 Nasal Cannula 2 01/12/25 12:00 01/12/25 12:30 01/12/25 12:30 01/12/25 12:30 01/12/25 12:30 01/12/25 12:00 01/12/25 12:00 Narrative Exam Constitutional Alert, oriented x 3 and in mild distress. Elderly female, disheveled HEENT Vision grossly intact. Patent nares. Trachea midline Respiratory Chest normal on inspection and clear auscultation bilaterally. Reduced air entry at bases Cardiovascular S1 and S2 audible, RRR. No murmurs carotid bruit. No gross JVD. Abdominal Distended, tender to palpation in left quadrant, rebound tenderness, reduced bowel sounds, multiple healed surgical scars noted. Genitourinary No bladder tenderness, no flank pain. Normal to palpation. Pulido catheter noted Musculoskeletal Extremities tone within normal limits. Nonpitting edema bilateral lower extremities up to knees Neurological CN II - XII grossly intact. Extremity motor and sensation grossly intact. Skin Warm, dry and intact. Diffuse area approximately 8 x 5 cm ecchymoses below right knee Psychiatric Patient has flat affect, is cooperative Objective Labs 01/13/25 04:30 01/13/25 04:30 Labs: Laboratory Results - last 24 hr 01/11/25 01/11/25 01/11/25 10:17 16:32 20:17 WBC RBC Hgb 10.5 L D Hct 34.6 L MCV MCH MCHC RDW Std Deviation Plt Count Neut % (Auto) Lymph % (Auto) [place] % (Auto) Eos % (Auto) Baso % (Auto) Neut # (Auto) Lymph # (Auto) [place] # (Auto) Eos # (Auto) Baso # (Auto) Immature Gran # (Auto) Absolute Nucleated RBC Immature Gran % Nucleated RBC % Sodium 141 Potassium 3.6 Chloride 108 H Carbon Dioxide 23.3 Anion Gap 10 BUN 18 Creatinine 0.9 Estim Creat Clear Calc 71.6 eGFR > 60 BUN/Creatinine Ratio 20 Glucose 111 H D Calculated Osmolality 284 Lactic Acid 0.7 Calcium 8.7 Corrected Calcium 9.3 Phosphorus 3.4 Magnesium Albumin 3.3 L Blood Type O Positive Antibody Screen NEGATIVE Crossmatch See Detail Blood Bank Wristband ID Yes 01/12/25 04:55 WBC 16.2 H RBC 4.33 Hgb 10.3 L Hct 33.9 L MCV 78 L MCH 23.8 L MCHC 30.4 L RDW Std Deviation 54.4 H Plt Count 247 D Neut % (Auto) 85 H Lymph % (Auto) 7 L [place] % (Auto) 7 Eos % (Auto) 0 Baso % (Auto) 0 Neut # (Auto) 13.9 H Lymph # (Auto) 1.1 [place] # (Auto) 1.2 H Eos # (Auto) 0.0 Baso # (Auto) 0.0 Immature Gran # (Auto) 0.08 H Absolute Nucleated RBC 0.00 Immature Gran % 1 H Nucleated RBC % 0 Sodium 142 Potassium 3.4 Chloride 107 Carbon Dioxide 23.7 Anion Gap 11 BUN 20 Creatinine 0.8 Estim Creat Clear Calc 80.6 eGFR > 60 BUN/Creatinine Ratio 25 H Glucose 101 Calculated Osmolality 285 Lactic Acid Calcium 9.2 Corrected Calcium Phosphorus 2.8 Magnesium 1.8 Albumin Blood Type Antibody Screen Crossmatch Blood Bank Wristband ID Quality Measures Quality Measures VTE prophylaxis and none Advance care planning discussed with:: patient Assessment & Plan Assessment Current Active Medications: Generic Name Dose Route Start Last Admin Trade Name Freq PRN Reason Stop Dose Admin Albuterol/Ipratropium 3 ml 01/12/25 13:37 Albuterol/Ipratropium (Duoneb) Rt Echo 3 Ml Nebu INH 02/11/25 13:36 Q4HRRT PRN SHORTNESS OF BREATH Dextrose 50 ml 01/11/25 11:33 Dextrose 50%-Water Inj 50 Ml Syringe IV 02/10/25 11:32 Q15MIN PRN BG <50 OR BG <70 & pt unresponsive Fentanyl Citrate 50 mcg 01/12/25 13:37 Fentanyl Cit Inj 50 Mcg/Ml Amp 2ml IVP 01/12/25 15:37 Q5M PRN PAIN SCALE 4-6 (Moderate Glucagon 1 mg 01/11/25 11:33 Glucagon Inj 1 Mg Vial IM Q15MIN PRN BG <70, and no IV access Heparin Sodium (Porcine) 5,000 unit 01/11/25 15:41 Heparin Sod Inj 1000 Unit/Ml Vial 10 Ml INDWELLCAT 01/25/25 15:40 PRN PRN After Use for Hep Lock Hydralazine HCl 10 mg 01/12/25 13:37 Hydralazine Inj 20 Mg/Ml Vial IVP 01/12/25 15:37 X1 ONE Hydromorphone HCl 1 mg 01/10/25 21:11 01/12/25 07:44 Hydromorphone Inj 2 Mg/Ml Vial IVP 01/15/25 21:10 1 mg On Hold: 01/12/25 15:29 Q4H PRN Administration Comment: HYDROMORPHINE FLAME CHANNELER PAIN SCALE 7-10 (Severe ACTIVE Hydromorphone HCl 0.5 mg 01/12/25 13:37 Hydromorphone Inj 2 Mg/Ml Vial IVP 01/12/25 15:37 Q10MIN PRN severe pain 7-10 Hydromorphone HCl 30 mg 01/12/25 15:27 Hydromorphone 1 Mg/Ml Mortgage Branch Manager Syringe 30ml IV 01/17/25 15:26 PER ORDER PRN Per Protocol (Pain) Protocol Piperacillin/Tazobactam/Dextrose 3.375 gm in 50 mls @ 12.5 mls/hr 01/10/25 22:30 01/12/25 12:16 Zosyn IV 01/17/25 22:29 12.5 mls/hr Q6HR ANTONIA Administration Acetaminophen 1,000 mg in 100 mls @ 250 mls/hr 01/11/25 09:17 01/12/25 12:11 Ofirmev Inj IV 01/13/25 12:23 Not Given Q6HR ANTONIA Lactated Ringer's 1,000 mls @ 100 mls/hr 01/11/25 15:40 01/12/25 05:43 Lactated Ringers IV 02/10/25 15:39 100 mls/hr .Q10H ANTONIA Administration Promethazine HCl 12.5 mg/ 50.5 mls @ 2.5 mls/min 01/12/25 13:37 Sodium Chloride IV 01/12/25 15:37 Q30M PRN NAUSEA Protocol Insulin Human Lispro 0 unit 01/11/25 12:00 01/12/25 12:11 Insulin Lispro (Admelog) 1 Unit/0.01 Ml Unit SC 02/10/25 11:59 Not Given Q6HR ANTONIA Protocol Labetalol HCl 5 mg 01/12/25 13:37 Labetalol Inj 5 Mg/Ml Vial 20 Ml IVP 01/12/25 15:37 Q10MIN PRN SBP >180 DBP>100 or HR >100 Lidocaine 1 patch 01/11/25 09:15 01/12/25 08:17 Lidocaine 5% 1 Patch TOP 02/10/25 09:14 1 patch UD ANTONIA Administration Metoprolol Tartrate 2.5 mg 01/12/25 13:37 Metoprolol Tartrate Inj 1 Mg/Ml Amp 5 Ml IVP 01/12/25 15:37 PRN PRN Heart Rate- High Morphine Sulfate 2 mg 01/10/25 21:11 01/11/25 06:31 Morphine Sulf Inj 4 Mg/Ml Vial IVP 01/15/25 21:10 2 mg Q6HR PRN Administration PAIN SCALE 4-6 (Moderate Ondansetron HCl 4 mg 01/11/25 11:08 01/11/25 12:26 Ondansetron Inj 2 Mg/Ml Inj 2 Ml IVP 02/10/25 11:07 4 mg Q6HR PRN Administration NAUSEA OR VOMITING Protocol Oxycodone HCl 5 mg 01/11/25 09:13 01/11/25 09:33 Oxycodone Hcl 5 Mg Ir Tab PO 01/16/25 09:12 5 mg On Hold: 01/11/25 12:08 Q6HR PRN Administration Comment: ON HYDROMORPHONE IVP PAIN SCALE 7-10 (Severe Plan Patient is a 64-year-old female past medical history significant for paroxysmal atrial fibrillation on Eliquis, primary hypertension, jbd-bvgaaow-tinowwdnd diabetes mellitus type 2 [6.2%], osteoarthritis of bilateral knees and chronic bilateral lower extremity lymphedema presenting with a chief complaint of acute onset generalized abdominal pain over the past [address] abdomen/pelvis with contrast extensive colonic diverticulae with air droplets adjacent to sigmoid colon Extensive free fluid in the pelvis and extensive pneumoperitoneum. Patient was initially admitted to the floor for treatment and management of pneumoperitoneum secondary to suspected perforated viscus. General surgery, Dr. Blandon was consulted. Overnight patient's abdominal pain worsened and today she appears to have an acute abdomen on exam. Patient was upgraded to the ICU for serial monitoring of bladder pressures due to high risk of progression to abdominal compartment syndrome. 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 Currently has signs of acute abdomen with rebound tenderness and distention DDx: Perforated viscus, ruptured sigmoid diverticula Dx: - CT abdomen/pelvis with contrast extensive colonic diverticulae with air droplets adjacent to sigmoid colon Extensive free fluid in the pelvis and extensive pneumoperitoneum. - Lactic acid 1.0?>1.7?>2 ? Bladder pressure 9 mmHg at 10 AM. Rx: - General Surgery, Dr. Blandon consulted. Appreciate recommendations. NEURO No acute problems CVS History of primary hypertension Rx: Antihypertensives on hold due to normotension Atrial fibrillation?paroxysmal At home patient was on metoprolol XL and apixaban. Dx: -[id number] 4 points. [4.8% stroke risk per year] - From telemetry monitoring patient alternates between A-fib and sinus. Rates between 80s?160s. Rx: - Continue amiodarone infusion as per cardiology recommendations. -Will wait at least 24 hours postoperatively before starting heparin infusion for stroke prophylaxis. PULM No acute problems RENAL Acute kidney injury, prerenal versus postrenal - resolved DDx: dehydration, compression from increased intra-abdominal pressure Dx: Baseline CR 0.7. This admission CR 1.3 -> 0.8 Rx: Continue maintenance LR IVF at 90 cc/h RRX: Monitor BMP and lactate. HEME/ONC Acute blood loss anemia Chronic microcytic anemia DDx: Perforated viscus, dilutional, SCOOTER Dx: -1 unit PRBC on 01/11 - Baseline Hb 10.5. Hb today 7.5 -> 10.3 Rx: monitor Hb on CBC Leukocytosis DDx: Reactive Dx: WBC 12.3 -> 16.3 Rx: Monitor CBC ENDO Yxo-xhczkjp-snenmmvlu diabetes mellitus type [6.2%] Rx: Insulin sliding scale Q6 hourly ID Likely peritonitis - resolving DDx:Peritonits, complicated diverticulitis Dx: - CT showed possible perforated sigmoid diverticulosis. Abdomen tender with rebound on exam - Patient s/p exploratory laparotomy today with abdominal washout and repair of gastric perforation. Rx: - Zosyn 3.375 g IV every 6 hourly started on [01/11? - started fluconazole 400 mg IV daily on [01/12? ICU Health maintenance: Dispo: Pain control, IV antibiotics. Telemetry monitoring. Diet: NPO DVT ppx: None GI ppx: None IV lines: 2 pIV, 22G Central line: Yes [RIJ started on 01/11? Arterial line: No Pulido: Yes [started 01/11 - Code status: FULL CODE Plan of care discussed with Attending Dr. Rosalba Salomon MD PGY 2 Disclaimer: This note was dictated by speech recognition. Minor errors in sub plant manager may be present due to voice recognition software. Attending Provider Attestation/Addendum Patient seen and examined with above resident, Cristobal Salomon MD. I agree with the findings, assessment, and plan of care as documented except for any differences below. Patient taken to the OR this afternoon. Patient will remain in ICU post procedure given significant component of peritonitis likely expected. Patient will remain on empiric antibiotics. Notified about definitive gastric perforation during exploratory laparotomy, will proceed with addition of Diflucan. Patient was started on FLAME CHANNELER for pain control she remains hemodynamically stable with atrial fibrillation adequately controlled on amiodarone alone. Will reassess ability to begin anticoagulation with general surgery in the coming days. Patient remains strict n.p.o. with NG tube to suction. Should the patient do well tomorrow morning, will likely able to transfer back to [facility] for ongoing management. Total critical care time: I personally spent 35 minutes for review of physiologic parameters, directing plan of care throughout the day, coordination of care with other specialist, and counseling patient/family at bedside. This is exclusive of time spent teaching of staff performing any separate billable procedures. Patient remains at significant risk for further morbidity and mortality warranting close monitoring and care when available in the ICU. Critical care required for gastric perforation, peritonitis, atrial fibrillation with RVR, and acute blood loss anemia.
[2025-01-12] MEDS: HYDROmorphone 1 MG/ML PCA SYRINGE 30ML 30 MG IV (15:47)
--- NOTE | 2025-01-12 16:20 | SUR.PHASEI ---
1620: Pt. AAOx4, vitals stable, breathing unlabored, no complaint of pain or nausea, dressing to ABD CDI, no active bleed noted, NG tube in place and clamped for transfer, JEROMY drain in place, davila catheter in place, gave report to Isabel PANIAGUA prior to transfer to room 256. Family made aware of transfer. Pt. transferred with her dentures.
[2025-01-12] MEDS: FLUCONAZOLE/NS 400 MG IVPB 400 MG/200 ML BAG 100 MG IV (17:10)
--- NOTE | 2025-01-12 19:03 | PC.NURSE ---
1630 Patient returned from OR. Pt had exp lap with gastric perforation repair. Pt has a mid abdominal incision with staple, JEROMY drain also in place and binder.
[2025-01-12] MEDS: AMIODARONE 360 MG IVPB 360 MG/200 ML BAG 16.667 MG IV (19:58)
[2025-01-13] VITALS (31 sets, daily range): BP systolic 122–159; BP diastolic 69–101; PULSE 105–135; RESP 11–36; TEMP 36–36.6; O2SAT 10–100; BMI 35.6
[2025-01-13] MEDS: ACETAMINOPHEN IVPB 1,000 MG/100 ML VIAL 250 MG IV ×2 (05:40→11:48)
[2025-01-13] MEDS: PIPER/TAZO 3.375 GM PREMIX 3.375 GM/50 ML BAG IV ×3 (05:40→18:36)
[2025-01-13 05:59] LABS: Basophils # (Auto) 0.0 Thou/mm3 (0.0-0.2); Basophils % (Auto) 0 % (0-2.5); Eosinophils # (Auto) 0.0 Thou/mm3 (0.0-0.5); Eosinophils % (Auto) 0 % (0-10); Hematocrit 32.4 % (36.0-46.0); Hemoglobin 10.0 g/dL (12.0-16.0); Immature Granulocytes Auto 0.03 Thou/mm3 (0.00-0.00); Lymphocytes # (Auto) 0.5 Thou/mm3 (1.0-4.8); Lymphocytes % (Auto) 5 % (10-50); Mean Corpuscular HGB Conc 30.9 g/dl (31.0-37.0); Mean Corpuscular Hemoglobin 24.0 pg (25.0-35.0); Mean Corpuscular Volume 78 fL (80-100); Monocytes # (Auto) 0.6 Thou/mm3 (0.0-0.8); Monocytes % (Auto) 5 % (0-12); Neutrophils # (Auto) 10.3 Thou/mm3 (1.8-7.7); Neutrophils % (Auto) 90 % (37-80); Nucleated Red Blood Cell # 0.00 Thou/mm3 (0.00-0.00); Nucleated Red Blood Cell % 0 /100 WBC (0); Platelet Count 232 Thou/mm3 (140-440); RDW Standard Deviation 53.9 fL (36.4-46.3); Red Blood Count 4.16 Miln/mm3 (4.00-5.20); White Blood Count 11.5 Thou/mm3 (3.6-11.0)
[2025-01-13 06:20] LABS: Anion Gap 10 (7-16); BUN/Creatinine Ratio 21 Ratio (12-20); Blood Urea Nitrogen 15 mg/dL (9-23); Calcium 9.3 mg/dL (8.3-10.6); Carbon Dioxide 23.3 mMol/L (20.0-31.0); Chloride 108 mMol/L (98-107); Creatinine (Component) 0.7 mg/dL (0.6-1.3); Estimated Creatinine Clearance 96.0 mL/min (>60); Glucose 128 mg/dL (74-106); Magnesium 2.2 mg/dL (1.6-2.6); Osmolality,Calculated 284 (275-295); Phosphorous 3.1 mg/dL (2.4-5.1); Potassium 4.1 mMol/L (3.4-5.1); Sodium 141 mMol/L (136-145); eGFR > 60 See Note
[2025-01-13] MEDS: RINGERS LACTATED 1000 ML 1,000 ML 100 ML IV ×2 (07:27→18:34)
[2025-01-13] MEDS: AMIODARONE 360 MG IVPB 360 MG/200 ML BAG 16.667 MG IV ×2 (07:28→20:50)
[2025-01-13] MEDS: FLUCONAZOLE/NS 400 MG IVPB 400 MG/200 ML BAG 100 MG IV (09:00)
[2025-01-13] MEDS: BUMETANIDE INJ 0.25 MG/ML VIAL 4 ML 2 MG IVP (09:00)
--- NOTE | 2025-01-13 09:24 | ESPR_ITS ---
Documentation for date of: 01/13/25 Subjective Subjective Brief History: 64F with HTN, DMII, afib, history of gastric bypass in 2006 who presented to ER this am initially reporting chest pain and shortness of breath after using meth. Pt underwent CXR read as possible pneumoperitoneum vs colon interposed above the liver, followed by CT CAP read as extensive pneumoperitoneum however she does not have any clinical signs of peritonitis, has remained afebrile with intermittent tachycardia and EKG consistent with her known afib, has received one dose of pain medicine at 3pm On my exam pt stated she does have abdominal pain which has been present for the last two (2) days and is similar to pain she has experienced before. She reports nausea and decreased appetite, last had a BM yesterday. Her last colonoscopy was years ago and she has not had any recent EGD PMH: HTN, DMII, afib PSHx: Gastric bypass in 2006 in [place], multiple hernia repairs Meds: includes eliquis last taken yesterday morning Allergies: Reglan Social hx: smokes 1/2 PPD cigarettes Narrative: Feeling much better today with minimal pain, no nausea, remaining afebrile with no hypotension, WBC 11 from 16, having adequate urine output and JEROMY 40cc serosanguinous. Not yet passing gas or having BM Exam Vital Signs Temp Pulse Resp BP Pulse Ox O2 Del Method O2 Flow Rate 97.9 F 119 H 13 150/99 H 98 Nasal Cannula 2 01/13/25 04:00 01/13/25 09:00 01/13/25 07:33 01/13/25 09:00 01/13/25 07:01 01/13/25 04:00 01/13/25 04:00 Constitutional Constitutional: no acute distress Routine Respiratory Exam Respiratory: Present no resp distress Routine Abdominal Exam Abdominal: Present soft and drain (JEROMY with serosanguinous output); Absent tenderness or distended Results Results: Laboratory Laboratory results: results reviewed Assessment & Plan Plan 64F with HTN, DMII, afib, history of gastric bypass in 2006 who presented to ER 01/10 initially reporting chest pain and shortness of breath after using meth, with now two CTs indicating extensive pneumoperitoneum. Pt had been hemodynamically normal throughout with no fever however given her ongoing severe pain I did ultimately offer exploration 01/12 with findings of gastric perforation s/p repair with miguelangel patch and drain placement Continue NG to LIS to allow healing of gastric repair Monitor JEROMY output Physical therapy, OK to get out of bed as tolerated with abdominal binder Continue abx PROCEDURES: Procedures Exploratory laparotomy, repair of gastric perforation with Miguelangel patch, washout and drain placement
[2025-01-13] MEDS: RINGERS LACTATED 1000 ML 1,000 ML 999 ML IV (09:43)
[2025-01-13] MEDS: HEPARIN SOD INJ 5000 UNIT/ML VIAL SC ×2 (09:44→22:02)
--- NOTE | 2025-01-13 12:09 | PD.RESPRO ---
Documentation for date of: 01/13/25 Subjective Subjective Interval history: Patient is a 64-year-old female past medical history significant for paroxysmal atrial fibrillation on Eliquis, primary hypertension, rad-bmwrkpt-tunnugszz diabetes mellitus type 2 [6.2%], osteoarthritis of bilateral knees and chronic bilateral lower extremity lymphedema presenting with a chief complaint of acute onset generalized abdominal pain over the past 48 hours. Patient describes the pain as acute onset, stabbing, left abdomen, radiating to her left arm and constant. Associated with nausea, shortness of breath and palpitations. No relieving factors and aggravated by movement. Since onset of the pain patient has had decreased appetite and no bowel movements in the past 48 hours. At this moment patient denies passing any flatus. Denies any diarrhea, vomiting, fever, sick contacts and recent travel. Of note patient was recently hospitalized from 11/03 - 11/07 for left lower extremity cellulitis and was treated with a doxycycline and azithromycin for 2 days while in hospital and discharged with a 10-day course of sulfamethoxazole/trimethoprim. ED course: BP 120/87, pulse 90, RR 18, temp 97 Labs WBC 15.5, Hb 10.5, PLT 288, NA 143, K3.2, BNP 142, troponin <0.02. EKG showed atrial fibrillation, rate 87. No acute ST changes. Chest x-ray showed right sided pneumoperitoneum. CT abdomen/pelvis with contrast extensive colonic diverticulae with air droplets adjacent to sigmoid colon Extensive free fluid in the pelvis and extensive pneumoperitoneum In the ED patient received ondansetron 4 Mg IV x 1, hydromorphone 1 Mg IV x 1, KCl 20 mEq p.o. x 1, Zosyn 4.5 g IV x 1 and doxycycline 100 mg IV x1. Patient was initially admitted to the floor for treatment and management of pneumoperitoneum secondary to suspected perforated viscus. General surgery, Dr. Blandon was consulted. Overnight patient's abdominal pain worsened and today she appears to have an acute abdomen on exam. Patient was upgraded to the ICU for serial monitoring of bladder pressures due to high risk of progression to abdominal compartment syndrome. 01/12/2025: Overnight patient had no events. This morning patient complained of left-sided abdominal pain but only 1/10 in intensity with no radiation. Labs showed WBC 16.2, Hb 10.3, PLT 247, NA 142, K3.4, BUN 20, CR 0.8, Mg 1.8.Abdomen/pelvis CTA showed extensive pneumoperitoneum, mild free fluid throughout the abdomen. Colonic diverticulosis with air droplets outside the diverticuli in the sigmoid colon. KCl 60 mEq IV x 1 and magnesium sulfate 2 g IV x 1 given. General surgeon, Dr. Blandon plans to take patient to the OR today for exploratory laparotomy. 01/13/2025: Overnight patient had no events. Input 30 to 35 cc, output 35 cc, balance 1740 cc. This morning patient feels well pain controlled with STONE GANG SAWYER hydromorphone. Endorses passinf flatus. Denies any, chest pain/pressure or palpitations labs showed 1.5, Hb 10, PLT 232 141, K4.1, CR 0.7, Mg 2.2. Patient day 1 postop exploratory laparotomy and repair of gastric perforation. Stable for downgrade to telemetry Exam Vital Signs Temp Pulse Resp BP Pulse Ox O2 Del Method O2 Flow Rate 97.1 F 119 H 13 156/93 H 100 Nasal Cannula 2 01/13/25 12:00 01/13/25 12:00 01/13/25 12:00 01/13/25 12:00 01/13/25 12:00 01/13/25 12:00 01/13/25 12:00 Narrative Exam Constitutional Alert, oriented x 3 and in mild distress. Elderly female, disheveled HEENT Vision grossly intact. Patent nares. Trachea midline Respiratory Chest normal on inspection and clear auscultation bilaterally. Reduced air entry at bases Cardiovascular S1 and S2 audible, RRR. No murmurs carotid bruit. No gross JVD. Abdominal Abdominal binder noted, bandages clean, JEROMY drain seen with serosanguineous drainage. BS positive. Genitourinary No bladder tenderness, no flank pain. Normal to palpation. Pulido catheter noted Musculoskeletal Extremities tone within normal limits. Nonpitting edema bilateral lower extremities up to knees Neurological CN II - XII grossly intact. Extremity motor and sensation grossly intact. Skin Warm, dry and intact. Diffuse area approximately 8 x 5 cm ecchymoses below right knee Psychiatric Patient has flat affect, is cooperative Objective Labs 01/13/25 04:30 01/13/25 04:30 Labs: Laboratory Results - last 24 hr 01/13/25 04:30 WBC 11.5 H RBC 4.16 Hgb 10.0 L Hct 32.4 L MCV 78 L MCH 24.0 L MCHC 30.9 L RDW Std Deviation 53.9 H Plt Count 232 Neut % (Auto) 90 H Lymph % (Auto) 5 L [place] % (Auto) 5 Eos % (Auto) 0 Baso % (Auto) 0 Neut # (Auto) 10.3 H Lymph # (Auto) 0.5 L [place] # (Auto) 0.6 Eos # (Auto) 0.0 Baso # (Auto) 0.0 Immature Gran # (Auto) 0.03 H Absolute Nucleated RBC 0.00 Immature Gran % 0 Nucleated RBC % 0 Sodium 141 Potassium 4.1 D Chloride 108 H Carbon Dioxide 23.3 Anion Gap 10 BUN 15 Creatinine 0.7 Estim Creat Clear Calc 96.0 eGFR > 60 BUN/Creatinine Ratio 21 H Glucose 128 H Calculated Osmolality 284 Calcium 9.3 Phosphorus 3.1 Magnesium 2.2 Quality Measures Quality Measures VTE prophylaxis and none Advance care planning discussed with:: patient Assessment & Plan Assessment Current Active Medications: Generic Name Dose Route Start Last Admin Trade Name Freq PRN Reason Stop Dose Admin Dextrose 50 ml 01/11/25 11:33 Dextrose 50%-Water Inj 50 Ml Syringe IV 02/10/25 11:32 Q15MIN PRN BG <50 OR BG <70 & pt unresponsive Glucagon 1 mg 01/11/25 11:33 Glucagon Inj 1 Mg Vial IM Q15MIN PRN BG <70, and no IV access Heparin Sodium (Porcine) 5,000 unit 01/11/25 15:41 Heparin Sod Inj 1000 Unit/Ml Vial 10 Ml INDWELLCAT 01/25/25 15:40 PRN PRN After Use for Hep Lock Heparin Sodium (Porcine) 5,000 unit 01/13/25 09:15 01/13/25 09:44 Heparin Sod Inj 5000 Unit/Ml Vial SC 01/27/25 09:14 5,000 unit Q8HR ANTONIA Administration Hydromorphone HCl 30 mg 01/12/25 15:27 01/12/25 15:47 Hydromorphone 1 Mg/Ml Communication Center Operator Syringe 30ml IV 01/17/25 15:26 30 mg PER ORDER PRN Administration Per Protocol (Pain) Protocol Piperacillin/Tazobactam/Dextrose 3.375 gm in 50 mls @ 12.5 mls/hr 01/10/25 22:30 01/13/25 11:48 Zosyn IV 01/17/25 22:29 12.5 mls/hr Q6HR ANTONIA Administration Acetaminophen 1,000 mg in 100 mls @ 250 mls/hr 01/11/25 09:17 01/13/25 11:48 Ofirmev Inj IV 01/13/25 12:23 250 mls/hr Q6HR ANTONIA Administration Lactated Ringer's 1,000 mls @ 100 mls/hr 01/11/25 15:40 01/13/25 07:27 Lactated Ringers IV 02/10/25 15:39 100 mls/hr .Q10H ANTONIA Administration Fluconazole 400 mg in 200 mls @ 100 mls/hr 01/12/25 16:02 01/13/25 09:00 Diflucan/Ns Ivpb IV 01/19/25 16:01 100 mls/hr QDAY ANTONIA Administration Amiodarone HCl/Dextrose 360 mg in 200 mls @ 16.667 mls/hr 01/12/25 18:30 01/13/25 07:28 Nexterone Ivpb IV 01/13/25 18:29 16.667 mls/hr .Q12H ANTONIA Administration Insulin Human Lispro 0 unit 01/11/25 12:00 01/13/25 11:54 Insulin Lispro (Admelog) 1 Unit/0.01 Ml Unit SC 02/10/25 11:59 Not Given Q6HR ANTONIA Protocol Lidocaine 1 patch 01/11/25 09:15 01/13/25 08:56 Lidocaine 5% 1 Patch TOP 02/10/25 09:14 Not Given UD ANTONIA Ondansetron HCl 4 mg 01/11/25 11:08 01/11/25 12:26 Ondansetron Inj 2 Mg/Ml Inj 2 Ml IVP 02/10/25 11:07 4 mg Q6HR PRN Administration NAUSEA OR VOMITING Protocol Plan Patient is a 64-year-old female past medical history significant for paroxysmal atrial fibrillation on Eliquis, primary hypertension, tzd-qdmvxmj-ahvakajar diabetes mellitus type 2 [6.2%], osteoarthritis of bilateral knees and chronic bilateral lower extremity lymphedema presenting with a chief complaint of acute onset generalized abdominal pain over the past [address] abdomen/pelvis with contrast extensive colonic diverticulae with air droplets adjacent to sigmoid colon Extensive free fluid in the pelvis and extensive pneumoperitoneum. Patient was initially admitted to the floor for treatment and management of pneumoperitoneum secondary to suspected perforated viscus. General surgery, Dr. Blandon was consulted. Overnight patient's abdominal pain worsened and today she appears to have an acute abdomen on exam. Patient was upgraded to the ICU for serial monitoring of bladder pressures due to high risk of progression to abdominal compartment syndrome. 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 Currently has signs of acute abdomen with rebound tenderness and distention DDx: Perforated viscus, ruptured sigmoid diverticula Dx: - CT abdomen/pelvis with contrast extensive colonic diverticulae with air droplets adjacent to sigmoid colon Extensive free fluid in the pelvis and extensive pneumoperitoneum. - Lactic acid 1.0?>1.7?>2 ? Bladder pressure 9 mmHg at 10 AM. Rx: - Continue to keep NGT on free drainage - Pain control with STONE GANG SAWYER Hydromorphone pump - General Surgery, Dr. Blandon consulted. Appreciate recommendations. NEURO No acute problems CVS History of primary hypertension Rx: Antihypertensives on hold due to normotension Atrial fibrillation?paroxysmal At home patient was on metoprolol XL and apixaban. Dx: -[id number] 4 points. [4.8% stroke risk per year] - From telemetry monitoring patient alternates between A-fib and sinus. Rates between 80s?160s. Rx: -Start non-titratable diltiazem infusion as per cardiology recommendations - Continue amiodarone infusion as per cardiology recommendations. -Will wait at least 24-48 hours postoperatively before starting heparin infusion for stroke prophylaxis. PULM No acute problems RENAL Acute kidney injury, prerenal versus postrenal - resolved DDx: dehydration, compression from increased intra-abdominal pressure Dx: Baseline CR 0.7. This admission CR 1.3 -> 0.8 Rx: Continue maintenance LR IVF at 90 cc/h RRX: Monitor BMP HEME/ONC Acute blood loss anemia - resolved Chronic microcytic anemia DDx: Perforated viscus, dilutional, SCOOTER Dx: -1 unit PRBC on 01/11 - Baseline Hb 10.5. Hb today 7.5 -> 10.3 Rx: monitor Hb on CBC Leukocytosis - resolved DDx: Reactive Dx: WBC 12.3 -> 16.3 -> 10.3 Rx: Monitor CBC ENDO Hpo-zqaugti-vxkqbrhyu diabetes mellitus type [6.2%] Rx: Insulin sliding scale Q6 hourly ID Likely peritonitis - resolving DDx:Peritonits, complicated diverticulitis Dx: - CT showed possible perforated sigmoid diverticulosis. Abdomen tender with rebound on exam - Patient s/p exploratory laparotomy today with abdominal washout and repair of gastric perforation. Rx: - Zosyn 3.375 g IV every 6 hourly started on [01/11? - Continue fluconazole 400 mg IV daily on [01/12? ICU Health maintenance: Dispo: Pain control, IV antibiotics. Telemetry monitoring. Downgrade to telemetry Diet: NPO DVT ppx: None GI ppx: None IV lines: 2 pIV, 22G Central line: Yes [RIJ started on 01/11? Arterial line: No Pulido: Yes [started 01/11 - Code status: FULL CODE Plan of care discussed with Attending Dr. Rosalba Salomon MD PGY 2 Disclaimer: This note was dictated by speech recognition. Minor errors in wall taper helper may be present due to voice recognition software. Attending Provider Attestation/Addendum Patient seen and examined with above resident, Cristobal Salomon MD. I agree with the findings, assessment, and plan of care as document except for any differences below. Patient doing significant better after exploratory laparotomy yesterday with Tommy patch for perforation at site of previous gastric bypass by Yessi-en-Y. Patient was abdominal pain significantly better controlled with STONE GANG SAWYER pump available to her. She remains hemodynamically stable with atrial fibrillation with RVR. Cardizem drip along with amiodarone started by cardiology. Hold off on anticoagulation at this point but subcutaneous VTE prophylaxis can be resumed per surgery. Overall risk of stroke already discussed with the patient and timing of anticoagulation is best addressed after acute phase of illness has improved. Patient will remain with NG tube in place for lower limit wall suction. She should remain strict n.p.o. and no plans for TPN at this point. Patient will likely be able to discharge with oral diet. In the interim continue to optimize fluid and electrolyte status to prevent potential refeeding syndrome with resumption of diet in the coming days. Patient and family updated at bedside on plan of care including plan to transfer back to [facility] for ongoing management. Discussed with general surgery as well as medicine team. Total critical care time: I personally spent 35 minutes for review of physiologic parameters, directing plan of care time today, coordination of care with other specialist, and counseling patient at bedside. This is exclusive of time spent teaching on staff performing any separate billable procedures. Patient remains at significant risk for further morbidity and mortality warranting close monitoring and care only available in the ICU. Critical care services required for perforated viscus with peritonitis, sepsis, atrial fibrillation with RVR, and acute renal failure.
--- NOTE | 2025-01-13 14:35 | PC.SS ---
Update: Patient downgraded from ICU on 01-13-25.
--- NOTE | 2025-01-13 14:56 | ESPR_ITS ---
<Statement entered by Perico Harrell MD - 01/13/25 15:30> ICU downgrade s/p ex lap for gastric perforation. Initially admitted to floors on 01/10 for acute onset abdominal pain and found to have pneumoperitoneum without signs of peritonitis on CT A/P. Upgraded to ICU on same day and eventually underwent ex lap on 01/12 where seropurulent fluid was found in the abdomen with no feculent contamination. A 5 x 5 mm perforation was noted in the anterior surface of the stomach that was repaired in 2 layers. Plan is to keep patient n.p.o. until Saturday and is currently on HAND HEEL SEAT FITTER with plans to transition to oral pain medication. Given history of A-fib on Eliquis in setting of GI perforation, will discuss with both general surgery and cardiology best plan moving forward. At this time, she remains on amiodarone and diltiazem drips for her A-fib and we will order echo in the meantime. ----- Note reviewed and agree with care plan as documented. Please refer to the note below for further details. Plan discussed with attending physician Dr. Alok Harrell MD PGY-2 Internal Medicine Documentation for date of: 01/13/25 Subjective Subjective Interval history: 64year-old female with past medical history HTN, DMII, A-fib (on eliquis) who presented to the ED on 01/10/2025 with abdominal pain and nausea, patient was admitted to the ICU for pneumoperitium. ICU downgrade to floors on 01/13/25 post exploratory laparotomy, repair of gastric perforation with Tommy patch, washout and drain placement. Patient was seen at bedside today morning by Dr. Dickinson and the whole team. Patient was still in the ICU, and seemed to be in alot of pain post surgery. Patient had a HAND HEEL SEAT FITTER (patient controlled analgecia). Had an NG tube in place to decompress the gasric content. Exam Vital Signs Temp Pulse Resp BP Pulse Ox O2 Del Method O2 Flow Rate 97.1 F 119 H 13 156/93 H 100 Nasal Cannula 2 01/13/25 12:00 01/13/25 12:00 01/13/25 12:00 01/13/25 12:00 01/13/25 12:00 01/13/25 12:01/13/25 12:00 Narrative Exam Gen: Alert, oriented x 3 and in distress due to pain. Elderly female, disheveled HEENT: Vision grossly intact. Patent nares. Trachea midline Respiratory: Chest normal on inspection and clear auscultation bilaterally. Cardio: RRR. No murmurs carotid bruit. No gross JVD. Abdominal: s/p surgery, diffuse tenderness to mild palpation, reduced bowel sounds. Extensive exam postponed. MSK/Extremities: Extremities tone within normal limits. 1+ pitting edema in lower extremities upto the knees. No signs of cyanosis. Neurological: CN II - XII grossly intact. Extremity motor and sensation grossly intact. Pych: Patient has flat affect, is cooperative Objective Labs 01/14/25 05:10 01/14/25 05:10 Labs: Laboratory Results - last 24 hr 01/13/25 04:30 WBC 11.5 H RBC 4.16 Hgb 10.0 L Hct 32.4 L MCV 78 L MCH 24.0 L MCHC 30.9 L RDW Std Deviation 53.9 H Plt Count 232 Neut % (Auto) 90 H Lymph % (Auto) 5 L [place] % (Auto) 5 Eos % (Auto) 0 Baso % (Auto) 0 Neut # (Auto) 10.3 H Lymph # (Auto) 0.5 L [place] # (Auto) 0.6 Eos # (Auto) 0.0 Baso # (Auto) 0.0 Immature Gran # (Auto) 0.03 H Absolute Nucleated RBC 0.00 Immature Gran % 0 Nucleated RBC % 0 Sodium 141 Potassium 4.1 D Chloride 108 H Carbon Dioxide 23.3 Anion Gap 10 BUN 15 Creatinine 0.7 Estim Creat Clear Calc 96.0 eGFR > 60 BUN/Creatinine Ratio 21 H Glucose 128 H Calculated Osmolality 284 Calcium 9.3 Phosphorus 3.1 Magnesium 2.2 Quality Measures Quality Measures VTE prophylaxis and none Advance care planning discussed with:: patient Assessment & Plan Assessment Current Active Medications: Generic Name Dose Route Start Last Admin Trade Name Freq PRN Reason Stop Dose Admin Dextrose 50 ml 01/11/25 11:33 Dextrose 50%-Water Inj 50 Ml Syringe IV 02/10/25 11:32 Q15MIN PRN BG <50 OR BG <70 & pt unresponsive Glucagon 1 mg 01/11/25 11:33 Glucagon Inj 1 Mg Vial IM Q15MIN PRN BG <70, and no IV access Heparin Sodium (Porcine) 5,000 unit 01/11/25 15:41 Heparin Sod Inj 1000 Unit/Ml Vial 10 Ml INDWELLCAT 01/25/25 15:40 PRN PRN After Use for Hep Lock Heparin Sodium (Porcine) 5,000 unit 01/13/25 09:15 01/13/25 14:01 Heparin Sod Inj 5000 Unit/Ml Vial SC 01/27/25 09:14 Not Given Q8HR ANTONIA Hydromorphone HCl 30 mg 01/12/25 15:27 01/12/25 15:47 Hydromorphone 1 Mg/Ml Contact Centre Supervisor Syringe 30ml IV 01/17/25 15:26 30 mg PER ORDER PRN Administration Per Protocol (Pain) Protocol Piperacillin/Tazobactam/Dextrose 3.375 gm in 50 mls @ 12.5 mls/hr 01/10/25 22:30 01/13/25 11:48 Zosyn IV 01/17/25 22:29 12.5 mls/hr Q6HR ANTONIA Administration Lactated Ringer's 1,000 mls @ 100 mls/hr 01/11/25 15:40 01/13/25 07:27 Lactated Ringers IV 02/10/25 15:39 100 mls/hr .Q10H ANTONIA Administration Fluconazole 400 mg in 200 mls @ 100 mls/hr 01/12/25 16:02 01/13/25 09:00 Diflucan/Ns Ivpb IV 01/19/25 16:01 100 mls/hr QDAY ANTONIA Administration Amiodarone HCl/Dextrose 360 mg in 200 mls @ 16.667 mls/hr 01/12/25 18:30 01/13/25 07:28 Nexterone Ivpb IV 01/13/25 18:29 16.667 mls/hr .Q12H ANTONIA Administration Diltiazem HCl 125 mg in 125 mls @ 5 mls/hr 01/13/25 14:47 Diltiazem In D5w 125 Mg IV 02/12/25 14:43 .Q24H ANTONIA 5 MG/HR Insulin Human Lispro 0 unit 01/11/25 12:00 01/13/25 11:54 Insulin Lispro (Admelog) 1 Unit/0.01 Ml Unit SC 02/10/25 11:59 Not Given Q6HR ANTONIA Protocol Lidocaine 1 patch 01/11/25 09:15 01/13/25 08:56 Lidocaine 5% 1 Patch TOP 02/10/25 09:14 Not Given UD [facility] Ondansetron HCl 4 mg 01/11/25 11:08 01/11/25 12:26 Ondansetron Inj 2 Mg/Ml Inj 2 Ml IVP 02/10/25 11:07 4 mg Q6HR PRN Administration NAUSEA OR VOMITING Protocol Plan Patient is a 64-year-old female past medical history significant for paroxysmal atrial fibrillation on Eliquis, primary hypertension, gsj-toommex-gdrubwmgz diabetes mellitus type 2 [6.2%], osteoarthritis of bilateral knees and chronic bilateral lower extremity lymphedema presenting with a chief complaint of acute onset generalized abdominal pain over the past 48 hours. Patient was admitted to ICU for management of worsening pneumoperitoneum, GI perforation and empiric management/prevention of peritonitis. Patient is downgraded from ICU s/p Exploratory laparotomy, repair of gastric perforation with Tommy patch, washout and drain placement #Extensive pneumoperitoneum secondary to gastric ulcer perforation # s/p exploratory laparotomy with repair on 01/12/25 CT abdomen/pelvis with contrast extensive colonic diverticulae with air droplets adjacent to sigmoid colon Extensive free fluid in the pelvis and extensive pneumoperitoneum. Exploratory laparotomy, repair of gastric perforation with Tommy patch, washout and drain placement on 01/12/25 - NPO until Saturday as per surgery - NGT suction on - Multimodel pain control - Monitor JEROMY output - Physical therapy as tolerated with abdominal binder - Continue Zosyn 3.375 gm Q6H (started on 01/12/25) - Flucanazol 100 mls/hr for GI prophylaxis #Atrial fibrillation?paroxysmal At home patient was on metoprolol XL and apixaban. [id number] 4 points. [4.8% stroke risk per year] From telemetry monitoring patient alternates between A-fib and sinus. Rates between 80s?160s. Rx: - Continue amiodarone infusion as per cardiology recommendations - Diltiazem 5 mg/hr drip - Holding eliquis until cleared by surgery, anticipate 01/15 #History of primary hypertension - Will continue to monitor, patient currently normotensive #Leukocytosis- resolving WBC 11.5 (16.2 yesterday), likely reactive - Will cont to monitor #Microcytic anemia- stable Hgb of 10.0, Hct of 32.4 - Cont to monitor daily CBC - Tranfuse if Hgb drops under 7. 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 Patient seen and care discussed with my attending physician, Dr. Dickinson and my senior residents, Dr. Porter and Dr. Swapnil Barker, [facility] [place] Attending Provider Attestation/Addendum 64-year-old female with multiple comorbidities including hypertension, hyperlipidemia and atrial fibrillation on Eliquis who presented with abdominal pain found to have pneumoperitoneum likely related to gastric perforation. As of now, patient is n.p.o. and likely will undergo surgical intervention. As of now, patient underwent expiratory laparotomy and subsequently required ICU stay. Furthermore, patient was subsequently downgraded to MedSurg and currently on HAND HEEL SEAT FITTER of Dilaudid (0.2 mg every 15 minutes with max for doses every 1 hour). In addition, continues to be in A-fib with RVR despite being on diltiazem however likely related to pain. Plan to keep the patient n.p.o. until Saturday. I have also personally examined the patient with medicine team and went over assessment and plan with medical team including legal intern and resident physician.
--- NOTE | 2025-01-13 17:14 | PD.RESPRO ---
Documentation for date of: 01/13/25 Subjective Subjective Interval history: Patient was seen and examined at bedside. She is postoperative day 1 laparotomy to repair perforated gastric ulcer. And the patient patient was found to have 5 x 5 mm of gastric perforation circular in shape. Was repaired. Overnight patient did not have any acute event, her heart rate was persistently in the 120s 130s irregularly irregular. Her blood pressure continue to improve today was mildly elevated 146/81, heart rate was 125 bpm irregularly irregular. Telemetry monitoring system for the past 24 hours showed A-fib with RVR persistent. Patient denied any chest pain, shortness of breath. However, she reported significant improvement of her abdominal pain after the surgery. Exam Vital Signs Temp Pulse Resp BP Pulse Ox O2 Del Method O2 Flow Rate 97.7 F 112 H 25 H 146/81 H 95 Nasal Cannula 2 01/13/25 16:01 01/13/25 16:01 01/13/25 16:01 01/13/25 16:01/13/25 16:01/13/25 16:01/13/25 16:01 Narrative Exam GEN: AOx3, sleepy, able to speak full sentences HEENT: NC/AC, PERRLA, oral mucosa dry, neck supple CVS: RRR, S1-S2 present, no murmurs appreciated RESP: CTAB GI: Multiple healed surgical scar, moderately distended, tender, localized rigidity on the umbilical area, and right flank. JEROMY drain in place, draining clear serosanguineous fluid. Reduced bowel sounds MSK: able to move all 4 limbs, no lower extremity edema SKIN: warm and dry ATTENDANT COIN OPERATED LAUNDRY: CN II-XII and Sensation grossly intact. Objective Labs 01/13/25 04:30 01/13/25 04:30 Labs: Laboratory Results - last 24 hr 01/13/25 04:30 WBC 11.5 H RBC 4.16 Hgb 10.0 L Hct 32.4 L MCV 78 L MCH 24.0 L MCHC 30.9 L RDW Std Deviation 53.9 H Plt Count 232 Neut % (Auto) 90 H Lymph % (Auto) 5 L Falls % (Auto) 5 Eos % (Auto) 0 Baso % (Auto) 0 Neut # (Auto) 10.3 H Lymph # (Auto) 0.5 L Falls # (Auto) 0.6 Eos # (Auto) 0.0 Baso # (Auto) 0.0 Immature Gran # (Auto) 0.03 H Absolute Nucleated RBC 0.00 Immature Gran % 0 Nucleated RBC % 0 Sodium 141 Potassium 4.1 D Chloride 108 H Carbon Dioxide 23.3 Anion Gap 10 BUN 15 Creatinine 0.7 Estim Creat Clear Calc 96.0 eGFR > 60 BUN/Creatinine Ratio 21 H Glucose 128 H Calculated Osmolality 284 Calcium 9.3 Phosphorus 3.1 Magnesium 2.2 Quality Measures Quality Measures VTE prophylaxis and none Advance care planning discussed with:: patient Assessment & Plan Assessment Current Active Medications: Generic Name Dose Route Start Last Admin Trade Name Freq PRN Reason Stop Dose Admin Dextrose 50 ml 01/11/25 11:33 Dextrose 50%-Water Inj 50 Ml Syringe IV 02/10/25 11:32 Q15MIN PRN BG <50 OR BG <70 & pt unresponsive Glucagon 1 mg 01/11/25 11:33 Glucagon Inj 1 Mg Vial IM Q15MIN PRN BG <70, and no IV access Heparin Sodium (Porcine) 5,000 unit 01/11/25 15:41 Heparin Sod Inj 1000 Unit/Ml Vial 10 Ml INDWELLCAT 01/25/25 15:40 PRN PRN After Use for Hep Lock Heparin Sodium (Porcine) 5,000 unit 01/13/25 09:15 01/13/25 14:01 Heparin Sod Inj 5000 Unit/Ml Vial SC 01/27/25 09:14 Not Given Q8HR ANTONIA Hydromorphone HCl 30 mg 01/12/25 15:27 01/12/25 15:47 Hydromorphone 1 Mg/Ml Placing Judge Syringe 30ml IV 01/17/25 15:26 30 mg PER ORDER PRN Administration Per Protocol (Pain) Protocol Piperacillin/Tazobactam/Dextrose 3.375 gm in 50 mls @ 12.5 mls/hr 01/10/25 22:30 01/13/25 11:48 Zosyn IV 01/17/25 22:29 12.5 mls/hr Q6HR ANTONIA Administration Lactated Ringer's 1,000 mls @ 100 mls/hr 01/11/25 15:40 01/13/25 07:27 Lactated Ringers IV 02/10/25 15:39 100 mls/hr .Q10H ANTONIA Administration Fluconazole 400 mg in 200 mls @ 100 mls/hr 01/12/25 16:02 01/13/25 09:00 Diflucan/Ns Ivpb IV 01/19/25 16:01 100 mls/hr QDAY ANTONIA Administration Amiodarone HCl/Dextrose 360 mg in 200 mls @ 16.667 mls/hr 01/12/25 18:30 01/13/25 07:28 Nexterone Ivpb IV 01/13/25 18:29 16.667 mls/hr .Q12H ANTONIA Administration Diltiazem HCl 125 mg in 125 mls @ 5 mls/hr 01/13/25 14:47 Diltiazem In D5w 125 Mg IV 02/12/25 14:43 .Q24H ANTONIA 5 MG/HR Insulin Human Lispro 0 unit 01/11/25 12:00 01/13/25 11:54 Insulin Lispro (Admelog) 1 Unit/0.01 Ml Unit SC 02/10/25 11:59 Not Given Q6HR ANTONIA Protocol Lidocaine 1 patch 01/11/25 09:15 01/13/25 08:56 Lidocaine 5% 1 Patch TOP 02/10/25 09:14 Not Given UD ANTONIA Ondansetron HCl 4 mg 01/11/25 11:08 01/11/25 12:26 Ondansetron Inj 2 Mg/Ml Inj 2 Ml IVP 02/10/25 11:07 4 mg Q6HR PRN Administration NAUSEA OR VOMITING Protocol Plan Summary: A 64-year-old female patient with past medical history of paroxysmal A-fib on Eliquis, hypertension, type 2 diabetes mellitus, osteoarthritis, bilateral lower extremity lymphedema, presented to the ED due to abdominal pain that radiate to the left shoulder for 2 days before admission. Patient reported that the pain started gradually epigastric and worsened over time become severe. Patient was admitted for management of pneumoperitoneum with possible peritonitis. Assessment and plan #Paroxysmal A-fib Patient recently diagnosed with A-fib in November 2024, she was discharged metoprolol 25 and Eliquis 5 mg twice daily. Patient developed abdominal pain and found to have pneumoperitoneum with possible peritonitis. Patient was noticed to have A-fib on telemetry, she was also found to have some episodes of drop in her blood pressure to the 70s systolic. Patient was started on amiodarone drip by the primary team and Eliquis was held in anticipation for surgery. Troponin was normal, EKG showed atrial fibrillation. No ischemic changes, BNP was in the 200s. Echo was done in November during her last admission and showed Normal left ventricular size and function. Estimated EF at 55-60%. The RV is normal in size. The RV systolic function is mildly decreased. The estimated RVSP, 48 mmHg. Mildly dilated left atrium. Mitral annulus calcification mitral valve thickening mild mitral regurgitation. Mild tricuspid valve regurgitation 01/12/2025, patient 3.4, magnesium 2.2. Review of her telemetry box showed max heart rate of 140 and lowest low 90s irregularly irregular heartbeat. No V. tach or V-fib. 01/19/2025, patient heart rate continued to be in A-fib with RVR. Patient remains n.p.o. per the surgical team they will Saturday. Even though the patient on amiodarone drip, heart rates remain elevated and patient remained in A-fib with RVR. Given the fact that the patient has ejection fraction of 55 to 60%, her blood pressure improved and it was 152/89. For that reason, we will start the patient on diltiazem drip fixed dose of 5 mg/h. As soon as the NG tube is removed we will switch the patient to oral beta-keren. Plan: ? Start the patient on diltiazem drip 5 mg/h and titrate up as needed, hold if heart rate less than 60 and systolic blood pressure less than 100 mmHg. ? Continue patient on amiodarone drip ? Continue holding on Eliquis until cleared by general surgeon ? Keep magnesium and potassium above 2 and 4 respectively within normal range. ? Keep telemonitoring ? Strict in and out #Diabetes mellitus #Pneumoperitoneum #Questionable peritonitis #Hypertension #Osteoarthritis #Lymphedema Plan ? Follow-up with the primary team recommendations Thank you for your consultation please do not hesitate to reach out if you have any question or concern - Patient's plan and care discussed with my attending, Dr.Anumandla Eugenio Boykin MD Internal Medicine PGY-3 Attending Provider Attestation/Addendum I have personally seen and examined the patient separately on the above date of service and discussed the plan of care with the resident. I reviewed the resident Dr. Boykin consultation progress note and agree with the resident findings and plan in the note above and have also edited the documentation to reflect my findings and plan. Brandin العلي M.D. Interventional Cardiology
[2025-01-13] MEDS: DILTIAZEM in D5W 125 MG 125 MG/125 ML BAG IV (18:35)
[2025-01-14] VITALS (16 sets, daily range): BP systolic 128–148; BP diastolic 68–105; PULSE 79–126; RESP 13–96; TEMP 36.4–37; O2SAT 90–99; BMI 35.6
[2025-01-14] MEDS: PIPER/TAZO 3.375 GM PREMIX 3.375 GM/50 ML BAG IV ×4 (00:24→17:53)
[2025-01-14] MEDS: RINGERS LACTATED 1000 ML 1,000 ML 100 ML IV ×2 (04:45→19:27)
[2025-01-14 05:59] LABS: Basophils # (Auto) 0.0 Thou/mm3 (0.0-0.2); Basophils % (Auto) 0 % (0-2.5); Eosinophils # (Auto) 0.0 Thou/mm3 (0.0-0.5); Eosinophils % (Auto) 0 % (0-10); Hematocrit 31.4 % (36.0-46.0); Hemoglobin 9.6 g/dL (12.0-16.0); Immature Granulocytes Auto 0.04 Thou/mm3 (0.00-0.00); Lymphocytes # (Auto) 1.4 Thou/mm3 (1.0-4.8); Lymphocytes % (Auto) 13 % (10-50); Mean Corpuscular HGB Conc 30.6 g/dl (31.0-37.0); Mean Corpuscular Hemoglobin 23.6 pg (25.0-35.0); Mean Corpuscular Volume 77 fL (80-100); Monocytes # (Auto) 0.9 Thou/mm3 (0.0-0.8); Monocytes % (Auto) 9 % (0-12); Neutrophils # (Auto) 8.4 Thou/mm3 (1.8-7.7); Neutrophils % (Auto) 78 % (37-80); Nucleated Red Blood Cell # 0.00 Thou/mm3 (0.00-0.00); Nucleated Red Blood Cell % 0 /100 WBC (0); Platelet Count 222 Thou/mm3 (140-440); RDW Standard Deviation 54.0 fL (36.4-46.3); Red Blood Count 4.06 Miln/mm3 (4.00-5.20); White Blood Count 10.8 Thou/mm3 (3.6-11.0)
[2025-01-14] MEDS: HEPARIN SOD INJ 5000 UNIT/ML VIAL SC ×3 (06:12→21:48)
[2025-01-14 06:25] LABS: Alanine Aminotransferase 29 U/L (10-49); Albumin, Serum 2.9 gm/dL (3.4-4.8); Albumin/Globulin Ratio 1.7 (1.2-2.2); Alkaline Phosphatase 79 U/L (46-116); Anion Gap 10 (7-16); Aspartate Amino Transferase 30 U/L (0-34); BUN/Creatinine Ratio 34 Ratio (12-20); Bilirubin,Total 0.2 mg/dL (0.3-1.2); Blood Urea Nitrogen 17 mg/dL (9-23); Calcium 8.8 mg/dL (8.3-10.6); Calcium (Corrected) 9.7 mg/dL (8.5-10.1); Carbon Dioxide 27.4 mMol/L (20.0-31.0); Chloride 106 mMol/L (98-107); Creatinine (Component) 0.5 mg/dL (0.6-1.3); Estimated Creatinine Clearance 134.3 mL/min (>60); Globulin 1.7 gm/dL (2.3-3.5); Glucose 117 mg/dL (74-106); Osmolality,Calculated 287 (275-295); Potassium 4.1 mMol/L (3.4-5.1); Sodium 143 mMol/L (136-145); Total Protein 4.6 gm/dL (5.7-8.2); eGFR > 60 See Note
[2025-01-14] MEDS: AMIODARONE 360 MG IVPB 360 MG/200 ML BAG 16.667 MG IV (09:15)
[2025-01-14] MEDS: FLUCONAZOLE/NS 400 MG IVPB 400 MG/200 ML BAG 100 MG IV (09:15)
[2025-01-14] MEDS: DILTIAZEM in D5W 125 MG 125 MG/125 ML BAG 10 MG IV (11:59)
[2025-01-14] MEDS: ACETAMINOPHEN IVPB 1,000 MG/100 ML VIAL 250 MG IV ×2 (12:03→17:53)
--- NOTE | 2025-01-14 12:38 | PD.SURPROG ---
Documentation for date of: 01/14/25 Subjective Subjective Brief History: 64F with HTN, DMII, afib, history of gastric bypass in 2006 who presented to ER this am initially reporting chest pain and shortness of breath after using meth. Pt underwent CXR read as possible pneumoperitoneum vs colon interposed above the liver, followed by CT CAP read as extensive pneumoperitoneum however she does not have any clinical signs of peritonitis, has remained afebrile with intermittent tachycardia and EKG consistent with her known afib, has received one dose of pain medicine at 3pm On my exam pt stated she does have abdominal pain which has been present for the last two (2) days and is similar to pain she has experienced before. She reports nausea and decreased appetite, last had a BM yesterday. Her last colonoscopy was years ago and she has not had any recent EGD PMH: HTN, DMII, afib PSHx: Gastric bypass in 2006 in [place], multiple hernia repairs Meds: includes eliquis last taken yesterday morning Allergies: Reglan Social hx: smokes 1/2 PPD cigarettes Narrative: Pt reports more pain today, she is sitting in a chair and reports taking some steps yesterday. Denies nausea but has not yet passed gas or had a BM, NG had 600cc output overnight and JEROMY 110cc since yesterday, remaining afebrile, WBC 10 Exam Vital Signs Temp Pulse Resp BP Pulse Ox O2 Del Method O2 Flow Rate 97.6 F 102 H 17 141/105 H 96 Nasal Cannula 2 01/14/25 04:01 01/14/25 11:59 01/14/25 12:00 01/14/25 11:59 01/14/25 06:56 01/13/25 16:01 01/14/25 06:56 Constitutional Constitutional: no acute distress Routine Respiratory Exam Respiratory: Present no resp distress Routine Abdominal Exam Abdominal: Present soft and drain (JEROMY with serosanguinous output); Absent tenderness or distended Results Results: Laboratory Laboratory results: results reviewed Assessment & Plan Plan 64F with HTN, DMII, afib, history of gastric bypass in 2006 who presented to ER 01/10 initially reporting chest pain and shortness of breath after using meth, with now two CTs indicating extensive pneumoperitoneum. 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
--- NOTE | 2025-01-14 15:35 | PC.SS ---
Update: Patient on 2L nasal cannula. Patient is NPO. JEROMY drain in place. Dr. Blandon consulting. Patient is afebrile. Pulido catheter in place. Physical Therapy conducted assessment with patient. Recommended SNF. Patient declined SNF placement.
--- NOTE | 2025-01-14 15:42 | ESPR_ITS ---
<Statement entered by Sammie Dickinson MD - 01/25/25 09:07> I reviewed above note and agree with findings and plans. I have also personally examined the patient with medicine team and went over assessment and plan with medical team including manager of internal and resident physician. <Statement entered by Perico Harrell MD - 01/14/25 15:58> No acute overnight events. Seen and examined at bedside and patient states that BULLDOZER PRESS OPERATOR has not been effective for her. Spoke to general surgery and will make adjustments and will reevaluate. Otherwise, we will continue complete bowel rest until tomorrow and coordinate with both general surgery and cardiology to resume her Eliquis given history of atrial fibrillation. She remains on IV amiodarone and diltiazem, heart rate currently at 96. CBC shows improving leukocytosis, stable hemoglobin, and CHEM panel largely unremarkable. Continue fluconazole and Zosyn for GI prophylaxis and follow cultures. ----- Note reviewed and agree with care plan as documented. Please refer to the note below for further details. Plan discussed with attending physician Dr. lAok Harrell MD PGY-2 Internal Medicine Documentation for date of: 01/14/25 Subjective Subjective Interval history: Patient was seen and examined at bedside. No acute events took place overnight. Patient is still in considerable pain rated 7 out of 10 in the abdominal area which is wrapped in bandages post exploratory laparoscopic and gastric perforation repair. A 5 x 5 mm perforation was noted in the anterior surface of the stomach that was repaired in 2 layers. Patient states that BULLDOZER PRESS OPERATOR with Dilaudid has not been effective for controlling her pain. Patient was tachycardic overnight with heart rate in 120s likely secondary to pain. Plan is to keep patient n.p.o. until Saturday. Exam Vital Signs Temp Pulse Resp BP Pulse Ox O2 Del Method O2 Flow Rate 98.2 F 96 13 145/80 H 96 Nasal Cannula 2 01/14/25 12:01/14/25 12:01/14/25 12:01/14/25 12:01/14/25 12:01/13/25 16:01/14/25 06:56 Narrative Exam Gen: Alert, oriented x 3 and in distress due to pain. Elderly female, disheveled HEENT: Vision grossly intact. Patent nares. Trachea midline Respiratory: Chest normal on inspection and clear auscultation bilaterally. Cardio: RRR. No murmurs carotid bruit. No gross JVD. Abdominal: s/p surgery, surgical incisions wrapped in bandages and an abdominal binder in place. diffuse tenderness to mild palpation, reduced bowel sounds. Extensive exam postponed. MSK/Extremities: Extremities tone within normal limits. 1+ pitting edema in lower extremities upto the knees. No signs of cyanosis. Neurological: CN II - XII grossly intact. Extremity motor and sensation grossly intact. Pych: Patient has flat affect, is cooperative Objective Labs 01/14/25 05:10 01/14/25 05:10 Labs: Laboratory Results - last 24 hr 01/11/25 01/14/25 10:17 05:10 WBC 10.8 RBC 4.06 Hgb 9.6 L Hct 31.4 L MCV 77 L MCH 23.6 L MCHC 30.6 L RDW Std Deviation 54.0 H Plt Count 222 Neut % (Auto) 78 Lymph % (Auto) 13 Cass % (Auto) 9 Eos % (Auto) 0 Baso % (Auto) 0 Neut # (Auto) 8.4 H Lymph # (Auto) 1.4 Cass # (Auto) 0.9 H Eos # (Auto) 0.0 Baso # (Auto) 0.0 Immature Gran # (Auto) 0.04 H Absolute Nucleated RBC 0.00 Immature Gran % 0 Nucleated RBC % 0 Sodium 143 Potassium 4.1 Chloride 106 Carbon Dioxide 27.4 Anion Gap 10 BUN 17 Creatinine 0.5 L Estim Creat Clear Calc 134.3 eGFR > 60 BUN/Creatinine Ratio 34 H Glucose 117 H Calculated Osmolality 287 Calcium 8.8 Corrected Calcium 9.7 Total Bilirubin 0.2 L AST 30 ALT 29 Alkaline Phosphatase 79 Total Protein 4.6 L Albumin 2.9 L Globulin 1.7 L Albumin/Globulin Ratio 1.7 Crossmatch See Detail Quality Measures Quality Measures VTE prophylaxis and none Advance care planning discussed with:: patient Assessment & Plan Assessment Current Active Medications: Generic Name Dose Route Start Last Admin Trade Name Freq PRN Reason Stop Dose Admin Dextrose 50 ml 01/11/25 11:33 Dextrose 50%-Water Inj 50 Ml Syringe IV 02/10/25 11:32 Q15MIN PRN BG <50 OR BG <70 & pt unresponsive Glucagon 1 mg 01/11/25 11:33 Glucagon Inj 1 Mg Vial IM Q15MIN PRN BG <70, and no IV access Heparin Sodium (Porcine) 5,000 unit 01/11/25 15:41 Heparin Sod Inj 1000 Unit/Ml Vial 10 Ml INDWELLCAT 01/25/25 15:40 PRN PRN After Use for Hep Lock Heparin Sodium (Porcine) 5,000 unit 01/13/25 09:15 01/14/25 14:49 Heparin Sod Inj 5000 Unit/Ml Vial SC 01/27/25 09:14 5,000 unit Q8HR ANTONAI Administration Hydromorphone HCl 30 mg 01/14/25 10:52 Hydromorphone 1 Mg/Ml Grid Operator Syringe 30ml IV 01/19/25 10:51 PER ORDER PRN Per Protocol (Pain) Protocol Piperacillin/Tazobactam/Dextrose 3.375 gm in 50 mls @ 12.5 mls/hr 01/10/25 22:30 01/14/25 13:01 Zosyn IV 01/17/25 22:29 12.5 mls/hr Q6HR ANTONIA Administration Lactated Ringer's 1,000 mls @ 100 mls/hr 01/11/25 15:40 01/14/25 04:45 Lactated Ringers IV 02/10/25 15:39 100 mls/hr .Q10H ANTONIA Administration Fluconazole 400 mg in 200 mls @ 100 mls/hr 01/12/25 16:02 01/14/25 09:15 Diflucan/Ns Ivpb IV 01/19/25 16:01 100 mls/hr QDAY ANTONIA Administration Amiodarone HCl/Dextrose 360 mg in 200 mls @ 16.667 mls/hr 01/13/25 21:01 01/14/25 09:15 Nexterone Ivpb IV 01/14/25 21:00 16.667 mls/hr .Q12H ANTONIA Administration Diltiazem HCl 125 mg in 125 mls @ 10 mls/hr 01/14/25 08:27 01/14/25 11:59 Diltiazem In D5w 125 Mg IV 02/13/25 08:26 10 mg/hr .[id number] ANTONIA 10 mls/hr 10 MG/HR Administration Acetaminophen 1,000 mg in 100 mls @ 250 mls/hr 01/14/25 11:00 01/14/25 12:03 Ofirmev Inj IV 01/18/25 06:23 250 mls/hr Q6HR ANTONIA Administration Insulin Human Lispro 0 unit 01/11/25 12:00 01/14/25 13:48 Insulin Lispro (Admelog) 1 Unit/0.01 Ml Unit SC 02/10/25 11:59 Not Given Q6HR ANTONIA Protocol Lidocaine 1 patch 01/11/25 09:15 01/14/25 09:25 Lidocaine 5% 1 Patch TOP 02/10/25 09:14 Not Given UD ANTONIA Ondansetron HCl 4 mg 01/11/25 11:08 01/11/25 12:26 Ondansetron Inj 2 Mg/Ml Inj 2 Ml IVP 02/10/25 11:07 4 mg Q6HR PRN Administration NAUSEA OR VOMITING Protocol Plan Patient is a 64-year-old female past medical history significant for paroxysmal atrial fibrillation on Eliquis, primary hypertension, [id number] diabetes mellitus type 2 [6.2%], osteoarthritis of bilateral knees and chronic bilateral lower extremity lymphedema presenting with a chief complaint of acute onset generalized abdominal pain over the past 48 hours. Patient was admitted to ICU for management of worsening pneumoperitoneum, GI perforation and empiric management/prevention of peritonitis. Patient is downgraded from ICU s/p Exploratory laparotomy, repair of gastric perforation with Tommy patch, washout and drain placement #Extensive pneumoperitoneum secondary to gastric ulcer perforation # s/p exploratory laparotomy with repair on 01/12/25 CT abdomen/pelvis with contrast extensive colonic diverticulae with air droplets adjacent to sigmoid colon Extensive free fluid in the pelvis and extensive pneumoperitoneum. Exploratory laparotomy, repair of gastric perforation with Tommy patch, washout and drain placement on 01/12/25 - NPO until Saturday as per surgery - NGT suction on - Morphine 2mg Q4h PRN - Monitor JEROMY output - Physical therapy as tolerated with abdominal binder - Continue Zosyn 3.375 gm Q6H (started on 01/12/25) - Flucanazol 100 mls/hr for GI prophylaxis - Continue NG to LIS to allow healing of gastric repair - Monitor JEROMY output - Physical therapy, OK to get out of bed as tolerated with abdominal binder #Atrial fibrillation?paroxysmal At home patient was on metoprolol XL and apixaban. [id number] 4 points. [4.8% stroke risk per year] From telemetry monitoring patient alternates between A-fib and sinus. Rates between 80s?160s. Rx: ? Increase diltiazem drip to 10mg/h and titrate up as needed max of 15 mg/h, hold if heart rate less than 60 and systolic blood pressure less than 100 mmHg. ? Continue patient on amiodarone drip 0.5 mg/h?Will switch the patient to metoprolol p.o. as soon as the NG tube is removed - Holding eliquis until cleared by surgery, anticipate 01/15 #History of primary hypertension - Will continue to monitor, patient currently normotensive #Leukocytosis- resolving WBC 11.5 (16.2 yesterday), likely reactive - Will cont to monitor #Microcytic anemia- stable Hgb of 10.0, Hct of 32.4 - Cont to monitor daily CBC - Tranfuse if Hgb drops under 7. 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 Patient seen and care discussed with my attending physician, Dr. Dickinson and my senior residents, Dr. Porter and Dr. Swapnil Perez, DO PGY 1
--- NOTE | 2025-01-14 17:00 | ESPR_ITS ---
Documentation for date of: 01/14/25 Subjective Subjective Interval history: Patient was seen and examined at bedside. She denied any new symptoms no chest pain, no palpitation, no dizziness and no orthopnea or paroxysmal nocturnal dyspnea., NG tube still in place cannot tolerate p.o. intake at this time. Expected to remove NG tube on Saturday as per the general surgeon recommendations. Vitally patient remained tachycardic with average heart rate of 115 - 125. Blood pressure was stable. Potassium is 4.1, magnesium was not performed. Exam Vital Signs Temp Pulse Resp BP Pulse Ox O2 Del Method O2 Flow Rate 98.2 F 96 13 145/80 H 96 Nasal Cannula 2 01/14/25 12:01/14/25 12:01/14/25 12:01/14/25 12:01/14/25 12:01/13/25 16:01/14/25 06:56 Narrative Exam GEN: AOx3, able to speak full sentences HEENT: NC/AC, PERRLA, oral mucosa dry, neck supple CVS: RRR, S1-S2 present, no murmurs appreciated RESP: CTAB GI: Multiple healed surgical scar, moderately distended, tender, localized rigidity on the umbilical area, and right flank. JEROMY drain in place, draining clear serosanguineous fluid started to decrease. Reduced bowel sounds MSK: able to move all 4 limbs, trace extremity edema specially on the feet SKIN: warm and dry DRIVE THRU ORDER TAKER: CN II-XII and Sensation grossly intact. Objective Labs 01/17/25 11:20 01/17/25 05:17 Labs: Laboratory Results - last 24 hr 01/11/25 01/14/25 10:17 05:10 WBC 10.8 RBC 4.06 Hgb 9.6 L Hct 31.4 L MCV 77 L MCH 23.6 L MCHC 30.6 L RDW Std Deviation 54.0 H Plt Count 222 Neut % (Auto) 78 Lymph % (Auto) 13 [place] % (Auto) 9 Eos % (Auto) 0 Baso % (Auto) 0 Neut # (Auto) 8.4 H Lymph # (Auto) 1.4 [place] # (Auto) 0.9 H Eos # (Auto) 0.0 Baso # (Auto) 0.0 Immature Gran # (Auto) 0.04 H Absolute Nucleated RBC 0.00 Immature Gran % 0 Nucleated RBC % 0 Sodium 143 Potassium 4.1 Chloride 106 Carbon Dioxide 27.4 Anion Gap 10 BUN 17 Creatinine 0.5 L Estim Creat Clear Calc 134.3 eGFR > 60 BUN/Creatinine Ratio 34 H Glucose 117 H Calculated Osmolality 287 Calcium 8.8 Corrected Calcium 9.7 Total Bilirubin 0.2 L AST 30 ALT 29 Alkaline Phosphatase 79 Total Protein 4.6 L Albumin 2.9 L Globulin 1.7 L Albumin/Globulin Ratio 1.7 Crossmatch See Detail Quality Measures Quality Measures VTE prophylaxis and none Advance care planning discussed with:: patient Assessment & Plan Assessment Current Active Medications: Generic Name Dose Route Start Last Admin Trade Name Freq PRN Reason Stop Dose Admin Dextrose 50 ml 01/11/25 11:33 Dextrose 50%-Water Inj 50 Ml Syringe IV 02/10/25 11:32 Q15MIN PRN BG <50 OR BG <70 & pt unresponsive Glucagon 1 mg 01/11/25 11:33 Glucagon Inj 1 Mg Vial IM Q15MIN PRN BG <70, and no IV access Heparin Sodium (Porcine) 5,000 unit 01/11/25 15:41 Heparin Sod Inj 1000 Unit/Ml Vial 10 Ml INDWELLCAT 01/25/25 15:40 PRN PRN After Use for Hep Lock Heparin Sodium (Porcine) 5,000 unit 01/13/25 09:15 01/14/25 14:49 Heparin Sod Inj 5000 Unit/Ml Vial SC 01/27/25 09:14 5,000 unit Q8HR ANTONIA Administration Hydromorphone HCl 30 mg 01/14/25 10:52 Hydromorphone 1 Mg/Ml Field Map Technician Syringe 30ml IV 01/19/25 10:51 PER ORDER PRN Per Protocol (Pain) Protocol Piperacillin/Tazobactam/Dextrose 3.375 gm in 50 mls @ 12.5 mls/hr 01/10/25 22:30 01/14/25 13:01 Zosyn IV 01/17/25 22:29 12.5 mls/hr Q6HR ANTONIA Administration Lactated Ringer's 1,000 mls @ 100 mls/hr 01/11/25 15:40 01/14/25 04:45 Lactated Ringers IV 02/10/25 15:39 100 mls/hr .Q10H ANTONIA Administration Fluconazole 400 mg in 200 mls @ 100 mls/hr 01/12/25 16:02 01/14/25 09:15 Diflucan/Ns Ivpb IV 01/19/25 16:01 100 mls/hr QDAY ANTONIA Administration Amiodarone HCl/Dextrose 360 mg in 200 mls @ 16.667 mls/hr 01/13/25 21:01 01/14/25 09:15 Nexterone Ivpb IV 01/14/25 21:00 16.667 mls/hr .Q12H ANTONIA Administration Diltiazem HCl 125 mg in 125 mls @ 10 mls/hr 01/14/25 08:27 01/14/25 11:59 Diltiazem In D5w 125 Mg IV 02/13/25 08:26 10 mg/hr .[id number] ANTONIA 10 mls/hr 10 MG/HR Administration Acetaminophen 1,000 mg in 100 mls @ 250 mls/hr 01/14/25 11:00 01/14/25 12:03 Ofirmev Inj IV 01/18/25 06:23 250 mls/hr Q6HR ANTONIA Administration Insulin Human Lispro 0 unit 01/11/25 12:00 01/14/25 13:48 Insulin Lispro (Admelog) 1 Unit/0.01 Ml Unit SC 02/10/25 11:59 Not Given Q6HR ANTONIA Protocol Lidocaine 1 patch 01/11/25 09:15 01/14/25 09:25 Lidocaine 5% 1 Patch TOP 02/10/25 09:14 Not Given UD ANTONIA Ondansetron HCl 4 mg 01/11/25 11:08 01/11/25 12:26 Ondansetron Inj 2 Mg/Ml Inj 2 Ml IVP 02/10/25 11:07 4 mg Q6HR PRN Administration NAUSEA OR VOMITING Protocol Plan Summary: A 64-year-old female patient with past medical history of paroxysmal A- fib on Eliquis, hypertension, type 2 diabetes mellitus, osteoarthritis, bilateral lower extremity lymphedema, presented to the ED due to abdominal pain that radiate to the left shoulder for 2 days before admission. Patient reported that the pain started gradually epigastric and worsened over time become severe. Patient was admitted for management of pneumoperitoneum with possible peritonitis. Assessment and plan #Paroxysmal A-fib Patient recently diagnosed with A-fib in November 2024, she was discharged metoprolol 25 and Eliquis 5 mg twice daily. Patient developed abdominal pain and found to have pneumoperitoneum with possible peritonitis. Patient was noticed to have A-fib on telemetry, she was also found to have some episodes of drop in her blood pressure to the 70s systolic. Patient was started on amiodarone drip by the primary team and Eliquis was held in anticipation for surgery. Troponin was normal, EKG showed atrial fibrillation. No ischemic changes, BNP was in the 200s. Echo was done in November during her last admission and showed Normal left ventricular size and function. Estimated EF at 55-60%. The RV is normal in size. The RV systolic function is mildly decreased. The estimated RVSP, 48 mmHg. Mildly dilated left atrium. Mitral annulus calcification mitral valve thickening mild mitral regurgitation. Mild tricuspid valve regurgitation patient heart rate continued to be in A-fib with RVR. Patient remains n.p.o. per the surgical team they will Saturday. Even though the patient on amiodarone drip, heart rates remain elevated and patient remained in A-fib with RVR. Given the fact that the patient has ejection fraction of 55 to 60%, her blood pressure improved and it was 142/80. Plan: ? Increase diltiazem drip to 10mg/h and titrate up as needed max of 15 mg/h, hold if heart rate less than 60 and systolic blood pressure less than 100 mmHg. ? Continue patient on amiodarone drip 0.5 mg/h?Will switch the patient to metoprolol p.o. as soon as the NG tube is removed ? Continue holding on Eliquis until cleared by general surgeon ? Keep magnesium and potassium above 2 and 4 respectively within normal range. ? Keep telemonitoring ? Strict in and out #Diabetes mellitus #Pneumoperitoneum #Questionable peritonitis #Hypertension #Osteoarthritis #Lymphedema Plan ? Follow-up with the primary team recommendations Thank you for your consultation please do not hesitate to reach out if you have any question or concern - Patient's plan and care discussed with my attending, Dr.Anumandla Eugenio Boykin MD Internal Medicine PGY-3 Attending Provider Attestation/Addendum I have personally seen and examined the patient separately on the above date of service and discussed the plan of care with the resident. I reviewed the resident Dr. Boykin consultation progress note and agree with the resident findings and plan in the note above and have also edited the documentation to reflect my findings and plan. Brandin العلي M.D. Interventional Cardiology
[2025-01-14] MEDS: MORPHINE SULF INJ 4 MG/ML VIAL 2 MG IVP (21:48)
[2025-01-15] VITALS (12 sets, daily range): BP systolic 116–144; BP diastolic 66–86; PULSE 69–109; RESP 14–24; TEMP 36.2–37; O2SAT 95–99; BMI 35.6; BMI 13.0
[2025-01-15] MEDS: ACETAMINOPHEN IVPB 1,000 MG/100 ML VIAL 250 MG IV ×4 (00:24→18:17)
[2025-01-15] MEDS: PIPER/TAZO 3.375 GM PREMIX 3.375 GM/50 ML BAG IV ×4 (00:24→18:17)
[2025-01-15] MEDS: DILTIAZEM in D5W 125 MG 125 MG/125 ML BAG 10 MG IV ×2 (00:25→13:10)
[2025-01-15] MEDS: MORPHINE SULF INJ 4 MG/ML VIAL 2 MG IVP ×4 (03:07→20:10)
[2025-01-15] MEDS: HEPARIN SOD INJ 5000 UNIT/ML VIAL SC ×2 (05:33→14:25)
[2025-01-15 05:53] LABS: Basophils # (Auto) 0.0 Thou/mm3 (0.0-0.2); Basophils % (Auto) 0 % (0-2.5); Eosinophils # (Auto) 0.1 Thou/mm3 (0.0-0.5); Eosinophils % (Auto) 1 % (0-10); Hematocrit 30.3 % (36.0-46.0); Hemoglobin 9.2 g/dL (12.0-16.0); Immature Granulocytes Auto 0.04 Thou/mm3 (0.00-0.00); Lymphocytes # (Auto) 1.4 Thou/mm3 (1.0-4.8); Lymphocytes % (Auto) 15 % (10-50); Mean Corpuscular HGB Conc 30.4 g/dl (31.0-37.0); Mean Corpuscular Hemoglobin 23.7 pg (25.0-35.0); Mean Corpuscular Volume 78 fL (80-100); Monocytes # (Auto) 1.0 Thou/mm3 (0.0-0.8); Monocytes % (Auto) 11 % (0-12); Neutrophils # (Auto) 6.4 Thou/mm3 (1.8-7.7); Neutrophils % (Auto) 72 % (37-80); Nucleated Red Blood Cell # 0.02 Thou/mm3 (0.00-0.00); Nucleated Red Blood Cell % 0 /100 WBC (0); Platelet Count 224 Thou/mm3 (140-440); RDW Standard Deviation 55.7 fL (36.4-46.3); Red Blood Count 3.88 Miln/mm3 (4.00-5.20); White Blood Count 8.8 Thou/mm3 (3.6-11.0)
[2025-01-15 06:16] LABS: Anion Gap 9 (7-16); BUN/Creatinine Ratio 22 Ratio (12-20); Blood Urea Nitrogen 11 mg/dL (9-23); Carbon Dioxide 29.6 mMol/L (20.0-31.0); Chloride 104 mMol/L (98-107); Creatinine (Component) 0.5 mg/dL (0.6-1.3); Estimated Creatinine Clearance 134.3 mL/min (>60); Potassium 4.0 mMol/L (3.4-5.1); Sodium 143 mMol/L (136-145); eGFR > 60 See Note
[2025-01-15 06:17] LABS: Alanine Aminotransferase 22 U/L (10-49); Albumin, Serum 2.9 gm/dL (3.4-4.8); Albumin/Globulin Ratio 1.3 (1.2-2.2); Alkaline Phosphatase 73 U/L (46-116); Aspartate Amino Transferase 19 U/L (0-34); Bilirubin,Total 0.3 mg/dL (0.3-1.2); Calcium 8.8 mg/dL (8.3-10.6); Calcium (Corrected) 9.7 mg/dL (8.5-10.1); Globulin 2.3 gm/dL (2.3-3.5); Glucose 111 mg/dL (74-106); Magnesium 1.7 mg/dL (1.6-2.6); Osmolality,Calculated 285 (275-295); Phosphorous 1.9 mg/dL (2.4-5.1); Total Protein 5.2 gm/dL (5.7-8.2)
[2025-01-15] MEDS: RINGERS LACTATED 1000 ML 1,000 ML 100 ML IV ×2 (06:33→20:10)
[2025-01-15] MEDS: FLUCONAZOLE/NS 400 MG IVPB 400 MG/200 ML BAG 100 MG IV (09:31)
[2025-01-15] MEDS: POTASSIUM PHOS 22.5 MMOL in SODIUM CHLORIDE 0.9% 500 ML 500 ML 82.778 MMOL IV (09:31)
[2025-01-15] MEDS: Magnesium Sulfate 4 GM Ivpb 4 GM/50 ML BAG IV (09:32)
--- NOTE | 2025-01-15 10:48 | ESPR_ITS ---
Documentation for date of: 01/15/25 Subjective Subjective Brief History: 64F with HTN, DMII, afib, history of gastric bypass in 2006 who presented to ER this am initially reporting chest pain and shortness of breath after using meth. Pt underwent CXR read as possible pneumoperitoneum vs colon interposed above the liver, followed by CT CAP read as extensive pneumoperitoneum however she does not have any clinical signs of peritonitis, has remained afebrile with intermittent tachycardia and EKG consistent with her known afib, has received one dose of pain medicine at 3pm On my exam pt stated she does have abdominal pain which has been present for the last two (2) days and is similar to pain she has experienced before. She reports nausea and decreased appetite, last had a BM yesterday. Her last colonoscopy was years ago and she has not had any recent EGD PMH: HTN, DMII, afib PSHx: Gastric bypass in 2006 in [place], multiple hernia repairs Meds: includes eliquis last taken yesterday morning Allergies: Reglan Social hx: smokes 1/2 PPD cigarettes Narrative: Pt transferred to telemetry, pain now better controlled with IV tylenol and morphine, no nausea, passing gas and had no NG output overnight, JEROMY with 150cc serosanguinous/24h, remaining afebrile with normal WBC Exam Vital Signs Temp Pulse Resp BP Pulse Ox O2 Del Method O2 Flow Rate 97.1 F 90 14 138/69 H 96 Nasal Cannula 2 01/15/25 08:00 01/15/25 08:00 01/15/25 08:00 01/15/25 08:00 01/15/25 08:00 01/15/25 08:00 01/15/25 08:00 Constitutional Constitutional: no acute distress Routine Respiratory Exam Respiratory: Present no resp distress Routine Abdominal Exam Abdominal: Present soft, wound (midline incision with blanca c/d/i) and drain (JEROMY with serosanguinous output); Absent tenderness or distended Results Results: Laboratory Laboratory results: results reviewed Assessment & Plan Plan 64F with HTN, DMII, afib, history of gastric bypass in 2006 who presented to ER 01/10 initially reporting chest pain and shortness of breath after using meth, with now two CTs indicating extensive pneumoperitoneum. Pt had been hemodynamically normal throughout with no fever however given her ongoing severe pain I did ultimately offer exploration 01/12 with findings of gastric perforation s/p repair with miguelangel patch and drain placement DC NG and start CLD OK to resume PO meds, I added PO oxycodone PRN DC davila Continue to monitor JEROMY output PT Continue abx OK to start heparin gtt PROCEDURES: Procedures Exploratory laparotomy, repair of gastric perforation with Miguelangel patch, washout and drain placement
--- NOTE | 2025-01-15 11:23 | PC.SS ---
Follow up note: SS met with patient to discuss final d/c plans. Patient states she does not want to go to a SNF. She wants to return home. SS discussed home health services. Patient states her daughter, Renetta, will be able to stay with her. SS contacted daughter, Renetta, who confirmed she will temporarily stay with patient or her son an also assist. D/c plan: HH. PCP: Dr. Parkinson and last visit was 2 weeks ago. Patient requesting a walker for home.
--- NOTE | 2025-01-15 13:48 | ESPR_ITS ---
<Statement entered by Perico Harrell MD - 01/16/25 01:20> No acute overnight events. Seen and examined at bedside and patient states that her pain is better controlled compared to yesterday on current pain regimen after switching to morphine. Spoke to general surgery who was in favor of starting heparin versus Eliquis and thus heparin drip was started given her history of A-fib. Otherwise, she was started on a clear liquid diet and recommended to take it slowly. Vital signs are stable, hemoglobin stable, no leukocytosis, CHEM panel showed hypophosphatemia and was repleted. Will continue IV antibiotics and antifungal for GI prophylaxis. ----- Note reviewed and agree with care plan as documented. Please refer to the note below for further details. Plan discussed with attending physician Dr. Nirmala Harrell MD PGY-2 Internal Medicine Documentation for date of: 01/15/25 Subjective Subjective Interval history: Patient was seen and examined at bedside. No acute events took place overnight. Patient reports her abdominal pain was well-controlled with the transition to morphine 2 mg every 4 hour from Dilaudid. She denied active pain in her abdomen. Abdominal area which is wrapped in bandages post exploratory laparoscopic and gastric perforation repair. NG tube in place, and JEROMY tube shows moderate drainage. Through the day, NG tube was removed and diet was advanced to clear liquid. Patient reported being bloated and had passed gas. Patient was sedated secondary to the effect of stronger pain medicines. Exam Vital Signs Temp Pulse Resp BP Pulse Ox O2 Del Method O2 Flow Rate 97.8 F 90 18 142/70 H 95 Nasal Cannula 2 01/15/25 12:00 01/15/25 13:10 01/15/25 12:04 01/15/25 13:10 01/15/25 12:04 01/15/25 12:00 01/15/25 12:04 Narrative Exam Gen: Alert, drowsy secondary to strong pain meds administrations. Elderly female, disheveled HEENT: Vision grossly intact. Patent nares. Trachea midline Respiratory: Chest normal on inspection and clear auscultation bilaterally. Cardio: RRR. No murmurs carotid bruit. No gross JVD. Abdominal: s/p surgery, surgical incisions wrapped in bandages and an abdominal binder in place. diffuse tenderness to mild palpation, reduced bowel sounds. Extensive exam postponed. JEROMY bag shows moderate drainage and NGT tube with low intermittent suctioning protocol in place. MSK/Extremities: Extremities tone within normal limits. 1+ pitting edema in lower extremities upto the knees. No signs of cyanosis. Neurological: CN II - XII grossly intact. Extremity motor and sensation grossly intact. Pych: Patient has flat affect, is cooperative Objective Labs 01/16/25 05:27 01/16/25 05:27 Labs: Laboratory Results - last 24 hr 01/15/25 04:46 WBC 8.8 RBC 3.88 L Hgb 9.2 L Hct 30.3 L MCV 78 L MCH 23.7 L MCHC 30.4 L RDW Std Deviation 55.7 H Plt Count 224 Neut % (Auto) 72 Lymph % (Auto) 15 [place] % (Auto) 11 Eos % (Auto) 1 Baso % (Auto) 0 Neut # (Auto) 6.4 Lymph # (Auto) 1.4 [place] # (Auto) 1.0 H Eos # (Auto) 0.1 Baso # (Auto) 0.0 Immature Gran # (Auto) 0.04 H Absolute Nucleated RBC 0.02 H Immature Gran % 1 H Nucleated RBC % 0 Sodium 143 Potassium 4.0 Chloride 104 Carbon Dioxide 29.6 Anion Gap 9 BUN 11 Creatinine 0.5 L Estim Creat Clear Calc 134.3 eGFR > 60 BUN/Creatinine Ratio 22 H Glucose 111 H Calculated Osmolality 285 Calcium 8.8 Corrected Calcium 9.7 Phosphorus 1.9 L Magnesium 1.7 Total Bilirubin 0.3 AST 19 ALT 22 Alkaline Phosphatase 73 Total Protein 5.2 L Albumin 2.9 L Globulin 2.3 Albumin/Globulin Ratio 1.3 Quality Measures Quality Measures VTE prophylaxis and none Advance care planning discussed with:: patient Assessment & Plan Assessment Current Active Medications: Generic Name Dose Route Start Last Admin Trade Name Freq PRN Reason Stop Dose Admin Dextrose 50 ml 01/11/25 11:33 Dextrose 50%-Water Inj 50 Ml Syringe IV 02/10/25 11:32 Q15MIN PRN BG <50 OR BG <70 & pt unresponsive Glucagon 1 mg 01/11/25 11:33 Glucagon Inj 1 Mg Vial IM Q15MIN PRN BG <70, and no IV access Heparin Sodium (Porcine) 5,000 unit 01/11/25 15:41 Heparin Sod Inj 1000 Unit/Ml Vial 10 Ml INDWELLCAT 01/25/25 15:40 PRN PRN After Use for Hep Lock Heparin Sodium (Porcine) 5,000 unit 01/13/25 09:15 01/15/25 05:33 Heparin Sod Inj 5000 Unit/Ml Vial SC 01/27/25 09:14 5,000 unit Q8HR ANTONIA Administration Piperacillin/Tazobactam/Dextrose 3.375 gm in 50 mls @ 12.5 mls/hr 01/10/25 22:30 01/15/25 13:08 Zosyn IV 01/17/25 22:29 12.5 mls/hr Q6HR ANTONIA Administration Lactated Ringer's 1,000 mls @ 100 mls/hr 01/11/25 15:40 01/15/25 06:33 Lactated Ringers IV 02/10/25 15:39 100 mls/hr .Q10H ANTONIA Administration Fluconazole 400 mg in 200 mls @ 100 mls/hr 01/12/25 16:02 01/15/25 09:31 Diflucan/Ns Ivpb IV 01/19/25 16:01 100 mls/hr QDAY ANTONIA Administration Diltiazem HCl 125 mg in 125 mls @ 10 mls/hr 01/14/25 08:27 01/15/25 13:10 Diltiazem In D5w 125 Mg IV 02/13/25 08:26 10 mg/hr .[id number] ANTONIA 10 mls/hr 10 MG/HR Administration Acetaminophen 1,000 mg in 100 mls @ 250 mls/hr 01/14/25 11:00 01/15/25 13:09 Ofirmev Inj IV 01/18/25 06:23 250 mls/hr Q6HR ANTONIA Administration Potassium Phosphate 22.5 mmol/ 507.5 mls @ 82.778 mls/hr 01/15/25 07:42 01/15/25 09:31 Sodium Chloride IV 01/15/25 13:49 82.778 mls/hr X1 ONE Administration Insulin Human Lispro 0 unit 01/11/25 12:00 01/15/25 13:11 Insulin Lispro (Admelog) 1 Unit/0.01 Ml Unit SC 02/10/25 11:59 Not Given Q6HR ANTONIA Protocol Lidocaine 1 patch 01/11/25 09:15 01/15/25 09:31 Lidocaine 5% 1 Patch TOP 02/10/25 09:14 Not Given [facility] Morphine Sulfate 2 mg 01/14/25 19:40 01/15/25 08:54 Morphine Sulf Inj 4 Mg/Ml Vial IVP 01/19/25 19:39 2 mg Q4H PRN Administration abdominal pain Ondansetron HCl 4 mg 01/11/25 11:08 01/11/25 12:26 Ondansetron Inj 2 Mg/Ml Inj 2 Ml IVP 02/10/25 11:07 4 mg Q6HR PRN Administration NAUSEA OR VOMITING Protocol Oxycodone HCl 5 mg 01/15/25 10:47 Oxycodone Hcl 5 Mg Ir Tab PO 01/20/25 10:46 Q6HR PRN PAIN SCALE 4-10(Mod-Sev Plan Patient is a 64-year-old female past medical history significant for paroxysmal atrial fibrillation on Eliquis, primary hypertension, [id number] diabetes mellitus type 2 [6.2%], osteoarthritis of bilateral knees and chronic bilateral lower extremity lymphedema presenting with a chief complaint of acute onset generalized abdominal pain over the past 48 hours. Patient was admitted to ICU for management of worsening pneumoperitoneum, GI perforation and empiric management/prevention of peritonitis. Patient is downgraded from ICU s/p Exploratory laparotomy, repair of gastric perforation with Tommy patch, washout and drain placement. Patient was started on diltiazem drip 10 mg/h and later to metoprolol p.o. 100 mg daily upon removal of the NGT. #Extensive pneumoperitoneum secondary to gastric ulcer perforation # s/p exploratory laparotomy with repair on 01/12/25 CT abdomen/pelvis with contrast extensive colonic diverticulae with air droplets adjacent to sigmoid colon Extensive free fluid in the pelvis and extensive pneumoperitoneum. Exploratory laparotomy, repair of gastric perforation with Tommy patch, washout and drain placement on 01/12/25 - NGT discharged and diet advanced to clear liquid diabetic - Started [facility] heparin protocol with 12 units/kg/h for continued anticoagulation before transitioning to home Eliquis after general surgery recommendations - Monitor PTT/INR for heparin dose adjustment - DC'ed davila catheter - Morphine 2mg Q4h PRN - Monitor JEROMY output - Physical therapy as tolerated with abdominal binder - Physical therapy, OK to get out of bed as tolerated with abdominal binder - Continue Zosyn 3.375 gm Q6H (started on 01/12/25) - Flucanazol 100 mls/hr for GI prophylaxis #Atrial fibrillation?paroxysmal At home patient was on metoprolol XL and apixaban. [id number] 4 points. [4.8% stroke risk per year] From telemetry monitoring patient alternates between A-fib and sinus. Rates between 80s?160s. Rx: -Switched diltiazem 10 mg/h drip and amiodarone to metoprolol p.o. 100 mg daily upon removal of the NGT - Holding eliquis until cleared by surgery, anticipate 01/15 #History of primary hypertension - Will continue to monitor, patient currently normotensive #Leukocytosis, resolved WBC 8.8 (16.2), likely reactive - Will cont to monitor #Microcytic anemia- stable Hgb of 10.0, Hct of 32.4 - Cont to monitor daily CBC - Tranfuse if Hgb drops under 7. #ANNALISA - resolved #History of Yessi-en-Y gastric bypass/2006 #Multiple abdominal wall hernia repairs Health Maintenance: Code Status: Full DVT Prophylaxis: Heparin 5000 units Q8H GI Prophylaxis: Protonix Diet: NPO until Saturday s/p bowel repair Davila: Davila catheter in place Lines: PIV Supplemental O2: None Disposition: will be d/c to home post recovery, anticipate discharge in the next 24 to 48 hours after regain of bowel function. Patient seen and care discussed with my attending physician, Dr. Dickinson and my senior residents, Dr. Porter and Dr. Swapnil Perez DO PGY 1 Attending Provider Attestation/Addendum I, Estrellita Silvestre DO, attest that I was physically present for the garcia portions of the service and evaluated the patient with the resident and I reviewed and discussed the case with the resident and agree with the resident's findings and plans of care as documented above Patient seen and evaluated this AM. Patient states she is doing fine. JEROMY drain is draining serosanguinous fluid about 30mL. Abdominal binder in place. Dressing CDI. She states she is tired and reports that her pain is controlled. NG tube draining dark bilious output. Per surgeon, OK to remove NG tube and CLD was started. Will start patient on heparin drip for anticoagulation in the setting of afib. PT ordered. Continue with postop care.
--- NOTE | 2025-01-15 15:38 | PD.RESPRO ---
Documentation for date of: 01/15/25 Subjective Subjective Interval history: Patient was seen and examined at bedside. Noticed to have NG tube still in place, anticipated to be discontinued today if cleared by general surgeon. Patient reported significant improvement of her symptoms denied any chest pain or palpitation. Denied any abdominal pain. Patient is positive for flatus since admission. She is still on 2 L of oxygen, vitally stable, hemoglobin stable at 9.2, WBC continues to downtrend to 8.8. Phosphate is 1.9 magnesium 1.7. Review of the telemetry box for the past 24 hours showed heart rate in A-fib however approximately 90% below [address] segment changes. Exam Vital Signs Temp Pulse Resp BP Pulse Ox O2 Del Method O2 Flow Rate 97.8 F 90 18 142/70 H 95 Nasal Cannula 2 01/15/25 12:00 01/15/25 13:10 01/15/25 12:04 01/15/25 13:10 01/15/25 12:04 01/15/25 12:00 01/15/25 12:04 Narrative Exam GEN: AOx3, able to speak full sentences HEENT: NC/AC, PERRLA, oral mucosa dry, neck supple CVS: RRR, S1-S2 present, no murmurs appreciated RESP: CTAB GI: Multiple healed surgical scar, nondistended, mild discomfort on palpation, JEROMY drain in place, draining clear serosanguineous fluid started to decrease. Normal active bowel sounds MSK: able to move all 4 limbs, trace extremity edema specially on the feet SKIN: warm and dry TRENCH TRIMMER FINE: CN II-XII and Sensation grossly intact. Objective Labs 01/17/25 11:20 01/17/25 05:17 Labs: Laboratory Results - last 24 hr 01/15/25 04:46 WBC 8.8 RBC 3.88 L Hgb 9.2 L Hct 30.3 L MCV 78 L MCH 23.7 L MCHC 30.4 L RDW Std Deviation 55.7 H Plt Count 224 Neut % (Auto) 72 Lymph % (Auto) 15 [place] % (Auto) 11 Eos % (Auto) 1 Baso % (Auto) 0 Neut # (Auto) 6.4 Lymph # (Auto) 1.4 [place] # (Auto) 1.0 H Eos # (Auto) 0.1 Baso # (Auto) 0.0 Immature Gran # (Auto) 0.04 H Absolute Nucleated RBC 0.02 H Immature Gran % 1 H Nucleated RBC % 0 Sodium 143 Potassium 4.0 Chloride 104 Carbon Dioxide 29.6 Anion Gap 9 BUN 11 Creatinine 0.5 L Estim Creat Clear Calc 134.3 eGFR > 60 BUN/Creatinine Ratio 22 H Glucose 111 H Calculated Osmolality 285 Calcium 8.8 Corrected Calcium 9.7 Phosphorus 1.9 L Magnesium 1.7 Total Bilirubin 0.3 AST 19 ALT 22 Alkaline Phosphatase 73 Total Protein 5.2 L Albumin 2.9 L Globulin 2.3 Albumin/Globulin Ratio 1.3 Quality Measures Quality Measures VTE prophylaxis and none Advance care planning discussed with:: patient Assessment & Plan Assessment Current Active Medications: Generic Name Dose Route Start Last Admin Trade Name Freq PRN Reason Stop Dose Admin Dextrose 50 ml 01/11/25 11:33 Dextrose 50%-Water Inj 50 Ml Syringe IV 02/10/25 11:32 Q15MIN PRN BG <50 OR BG <70 & pt unresponsive Glucagon 1 mg 01/11/25 11:33 Glucagon Inj 1 Mg Vial IM Q15MIN PRN BG <70, and no IV access Heparin Sodium (Porcine) 5,000 unit 01/11/25 15:41 Heparin Sod Inj 1000 Unit/Ml Vial 10 Ml INDWELLCAT 01/25/25 15:40 PRN PRN After Use for Hep Lock Heparin Sodium (Porcine) 4,000 unit 01/15/25 15:28 Heparin Sod Inj 5000 Unit/Ml Vial IV 01/15/25 15:29 X1 ONE Protocol Piperacillin/Tazobactam/Dextrose 3.375 gm in 50 mls @ 12.5 mls/hr 01/10/25 22:30 01/15/25 13:08 Zosyn IV 01/17/25 22:29 12.5 mls/hr Q6HR ANTONIA Administration Lactated Ringer's 1,000 mls @ 100 mls/hr 01/11/25 15:40 01/15/25 06:33 Lactated Ringers IV 02/10/25 15:39 100 mls/hr .Q10H ANTONIA Administration Fluconazole 400 mg in 200 mls @ 100 mls/hr 01/12/25 16:02 01/15/25 11:31 Diflucan/Ns Ivpb IV 01/19/25 16:01 Infused QDAY ANTONIA Infusion Acetaminophen 1,000 mg in 100 mls @ 250 mls/hr 01/14/25 11:00 01/15/25 13:09 Ofirmev Inj IV 01/18/25 06:23 250 mls/hr Q6HR ANTONIA Administration Heparin Sodium/Dextrose 25,000 unit in 250 mls @ 12.084 mls/hr 01/15/25 15:45 Heparin In D5w Ivpb IV 01/29/25 15:44 .[id number] ANTONIA Protocol 12 UNITS/KG/HR Insulin Human Lispro 0 unit 01/11/25 12:00 01/15/25 13:11 Insulin Lispro (Admelog) 1 Unit/0.01 Ml Unit SC 02/10/25 11:59 Not Given Q6HR [facility] Protocol Lidocaine 1 patch 01/11/25 09:15 01/15/25 09:31 Lidocaine 5% 1 Patch TOP 02/10/25 09:14 Not Given UD ANTONIA Metoprolol Succinate 100 mg 01/15/25 16:00 Metoprolol Succinate Xl 25 Mg Tabcr PO 02/14/25 15:59 QDAY ANTONIA Morphine Sulfate 2 mg 01/14/25 19:40 01/15/25 08:54 Morphine Sulf Inj 4 Mg/Ml Vial IVP 01/19/25 19:39 2 mg Q4H PRN Administration abdominal pain Ondansetron HCl 4 mg 01/11/25 11:08 01/11/25 12:26 Ondansetron Inj 2 Mg/Ml Inj 2 Ml IVP 02/10/25 11:07 4 mg Q6HR PRN Administration NAUSEA OR VOMITING Protocol Oxycodone HCl 5 mg 01/15/25 10:47 Oxycodone Hcl 5 Mg Ir Tab PO 01/20/25 10:46 Q6HR PRN PAIN SCALE 4-10(Mod-Sev Plan Summary: A 64-year-old female patient with past medical history of paroxysmal A-fib on Eliquis, hypertension, type 2 diabetes mellitus, osteoarthritis, bilateral lower extremity lymphedema, presented to the ED due to abdominal pain that radiate to the left shoulder for 2 days before admission. Patient reported that the pain started gradually epigastric and worsened over time become severe. Patient was admitted for management of pneumoperitoneum with possible peritonitis. Assessment and plan #Paroxysmal A-fib Patient recently diagnosed with A-fib in November 2024, she was discharged metoprolol 25 and Eliquis 5 mg twice daily. Patient developed abdominal pain and found to have pneumoperitoneum with possible peritonitis. Patient was noticed to have A-fib on telemetry, she was also found to have some episodes of drop in her blood pressure to the 70s systolic. Patient was started on amiodarone drip by the primary team and Eliquis was held in anticipation for surgery. Troponin was normal, EKG showed atrial fibrillation. No ischemic changes, BNP was in the 200s. Echo was done in November during her last admission and showed Normal left ventricular size and function. Estimated EF at 55-60%. The RV is normal in size. The RV systolic function is mildly decreased. The estimated RVSP, 48 mmHg. Mildly dilated left atrium. Mitral annulus calcification mitral valve thickening mild mitral regurgitation. Mild tricuspid valve regurgitation patient heart rate continued to be in A-fib with RVR. Patient remains n.p.o. per the surgical team they will Saturday. Even though the patient on amiodarone drip, heart rates remain elevated and patient remained in A-fib with RVR. Given the fact that the patient has ejection fraction of 55 to 60%, her blood pressure improved and it was 142/80. Plan: ? Switch to metoprolol XL 100 mg p.o. daily as soon as the NG tube is removed ?If patient still n.p.o. continue diltiazem drip to 10mg/h and titrate up as needed max of 15 mg/h, hold if heart rate less than 60 and systolic blood pressure less than 100 mmHg. ? Continue patient on amiodarone drip 0.5 mg/h ? Continue holding on Eliquis until cleared by general surgeon ? Keep magnesium and potassium above 2 and 4 respectively within normal range. ? Keep telemonitoring ? Strict in and out #Diabetes mellitus #Pneumoperitoneum #Questionable peritonitis #Hypertension #Osteoarthritis #Lymphedema Plan ? Follow-up with the primary team recommendations Thank you for your consultation please do not hesitate to reach out if you have any question or concern - Patient's plan and care discussed with my attending, Dr.Anumandla Eugenio Boykin MD Internal Medicine PGY-3 Attending Provider Attestation/Addendum I have personally seen and examined the patient separately on the above date of service and discussed the plan of care with the resident. I reviewed the resident Dr. Boykin consultation progress note and agree with the resident findings and plan in the note above and have also edited the documentation to reflect my findings and plan. Brandin العلي M.D. Interventional Cardiology
[2025-01-15] MEDS: METOPROLOL SUCCINATE XL 25 MG TABCR 100 MG PO (16:20)
[2025-01-15 17:16] LABS: INR 1.1 (0.9-1.3); Partial Thromboplastin Time 25.4 Seconds (22.0-36.0); Prothrombin Time 12.4 Seconds (9.0-12.2)
[2025-01-15] MEDS: Heparin/D5w 25K 250 ML Ivpb 25,000 UNIT/250 ML BAG 10 UNIT IV (18:18)
[2025-01-15] MEDS: HEPARIN SOD INJ 5000 UNIT/ML VIAL 4000 UNIT IV (18:18)
[2025-01-15] MEDS: INSULIN LISPRO (AdmeLOG) 1 UNIT/0.01 ML UNIT SC (18:34)
[2025-01-16] VITALS (13 sets, daily range): BP systolic 95–133; BP diastolic 58–94; PULSE 77–95; RESP 17–23; TEMP 36.1–37.4; O2SAT 96–100; BMI 38.1
[2025-01-16] MEDS: PIPER/TAZO 3.375 GM PREMIX 3.375 GM/50 ML BAG IV ×5 (00:04→23:58)
[2025-01-16] MEDS: ACETAMINOPHEN IVPB 1,000 MG/100 ML VIAL 250 MG IV ×4 (00:35→19:12)
[2025-01-16 01:25] LABS: Partial Thromboplastin Time 54.7 Seconds (22.0-36.0)
[2025-01-16 05:46] LABS: Basophils # (Auto) 0.0 Thou/mm3 (0.0-0.2); Basophils % (Auto) 0 % (0-2.5); Eosinophils # (Auto) 0.1 Thou/mm3 (0.0-0.5); Eosinophils % (Auto) 1 % (0-10); Hematocrit 29.2 % (36.0-46.0); Hemoglobin 8.9 g/dL (12.0-16.0); Immature Granulocytes Auto 0.06 Thou/mm3 (0.00-0.00); Lymphocytes # (Auto) 1.4 Thou/mm3 (1.0-4.8); Lymphocytes % (Auto) 19 % (10-50); Mean Corpuscular HGB Conc 30.5 g/dl (31.0-37.0); Mean Corpuscular Hemoglobin 23.7 pg (25.0-35.0); Mean Corpuscular Volume 78 fL (80-100); Monocytes # (Auto) 0.9 Thou/mm3 (0.0-0.8); Monocytes % (Auto) 12 % (0-12); Neutrophils # (Auto) 5.3 Thou/mm3 (1.8-7.7); Neutrophils % (Auto) 67 % (37-80); Nucleated Red Blood Cell # 0.02 Thou/mm3 (0.00-0.00); Nucleated Red Blood Cell % 0 /100 WBC (0); Platelet Count 225 Thou/mm3 (140-440); RDW Standard Deviation 54.4 fL (36.4-46.3); Red Blood Count 3.76 Miln/mm3 (4.00-5.20); White Blood Count 7.8 Thou/mm3 (3.6-11.0)
[2025-01-16] MEDS: RINGERS LACTATED 1000 ML 1,000 ML 100 ML IV (06:16)
[2025-01-16 06:25] LABS: Alanine Aminotransferase 19 U/L (10-49); Albumin, Serum 3.0 gm/dL (3.4-4.8); Albumin/Globulin Ratio 1.3 (1.2-2.2); Alkaline Phosphatase 71 U/L (46-116); Anion Gap 8 (7-16); Aspartate Amino Transferase 16 U/L (0-34); BUN/Creatinine Ratio 16 Ratio (12-20); Bilirubin,Total 0.3 mg/dL (0.3-1.2); Blood Urea Nitrogen 8 mg/dL (9-23); Calcium 8.7 mg/dL (8.3-10.6); Calcium (Corrected) 9.5 mg/dL (8.5-10.1); Carbon Dioxide 28.9 mMol/L (20.0-31.0); Chloride 103 mMol/L (98-107); Creatinine (Component) 0.5 mg/dL (0.6-1.3); Estimated Creatinine Clearance 139.3 mL/min (>60); Globulin 2.3 gm/dL (2.3-3.5); Glucose 129 mg/dL (74-106); Magnesium 1.8 mg/dL (1.6-2.6); Osmolality,Calculated 279 (275-295); Phosphorous 1.8 mg/dL (2.4-5.1); Potassium 3.8 mMol/L (3.4-5.1); Sodium 140 mMol/L (136-145); Total Protein 5.3 gm/dL (5.7-8.2); eGFR > 60 See Note
--- NOTE | 2025-01-16 09:01 | ESPR_ITS ---
Documentation for date of: 01/16/25 Subjective Subjective Brief History: 64F with HTN, DMII, afib, history of gastric bypass in 2006 who presented to ER this am initially reporting chest pain and shortness of breath after using meth. Pt underwent CXR read as possible pneumoperitoneum vs colon interposed above the liver, followed by CT CAP read as extensive pneumoperitoneum however she does not have any clinical signs of peritonitis, has remained afebrile with intermittent tachycardia and EKG consistent with her known afib, has received one dose of pain medicine at 3pm On my exam pt stated she does have abdominal pain which has been present for the last two (2) days and is similar to pain she has experienced before. She reports nausea and decreased appetite, last had a BM yesterday. Her last colonoscopy was years ago and she has not had any recent EGD PMH: HTN, DMII, afib PSHx: Gastric bypass in 2006 in [place], multiple hernia repairs Meds: includes eliquis last taken yesterday morning Allergies: Reglan Social hx: smokes 1/2 PPD cigarettes Narrative: Pain well controlled, no nausea, tolerating CLD and passing gas but has not yet had a BM, remaining afebrile with normal WBC, JEROMY had 220cc/24h and she is urinating without difficulty Exam Vital Signs Temp Pulse Resp BP Pulse Ox O2 Del Method O2 Flow Rate 97.4 F 95 22 H 133/88 H 100 Nasal Cannula 2 01/16/25 08:00 01/16/25 08:00 01/16/25 08:00 01/16/25 08:00 01/16/25 08:00 01/16/25 08:00 01/16/25 08:00 Constitutional Constitutional: no acute distress Routine Respiratory Exam Respiratory: Present no resp distress Routine Abdominal Exam Abdominal: Present soft and drain (JEROMY with serosanguinous output); Absent tenderness or distended Results Results: Laboratory Laboratory results: results reviewed Assessment & Plan Plan 64F with HTN, DMII, afib, history of gastric bypass in 2006 who presented to ER 01/10 initially reporting chest pain and shortness of breath after using meth, with now two CTs indicating extensive pneumoperitoneum. Pt had been hemodynamically normal throughout with no fever however given her ongoing severe pain I did ultimately offer exploration 01/12 with findings of gastric perforation s/p repair with miguelangel patch and drain placement Advance to FLD Transition to PO pain meds Continue to monitor JEROMY output PROCEDURES: Procedures Exploratory laparotomy, repair of gastric perforation with Miguelangel patch, washout and drain placement
[2025-01-16] MEDS: METOPROLOL SUCCINATE XL 25 MG TABCR 100 MG PO (09:20)
[2025-01-16] MEDS: FLUCONAZOLE/NS 400 MG IVPB 400 MG/200 ML BAG 100 MG IV (09:21)
[2025-01-16] MEDS: POT PHOS 15 mMol in NS 250 ML 15 MMOL/250 ML BAG 62.5 MMOL IV ×2 (09:22→13:37)
[2025-01-16 09:33] LABS: Partial Thromboplastin Time 43.0 Seconds (22.0-36.0)
[2025-01-16] MEDS: oxyCODONE HCL 5 MG IR TAB PO ×2 (10:13→16:28)
[2025-01-16] MEDS: HEPARIN SOD INJ 5000 UNIT/ML VIAL 2000 UNIT IVP (10:13)
--- NOTE | 2025-01-16 10:16 | ESPR_ITS ---
Documentation for date of: 01/16/25 Subjective Subjective Interval history: Patient seen and examined at bedside. Telemetry reviewed, patient continues to be in atrial fibrillation max heart rate 120s however mostly ranges between 70 to low 90s. Vitals and labs reviewed. Patient is feeling overall better today, is able to tolerate clear liquid diet and would like to advance diet. Reports good bowel movement earlier today. Patient denies chest pain, chest pressure, palpitations, lightheadedness, fatigue or shortness of breath. Blood pressure 115-130/70 to 80s. Hemoglobin downtrending slowly today 8.9, potassium 3.8, BUN 8, creatinine 0.5, phosphorus 1.8, magnesium 1.8. Patient received first dose of metoprolol XL 100 mg today. Per surgery, heparin drip favored over Eliquis, heparin drip started 01/15. Exam Vital Signs Temp Pulse Resp BP Pulse Ox O2 Del Method O2 Flow Rate 97.4 F 95 22 H 133/88 H 100 Nasal Cannula 2 01/16/25 08:00 01/16/25 09:20 01/16/25 08:00 01/16/25 09:20 01/16/25 08:00 01/16/25 08:00 01/16/25 08:00 Narrative Exam GENERAL: AOx3, no acute distress, lying comfortably in bed HEENT: NC/AT, mucous membranes dry, bilateral sclera anicteric CARDIOVASCULAR: regular rate and irregular rhythm, S1/S2 present, no murmurs appreciated PULMONARY: clear to auscultation bilaterally, no rales/rhonchi/wheezes ABDOMINAL: mildly tender to palpation diffusely, surgical wrap with abdominal binder in place, decreased BS EXTREMITIES: 2+ pitting edema at b/l feet, BLE 1+ pitting edema up to hips SKIN: warm and dry, intact, no rashes NEURO: CN II-XII grossly intact, no focal deficits, alert, following commands Objective Labs 01/17/25 11:20 01/17/25 05:17 Labs: Laboratory Results - last 24 hr 01/15/25 01/16/25 01/16/25 16:27 00:32 05:27 WBC 7.8 RBC 3.76 L Hgb 8.9 L Hct 29.2 L MCV 78 L MCH 23.7 L MCHC 30.5 L RDW Std Deviation 54.4 H Plt Count 225 Neut % (Auto) 67 Lymph % (Auto) 19 [place] % (Auto) 12 Eos % (Auto) 1 Baso % (Auto) 0 Neut # (Auto) 5.3 Lymph # (Auto) 1.4 [place] # (Auto) 0.9 H Eos # (Auto) 0.1 Baso # (Auto) 0.0 Immature Gran # (Auto) 0.06 H Absolute Nucleated RBC 0.02 H Immature Gran % 1 H Nucleated RBC % 0 PT 12.4 H INR 1.1 APTT 25.4 54.7 H D Sodium 140 Potassium 3.8 Chloride 103 Carbon Dioxide 28.9 Anion Gap 8 BUN 8 L Creatinine 0.5 L Estim Creat Clear Calc 139.3 eGFR > 60 BUN/Creatinine Ratio 16 Glucose 129 H Calculated Osmolality 279 Calcium 8.7 Corrected Calcium 9.5 Phosphorus 1.8 L Magnesium 1.8 Total Bilirubin 0.3 AST 16 ALT 19 Alkaline Phosphatase 71 Total Protein 5.3 L Albumin 3.0 L Globulin 2.3 Albumin/Globulin Ratio 1.3 01/16/25 08:10 WBC RBC Hgb Hct MCV MCH MCHC RDW Std Deviation Plt Count Neut % (Auto) Lymph % (Auto) [place] % (Auto) Eos % (Auto) Baso % (Auto) Neut # (Auto) Lymph # (Auto) [place] # (Auto) Eos # (Auto) Baso # (Auto) Immature Gran # (Auto) Absolute Nucleated RBC Immature Gran % Nucleated RBC % PT INR APTT 43.0 H D Sodium Potassium Chloride Carbon Dioxide Anion Gap BUN Creatinine Estim Creat Clear Calc eGFR BUN/Creatinine Ratio Glucose Calculated Osmolality Calcium Corrected Calcium Phosphorus Magnesium Total Bilirubin AST ALT Alkaline Phosphatase Total Protein Albumin Globulin Albumin/Globulin Ratio Quality Measures Quality Measures VTE prophylaxis and none Advance care planning discussed with:: patient Assessment & Plan Assessment Current Active Medications: Generic Name Dose Route Start Last Admin Trade Name Freq PRN Reason Stop Dose Admin Dextrose 50 ml 01/11/25 11:33 Dextrose 50%-Water Inj 50 Ml Syringe IV 02/10/25 11:32 Q15MIN PRN BG <50 OR BG <70 & pt unresponsive Glucagon 1 mg 01/11/25 11:33 Glucagon Inj 1 Mg Vial IM Q15MIN PRN BG <70, and no IV access Heparin Sodium (Porcine) 5,000 unit 01/11/25 15:41 Heparin Sod Inj 1000 Unit/Ml Vial 10 Ml INDWELLCAT 01/25/25 15:40 PRN PRN After Use for Hep Lock Piperacillin/Tazobactam/Dextrose 3.375 gm in 50 mls @ 12.5 mls/hr 01/10/25 22:30 01/16/25 05:16 Zosyn IV 01/17/25 22:29 12.5 mls/hr Q6HR ANTONIA Administration Fluconazole 400 mg in 200 mls @ 100 mls/hr 01/12/25 16:02 01/16/25 09:21 Diflucan/Ns Ivpb IV 01/19/25 16:01 100 mls/hr QDAY ANTONIA Administration Acetaminophen 1,000 mg in 100 mls @ 250 mls/hr 01/14/25 11:00 01/16/25 06:13 Ofirmev Inj IV 01/18/25 06:23 250 mls/hr Q6HR ANTONIA Administration Heparin Sodium/Dextrose 25,000 unit in 250 mls @ 10 mls/hr 01/15/25 17:15 01/16/25 10:14 Heparin In D5w Ivpb IV 01/29/25 17:14 11.92 units/kg/hr .Q24H ANTONIA 12 mls/hr Protocol Titration 9.93 UNITS/KG/HR Potassium Phosphate 15 mmol in 250 mls @ 62.5 mls/hr 01/16/25 07:22 01/16/25 09:22 Pot Phos 15 Mmol In Ns 250 Ml IV 01/16/25 15:21 62.5 mls/hr Q4H ANTONIA Administration Insulin Human Lispro 0 unit 01/11/25 12:00 01/16/25 05:35 Insulin Lispro (Admelog) 1 Unit/0.01 Ml Unit SC 02/10/25 11:59 Not Given Q6HR ANTONIA Protocol Metoprolol Succinate 100 mg 01/15/25 16:00 01/16/25 09:20 Metoprolol Succinate Xl 25 Mg Tabcr PO 02/14/25 15:59 100 mg QDAY ANTONIA Administration Ondansetron HCl 4 mg 01/11/25 11:08 01/11/25 12:26 Ondansetron Inj 2 Mg/Ml Inj 2 Ml IVP 02/10/25 11:07 4 mg Q6HR PRN Administration NAUSEA OR VOMITING Protocol Oxycodone HCl 5 mg 01/15/25 10:47 01/16/25 10:13 Oxycodone Hcl 5 Mg Ir Tab PO 01/20/25 10:46 5 mg Q6HR PRN Administration PAIN SCALE 4-10(Mod-Sev Plan Summary: A 64-year-old female patient with past medical history of paroxysmal A- fib on Eliquis, hypertension, type 2 diabetes mellitus, osteoarthritis, bilateral lower extremity lymphedema, presented to the ED due to abdominal pain that radiate to the left shoulder for 2 days before admission. Patient reported that the pain started gradually epigastric and worsened over time become severe. Patient was admitted for management of pneumoperitoneum with possible peritonitis. Assessment and plan #Paroxysmal A-fib #Atrial fibrillation RVR #Pneumoperitoneum 2/2 gastric ulcer perforation s/p ex lap repair with washout and drainage placement 01/2025 #Acute post hemorrhagic anemia Patient recently diagnosed with A-fib in November 2024, she was discharged metoprolol XL 25 mg QD and Eliquis 5 mg twice daily. Patient developed abdominal pain and found to have pneumoperitoneum with possible peritonitis. Patient underwent ex lap repair on 01/12/25 Patient was noticed to have A-fib on telemetry, she was also found to have some episodes of drop in her blood pressure to the 70s systolic. Patient was started on amiodarone drip by the primary team and Eliquis was held in anticipation for surgery. Troponin was normal, EKG showed atrial fibrillation. No ischemic changes, BNP was in the 200s. Echo was done in November during her last admission and showed Normal left ventricular size and function. Estimated EF at 55-60%. The RV is normal in size. The RV systolic function is mildly decreased. The estimated RVSP, 48 mmHg. Mildly dilated left atrium. Mitral annulus calcification mitral valve thickening mild mitral regurgitation. Mild tricuspid valve regurgitation Patient was n.p.o. per the surgical team Even though the patient on amiodarone drip, heart rates remain elevated and patient remained in A-fib with RVR and diltiazem drip was started at 5 mg/h and uptitrated to 10 mg/h due to inadequate rate control. Amiodraone drip (01/10-01/14) and diltazem drip (01/13-01/14) Plan: ? Per surgery CLD started, start metoprolol XL 100 mg p.o. daily ? Per surgery, no Eliquis and heparin drip started (01/15- ) ? Keep magnesium and potassium above 2 and 4 respectively within normal range. - CTM Hgb closely at least until 01/18 as heparin drip was started and Hgb continues to slowly drop ? Keep telemonitoring ? Strict in and out #HTN Per history. Patient is taking losartan 100 mg QD at home and metoprolol XL 25 mg QD Plan: - Continue metoprolol XL 100 mg po daily as above - Hold home losartan as BP soft #Diabetes mellitus Per history. 01/2025 A1c 6.2, increased rom 5.6 in 11/2024. Is on Mounjaro 2.5 mg qwk at home. Plan: - SSI - Management per primary team #Lymphedema Per history. Takes Bumex 1 mg QD at home. Patient has net +10L of intake since admission. Per patient, legs are more swollen than usual and L>R consistently. BUN decreased to 8, likely dilutional Plan: - Resume PO Bumex 1 mg QD #Osteoarthritis Plan ? Follow-up with the primary team recommendations Thank you for your consultation please do not hesitate to reach out if you have any question or concern Patient's plan and care discussed with my attending, Dr.Anumandla Yasemin Kraft, DO Internal Medicine PGY-1 Attending Provider Attestation/Addendum I have personally seen and examined the patient separately on the above date of service and discussed the plan of care with the resident. I reviewed the resident Dr. Yasemin Kraft consultation progress note and agree with the resident findings and plan in the note above and have also edited the documentation to reflect my findings and plan. Brandin العلي M.D. Interventional Cardiology
[2025-01-16] MEDS: Magnesium Sulfate 4 GM Ivpb 4 GM/50 ML BAG IV (13:28)
--- NOTE | 2025-01-16 14:14 | ESPR_ITS ---
<Statement entered by Edd Porter MD - 01/17/25 07:11> Patient was examined with the team including attending physician. Note reviewed, I agree with the discharge plan as documented. - Edd Porter MD PGY 3 Disclaimer: The document may contain phonetic/typographic errors due to voice recognition software. Documentation for date of: 01/16/25 Subjective Subjective Interval history: Patient was seen and examined at bedside. No acute events took place overnight. Abdominal pain is improved, Patient has been declining morphine injections. Had a full liquid breakfast diet this morning and tolerated it well without nausea or vomiting Feels very bloated, reports passing gas, but has not had a bowel movement yet. Urine Pulido and NG tube removed. Exam Vital Signs Temp Pulse Resp BP Pulse Ox O2 Del Method O2 Flow Rate 97.4 F 89 23 H 95/70 97 Room Air 2 01/16/25 12:00 01/16/25 12:01/16/25 12:01/16/25 12:01/16/25 12:01/16/25 12:01/16/25 08:00 Narrative Exam Gen: Alert, drowsy secondary to strong pain meds administrations. Elderly female, well groomed. HEENT: Vision grossly intact. Patent nares. Trachea midline Respiratory: Chest normal on inspection and clear auscultation bilaterally. Cardio: RRR. No murmurs carotid bruit. No gross JVD. Abdominal: s/p surgery, surgical incisions wrapped in bandages and an abdominal binder in place. Mild tenderness to palpation, reduced bowel sounds, but present. Extensive exam postponed. JEROMY bag shows moderate drainage 25 to 50 mL. MSK/Extremities: Extremities tone within normal limits. 1+ pitting edema in b/l lower extremities up to the knees. No signs of cyanosis. Neurological: CN II - XII grossly intact. Extremity motor and sensation grossly intact. Pych: Patient has normal affect, and is cooperative Objective Labs 01/17/25 05:17 01/17/25 05:17 Labs: Laboratory Results - last 24 hr 01/15/25 01/16/25 01/16/25 16:27 00:32 05:27 WBC 7.8 RBC 3.76 L Hgb 8.9 L Hct 29.2 L MCV 78 L MCH 23.7 L MCHC 30.5 L RDW Std Deviation 54.4 H Plt Count 225 Neut % (Auto) 67 Lymph % (Auto) 19 [place] % (Auto) 12 Eos % (Auto) 1 Baso % (Auto) 0 Neut # (Auto) 5.3 Lymph # (Auto) 1.4 [place] # (Auto) 0.9 H Eos # (Auto) 0.1 Baso # (Auto) 0.0 Immature Gran # (Auto) 0.06 H Absolute Nucleated RBC 0.02 H Immature Gran % 1 H Nucleated RBC % 0 PT 12.4 H INR 1.1 APTT 25.4 54.7 H D Sodium 140 Potassium 3.8 Chloride 103 Carbon Dioxide 28.9 Anion Gap 8 BUN 8 L Creatinine 0.5 L Estim Creat Clear Calc 139.3 eGFR > 60 BUN/Creatinine Ratio 16 Glucose 129 H Calculated Osmolality 279 Calcium 8.7 Corrected Calcium 9.5 Phosphorus 1.8 L Magnesium 1.8 Total Bilirubin 0.3 AST 16 ALT 19 Alkaline Phosphatase 71 Total Protein 5.3 L Albumin 3.0 L Globulin 2.3 Albumin/Globulin Ratio 1.3 01/16/25 08:10 WBC RBC Hgb Hct MCV MCH MCHC RDW Std Deviation Plt Count Neut % (Auto) Lymph % (Auto) [place] % (Auto) Eos % (Auto) Baso % (Auto) Neut # (Auto) Lymph # (Auto) [place] # (Auto) Eos # (Auto) Baso # (Auto) Immature Gran # (Auto) Absolute Nucleated RBC Immature Gran % Nucleated RBC % PT INR APTT 43.0 H D Sodium Potassium Chloride Carbon Dioxide Anion Gap BUN Creatinine Estim Creat Clear Calc eGFR BUN/Creatinine Ratio Glucose Calculated Osmolality Calcium Corrected Calcium Phosphorus Magnesium Total Bilirubin AST ALT Alkaline Phosphatase Total Protein Albumin Globulin Albumin/Globulin Ratio Quality Measures Quality Measures VTE prophylaxis and none Advance care planning discussed with:: patient Assessment & Plan Assessment Current Active Medications: Generic Name Dose Route Start Last Admin Trade Name Freq PRN Reason Stop Dose Admin Bumetanide 1 mg 01/16/25 13:45 Bumetanide 0.5 Mg Tablet PO 02/15/25 13:44 QDAY ANTONIA Dextrose 50 ml 01/11/25 11:33 Dextrose 50%-Water Inj 50 Ml Syringe IV 02/10/25 11:32 Q15MIN PRN BG <50 OR BG <70 & pt unresponsive Fluconazole 400 mg 01/17/25 09:00 Fluconazole 100 Mg Tablet PO 01/24/25 08:59 QDAY ANTONIA Glucagon 1 mg 01/11/25 11:33 Glucagon Inj 1 Mg Vial IM Q15MIN PRN BG <70, and no IV access Heparin Sodium (Porcine) 5,000 unit 01/11/25 15:41 Heparin Sod Inj 1000 Unit/Ml Vial 10 Ml INDWELLCAT 01/25/25 15:40 PRN PRN After Use for Hep Lock Piperacillin/Tazobactam/Dextrose 3.375 gm in 50 mls @ 12.5 mls/hr 01/10/25 22:30 01/16/25 12:50 Zosyn IV 01/17/25 22:29 12.5 mls/hr Q6HR ANTONIA Administration Acetaminophen 1,000 mg in 100 mls @ 250 mls/hr 01/14/25 11:00 01/16/25 13:28 Ofirmev Inj IV 01/18/25 06:23 250 mls/hr Q6HR ANTONIA Administration Heparin Sodium/Dextrose 25,000 unit in 250 mls @ 10 mls/hr 01/15/25 17:15 01/16/25 10:14 Heparin In D5w Ivpb IV 01/29/25 17:14 11.93 units/kg/hr .Q24H ANTONIA 12.014 mls/hr Protocol Titration 9.93 UNITS/KG/HR Potassium Phosphate 15 mmol in 250 mls @ 62.5 mls/hr 01/16/25 07:22 01/16/25 13:37 Pot Phos 15 Mmol In Ns 250 Ml IV 01/16/25 15:21 62.5 mls/hr Q4H ANTONIA Administration Magnesium Sulfate 4 gm in 50 mls @ 12.5 mls/hr 01/16/25 13:21 01/16/25 13:28 Magnesium Sulfate Ivpb IV 01/16/25 17:20 12.5 mls/hr X1 ONE Administration Insulin Human Lispro 0 unit 01/11/25 12:00 01/16/25 12:50 Insulin Lispro (Admelog) 1 Unit/0.01 Ml Unit SC 02/10/25 11:59 Not Given Q6HR ANOTNIA Protocol Metoprolol Succinate 100 mg 01/15/25 16:00 01/16/25 09:20 Metoprolol Succinate Xl 25 Mg Tabcr PO 02/14/25 15:59 100 mg QDAY ANTONIA Administration Ondansetron HCl 4 mg 01/11/25 11:08 01/11/25 12:26 Ondansetron Inj 2 Mg/Ml Inj 2 Ml IVP 02/10/25 11:07 4 mg Q6HR PRN Administration NAUSEA OR VOMITING Protocol Oxycodone HCl 5 mg 01/15/25 10:47 01/16/25 10:13 Oxycodone Hcl 5 Mg Ir Tab PO 01/20/25 10:46 5 mg Q6HR PRN Administration PAIN SCALE 4-10(Mod-Sev Plan Patient is a 64-year-old female past medical history significant for paroxysmal atrial fibrillation on Eliquis, primary hypertension, [id number] diabetes mellitus type 2 [6.2%], osteoarthritis of bilateral knees and chronic bilateral lower extremity lymphedema presenting with a chief complaint of acute onset generalized abdominal pain over the past 48 hours. Patient was admitted to ICU for management of worsening pneumoperitoneum, GI perforation and empiric management/prevention of peritonitis. Patient is downgraded from ICU s/p Exploratory laparotomy, repair of gastric perforation with Tommy patch, washout and drain placement. Patient was started on diltiazem drip 10 mg/h and later transitioned to metoprolol p.o. 100 mg daily upon removal of the NGT. Patient started on heparin ACS protocol on 01/15 for continued anticoagulation in the setting of chronic atrial fibrillation. Physical therapy as tolerated with abdominal binder and bed to chair order. Transitioned to p.o. meds and fluconazole GI prophylaxis 400 mg. Patient was bloated on 01/15-, reported ability to pass gas, but had not had a bowel movement yet. 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 Exploratory laparotomy, repair of gastric perforation with Tommy patch, washout and drain placement on 01/12/25 On 01/16 JEROMY vacuum shows 25-50 mL of serosanguineous drainage - NGT discharged and diet advanced to diabetic full liquid - Morphine 2mg Q4h PRN - Monitor JEROMY output, anticipate d/c in the next 48h - Physical therapy ordered, as tolerated with abdominal binder - Physical therapy, OK to get out of bed as tolerated with abdominal binder, bed to chair order - Continue Zosyn 3.375 gm Q6H (started on 01/12/25) - Flucanazol PO 400mg for GI prophylaxis beginning 01/17, transitioned from IV #Atrial fibrillation?paroxysmal At home patient was on metoprolol XL and apixaban. [id number] 4 points. [4.8% stroke risk per year] From telemetry monitoring patient alternates between A-fib and sinus. Rate controlled. Rx: ? Metoprolol p.o. 100 mg daily - Started ACS heparin protocol with 12 units/kg/h for continued anticoagulation before transitioning to home Eliquis after general surgery recommendations - Monitor PTT/INR for heparin dose adjustment - Holding eliquis until cleared by surgery, anticipate 01/15 #History of primary hypertension - Will continue to monitor, patient currently normotensive #Microcytic anemia- stable Hgb of 8.9, Hct of 29.2 (01/16) - Cont to monitor daily CBC - Tranfuse if Hgb drops under 7. #ANNALISA - resolved #Multiple abdominal wall hernia repairs #Leukocytosis, resolved Health Maintenance: Code Status: Full DVT Prophylaxis: on heparin per ACS protocol GI Prophylaxis: IV 20mg Protonix bid Diet: Diabetic full liquid Lines: PIV Supplemental O2: None Disposition: will be d/c to home post recovery, pending surgery clearance for discharge Patient seen and care discussed with my attending physician, Dr. Dickinson and my senior residents, Dr. Porter and Dr. Swapnil Perez DO PGY 1 Attending Provider Attestation/Addendum Blane, Estrellita Silvestre DO, attest that I was physically present for the garcia portions of the service and evaluated the patient with the resident and I reviewed and discussed the case with the resident and agree with the resident's findings and plans of care as documented above Patient seen and eval this a.m. Patient is alert and states she is feeling well. She currently denies any active pain. Abdominal binder is in place. Dressing is clean dry and intact. JEROMY drain with bile 40 mL of serosanguineous fluid. Patient currently tolerating oral intake. Diet to be advanced by surgery. She remains on heparin drip at this time. Will monitor H&H closely. She states that she had a bowel movement today. She also sat up in her chair for an hour and states she is feeling stronger today. No acute events overnight otherwise.
[2025-01-16] MEDS: FAMOTIDINE INJ 10 MG/ML VIAL 2 ML 20 MG IVP (15:11)
[2025-01-16] MEDS: BUMETANIDE 0.5 MG TABLET 1 MG PO (15:12)
--- NOTE | 2025-01-16 15:48 | PC.SS ---
Rounding note: post op, d/c in 2-3 days.
[2025-01-16 17:25] LABS: Partial Thromboplastin Time 51.3 Seconds (22.0-36.0)
[2025-01-16] MEDS: Heparin/D5w 25K 250 ML Ivpb 25,000 UNIT/250 ML BAG 12.014 UNIT IV (17:56)
[2025-01-16 23:39] LABS: Partial Thromboplastin Time 54.9 Seconds (22.0-36.0)
[2025-01-17] VITALS (9 sets, daily range): BP systolic 103–126; BP diastolic 67–84; PULSE 82–119; RESP 15–22; TEMP 35.9–36.6; O2SAT 95–100
[2025-01-17] MEDS: ACETAMINOPHEN IVPB 1,000 MG/100 ML VIAL 250 MG IV ×2 (01:27→06:14)
[2025-01-17 05:34] LABS: Basophils # (Auto) 0.0 Thou/mm3 (0.0-0.2); Basophils % (Auto) 0 % (0-2.5); Eosinophils # (Auto) 0.2 Thou/mm3 (0.0-0.5); Eosinophils % (Auto) 2 % (0-10); Hematocrit 26.0 % (36.0-46.0); Immature Granulocytes Auto 0.14 Thou/mm3 (0.00-0.00); Lymphocytes # (Auto) 2.0 Thou/mm3 (1.0-4.8); Lymphocytes % (Auto) 21 % (10-50); Mean Corpuscular HGB Conc 30.4 g/dl (31.0-37.0); Mean Corpuscular Hemoglobin 23.2 pg (25.0-35.0); Mean Corpuscular Volume 77 fL (80-100); Monocytes # (Auto) 1.1 Thou/mm3 (0.0-0.8); Monocytes % (Auto) 11 % (0-12); Neutrophils # (Auto) 6.2 Thou/mm3 (1.8-7.7); Neutrophils % (Auto) 64 % (37-80); Nucleated Red Blood Cell # 0.03 Thou/mm3 (0.00-0.00); Nucleated Red Blood Cell % 0 /100 WBC (0); Platelet Count 215 Thou/mm3 (140-440); RDW Standard Deviation 53.8 fL (36.4-46.3); Red Blood Count 3.40 Miln/mm3 (4.00-5.20); White Blood Count 9.6 Thou/mm3 (3.6-11.0)
[2025-01-17 05:35] LABS: Hemoglobin 7.9 g/dL (12.0-16.0)
[2025-01-17] MEDS: oxyCODONE HCL 5 MG IR TAB PO ×3 (05:36→20:53)
[2025-01-17] MEDS: PIPER/TAZO 3.375 GM PREMIX 3.375 GM/50 ML BAG IV (05:37)
[2025-01-17 05:47] LABS: INR 1.2 (0.9-1.3); Partial Thromboplastin Time 48.7 Seconds (22.0-36.0); Prothrombin Time 13.3 Seconds (9.0-12.2)
[2025-01-17 06:14] LABS: Alanine Aminotransferase 17 U/L (10-49); Albumin, Serum 2.9 gm/dL (3.4-4.8); Albumin/Globulin Ratio 1.3 (1.2-2.2); Alkaline Phosphatase 70 U/L (46-116); Anion Gap 7 (7-16); Aspartate Amino Transferase 16 U/L (0-34); BUN/Creatinine Ratio 18 Ratio (12-20); Bilirubin,Total 0.2 mg/dL (0.3-1.2); Blood Urea Nitrogen 9 mg/dL (9-23); Calcium 8.5 mg/dL (8.3-10.6); Calcium (Corrected) 9.4 mg/dL (8.5-10.1); Carbon Dioxide 30.4 mMol/L (20.0-31.0); Chloride 103 mMol/L (98-107); Creatinine (Component) 0.5 mg/dL (0.6-1.3); Estimated Creatinine Clearance 139.3 mL/min (>60); Globulin 2.2 gm/dL (2.3-3.5); Glucose 127 mg/dL (74-106); Magnesium 1.9 mg/dL (1.6-2.6); Osmolality,Calculated 280 (275-295); Phosphorous 2.8 mg/dL (2.4-5.1); Potassium 4.2 mMol/L (3.4-5.1); Sodium 140 mMol/L (136-145); Total Protein 5.1 gm/dL (5.7-8.2); eGFR > 60 See Note
[2025-01-17] MEDS: HEPARIN SOD INJ 5000 UNIT/ML VIAL 2000 UNIT IV (07:43)
--- NOTE | 2025-01-17 09:33 | PD.RESPRO ---
Documentation for date of: 01/17/25 Subjective Subjective Interval history: . Patient denied any new symptoms, having regular bowel movements, patient tolerating clear liquid diet with no issues. Upon review of her reports for the past 24 hours it showed that her heart rate started to uptrend from 8 AM this morning to become 127 bpm in A-fib. Blood pressure is 127/72. Her potassium today is 4.2, magnesium is 1.9, phosphate 2.8. Patient is on metoprolol 100 mg p.o. daily and heparin drip Exam Vital Signs Temp Pulse Resp BP Pulse Ox O2 Del Method O2 Flow Rate 97.0 F 82 21 H 125/72 100 Nasal Cannula 2 01/17/25 08:00 01/17/25 08:00 01/17/25 08:00 01/17/25 08:00 01/17/25 08:00 01/17/25 08:00 01/17/25 08:00 Narrative Exam GEN: AOx3, was sitting on the commode comfortably, able to speak full sentences HEENT: NC/AC, PERRLA, oral mucosa dry, neck supple CVS: RRR, S1-S2 present, no murmurs appreciated RESP: CTAB GI: Multiple surgical scar, nondistended, mild discomfort on palpation, Normal active bowel sounds MSK: able to move all 4 limbs, trace extremity edema specially on the feet SKIN: warm and dry RISK ENGINEER: CN II-XII and Sensation grossly intact. Objective Labs 01/17/25 11:20 01/17/25 05:17 Labs: Laboratory Results - last 24 hr 01/16/25 01/16/25 01/16/25 08:10 16:38 23:00 WBC RBC Hgb Hct MCV MCH MCHC RDW Std Deviation Plt Count Neut % (Auto) Lymph % (Auto) [place] % (Auto) Eos % (Auto) Baso % (Auto) Neut # (Auto) Lymph # (Auto) [place] # (Auto) Eos # (Auto) Baso # (Auto) Immature Gran # (Auto) Absolute Nucleated RBC Immature Gran % Nucleated RBC % PT INR APTT 43.0 H D 51.3 H 54.9 H Sodium Potassium Chloride Carbon Dioxide Anion Gap BUN Creatinine Estim Creat Clear Calc eGFR BUN/Creatinine Ratio Glucose Calculated Osmolality Calcium Corrected Calcium Phosphorus Magnesium Total Bilirubin AST ALT Alkaline Phosphatase Total Protein Albumin Globulin Albumin/Globulin Ratio 01/17/25 05:17 WBC 9.6 RBC 3.40 L Hgb 7.9 L Hct 26.0 L MCV 77 L MCH 23.2 L MCHC 30.4 L RDW Std Deviation 53.8 H Plt Count 215 Neut % (Auto) 64 Lymph % (Auto) 21 [place] % (Auto) 11 Eos % (Auto) 2 Baso % (Auto) 0 Neut # (Auto) 6.2 Lymph # (Auto) 2.0 [place] # (Auto) 1.1 H Eos # (Auto) 0.2 Baso # (Auto) 0.0 Immature Gran # (Auto) 0.14 H Absolute Nucleated RBC 0.03 H Immature Gran % 2 H Nucleated RBC % 0 PT 13.3 H INR 1.2 APTT 48.7 H Sodium 140 Potassium 4.2 Chloride 103 Carbon Dioxide 30.4 Anion Gap 7 BUN 9 Creatinine 0.5 L Estim Creat Clear Calc 139.3 eGFR > 60 BUN/Creatinine Ratio 18 Glucose 127 H Calculated Osmolality 280 Calcium 8.5 Corrected Calcium 9.4 Phosphorus 2.8 Magnesium 1.9 Total Bilirubin 0.2 L AST 16 ALT 17 Alkaline Phosphatase 70 Total Protein 5.1 L Albumin 2.9 L Globulin 2.2 L Albumin/Globulin Ratio 1.3 Quality Measures Quality Measures VTE prophylaxis and none Advance care planning discussed with:: patient Assessment & Plan Assessment Current Active Medications: Generic Name Dose Route Start Last Admin Trade Name Freq PRN Reason Stop Dose Admin Bumetanide 1 mg 01/16/25 13:45 01/16/25 15:12 Bumetanide 0.5 Mg Tablet PO 02/15/25 13:44 1 mg QDAY ANTONIA Administration Dextrose 50 ml 01/11/25 11:33 Dextrose 50%-Water Inj 50 Ml Syringe IV 02/10/25 11:32 Q15MIN PRN BG <50 OR BG <70 & pt unresponsive Famotidine 20 mg 01/16/25 15:00 01/16/25 15:11 Famotidine Inj 10 Mg/Ml Vial 2 Ml IVP 02/15/25 14:59 20 mg BID ANTONIA Administration Fluconazole 400 mg 01/17/25 09:00 Fluconazole 100 Mg Tablet PO 01/24/25 08:59 QDAY ANTONIA Glucagon 1 mg 01/11/25 11:33 Glucagon Inj 1 Mg Vial IM Q15MIN PRN BG <70, and no IV access Heparin Sodium (Porcine) 5,000 unit 01/11/25 15:41 Heparin Sod Inj 1000 Unit/Ml Vial 10 Ml INDWELLCAT 01/25/25 15:40 PRN PRN After Use for Hep Lock Piperacillin/Tazobactam/Dextrose 3.375 gm in 50 mls @ 12.5 mls/hr 01/10/25 22:30 01/17/25 05:37 Zosyn IV 01/17/25 22:29 12.5 mls/hr Q6HR ANTONIA Administration Acetaminophen 1,000 mg in 100 mls @ 250 mls/hr 01/14/25 11:00 01/17/25 06:14 Ofirmev Inj IV 01/18/25 06:23 250 mls/hr Q6HR ANTONIA Administration Heparin Sodium/Dextrose 25,000 unit in 250 mls @ 10 mls/hr 01/15/25 17:15 01/17/25 07:43 Heparin In D5w Ivpb IV 01/29/25 17:14 13.93 units/kg/hr .Q24H ANTONIA 14.028 mls/hr Protocol Titration 9.93 UNITS/KG/HR Magnesium Sulfate 2 gm in 50 mls @ 25 mls/hr 01/17/25 08:15 Magnesium Sulfate Ivpb IV 01/17/25 10:14 X1 ONE Insulin Human Lispro 0 unit 01/11/25 12:00 01/17/25 05:26 Insulin Lispro (Admelog) 1 Unit/0.01 Ml Unit SC 02/10/25 11:59 Not Given Q6HR ANTONIA Protocol Metoprolol Succinate 100 mg 01/15/25 16:00 01/16/25 09:20 Metoprolol Succinate Xl 25 Mg Tabcr PO 02/14/25 15:59 100 mg QDAY ANTONIA Administration Ondansetron HCl 4 mg 01/11/25 11:08 01/11/25 12:26 Ondansetron Inj 2 Mg/Ml Inj 2 Ml IVP 02/10/25 11:07 4 mg Q6HR PRN Administration NAUSEA OR VOMITING Protocol Oxycodone HCl 5 mg 01/15/25 10:47 01/17/25 05:36 Oxycodone Hcl 5 Mg Ir Tab PO 01/20/25 10:46 5 mg Q6HR PRN Administration PAIN SCALE 4-10(Mod-Sev Plan Summary: A 64-year-old female patient with past medical history of paroxysmal A-fib on Eliquis, hypertension, type 2 diabetes mellitus, osteoarthritis, bilateral lower extremity lymphedema, presented to the ED due to abdominal pain that radiate to the left shoulder for 2 days before admission. Patient reported that the pain started gradually epigastric and worsened over time become severe. Patient was admitted for management of pneumoperitoneum with possible peritonitis. Assessment and plan #Paroxysmal A-fib #Atrial fibrillation RVR #Pneumoperitoneum 2/2 gastric ulcer perforation s/p ex lap repair with washout and drainage placement 01/2025 #Acute post hemorrhagic anemia Patient recently diagnosed with A-fib in November 2024, she was discharged metoprolol XL 25 mg QD and Eliquis 5 mg twice daily. Patient developed abdominal pain and found to have pneumoperitoneum with possible peritonitis. Patient underwent ex lap repair on 01/12/25 Patient was noticed to have A-fib on telemetry, she was also found to have some episodes of drop in her blood pressure to the 70s systolic. Patient was started on amiodarone drip by the primary team and Eliquis was held in anticipation for surgery. Troponin was normal, EKG showed atrial fibrillation. No ischemic changes, BNP was in the 200s. Echo was done in November during her last admission and showed Normal left ventricular size and function. Estimated EF at 55-60%. The RV is normal in size. The RV systolic function is mildly decreased. The estimated RVSP, 48 mmHg. Mildly dilated left atrium. Mitral annulus calcification mitral valve thickening mild mitral regurgitation. Mild tricuspid valve regurgitation Patient was n.p.o. per the surgical team Even though the patient on amiodarone drip, heart rates remain elevated and patient remained in A-fib with RVR and diltiazem drip was started at 5 mg/h and uptitrated to 10 mg/h due to inadequate rate control. Amiodraone drip (01/10-01/14) and diltazem drip (01/13-01/14) 01/17/2025, heart rate noted to start uptrending from 8 AM today. patient noted to have heart rate of 127 BPM, A-fib, however blood pressure was stable at 125/72. Please continue to monitor at the patient's heart rate continued to be above 115 we might increase the dose of metoprolol to 100 mg twice daily blood pressure's stable Plan: ? Continue metoprolol XL 100 mg p.o. daily ? Okay TO give the patient 1 dose of metoprolol XL 25 mg p.o. x 1 if her heart rate still above 115 BPM ? Continue Eliquis at 5 mg p.o. twice daily after was cleared by general surgery team ? Keep magnesium and potassium above 2 and 4 respectively within normal range. - CTM Hgb closely at least until 01/18 as heparin drip was started and Hgb continues to slowly drop ? Keep telemonitoring ? Strict in and out #HTN Per history. Patient is taking losartan 100 mg QD at home and metoprolol XL 25 mg QD Plan: - Continue metoprolol XL as above - Hold home losartan as BP soft. #Diabetes mellitus Per history. 01/2025 A1c 6.2, increased rom 5.6 in 11/2024. Is on Mounjaro 2.5 mg qwk at home. Plan: - SSI - Management per primary team #Lymphedema Per history. Takes Bumex 1 mg QD at home. Patient has net +10L of intake since admission. Per patient, legs are more swollen than usual and L>R consistently. BUN decreased to 8, likely dilutional Plan: - Resume PO Bumex 1 mg QD #Osteoarthritis Plan ? Follow-up with the primary team recommendations Thank you for your consultation please do not hesitate to reach out if you have any question or concern - Patient's plan and care discussed with my attending, Dr. Severiano Boykin MD Internal Medicine PGY-3 Attending Provider Attestation/Addendum I have personally seen and examined the patient separately on the above date of service and discussed the plan of care with the resident. I reviewed the resident Dr. Boykin consultation progress note and agree with the resident findings and plan in the note above and have also edited the documentation to reflect my findings and plan. Brandin العلي M.D. Interventional Cardiology
[2025-01-17] MEDS: Magnesium Sulfate 2 GM Ivpb 2 GM/50 ML BAG IV (09:45)
[2025-01-17] MEDS: FLUCONAZOLE 100 MG TABLET 400 MG PO (09:46)
[2025-01-17] MEDS: METOPROLOL SUCCINATE XL 25 MG TABCR 100 MG PO (09:46)
[2025-01-17] MEDS: FAMOTIDINE INJ 10 MG/ML VIAL 2 ML 20 MG IVP ×2 (09:47→20:54)
[2025-01-17] MEDS: BUMETANIDE 0.5 MG TABLET 1 MG PO (09:47)
[2025-01-17 11:31] LABS: Hematocrit 28.4 % (36.0-46.0)
[2025-01-17 11:34] LABS: Hemoglobin 8.6 g/dL (12.0-16.0)
[2025-01-17] MEDS: IRON SUCROSE CPLX INJ 20 MG/ML VIAL 5 ML 200 MG IVP (12:58)
[2025-01-17] MEDS: INSULIN LISPRO (AdmeLOG) 1 UNIT/0.01 ML UNIT SC (12:59)
--- NOTE | 2025-01-17 13:01 | ESPR_ITS ---
<Statement entered by Perico Harrell MD - 01/17/25 13:16> No acute overnight events. Seen and examined at bedside and reported to have a bowel movement today and tolerating diet well. Will continue with p.o. pain regimen that is working well for her. Hemoglobin downtrending to 7.9 today and repeat H&H showed improvement up to 8.6. Touch base with general surgery and in agreement to DC heparin drip and started Eliquis today. Otherwise, advancing diet to PUD and central line discontinued. ----- Note reviewed and agree with care plan as documented. Please refer to the note below for further details. Plan discussed with attending physician Dr. Nirmala Harrell MD PGY-2 Internal Medicine Documentation for date of: 01/17/25 Subjective Subjective Interval history: Patient was seen and examined at bedside. No acute events took place overnight. Patient has had BM at her bedside commode multiple times today. Abdominal pain is improved, Patient has been declining morphine injections. She said that she misses her home and cats, and desires to be discharged in the face of improved clinical picture. Had a full liquid breakfast diet this morning and tolerated it well without nausea or vomiting Exam Vital Signs Temp Pulse Resp BP Pulse Ox O2 Del Method O2 Flow Rate 97.0 F 82 21 H 125/72 100 Nasal Cannula 2 01/17/25 08:00 01/17/25 09:47 01/17/25 08:00 01/17/25 09:47 01/17/25 08:00 01/17/25 08:00 01/17/25 08:00 Narrative Exam Gen: Alert, drowsy secondary to strong pain meds administrations. Elderly female, well groomed. HEENT: Vision grossly intact. Patent nares. Trachea midline Respiratory: Chest normal on inspection and clear auscultation bilaterally. Cardio: RRR. No murmurs carotid bruit. No gross JVD. Abdominal: s/p surgery, surgical incisions wrapped in bandages and an abdominal binder in place. Mild tenderness to palpation, reduced bowel sounds, but present. Extensive exam postponed. JEROMY bag shows moderate drainage 25 to 50 mL. MSK/Extremities: Extremities tone within normal limits. 1+ pitting edema in b/l lower extremities up to the knees. No signs of cyanosis. Neurological: CN II - XII grossly intact. Extremity motor and sensation grossly intact. Pych: Patient has normal affect, and is cooperative Objective Labs 01/18/25 05:03 01/18/25 05:03 Labs: Laboratory Results - last 24 hr 01/16/25 01/16/25 01/17/25 16:38 23:00 05:17 WBC 9.6 RBC 3.40 L Hgb 7.9 L Hct 26.0 L MCV 77 L MCH 23.2 L MCHC 30.4 L RDW Std Deviation 53.8 H Plt Count 215 Neut % (Auto) 64 Lymph % (Auto) 21 [place] % (Auto) 11 Eos % (Auto) 2 Baso % (Auto) 0 Neut # (Auto) 6.2 Lymph # (Auto) 2.0 [place] # (Auto) 1.1 H Eos # (Auto) 0.2 Baso # (Auto) 0.0 Immature Gran # (Auto) 0.14 H Absolute Nucleated RBC 0.03 H Immature Gran % 2 H Nucleated RBC % 0 PT 13.3 H INR 1.2 APTT 51.3 H 54.9 H 48.7 H Sodium 140 Potassium 4.2 Chloride 103 Carbon Dioxide 30.4 Anion Gap 7 BUN 9 Creatinine 0.5 L Estim Creat Clear Calc 139.3 eGFR > 60 BUN/Creatinine Ratio 18 Glucose 127 H Calculated Osmolality 280 Calcium 8.5 Corrected Calcium 9.4 Phosphorus 2.8 Magnesium 1.9 Total Bilirubin 0.2 L AST 16 ALT 17 Alkaline Phosphatase 70 Total Protein 5.1 L Albumin 2.9 L Globulin 2.2 L Albumin/Globulin Ratio 1.3 01/17/25 11:20 WBC RBC Hgb 8.6 L Hct 28.4 L MCV MCH MCHC RDW Std Deviation Plt Count Neut % (Auto) Lymph % (Auto) [place] % (Auto) Eos % (Auto) Baso % (Auto) Neut # (Auto) Lymph # (Auto) [place] # (Auto) Eos # (Auto) Baso # (Auto) Immature Gran # (Auto) Absolute Nucleated RBC Immature Gran % Nucleated RBC % PT INR APTT Sodium Potassium Chloride Carbon Dioxide Anion Gap BUN Creatinine Estim Creat Clear Calc eGFR BUN/Creatinine Ratio Glucose Calculated Osmolality Calcium Corrected Calcium Phosphorus Magnesium Total Bilirubin AST ALT Alkaline Phosphatase Total Protein Albumin Globulin Albumin/Globulin Ratio Quality Measures Quality Measures VTE prophylaxis and none Advance care planning discussed with:: patient Assessment & Plan Assessment Current Active Medications: Generic Name Dose Route Start Last Admin Trade Name Freq PRN Reason Stop Dose Admin Apixaban 5 mg 01/17/25 11:50 Apixaban 2.5 Mg Tablet PO 02/16/25 11:49 BID ANTONIA Bumetanide 1 mg 01/16/25 13:45 01/17/25 09:47 Bumetanide 0.5 Mg Tablet PO 02/15/25 13:44 1 mg QDAY ANTONIA Administration Dextrose 50 ml 01/11/25 11:33 Dextrose 50%-Water Inj 50 Ml Syringe IV 02/10/25 11:32 Q15MIN PRN BG <50 OR BG <70 & pt unresponsive Famotidine 20 mg 01/16/25 15:00 01/17/25 09:47 Famotidine Inj 10 Mg/Ml Vial 2 Ml IVP 02/15/25 14:59 20 mg BID ANTONIA Administration Fluconazole 400 mg 01/17/25 09:00 01/17/25 09:46 Fluconazole 100 Mg Tablet PO 01/24/25 08:59 400 mg QDAY ANTONIA Administration Glucagon 1 mg 01/11/25 11:33 Glucagon Inj 1 Mg Vial IM Q15MIN PRN BG <70, and no IV access Acetaminophen 1,000 mg in 100 mls @ 250 mls/hr 01/14/25 11:00 01/17/25 12:52 Ofirmev Inj IV Not Given On Hold: 01/17/25 12:02 Q6HR [facility] Insulin Human Lispro 0 unit 01/11/25 12:00 01/17/25 05:26 Insulin Lispro (Admelog) 1 Unit/0.01 Ml Unit SC 02/10/25 11:59 Not Given Q6HR [facility] Protocol Iron Sucrose 200 mg 01/17/25 12:00 Iron Sucrose Cplx Inj 20 Mg/Ml Vial 5 Ml IVP 01/22/25 11:59 QDAY ANTONIA Metoprolol Succinate 100 mg 01/15/25 16:00 01/17/25 09:46 Metoprolol Succinate Xl 25 Mg Tabcr PO 02/14/25 15:59 100 mg QDAY ANTONIA Administration Ondansetron HCl 4 mg 01/11/25 11:08 01/11/25 12:26 Ondansetron Inj 2 Mg/Ml Inj 2 Ml IVP 02/10/25 11:07 4 mg Q6HR PRN Administration NAUSEA OR VOMITING Protocol Oxycodone HCl 5 mg 01/15/25 10:47 01/17/25 05:36 Oxycodone Hcl 5 Mg Ir Tab PO 01/20/25 10:46 5 mg Q6HR PRN Administration PAIN SCALE 4-10(Mod-Sev Plan Patient is a 64-year-old female past medical history significant for paroxysmal atrial fibrillation on Eliquis, primary hypertension, scz-wsefepi-xfnvoifja diabetes mellitus type 2 [6.2%], osteoarthritis of bilateral knees and chronic bilateral lower extremity lymphedema presenting with a chief complaint of acute onset generalized abdominal pain over the past 48 hours. Patient was admitted to ICU for management of worsening pneumoperitoneum, GI perforation and empiric management/prevention of peritonitis. Patient is downgraded from ICU s/p Exploratory laparotomy, repair of gastric perforation with Tommy patch, washout and drain placement. Patient was started on diltiazem drip 10 mg/h and later transitioned to metoprolol p.o. 100 mg daily upon removal of the NGT. Patient started on heparin ACS protocol on 01/15 for continued anticoagulation in the setting of chronic atrial fibrillation. Physical therapy as tolerated with abdominal binder and bed to chair order. Transitioned to p.o. meds and fluconazole GI prophylaxis 400 mg. Patient was bloated on 01/15-, reported ability to pass gas, but had not had a bowel movement yet. On 01/17, patient was already having bowel movement on advancing diet to PUD/GERD/bland which she tolerated well. Repeat H&H showed hemoglobin stable at 8.6, and the surgeon recommended switching heparin drip to Eliquis. 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 Exploratory laparotomy, repair of gastric perforation with Tommy patch, washout and drain placement on 01/12/25 On 01/16 JEROMY vacuum shows 25-50 mL of serosanguineous drainage - Diet advanced to PUD/GERD/bland - Morphine 2mg Q4h PRN - Monitor JEROMY output, anticipate d/c in the next 48h - Physical therapy ordered, as tolerated with abdominal binder - Physical therapy, OK to get out of bed as tolerated with abdominal binder, bed to chair order - Continue Zosyn 3.375 g Q6H (started on 01/12/25) - Flucanazol PO 400mg for GI prophylaxis beginning 01/17, transitioned from IV #Atrial fibrillation?paroxysmal At home patient was on metoprolol XL and apixaban. [id number] 4 points. [4.8% stroke risk per year] From telemetry monitoring patient alternates between A-fib and sinus. Rate controlled. Rx: ? Metoprolol p.o. 100 mg daily ? Metoprolol p.o. 25 mg as needed for HR >115 - STOP ACS heparin protocol with 12 units/kg/h for continued anticoagulation before transitioning to home Eliquis after general surgery recommendations (01/15 -) ? Eliquis p.o. 5 mg twice daily #History of primary hypertension - Will continue to monitor, patient currently normotensive #Microcytic anemia- stable Hgb of 7.9, Hct of 26.0 (01/17), repeat H&H same day Hgb 8.6, HCT 28.4 stable - Cont to monitor daily CBC - Tranfuse if Hgb drops under 7. #ANNALISA - resolved #Multiple abdominal wall hernia repairs #Leukocytosis, resolved Health Maintenance: Code Status: Full DVT Prophylaxis: Eliquis p.o. 5 mg twice daily GI Prophylaxis: IV 20mg Protonix bid Diet: PUD/GERD/bland Lines: PIV Supplemental O2: None Disposition: will be d/c to home post recovery, pending surgery clearance for discharge, anticipate discharge within the next 24 hours Patient seen and care discussed with my attending physician, Dr. Dickinson and my senior residents, Dr. Porter and Dr. Swapnil Perez DO PGY 1 Attending Provider Attestation/Addendum I, Estrellita Silvestre DO, attest that I was physically present for the garcia portions of the service and evaluated the patient with the resident and I reviewed and discussed the case with the resident and agree with the resident's findings and plans of care as documented above Patient seen and eval this a.m. Patient is anxious and tearful to go home. She has been tolerating full liquid diet. Will DC central line today. H/H has been stable. Will DC heparin drip and transition to Eliquis. JEROMY drain has about 25mL of serosanguinous fluid. Pain is well controlled. Advancing diet to PUD. Patient does not want to go to SNF as she would like to be with her cat at home. Anticipate DC within next 24h with home health if patient remains stable.
[2025-01-17] MEDS: APIXABAN 2.5 MG TABLET 5 MG PO ×2 (14:28→20:54)
--- NOTE | 2025-01-17 22:31 | PC.NURSE ---
PT WITH O2 SATS AT 78% ON ROOM AIR. UPON ENTERING ROOM, PT STATES SHE WAS ASLEEP. 2L NC PLACED. O2 SATS NOW AT 94%. NO C/O SOB.
[2025-01-18] VITALS (11 sets, daily range): BP systolic 92–123; BP diastolic 63–78; PULSE 79–117; RESP 13–22; TEMP 36–36.5; O2SAT 95–100
[2025-01-18 05:34] LABS: Basophils # (Auto) 0.1 Thou/mm3 (0.0-0.2); Basophils % (Auto) 0 % (0-2.5); Eosinophils # (Auto) 0.2 Thou/mm3 (0.0-0.5); Eosinophils % (Auto) 2 % (0-10); Hematocrit 26.7 % (36.0-46.0); Immature Granulocytes Auto 0.28 Thou/mm3 (0.00-0.00); Lymphocytes # (Auto) 2.3 Thou/mm3 (1.0-4.8); Lymphocytes % (Auto) 18 % (10-50); Mean Corpuscular HGB Conc 30.3 g/dl (31.0-37.0); Mean Corpuscular Hemoglobin 23.8 pg (25.0-35.0); Mean Corpuscular Volume 79 fL (80-100); Monocytes # (Auto) 1.4 Thou/mm3 (0.0-0.8); Monocytes % (Auto) 12 % (0-12); Neutrophils # (Auto) 8.1 Thou/mm3 (1.8-7.7); Neutrophils % (Auto) 66 % (37-80); Nucleated Red Blood Cell # 0.09 Thou/mm3 (0.00-0.00); Nucleated Red Blood Cell % 1 /100 WBC (0); Platelet Count 241 Thou/mm3 (140-440); RDW Standard Deviation 54.6 fL (36.4-46.3); Red Blood Count 3.40 Miln/mm3 (4.00-5.20); White Blood Count 12.3 Thou/mm3 (3.6-11.0)
[2025-01-18] MEDS: oxyCODONE HCL 5 MG IR TAB PO ×3 (06:00→18:15)
[2025-01-18 06:07] LABS: Hemoglobin 8.1 g/dL (12.0-16.0)
[2025-01-18 06:20] LABS: Alanine Aminotransferase 19 U/L (10-49); Albumin, Serum 2.9 gm/dL (3.4-4.8); Albumin/Globulin Ratio 1.2 (1.2-2.2); Alkaline Phosphatase 79 U/L (46-116); Anion Gap 9 (7-16); Aspartate Amino Transferase 31 U/L (0-34); BUN/Creatinine Ratio 10 Ratio (12-20); Bilirubin,Total 0.2 mg/dL (0.3-1.2); Blood Urea Nitrogen 6 mg/dL (9-23); Calcium 9.0 mg/dL (8.3-10.6); Calcium (Corrected) 9.9 mg/dL (8.5-10.1); Carbon Dioxide 28.0 mMol/L (20.0-31.0); Chloride 101 mMol/L (98-107); Creatinine (Component) 0.6 mg/dL (0.6-1.3); Estimated Creatinine Clearance 116.0 mL/min (>60); Globulin 2.4 gm/dL (2.3-3.5); Glucose 116 mg/dL (74-106); Magnesium 2.0 mg/dL (1.6-2.6); Osmolality,Calculated 274 (275-295); Phosphorous 3.0 mg/dL (2.4-5.1); Potassium 4.7 mMol/L (3.4-5.1); Sodium 138 mMol/L (136-145); Total Protein 5.3 gm/dL (5.7-8.2); eGFR > 60 See Note
[2025-01-18] MEDS: APIXABAN 2.5 MG TABLET 5 MG PO ×2 (08:55→20:29)
[2025-01-18] MEDS: METOPROLOL SUCCINATE XL 25 MG TABCR 100 MG PO (08:55)
[2025-01-18] MEDS: BUMETANIDE 0.5 MG TABLET 1 MG PO (08:56)
[2025-01-18] MEDS: FLUCONAZOLE 100 MG TABLET 400 MG PO (08:56)
[2025-01-18] MEDS: ONDANSETRON INJ 2 MG/ML INJ 2 ML 4 MG IVP (08:57)
[2025-01-18] MEDS: FAMOTIDINE INJ 10 MG/ML VIAL 2 ML 20 MG IVP ×2 (08:57→20:30)
--- NOTE | 2025-01-18 09:13 | PC.SS ---
Patient needs a FWW for home. The diagnosis creates mobility limitation that significantly impairs ability to participate in the patients activities of daily living either in their entirety, or in a reasonable time frame. Also the patient is able to safely use the walker and the patient?s mobility is sufficiently resolved with the use of the walker and cane has been ruled out. Patient needs a bsc for home. Patient is physically incapable of utilizing regular toilet facilities because his or her diagnosis confines the patient to a single room. Patient is confined to a single level, and there is no toilet on that level; patient cannot access the toilet facilities in a timely manner due to lack of ambulation.
--- NOTE | 2025-01-18 09:40 | PC.SS ---
Follow up note: SS ordered walker and bsc for home. Patient to d/c home with HH services. Patient's family to assist in her care.
[2025-01-18] MEDS: IRON SUCROSE CPLX INJ 20 MG/ML VIAL 5 ML 200 MG IVP (10:56)
--- NOTE | 2025-01-18 11:05 | PC.SS ---
SS spoke to floor nurse to inquire if patient needs home 02. Floor nurse states patient does not need home 02. Patient currently on room air and saturating well. Patient to d/c home today
--- NOTE | 2025-01-18 11:38 | ESDS_ITS ---
<Statement entered by Estrellita Silvestre DO - 01/19/25 07:37> I, Estrellita Silvestre DO, attest that I was physically present for the garcia portions of the service and evaluated the patient with the resident and I reviewed and discussed the case with the resident and agree with the resident's findings and plans of care as documented above <Statement entered by Perico Harrell MD - 01/18/25 21:06> Note reviewed and agree with care plan as documented. Please refer to the note below for further details. Plan discussed with attending physician Perico Harrell MD PGY-2 Internal Medicine Planned Discharge Date 01/18/25 DS: Providers Provider Date of admission: 01/10/25 21:12 Primary care physician: SHEY Joel Admitting Provider: Lina Marks MD Attending Provider on Admission: Estrellita Silvestre DO Consults: 01/11/25 09:46 Consult to General Surgery Stat Comment: bowel perforation and/or ischemia Consulting Provider: Yas Blandon 01/11/25 13:31 Consult to Cardiology Routine Comment: Consulting Provider: Brandin العلي 01/13/25 11:00 Referral Physical Therapy Routine Comment: Physician Instructions: Instructions: sit to chair. day 1 post op Attending Provider on DC: Justin Perez DO Discharging Provider: Justin Perez DO DS: Diagnosis Problem List Completed Was Problem List Reviewed/Reconciled?: Yes Hospital Course Hospital Course Hospital course: Patient is a 64-year-old female past medical history significant for? paroxysmal atrial fibrillation on Eliquis, primary hypertension, thl-fagbuyq-fypusqkso diabetes mellitus type 2 [6.2%], osteoarthritis of bilateral knees and chronic bilateral lower extremity lymphedema who presented with a chief complaint of acute onset generalized abdominal pain over the preceding 48 hours. CTAP was positive for extensive pneumoperitoneum. Extensive colonic diverticula with air droplets adjacent to the sigmoid colon diverticula, but extensive free fluid in the pelvis. However, abdominal x-ray was negative for free air. As a result patient was monitored closely and when her abdominal pain did not respond to conservative measures, decision was made for exploratory laparotomy on 01/12/2025. Patient was admitted to ICU for management of worsening pneumoperitoneum, GI perforation and empiric management/prevention of peritonitis.?A circular 5 x 5 mm perforation on the anterior surface of the stomach was repaired in 2 layers, then a Tommy patch was placed and sutured over the repair, washed out and JEROMY drain placed. Patient was started on diltiazem drip 10 mg/h and later transitioned to metoprolol p.o. 100 mg daily upon removal of the NGT.? Patient started on heparin ACS protocol on 01/15 for continued anticoagulation in the setting of chronic atrial fibrillation.? Physical therapy as tolerated with abdominal binder and bed to chair order.? Transitioned to p.o. meds and fluconazole GI prophylaxis 400 mg.? Patient was bloated on 01/15-, reported ability to pass gas, but had not had a bowel movement yet. On 01/17 patient was having multiple soft bowel movements daily on mechanically altered diet. The JEROMY drain showed minimal serosanguineous fluid drainage and was removed on 01/18. Patient abdominal pain had resolved, physical therapy helped with mobilizing the patient to bedside chair and walks. Oxygen demand was weaned to room air. At the time of discharge, patient is medically stable and deemed safe to return to his/her previous state of living. 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 * Follow-up with your surgeon who repaired a perforation found on the anterior surface of your stomach wall within 2-week of discharge for evaluation and staple removal * Follow up with air conditioning coil assembler, Dr. العلي, within one to two weeks of discharge. Address: [address] [place] [address], [place] [address]. Phone:? . Call to make an appointment. * Your new adjusted metoprolol is 100mg in the mornings and 25mg at nights. * Take oxycodone-acetaminophen 10-325 as needed for pain, every 4 hours up to 6x/day. * You may follow-up with one of our residents doctor with the [facility] at the address below. * Continue taking medications as prescribed below. * Return to Emergency Room if symptoms persist, worsen, or new symptoms develop. This case was discussed with my attending physician, Dr. Silvestre, and senior resident, Dr Sharri Kraft. Justni Perez, DO PGY I Status at Discharge Cognitive/behavioral status at discharge: stable Functional status at discharge: independent ambulation Overall status at discharge: patient is back to baseline Time Spent with Patient Time attestation: Total time spent providing and/or coordinating discharge services: Than 50% of the patient's total hospital stay Time spent: Greater than 30 minutes Home Health Home Health Referral Orders: 01/17/25 14:07 Home Health Referral Routine Reason For Exam: gastric perforation Home-Bound The patient must either because of illness or injury, need the aid of supportive devices such as crutches, canes, wheelchairs, and walkers; the use of special transportation; or the assistance of another person in order to leave their place of residence; OR have a condition such that leaving his or her home is medically contraindicated. In addition, the patient also meets the following criteria: patient is normally unable to leave the home and leaving home requires considerable taxing effort. Addendum to Home Health Certification Practitioner's Certification: I certify that the patient has been under my care in the hospital and the care of attending physician (see below). We had a fqod-ds-phar encounter on (see date below). My clinical findings indicate that the patient is home bound per the above criteria and the Home Health Services noted in these orders are medically necessary. The primary reason for the [id number] encounter is related to the fact that the patient requires home health services. Date Certifying Omcl-np-Lxck Physician Encounter: 01/10/25 Physician's Name who will Assume Oversight for Services: Елена Parkinson Physician's Phone No.who will Assume Oversight for Service: [facility] [place] Community Resources: No PT to Evaluate: Yes PT to evaluate and provide a treatmnet plan to increase patient's mobility and strength. Wound Care: No IV Therapy: No RN Safety Evaluation: Yes RN to evaluate and create a plan of care that will produce positive outcomes. Palliative Treatment: No Palliative treatment and evaluate the need for hospice. Home Health Aide - Personal Care: Yes Home Health Aide to assist with any ADL's. Exam Vital Signs Temp Pulse Resp BP Pulse Ox O2 Del Method O2 Flow Rate 96.8 F 101 H 13 120/67 96 Room Air 2 01/18/25 08:00 01/18/25 08:56 01/18/25 08:00 01/18/25 08:56 01/18/25 08:00 01/18/25 08:00 01/17/25 12:00 Narrative Exam HEENT: Vision grossly intact. Patent nares. Trachea midline Respiratory: Chest normal on inspection and clear auscultation bilaterally. Cardio: RRR. No murmurs carotid bruit. No gross JVD. Abdominal: s/p surgery, surgical incisions wrapped in bandages. Reduced bowel sounds, but present. No TTP noted. No guarding, rebound, organomagaly noted. MSK/Extremities: Extremities tone within normal limits. Trace pitting edema in b/l lower extremities up to the knees. No signs of cyanosis. Neurological: CN II - XII grossly intact. Extremity motor and sensation grossly intact. Pych: Patient has normal affect, and is cooperative Discharge Plan Plan Patient Disposition: Home w/HOME HEALTH Care Plan Goals: * Follow-up with PCP within 1-2 weeks of discharge. * Follow-up with your surgeon who repaired a perforation found on the anterior surface of your stomach wall within 2-week of discharge * Follow up with air conditioning coil assembler, Dr. العلي, within one to two weeks of discharge. Address: [address] [place], [place] [address]on [facility], [facility] [place] [address]. Phone:? . Call to make an appointment. * Your new adjusted metoprolol is 100mg in the mornings and 25mg at nights. * Take oxycodone-acetaminophen 10-325 as needed for pain, every 4 hours up to 6x/day. * You may follow-up with one of our residents doctor with the [facility] at the address below. * Continue taking medications as prescribed below. * Return to Emergency Room if symptoms persist, worsen, or new symptoms develop. [facility] [address] [place] [address] Prescriptions/Referrals Prescriptions/Med Rec: New oxycodone-acetaminophen [Percocet] 10-325 mg tablet 1 tab PO Q4H MDD 6 tabs PRN (Reason: pain) Qty: 30 0RF Rx Instructions: Take 1 tablet every 4-6 hours as needed for moderate to severe pain metoprolol succinate 100 mg capsule,sprinkle,ER 24hr 100 mg PO QDAY 30 Days Qty: 30 0RF Continued multivitamin Tablet 1 tab PO QAM ropinirole 0.5 mg Tablet 0.5 mg PO QDAY citalopram 40 mg tablet 40 mg PO DAILY Patient Comments: TAKE ONE TABLET BY MOUTH EVERY DAY potassium chloride 20 mEq tablet,ER particles/crystals 20 meq PO DAILY Patient Comments: TAKE ONE TABLET BY MOUTH EVERY DAY omeprazole 20 mg capsule,delayed release(DR/EC) 40 mg PO QAM Patient Comments: TAKE TWO CAPSULES BY MOUTH EVERY MORNING 30 MINUTES BEFORE MEALS ergocalciferol (vitamin D2) 1,250 mcg (50,000 unit) capsule 1,250 mcg PO QWEEK Patient Comments: TAKE ONE CAPSULE BY MOUTH EVERY WEEK VITAMIN loratadine 10 mg tablet 10 mg PO Q24H Patient Comments: TAKE ONE TABLET BY MOUTH EVERY DAY FOR ALLERGY furosemide 40 mg tablet 40 mg PO BID Patient Comments: TAKE ONE TABLET EVERY DAY A DIURETIC losartan 100 mg tablet 100 mg PO DAILY Patient Comments: TAKE ONE TABLET BY MOUTH EVERY DAY FOR BLOOD PRESSURE apixaban 5 mg tablet 5 mg PO BID Qty: 90 0RF simethicone 80 mg Tablet,Chewable 80 mg PO QID PRN (Reason: Gas) Qty: 90 0RF Changed metoprolol succinate 25 mg Tablet Extended Release 24 Hr 25 mg PO HS Qty: 30 0RF Held Mounjaro 2.5 mg/0.5 mL pen injector 2.5 mg SUBCUT QWEEK Hold Instructions: F/u with PCP Patient Comments: INJECT ONE PEN SUBCUTANEOUSLY EVERY WEEK FOR DIABETES Discontinued omeprazole 20 mg tablet,delayed release (DR/EC) 20 mg PO QDAY Patient Comments: TAKE TWO TABLETS BY MOUTH EVERY DAY HEARTBURN GASTRIC ACIDITY citalopram [Celexa] 20 mg Tablet 20 mg PO QDAY Referrals: Елена Parkinson FNP-C [Primary Care Provider] Yas Blandon MD [Physician, General Surgery] Referral Note: You will receive a phone call to confirm a follow-up appt with me in 2 weeks Patient/Caregiver Discharge Instructions Other Discharge Activity Instructions:: Keep incision clean and dry You may shower and cleanse with gentle soap, pat dry after The wound on your left lower abdomen may continue to have drainage for the next few days. Cover with gauze or a bandaid and change daily or more often if it is soaked Avoid lifting objects >10lbs for 5 more weeks Your blanca will be removed at your follow-up appt Print Language: Qatari Stand Alone Forms: [employer] Award Info., Patient Portal Info Letter Discharge Order Discharge Orders: Discharge (Routine); Ordered 01/18/25 Ordered By: Perico Harrell Quality Discharge Quality Measures VTE prophylaxis
--- NOTE | 2025-01-18 13:18 | PD.RESPRO ---
Documentation for date of: 01/18/25 Exam Vital Signs Temp Pulse Resp BP Pulse Ox O2 Del Method O2 Flow Rate 97.0 F 117 H 17 117/77 95 Room Air 2 01/18/25 12:00 01/18/25 12:00 01/18/25 12:00 01/18/25 12:00 01/18/25 12:00 01/18/25 12:00 01/17/25 12:00 Objective Labs 01/18/25 05:03 01/18/25 05:03 Labs: Laboratory Results - last 24 hr 01/18/25 05:03 WBC 12.3 H RBC 3.40 L Hgb 8.1 L Hct 26.7 L MCV 79 L MCH 23.8 L MCHC 30.3 L RDW Std Deviation 54.6 H Plt Count 241 Neut % (Auto) 66 Lymph % (Auto) 18 [place] % (Auto) 12 Eos % (Auto) 2 Baso % (Auto) 0 Neut # (Auto) 8.1 H Lymph # (Auto) 2.3 [place] # (Auto) 1.4 H Eos # (Auto) 0.2 Baso # (Auto) 0.1 Immature Gran # (Auto) 0.28 H Absolute Nucleated RBC 0.09 H Immature Gran % 2 H Nucleated RBC % 1 H Sodium 138 Potassium 4.7 D Chloride 101 Carbon Dioxide 28.0 Anion Gap 9 BUN 6 L Creatinine 0.6 Estim Creat Clear Calc 116.0 eGFR > 60 BUN/Creatinine Ratio 10 L Glucose 116 H Calculated Osmolality 274 L Calcium 9.0 Corrected Calcium 9.9 Phosphorus 3.0 Magnesium 2.0 Total Bilirubin 0.2 L AST 31 ALT 19 Alkaline Phosphatase 79 Total Protein 5.3 L Albumin 2.9 L Globulin 2.4 Albumin/Globulin Ratio 1.2 Quality Measures Quality Measures VTE prophylaxis and none Assessment & Plan Assessment Current Active Medications: Generic Name Dose Route Start Last Admin Trade Name Freq PRN Reason Stop Dose Admin Apixaban 5 mg 01/17/25 11:50 01/18/25 08:55 Apixaban 2.5 Mg Tablet PO 02/16/25 11:49 5 mg BID ANTONIA Administration Bumetanide 1 mg 01/16/25 13:45 01/18/25 08:56 Bumetanide 0.5 Mg Tablet PO 02/15/25 13:44 1 mg QDAY ANTONIA Administration Dextrose 50 ml 01/11/25 11:33 Dextrose 50%-Water Inj 50 Ml Syringe IV 02/10/25 11:32 Q15MIN PRN BG <50 OR BG <70 & pt unresponsive Famotidine 20 mg 01/16/25 15:00 01/18/25 08:57 Famotidine Inj 10 Mg/Ml Vial 2 Ml IVP 02/15/25 14:59 20 mg BID ANTONIA Administration Fluconazole 400 mg 01/17/25 09:00 01/18/25 08:56 Fluconazole 100 Mg Tablet PO 01/24/25 08:59 400 mg QDAY ANTONIA Administration Glucagon 1 mg 01/11/25 11:33 Glucagon Inj 1 Mg Vial IM Q15MIN PRN BG <70, and no IV access Acetaminophen 1,000 mg in 100 mls @ 250 mls/hr 01/14/25 11:00 01/17/25 12:52 Ofirmev Inj IV Not Given On Hold: 01/17/25 12:02 Q6HR ANTONIA Insulin Human Lispro 0 unit 01/17/25 17:00 01/18/25 12:04 Insulin Lispro (Admelog) 1 Unit/0.01 Ml Unit SC 02/16/25 16:59 Not Given ACHS ANTONIA Protocol Iron Sucrose 200 mg 01/17/25 12:00 01/18/25 10:56 Iron Sucrose Cplx Inj 20 Mg/Ml Vial 5 Ml IVP 01/22/25 11:59 200 mg QDAY ANTONIA Administration Metoprolol Succinate 100 mg 01/15/25 16:00 01/18/25 08:55 Metoprolol Succinate Xl 25 Mg Tabcr PO 02/14/25 15:59 100 mg QDAY ANTONIA Administration Ondansetron HCl 4 mg 01/11/25 11:08 01/18/25 08:57 Ondansetron Inj 2 Mg/Ml Inj 2 Ml IVP 02/10/25 11:07 4 mg Q6HR PRN Administration NAUSEA OR VOMITING Protocol Oxycodone HCl 5 mg 01/15/25 10:47 01/18/25 12:04 Oxycodone Hcl 5 Mg Ir Tab PO 01/20/25 10:46 5 mg Q6HR PRN Administration PAIN SCALE 4-10(Mod-Sev
--- NOTE | 2025-01-18 13:35 | PD.SURPROG ---
Documentation for date of: 01/18/25 Subjective Subjective Brief History: 64F with HTN, DMII, afib, history of gastric bypass in 2006 who presented to ER this am initially reporting chest pain and shortness of breath after using meth. Pt underwent CXR read as possible pneumoperitoneum vs colon interposed above the liver, followed by CT CAP read as extensive pneumoperitoneum however she does not have any clinical signs of peritonitis, has remained afebrile with intermittent tachycardia and EKG consistent with her known afib, has received one dose of pain medicine at 3pm On my exam pt stated she does have abdominal pain which has been present for the last two (2) days and is similar to pain she has experienced before. She reports nausea and decreased appetite, last had a BM yesterday. Her last colonoscopy was years ago and she has not had any recent EGD PMH: HTN, DMII, afib PSHx: Gastric bypass in 2006 in [place], multiple hernia repairs Meds: includes eliquis last taken yesterday morning Allergies: Reglan Social hx: smokes 1/2 PPD cigarettes Narrative: Pt reports feeling very well today and is eager to go home, pain is controlled, tolerating solid food with no nausea/vomiting, passing gas and having BM. Remaning afebrile, JEROMY had 10cc output last night and so far has not required emptying today Exam Vital Signs Temp Pulse Resp BP Pulse Ox O2 Del Method O2 Flow Rate 97.0 F 117 H 17 117/77 95 Room Air 2 01/18/25 12:00 01/18/25 12:01/18/25 12:01/18/25 12:01/18/25 12:01/18/25 12:01/17/25 12:00 Constitutional Constitutional: no acute distress Routine Respiratory Exam Respiratory: Present no resp distress Routine Abdominal Exam Abdominal: Present soft, wound (midline wound with blanca c/d/i, no erythema, no fluctuance or tenderness) and drain (JEROMY with serosanguinous output, removed today); Absent tenderness or distended Results Results: Laboratory Laboratory results: results reviewed Assessment & Plan Plan 64F with HTN, DMII, afib, history of gastric bypass in 2006 who presented to ER 01/10 initially reporting chest pain and shortness of breath after using meth, with now two CTs indicating extensive pneumoperitoneum. Pt had been hemodynamically normal throughout with no fever however given her ongoing severe pain I did ultimately offer exploration 01/12 with findings of gastric perforation s/p repair with miguelangel patch and drain placement OK for dc from my standpoint JEROMY removed today Will follow up in 2 weeks for evaluation and staple removal PROCEDURES: Procedures Exploratory laparotomy, repair of gastric perforation with Miguelangel patch, washout and drain placement
--- NOTE | 2025-01-18 14:35 | PC.SS ---
follow up note: Patient pending DME: /BSC/FWW. Patient's insurance contracts with [employer]. Orders were sent over earlier this morning. SS verified with co. they are working on authorization. They are looking at delivering later today.
[2025-01-18] MEDS: METOPROLOL SUCCINATE XL 25 MG TABCR PO (15:33)
--- NOTE | 2025-01-18 17:50 | PD.RESPRO ---
Documentation for date of: 01/18/25 Subjective Subjective Interval history: Patient was seen and examined at bedside. Patient denied any new symptoms. Vitally patient on 2 L of oxygen saturating well. Review of the telemetry for the past 24 hours heart rate go up to 130 bpm, atrial fibrillation, blood pressure stable at 112/68. Patient denied any chest pain. Exam Vital Signs Temp Pulse Resp BP Pulse Ox O2 Del Method O2 Flow Rate 97.0 F 116 H 22 H 110/78 96 Room Air 2 01/18/25 16:00 01/18/25 16:00 01/18/25 16:00 01/18/25 16:00 01/18/25 16:00 01/18/25 16:00 01/18/25 16:00 Narrative Exam GEN: AOx3, was sitting on the commode comfortably, able to speak full sentences HEENT: NC/AC, PERRLA, oral mucosa dry, neck supple CVS: RRR, S1-S2 present, no murmurs appreciated RESP: CTAB GI: Multiple surgical scar, nondistended, mild discomfort on palpation, Normal active bowel sounds MSK: able to move all 4 limbs, trace extremity edema specially on the feet SKIN: warm and dry PULMONARY CARE NURSE: CN II-XII and Sensation grossly intact. Objective Labs 01/18/25 05:03 01/18/25 05:03 Labs: Laboratory Results - last 24 hr 01/18/25 05:03 WBC 12.3 H RBC 3.40 L Hgb 8.1 L Hct 26.7 L MCV 79 L MCH 23.8 L MCHC 30.3 L RDW Std Deviation 54.6 H Plt Count 241 Neut % (Auto) 66 Lymph % (Auto) 18 [place] % (Auto) 12 Eos % (Auto) 2 Baso % (Auto) 0 Neut # (Auto) 8.1 H Lymph # (Auto) 2.3 Davis # (Auto) 1.4 H Eos # (Auto) 0.2 Baso # (Auto) 0.1 Immature Gran # (Auto) 0.28 H Absolute Nucleated RBC 0.09 H Immature Gran % 2 H Nucleated RBC % 1 H Sodium 138 Potassium 4.7 D Chloride 101 Carbon Dioxide 28.0 Anion Gap 9 BUN 6 L Creatinine 0.6 Estim Creat Clear Calc 116.0 eGFR > 60 BUN/Creatinine Ratio 10 L Glucose 116 H Calculated Osmolality 274 L Calcium 9.0 Corrected Calcium 9.9 Phosphorus 3.0 Magnesium 2.0 Total Bilirubin 0.2 L AST 31 ALT 19 Alkaline Phosphatase 79 Total Protein 5.3 L Albumin 2.9 L Globulin 2.4 Albumin/Globulin Ratio 1.2 Quality Measures Quality Measures VTE prophylaxis Advance care planning discussed with:: patient Assessment & Plan Assessment Current Active Medications: Generic Name Dose Route Start Last Admin Trade Name Freq PRN Reason Stop Dose Admin Apixaban 5 mg 01/17/25 11:50 01/18/25 08:55 Apixaban 2.5 Mg Tablet PO 02/16/25 11:49 5 mg BID ANTONIA Administration Bumetanide 1 mg 01/16/25 13:45 01/18/25 08:56 Bumetanide 0.5 Mg Tablet PO 02/15/25 13:44 1 mg QDAY ANTONIA Administration Dextrose 50 ml 01/11/25 11:33 Dextrose 50%-Water Inj 50 Ml Syringe IV 02/10/25 11:32 Q15MIN PRN BG <50 OR BG <70 & pt unresponsive Famotidine 20 mg 01/16/25 15:00 01/18/25 08:57 Famotidine Inj 10 Mg/Ml Vial 2 Ml IVP 02/15/25 14:59 20 mg BID ANTONIA Administration Fluconazole 400 mg 01/17/25 09:00 01/18/25 08:56 Fluconazole 100 Mg Tablet PO 01/24/25 08:59 400 mg QDAY ANTONIA Administration Glucagon 1 mg 01/11/25 11:33 Glucagon Inj 1 Mg Vial IM Q15MIN PRN BG <70, and no IV access Acetaminophen 1,000 mg in 100 mls @ 250 mls/hr 01/14/25 11:00 01/17/25 12:52 Ofirmev Inj IV Not Given On Hold: 01/17/25 12:02 Q6HR [facility] Insulin Human Lispro 0 unit 01/17/25 17:00 01/18/25 17:47 Insulin Lispro (Admelog) 1 Unit/0.01 Ml Unit SC 02/16/25 16:59 Not Given ACHS [facility] Protocol Iron Sucrose 200 mg 01/17/25 12:00 01/18/25 10:56 Iron Sucrose Cplx Inj 20 Mg/Ml Vial 5 Ml IVP 01/22/25 11:59 200 mg QDAY ANTONIA Administration Metoprolol Succinate 100 mg 01/15/25 16:00 01/18/25 08:55 Metoprolol Succinate Xl 25 Mg Tabcr PO 02/14/25 15:59 100 mg QDAY ANTONIA Administration Ondansetron HCl 4 mg 01/11/25 11:08 01/18/25 08:57 Ondansetron Inj 2 Mg/Ml Inj 2 Ml IVP 02/10/25 11:07 4 mg Q6HR PRN Administration NAUSEA OR VOMITING Protocol Oxycodone HCl 5 mg 01/15/25 10:47 01/18/25 12:04 Oxycodone Hcl 5 Mg Ir Tab PO 01/20/25 10:46 5 mg Q6HR PRN Administration PAIN SCALE 4-10(Mod-Sev Plan Summary: A 64-year-old female patient with past medical history of paroxysmal A-fib on Eliquis, hypertension, type 2 diabetes mellitus, osteoarthritis, bilateral lower extremity lymphedema, presented to the ED due to abdominal pain that radiate to the left shoulder for 2 days before admission. Patient reported that the pain started gradually epigastric and worsened over time become severe. Patient was admitted for management of pneumoperitoneum with possible peritonitis. Assessment and plan #Paroxysmal A-fib #Atrial fibrillation RVR #Pneumoperitoneum 2/2 gastric ulcer perforation s/p ex lap repair with washout and drainage placement 01/2025 #Acute post hemorrhagic anemia Patient recently diagnosed with A-fib in November 2024, she was discharged metoprolol XL 25 mg QD and Eliquis 5 mg twice daily. Patient developed abdominal pain and found to have pneumoperitoneum with possible peritonitis. Patient underwent ex lap repair on 01/12/25 Patient was noticed to have A-fib on telemetry, she was also found to have some episodes of drop in her blood pressure to the 70s systolic. Patient was started on amiodarone drip by the primary team and Eliquis was held in anticipation for surgery. Troponin was normal, EKG showed atrial fibrillation. No ischemic changes, BNP was in the 200s. Echo was done in November during her last admission and showed Normal left ventricular size and function. Estimated EF at 55-60%. The RV is normal in size. The RV systolic function is mildly decreased. The estimated RVSP, 48 mmHg. Mildly dilated left atrium. Mitral annulus calcification mitral valve thickening mild mitral regurgitation. Mild tricuspid valve regurgitation Patient was n.p.o. per the surgical team Even though the patient on amiodarone drip, heart rates remain elevated and patient remained in A-fib with RVR and diltiazem drip was started at 5 mg/h and uptitrated to 10 mg/h due to inadequate rate control. Amiodraone drip (01/10-01/14) and diltazem drip (01/13-01/14) 01/17/2025, heart rate noted to start uptrending from 8 AM today. patient noted to have heart rate of 127 BPM, A-fib, however blood pressure was stable at 125/72. Please continue to monitor at the patient's heart rate continued to be above 115 we might increase the dose of metoprolol to 100 mg twice daily blood pressure's stable Plan: ? Continue metoprolol XL 100 mg p.o. daily ? Okay TO give the patient 1 dose of metoprolol XL 25 mg p.o. at night upon discharge ? Continue Eliquis at 5 mg p.o. twice daily after was cleared by general surgery team ? Keep magnesium and potassium above 2 and 4 respectively within normal range. ? Keep telemonitoring ? Strict in and out #HTN Per history. Patient is taking losartan 100 mg QD at home and metoprolol XL 25 mg QD Plan: - Continue metoprolol XL as above - Hold home losartan as BP soft. #Diabetes mellitus Per history. 01/2025 A1c 6.2, increased rom 5.6 in 11/2024. Is on Mounjaro 2.5 mg qwk at home. Plan: - SSI - Management per primary team #Lymphedema Per history. Takes Bumex 1 mg QD at home. Patient has net +10L of intake since admission. Per patient, legs are more swollen than usual and L>R consistently. BUN decreased to 8, likely dilutional Plan: - Resume PO Bumex 1 mg QD #Osteoarthritis Plan ? Follow-up with the primary team recommendations Thank you for your consultation please do not hesitate to reach out if you have any question or concern - Patient's plan and care discussed with my attending, Dr. Severiano Boykin MD Internal Medicine PGY-3 Attending Provider Attestation/Addendum I have personally seen and examined the patient separately on the above date of service and discussed the plan of care with the resident. I reviewed the resident Dr. Boykin consultation progress note and agree with the resident findings and plan in the note above and have also edited the documentation to reflect my findings and plan. Brandin العلي M.D. Interventional Cardiology
--- NOTE | 2025-01-18 19:07 | PC.NURSE ---
discharge pending oxygen delivery. Per patient daughter Renetta, they received call from the [employer] and notified her that they will be out for delivery up until 1999
--- NOTE | 2025-01-18 22:10 | PC.NURSE ---
Oxygen delivery and walker here, daughter shoshana to provide transportation back home. All discharge instructions were given to patient. tele box, IVL and continuos pulse oximeter removed. Patient alert and oriented X3. No c/o pain or discomfort. Patient wheeled down with REED Cerna.
--- NOTE | 2025-01-19 14:49 | PC.CC ---
Addendum entered by Berta Bianchi RN 01/19/25 15:08: Patient is booked with [facility], pending SOC Original Note: HH referral sent to all HH agencies
--- NOTE | 2025-01-20 12:08 | PC.CC ---
[facility] accepted and booked, soc 01/22
== END 2025-01-18 22:10 | disposition home health service (06) | DRG 326 ==
LOC: SERX 15:08 → SERHOLD 21:37 → S2NX 23:22 → S2SX 01-11 10:20 → S2NX 01-14 15:53
PROVIDERS: Nurse Practitioner Family; Student in an Organized Health Care Education/Training Program; Surgery; Admitting Provider Student in an Organized Health Care Education/Training Program; Emergency Provider Emergency Medicine; PCP Nurse Practitioner Family; Visit Provider Internal Medicine
PROC: (CPT 49000; principal; 2025-01-12 12:30)
DX: K25.5 Chronic or unspecified gastric ulcer with perforation (principal); K65.0 Generalized (acute) peritonitis; D62 Acute posthemorrhagic anemia; K57.20 Diverticulitis of large intestine with perforation and abscess without bleeding; N17.9 Acute kidney failure, unspecified; E11.9 Type 2 diabetes mellitus without complications; I10 Essential (primary) hypertension; M17.0 Bilateral primary osteoarthritis of knee; I48.0 Paroxysmal atrial fibrillation; I89.0 Lymphedema, not elsewhere classified; E86.0 Dehydration; F15.129 Other stimulant abuse with intoxication, unspecified; D50.9 Iron deficiency anemia, unspecified; D72.829 Elevated white blood cell count, unspecified; E87.6 Hypokalemia; F17.210 Nicotine dependence, cigarettes, uncomplicated; G89.29 Other chronic pain; K66.0 Peritoneal adhesions (postprocedural) (postinfection); Z79.84 Long term (current) use of oral hypoglycemic drugs; Z79.85 Long-term (current) use of injectable non-insulin antidiabetic drugs; Z79.01 Long term (current) use of anticoagulants; Z98.84 Bariatric surgery status; Z79.899 Other long term (current) drug therapy
CPT/HCPCS: 36415; 71045; 71260; 74018; 74174; 74177; 80048; 80053; 80069; 80307; 81001; 82550; 83036; 83605; 83735; 83880; 84100; 84145; 84484; 85014; 85018; 85025; 85610; 85730; 86850; 86900; 86901; 86923; 87040; 93005; 94640; 96365; 96366; 96375; 96376; 97163; 99284; A4217; A4649; J0131; J0283; J1100; J1171; J1450; J1644; J1756; J1815; J2270; J2371; J2405; J2543; J2704; J3010; J3475; J3480; J3490; J7030; J7120; J7999; P9016; P9045; Q9967; A9270

== ENCOUNTER 2025-02-01 14:30 | Outpatient (AMB) | payer MEDICARE, MEDICAID, SELFPAY ==
[2025-02-01 14:48] VITALS: BP 116/78; PULSE 104; RESP 18; TEMP 36.5; O2SAT 96; BMI 33.7
--- NOTE | 2025-02-01 14:48 | GSCOFFNT_ITS ---
Vital Signs - [facility] 02/01/25 14:48 Height 1.68 m Height Method Measured Weight 94.886 kg Weight Measurement Method Standing Scale BMI 33.7 BP 116/78 Blood Pressure Source Automatic Cuff Blood Pressure Location Left Upper Arm Position Sitting Respiration 18 Pulse 104 H Pulse Source Monitor Temp 97.7 F Temp Source Temporal Artery Scan Pulse Oximetry (%) 96 Oxygen Delivery Method Room Air Med/Allergies Allergies & Medications Allergies metoclopramide (From Reglan) Allergy (Verified 02/01/25 14:49) Shakiness Medication Reconciliation multivitamin 1 tab PO QAM 08/24/20 [History Confirmed 02/01/25] ropinirole 0.5 mg tablet 0.5 mg PO QDAY 08/24/20 [History Confirmed 02/01/25] furosemide 40 mg tablet 40 mg PO BID 11/04/24 [History Confirmed 02/01/25] losartan 100 mg tablet 100 mg PO DAILY 11/04/24 [History Confirmed 02/01/25] apixaban 5 mg tablet 5 mg PO BID #90 tabs 11/07/24 [Rx Confirmed 02/01/25] simethicone 80 mg chewable tablet 80 mg PO QID PRN Gas #90 tabs 11/07/24 [Rx Confirmed 02/01/25] citalopram 40 mg tablet 40 mg PO DAILY 01/11/25 [History Confirmed 02/01/25] ergocalciferol (vitamin D2) 1,250 mcg (50,000 unit) capsule 1,250 mcg PO QWEEK 01/11/25 [History Confirmed 02/01/25] loratadine 10 mg tablet 10 mg PO Q24H 01/11/25 [History Confirmed 02/01/25] omeprazole 20 mg capsule,delayed release 40 mg PO QAM 01/11/25 [History Confirmed 02/01/25] potassium chloride 20 mEq tablet,extended release(part/cryst) 20 meq PO DAILY 01/11/25 [History Confirmed 02/01/25] tirzepatide 2.5 mg/0.5 mL subcutaneous pen injector (Mounjaro) 2.5 mg subcut QWEEK 01/11/25 [History Confirmed 02/01/25] Held on 01/18/25. Instructions: F/u with PCP metoprolol succinate 100 mg capsule sprinkle, ext. release 24 hr 100 mg PO QDAY 30 days #30 ea 01/18/25 [Rx Confirmed 02/01/25] metoprolol succinate 25 mg tablet,extended release 24 hr 25 mg PO HS #30 tabs 01/18/25 [Rx Confirmed 02/01/25] amoxicillin 500 mg-potassium clavulanate 125 mg tablet 1 tab PO Q12H #10 tabs 01/29/25 [Rx Confirmed 02/01/25] oxycodone-acetaminophen 10 mg-325 mg tablet (Percocet) 1 tab PO Q4H PRN pain #30 tabs 02/01/25 [Rx] MA Intake Visit Data Collection New Patient or Established: Established Patient (seen at [facility] within 3 years) Seen by Clinical Staff ONLY (RN/MA): No Reason for Visit:: ABDOMINAL PAIN Pain Present Currently: Yes Pain Location: Abdomen Pain scale:: 8 Pain Scale Used: Pate-Castillo/Numerical Certified Physical Therapist Assistant Required: No PCP or OBGYN visit in last 3 months: Yes Hx Now: No Do You Feel Safe at Home: Yes Authorities Contacted: N/A Smoking Status Smoking Status: Current every day smoker Cessation Counseling Provided: RADHA was advised that quitting smoking is the single most important factor to protect the health of themselves and their family. Discussed the benefits of quitting smoking with patient. Encouraged patient to quit smoking and provided Cessation assistance materials and resources. Tobacco Use: Cigarette Years smoked: 20 Are you interested in quitting?: No Would you like additional Smoking Cessation Counseling?: No Immunization / Flu Flu Vaccine in the Last 12 Months: No Flu Vaccine Exclusion Criteria: Refused by Patient Past Medical History Past Medical History NEUROLOGIC: Positive Peripheral Neuropathy; Negative Seizures CARDIAC: Positive Cardiac Disorders, Atrial Fibrillation, Hypercholesterolemia and Hypertension; Negative Congestive Heart Failure RESPIRATORY: Positive Chronic Obstructive Pulmonary Disease (COPD) (smoker), Smoking and Smoking Cessation Counseling; Negative Asthma GASTROINTESTINAL: Positive Gall Bladder Disease, Hiatal Hernia and Obesity GENITOURINARY: Negative Renal Disease MUSCULOSKELETAL: Positive Arthritis and Fibromyalgia ENDOCRINE: Negative Diabetes Mellitus Type 1 or Diabetes Mellitus Type 2 HEMATOLOGIC: Negative Sickle Cell Disease PSYCHO/SOCIAL: Positive Depression OTHER HISTORY: Positive Blood Transfusions; Negative Blood Transfusion Reaction or Anesthesia Reactions Surgical History SURGICAL: Positive Abdominal Surgery, Gastric Bypass Surgery and Tubal Ligation Social History SMOKING STATUS: Smoking status: Current every day smoker ALCOHOL: Alcohol Intake: Never HOUSING: Housing: House LIVES WITH: Lives With: Alone HPI HPI Narrative HISTORY OF PRESENT ILLNESS I, Yas Blandon, have obtained verbal consent from the patient, to be recorded during this encounter which may include, but not limited to, medical history, examination, treatment plans, and relevant health information.? Patient was informed that recording will be read and reviewed by myself before inclusion in the medical chart. The patient is here for a follow-up of laparotomy for gastric perforation on 01/12/25. She reports that her pain has been manageable with the use of oxycodone, which she takes as needed. Her appetite remains good, and she has experienced a significant loss of fluid weight, approximately 24 pounds. She has been dealing with swelling and wound drainage, which she manages by keeping the area clean and bandaged. The wound does not emit any odor. She experienced nausea on 01/29/2025 when the nurse visited. Her mobility has improved, particularly in her legs, which were previously extremely heavy. Her grandson assisted with moving her legs in and out of bed. She has been receiving wound care from a nurse, who last visited on 01/29/2025 and is scheduled to return tomorrow. H ASSESSMENT AND PLAN 1. Post-laparotomy follow-up. Condition is generally satisfactory, with the exception of one area that appears to be draining. The blanca were removed during this visit. A prescription for oxycodone 10 mg was provided. The wound was probed and packed, and instructions were given to change the dressing daily or more frequently if it becomes satu rated. Advised to allow water to run over the wound while showering and to cover it afterwards. Abdominal pads were provided for use. Risks, benefits, and alternatives of the treatment were discussed. The patient was informed that the packing would help the wound heal from the inside out and that it might need to be done for a few weeks. The goal is to allow the wound to keep draining and heal properly. The patient was also advised that it is still okay to take a shower, letting the water run over the wound and then covering it afterward. The importance of changing the dressing daily or more frequently if saturated was emphasized. ROS Review of Systems Systems Reviewed: All systems reviewed, normal except as documented Objective/Exam General General Appearance: alert, cooperative and well groomed Resp Respiratory exam: Absent respiratory distress Abdominal Abdominal exam: Present soft and incision (Midline incision with no surrounding erythema, blanca removed, towards the inferior aspect of the incision there are 2 areas of dehiscence which are very close to each other, the wound was probed and there was expression of dark serosanguineous fluid. The wound was packed with quarter inch packing); Absent distention or tenderness Assessment & Plan Diagnosis / Problem List (1) Perforated bowel: Status: Acute Assessment & Plan: 64F s/p laparotomy for gastric perforation on 01/12/25, overall recovering well aside from an area of dehiscence with serosanguinous drainage from the wound. She will need daily packing changes and will follow up in 1 week. Instructions and supplies were provided. All questions were answered and pt and daughter exprssed understanding Advanced Care Planning Advance care planning discussed with:: other Office Procedures GNS Level of Care Nursing/Assessment Patient Status: Established Patient Nursing Assessment/Reassesment: Medication Reconciliation, Update PMH in EMR and Vital Signs Coordination of Care: Complex Care and Chronic Disease 1-5, Consent,records obtained, informed consent, Education Simp Pt/Fam, Results/Orders obtained and Staff clarify orders Established Patient Charge Established Patient Point Assignment: 90 Established Patient Point Charge: EP Level 3 (80-115) Patient Portal Questionaires Social History Living Situation History Housing: House Tobacco History Smoking Status: Current every day smoker Alcohol History Alcohol Intake: Never Substance Use History Substance Use: meth Domestic Abuse History Do You Feel Safe at Home: Yes Review of Systems Report any current symptoms Only answer those that you have currently: Past Medical History Past Medical History Have you ever been diagnosed with any of the following: Neurological Problems Seizures: No Peripheral Neuropathy: Yes Cardiology Problems Atrial Fibrillation: Yes Hypercholesterolemia: Yes Congestive Heart Failure: No Hypertension: Yes Respiratory Problems Chronic Obstructive Pulmonary Disease (COPD): Yes (smoker) Asthma: No Smoking: Yes Smoking Cessation Counseling: Yes Stomache/Intestinal Problems Gall Bladder Disease: Yes Hiatal Hernia: Yes Obesity: Yes Genital/Urinary Problems Renal Disease: No Musculoskeletal Problems Arthritis: Yes Fibromyalgia: Yes Endocrine Problems Diabetes Mellitus Type 1: No Diabetes Mellitus Type 2: No Blood Problems Sickle Cell Disease: No Psychologic Problems Depression: Yes Other Problems Blood Transfusions: Yes Blood Transfusion Reaction: No Anesthesia Reactions: No
== END 2025-02-01 15:08 | disposition home or self-care (01) ==
LOC: HODSRG 14:30
PROVIDERS: PCP Nurse Practitioner Family; Referring Provider Nurse Practitioner Family; Supervising Provider Surgery; Visit Provider Surgery
DX: T81.31XA Disruption of external operation (surgical) wound, not elsewhere classified, initial encounter (principal); Y84.9 Medical procedure, unspecified as the cause of abnormal reaction of the patient, or of later complication, without mention of misadventure at the time of the procedure; I10 Essential (primary) hypertension; E78.00 Pure hypercholesterolemia, unspecified; I48.91 Unspecified atrial fibrillation; J44.9 Chronic obstructive pulmonary disease, unspecified; M79.7 Fibromyalgia; E66.9 Obesity, unspecified; Z68.33 Body mass index [BMI] 33.0-33.9, adult; F17.210 Nicotine dependence, cigarettes, uncomplicated; Z71.6 Tobacco abuse counseling
CPT/HCPCS: 99213; G0463

== ENCOUNTER 2025-02-08 14:40 | Outpatient (AMB) | payer MEDICARE, MEDICAID, SELFPAY ==
--- NOTE | 2025-02-08 14:49 | GSCOFFNT_ITS ---
[facility] - [facility] 02/08/25 14:52 Height 1.68 m Height Method Stated Weight 92.788 kg Weight Measurement Method Standing Scale BMI 32.8 BP 104/66 Blood Pressure Source Automatic Cuff Blood Pressure Location Left Upper Arm Position Sitting Respiration 18 Pulse 109 H Pulse Source Monitor Temp 97.2 F Temp Source Temporal Artery Scan Pulse Oximetry (%) 97 Oxygen Delivery Method Room Air Med/Allergies Allergies & Medications Allergies metoclopramide (From Reglan) Allergy (Verified 02/08/25 14:53) Shakiness Medication Reconciliation multivitamin 1 tab PO QAM 08/24/20 [History Confirmed 02/08/25] ropinirole 0.5 mg tablet 0.5 mg PO QDAY 08/24/20 [History Confirmed 02/08/25] furosemide 40 mg tablet 40 mg PO BID 11/04/24 [History Confirmed 02/08/25] losartan 100 mg tablet 100 mg PO DAILY 11/04/24 [History Confirmed 02/08/25] apixaban 5 mg tablet 5 mg PO BID #90 tabs 11/07/24 [Rx Confirmed 02/08/25] simethicone 80 mg chewable tablet 80 mg PO QID PRN Gas #90 tabs 11/07/24 [Rx Confirmed 02/08/25] citalopram 40 mg tablet 40 mg PO DAILY 01/11/25 [History Confirmed 02/08/25] ergocalciferol (vitamin D2) 1,250 mcg (50,000 unit) capsule 1,250 mcg PO QWEEK 01/11/25 [History Confirmed 02/08/25] loratadine 10 mg tablet 10 mg PO Q24H 01/11/25 [History Confirmed 02/08/25] omeprazole 20 mg capsule,delayed release 40 mg PO QAM 01/11/25 [History Confirmed 02/08/25] potassium chloride 20 mEq tablet,extended release(part/cryst) 20 meq PO DAILY 01/11/25 [History Confirmed 02/08/25] tirzepatide 2.5 mg/0.5 mL subcutaneous pen injector (Mounjaro) 2.5 mg subcut QWEEK 01/11/25 [History Confirmed 02/08/25] Held on 01/18/25. Instructions: F/u with PCP metoprolol succinate 100 mg capsule sprinkle, ext. release 24 hr 100 mg PO QDAY 30 days #30 ea 01/18/25 [Rx Confirmed 02/08/25] metoprolol succinate 25 mg tablet,extended release 24 hr 25 mg PO HS #30 tabs 01/18/25 [Rx Confirmed 02/08/25] amoxicillin 500 mg-potassium clavulanate 125 mg tablet 1 tab PO Q12H #10 tabs 01/29/25 [Rx Confirmed 02/08/25] oxycodone-acetaminophen 10 mg-325 mg tablet (Percocet) 1 tab PO Q4H PRN pain #30 tabs 02/01/25 [Rx Confirmed 02/08/25] tramadol 50 mg tablet 50 mg PO Q6H PRN pain #60 tabs 02/02/25 [Rx Confirmed 02/08/25] MA Intake Visit Data Collection New Patient or Established: Established Patient (seen at [facility] within 3 years) Seen by Clinical Staff ONLY (RN/MA): No Reason for Visit:: ABDOMINAL PAIN Pain Present Currently: Yes Pain Location: Abdomen Pain scale:: 8 Pain Scale Used: Pate-Castillo/Numerical Stage Set Designer Required: No PCP or OBGYN visit in last 3 months: Yes Hx Now: No Do You Feel Safe at Home: Yes Authorities Contacted: N/A Smoking Status Smoking Status: Current every day smoker Cessation Counseling Provided: RADHA was advised that quitting smoking is the single most important factor to protect the health of themselves and their family. Discussed the benefits of quitting smoking with patient. Encouraged patient to quit smoking and provided Cessation assistance materials and resources. Tobacco Use: Cigarette Years smoked: 20 Are you interested in quitting?: No Would you like additional Smoking Cessation Counseling?: No Immunization / Flu Flu Vaccine in the Last 12 Months: No Flu Vaccine Exclusion Criteria: Refused by Patient Past Medical History Past Medical History NEUROLOGIC: Positive Peripheral Neuropathy; Negative Seizures CARDIAC: Positive Cardiac Disorders, Atrial Fibrillation, Hypercholesterolemia and Hypertension; Negative Congestive Heart Failure RESPIRATORY: Positive Chronic Obstructive Pulmonary Disease (COPD) (smoker), Smoking and Smoking Cessation Counseling; Negative Asthma GASTROINTESTINAL: Positive Gall Bladder Disease, Hiatal Hernia and Obesity GENITOURINARY: Negative Renal Disease MUSCULOSKELETAL: Positive Arthritis and Fibromyalgia ENDOCRINE: Negative Diabetes Mellitus Type 1 or Diabetes Mellitus Type 2 HEMATOLOGIC: Negative Sickle Cell Disease PSYCHO/SOCIAL: Positive Depression OTHER HISTORY: Positive Blood Transfusions; Negative Blood Transfusion Reaction or Anesthesia Reactions Surgical History SURGICAL: Positive Abdominal Surgery, Gastric Bypass Surgery and Tubal Ligation Social History SMOKING STATUS: Smoking status: Current every day smoker ALCOHOL: Alcohol Intake: Never HOUSING: Housing: House LIVES WITH: Lives With: Alone HPI HPI Narrative HISTORY OF PRESENT ILLNESS I, Yas Blandon, have obtained verbal consent from the patient, to be recorded during this encounter which may include, but not limited to, medical history, examination, treatment plans, and relevant health information.? Patient was informed that recording will be read and reviewed by myself before inclusion in the medical chart. The patient is following up after a laparotomy. She reports experiencing significant pain, which she feels tramadol helps with only minimally. At last visit I did send a prescription for oxycodone but per pharmacy it cannot be refilled until 02/17. Her appetite remains normal, and she reports no issues with bowel movements or urination. She also reports no fevers. She noticed drainage from the surgical site yesterday but has not checked it today. She removed the bandage the night before last and attempted to pack the wound but was unable to do so. Instead, she applied a new bandage. She describes the appearance of the wound as gooey when she last saw it. The amount of drainage has decreased compared to when pressure was applied to her abdomen. She has not observed the wound for the past two days. She reports itching at the inc ision site and notes that it is slightly red. She requires gauze and large Band- Aids for wound care. PROCEDURE Procedure: Wound care - Procedural Discussion: Discussed the need for packing the wound to manage drainage. The patient expressed discomfort with the packing process. - Technique: Packing of the wound was performed to manage drainage. - Dressing: Outer dressings were applied. - Post-Procedural Discussion: The patient was advised to continue packing the wound to manage drainage. Supplies needed for wound care were discussed. ROS Review of Systems Systems Reviewed: All systems reviewed, normal except as documented Objective/Exam General General Appearance: alert, cooperative and well groomed Resp Respiratory exam: Absent respiratory distress Abdominal Abdominal exam: Present soft and incision (Midline incision with mild erythema and induration towards the superior aspect which I probed bluntly and obtained a small amount of pus; the inferior opening of the wound has minimal purulent drainage, no surrounding erythema or fluctuance); Absent distention or tenderness Assessment & Plan Diagnosis / Problem List (1) Perforated bowel: Status: Acute Assessment & Plan: Significant pain is reported, partially managed with tramadol. The patient is advised to continue packing the wound to facilitate drainage and promote healing. Plan: Follow up in 1 week Advanced Care Planning Advance care planning discussed with:: patient Office Procedures GNS Level of Care Nursing/Assessment Patient Status: Established Patient Nursing Assessment/Reassesment: Medication Reconciliation, Update PMH in EMR and Vital Signs Coordination of Care: Complex Care and Chronic Disease 1-5, Consent,records obtained, informed consent, Education Simp Pt/Fam, Results/Orders obtained and Staff clarify orders Established Patient Charge Established Patient Point Assignment: 90 Established Patient Point Charge: Level 3 (80-115) Patient Portal Questionaires Social History Living Situation History Housing: House Tobacco History Smoking Status: Current every day smoker Alcohol History Alcohol Intake: Never Substance Use History Substance Use: meth Domestic Abuse History Do You Feel Safe at Home: Yes Review of Systems Report any current symptoms Only answer those that you have currently: Past Medical History Past Medical History Have you ever been diagnosed with any of the following: Neurological Problems Seizures: No Peripheral Neuropathy: Yes Cardiology Problems Atrial Fibrillation: Yes Hypercholesterolemia: Yes Congestive Heart Failure: No Hypertension: Yes Respiratory Problems Chronic Obstructive Pulmonary Disease (COPD): Yes (smoker) Asthma: No Smoking: Yes Smoking Cessation Counseling: Yes Stomache/Intestinal Problems Gall Bladder Disease: Yes Hiatal Hernia: Yes Obesity: Yes Genital/Urinary Problems Renal Disease: No Musculoskeletal Problems Arthritis: Yes Fibromyalgia: Yes Endocrine Problems Diabetes Mellitus Type 1: No Diabetes Mellitus Type 2: No Blood Problems Sickle Cell Disease: No Psychologic Problems Depression: Yes Other Problems Blood Transfusions: Yes Blood Transfusion Reaction: No Anesthesia Reactions: No
[2025-02-08 14:52] VITALS: BP 104/66; PULSE 109; RESP 18; TEMP 36.2; O2SAT 97; BMI 32.8
== END 2025-02-08 15:26 | disposition home or self-care (01) ==
LOC: HODSRG 14:40
PROVIDERS: PCP Nurse Practitioner Family; Referring Provider Nurse Practitioner Family; Supervising Provider Surgery; Visit Provider Surgery
DX: Z48.815 Encounter for surgical aftercare following surgery on the digestive system (principal); I10 Essential (primary) hypertension; F17.210 Nicotine dependence, cigarettes, uncomplicated
CPT/HCPCS: 99213; G0463

== ENCOUNTER 2025-02-15 14:41 | Outpatient (AMB) | payer MEDICARE, MEDICAID, SELFPAY ==
[2025-02-15 14:48] VITALS: BP 88/62; PULSE 97; RESP 18; TEMP 36.6; O2SAT 92; BMI 31.6
--- NOTE | 2025-02-15 14:48 | GSCOFFNT_ITS ---
Vital Signs - [facility] 02/15/25 14:48 Height 1.68 m Height Method Measured Weight 89.471 kg Weight Measurement Method Standing Scale BMI 31.6 BP 88/62 L Blood Pressure Source Automatic Cuff Blood Pressure Location Left Upper Arm Position Sitting Respiration 18 Pulse 97 Pulse Source Monitor Temp 97.8 F Temp Source Temporal Artery Scan Pulse Oximetry (%) 92 L Oxygen Delivery Method Room Air Med/Allergies Allergies & Medications Allergies metoclopramide (From Reglan) Allergy (Verified 02/15/25 14:49) Shakiness Medication Reconciliation multivitamin 1 tab PO QAM 08/24/20 [History Confirmed 02/15/25] ropinirole 0.5 mg tablet 0.5 mg PO QDAY 08/24/20 [History Confirmed 02/15/25] furosemide 40 mg tablet 40 mg PO BID 11/04/24 [History Confirmed 02/15/25] losartan 100 mg tablet 100 mg PO DAILY 11/04/24 [History Confirmed 02/15/25] apixaban 5 mg tablet 5 mg PO BID #90 tabs 11/07/24 [Rx Confirmed 02/15/25] simethicone 80 mg chewable tablet 80 mg PO QID PRN Gas #90 tabs 11/07/24 [Rx Confirmed 02/15/25] citalopram 40 mg tablet 40 mg PO DAILY 01/11/25 [History Confirmed 02/15/25] ergocalciferol (vitamin D2) 1,250 mcg (50,000 unit) capsule 1,250 mcg PO QWEEK 01/11/25 [History Confirmed 02/15/25] loratadine 10 mg tablet 10 mg PO Q24H 01/11/25 [History Confirmed 02/15/25] omeprazole 20 mg capsule,delayed release 40 mg PO QAM 01/11/25 [History Confirmed 02/15/25] potassium chloride 20 mEq tablet,extended release(part/cryst) 20 meq PO DAILY 01/11/25 [History Confirmed 02/15/25] tirzepatide 2.5 mg/0.5 mL subcutaneous pen injector (Mounjaro) 2.5 mg subcut QWEEK 01/11/25 [History Confirmed 02/15/25] Held on 01/18/25. Instructions: F/u with PCP metoprolol succinate 100 mg capsule sprinkle, ext. release 24 hr 100 mg PO QDAY 30 days #30 ea 01/18/25 [Rx Confirmed 02/15/25] metoprolol succinate 25 mg tablet,extended release 24 hr 25 mg PO HS #30 tabs 01/18/25 [Rx Confirmed 02/15/25] amoxicillin 500 mg-potassium clavulanate 125 mg tablet 1 tab PO Q12H #10 tabs 01/29/25 [Rx Confirmed 02/15/25] oxycodone-acetaminophen 10 mg-325 mg tablet (Percocet) 1 tab PO Q4H PRN pain #30 tabs 02/01/25 [Rx Confirmed 02/15/25] tramadol 50 mg tablet 50 mg PO Q6H PRN pain #60 tabs 02/02/25 [Rx Confirmed 02/15/25] MA Intake Visit Data Collection New Patient or Established: Established Patient (seen at [facility] within 3 years) Seen by Clinical Staff ONLY (RN/MA): No Reason for Visit:: 1 WEEK F/U WOUND Pain Present Currently: Yes Pain Location: Abdomen Pain scale:: 7 Pain Scale Used: Pate-Castillo/Numerical Warp Hanger Required: No PCP or OBGYN visit in last 3 months: Yes Hx Now: No Do You Feel Safe at Home: Yes Authorities Contacted: N/A Smoking Status Smoking Status: Current every day smoker Cessation Counseling Provided: RADHA was advised that quitting smoking is the single most important factor to protect the health of themselves and their family. Discussed the benefits of quitting smoking with patient. Encouraged patient to quit smoking and provided Cessation assistance materials and resources. Tobacco Use: Cigarette Years smoked: 20 Are you interested in quitting?: No Would you like additional Smoking Cessation Counseling?: No Immunization / Flu Flu Vaccine in the Last 12 Months: No Flu Vaccine Exclusion Criteria: No Exclusion Criteria Past Medical History Past Medical History NEUROLOGIC: Positive Peripheral Neuropathy; Negative Seizures CARDIAC: Positive Cardiac Disorders, Atrial Fibrillation, Hypercholesterolemia and Hypertension; Negative Congestive Heart Failure RESPIRATORY: Positive Chronic Obstructive Pulmonary Disease (COPD) (smoker), Smoking and Smoking Cessation Counseling; Negative Asthma GASTROINTESTINAL: Positive Gall Bladder Disease, Hiatal Hernia and Obesity GENITOURINARY: Negative Renal Disease MUSCULOSKELETAL: Positive Arthritis and Fibromyalgia ENDOCRINE: Negative Diabetes Mellitus Type 1 or Diabetes Mellitus Type 2 HEMATOLOGIC: Negative Sickle Cell Disease PSYCHO/SOCIAL: Positive Depression OTHER HISTORY: Positive Blood Transfusions; Negative Blood Transfusion Reaction or Anesthesia Reactions Surgical History SURGICAL: Positive Abdominal Surgery, Gastric Bypass Surgery and Tubal Ligation Social History SMOKING STATUS: Smoking status: Current every day smoker ALCOHOL: Alcohol Intake: Never HOUSING: Housing: House LIVES WITH: Lives With: Alone HPI HPI Narrative HISTORY OF PRESENT ILLNESS I, Yas Blandon, have obtained verbal consent from the patient, to be recorded during this encounter which may include, but not limited to, medical history, examination, treatment plans, and relevant health information.? Patient was informed that recording will be read and reviewed by myself before inclusion in the medical chart. 64F s/p laparotomy with repair of gastric perforation 01/12/25 here for planned follow up She reports experiencing pain towards the superior aspect of the incision. She has noticed it feels firm but the opening at this area of the incision is too small too pack. The inferior opening is continuing to drain. Pt states she feels unwell and has ongoing pain but denies any fever or nausea, states she is eating and having regular bowel movements. ROS Review of Systems Systems Reviewed: All systems reviewed, normal except as documented Objective/Exam General General Appearance: alert, cooperative and well groomed Resp Respiratory exam: Absent respiratory distress Abdominal Abdominal exam: Present soft, tenderness (mild tenderness at the superior aspect of incision) and incision (no erythema, no fluctuance but there is a firm area surrounding the opening towards the superior aspect of the incision. I probed this with needle drivers and there was no pus expressed); Absent distention Assessment & Plan Diagnosis / Problem List (1) Perforated bowel: Status: Acute Assessment & Plan: The abdominal wound appears to be healing well, with no signs of infection such as redness. However, there is firmness and pressure reported in the area. As she is feeling unwell I recommended visiting ER so that she can undergo bloodwork to evaluate her WBC as well as a CT to evaluate for any subcutaneous or deep organ space fluid collections. Pt prefers to avoid ER and feels well enough to wait so I ordered a stat CT and asked her to let me know as soon as it is completed so I can take a look and advise accordingly. If it does not require any urgent intervention I will see her in 2 weeks. All questions were answered and she is agreeable with this plan Orders: Orders CT abdomen pelvis w con 2 Days Basic Metabolic Panel 2 Days K63.1 - Perforation of intestine (nontraumatic) Advanced Care Planning Advance care planning discussed with:: other Office Procedures GNS Level of Care Nursing/Assessment Patient Status: Established Patient Nursing Assessment/Reassesment: Medication Reconciliation, Update PMH in EMR and Vital Signs Coordination of Care: Complex Care and Chronic Disease 1-5, Education Complex Pt/Fam, Consent,records obtained, informed consent, Results/Orders obtained and Staff clarify orders Established Patient Charge Established Patient Point Assignment: 95 Established Patient Point Charge: EP Level 3 (80-115) Patient Portal Questionaires Social History Living Situation History Housing: House Tobacco History Smoking Status: Current every day smoker Alcohol History Alcohol Intake: Never Substance Use History Substance Use: meth Domestic Abuse History Do You Feel Safe at Home: Yes Review of Systems Report any current symptoms Only answer those that you have currently: Past Medical History Past Medical History Have you ever been diagnosed with any of the following: Neurological Problems Seizures: No Peripheral Neuropathy: Yes Cardiology Problems Atrial Fibrillation: Yes Hypercholesterolemia: Yes Congestive Heart Failure: No Hypertension: Yes Respiratory Problems Chronic Obstructive Pulmonary Disease (COPD): Yes (smoker) Asthma: No Smoking: Yes Smoking Cessation Counseling: Yes Stomache/Intestinal Problems Gall Bladder Disease: Yes Hiatal Hernia: Yes Obesity: Yes Genital/Urinary Problems Renal Disease: No Musculoskeletal Problems Arthritis: Yes Fibromyalgia: Yes Endocrine Problems Diabetes Mellitus Type 1: No Diabetes Mellitus Type 2: No Blood Problems Sickle Cell Disease: No Psychologic Problems Depression: Yes Other Problems Blood Transfusions: Yes Blood Transfusion Reaction: No Anesthesia Reactions: No
== END 2025-02-15 15:23 | disposition home or self-care (01) ==
LOC: HODSRG 14:41
PROVIDERS: PCP Nurse Practitioner Family; Referring Provider Nurse Practitioner Family; Supervising Provider Surgery; Visit Provider Surgery
DX: Z48.815 Encounter for surgical aftercare following surgery on the digestive system (principal); F17.210 Nicotine dependence, cigarettes, uncomplicated; Z71.6 Tobacco abuse counseling; J44.9 Chronic obstructive pulmonary disease, unspecified; E66.9 Obesity, unspecified; Z68.31 Body mass index [BMI] 31.0-31.9, adult
CPT/HCPCS: 99213; G0463

== ENCOUNTER 2025-03-02 13:08 | Outpatient (AMB) | payer MEDICARE, MEDICAID, SELFPAY ==
--- NOTE | 2025-03-02 13:23 | ORTHONT_ITS ---
Vital signs 03/02/25 13:24 Height 1.68 m Height Method Stated Weight 89.046 kg Weight Measurement Method Standing Scale BMI 31.5 BP 102/69 Blood Pressure Source Automatic Cuff Blood Pressure Location Left Upper Arm Position Sitting Respiration 19 Pulse 91 Pulse Source Monitor Temp 97.1 F Temp Source Temporal Artery Scan Pulse Oximetry (%) 99 Oxygen Delivery Method Room Air Med/Allergies Allergies & Medications Allergies metoclopramide (From Reglan) Allergy (Verified 03/02/25 13:25) Shakiness Medication Reconciliation multivitamin 1 tab PO QAM 08/24/20 [History Confirmed 03/02/25] ropinirole 0.5 mg tablet 0.5 mg PO QDAY 08/24/20 [History Confirmed 03/02/25] furosemide 40 mg tablet 40 mg PO BID 11/04/24 [History Confirmed 03/02/25] losartan 100 mg tablet 100 mg PO DAILY 11/04/24 [History Confirmed 03/02/25] apixaban 5 mg tablet 5 mg PO BID #90 tabs 11/07/24 [Rx Confirmed 03/02/25] simethicone 80 mg chewable tablet 80 mg PO QID PRN Gas #90 tabs 11/07/24 [Rx Confirmed 03/02/25] citalopram 40 mg tablet 40 mg PO DAILY 01/11/25 [History Confirmed 03/02/25] ergocalciferol (vitamin D2) 1,250 mcg (50,000 unit) capsule 1,250 mcg PO QWEEK 01/11/25 [History Confirmed 03/02/25] loratadine 10 mg tablet 10 mg PO Q24H 01/11/25 [History Confirmed 03/02/25] omeprazole 20 mg capsule,delayed release 40 mg PO QAM 01/11/25 [History Confirmed 03/02/25] potassium chloride 20 mEq tablet,extended release(part/cryst) 20 meq PO DAILY 01/11/25 [History Confirmed 03/02/25] tirzepatide 2.5 mg/0.5 mL subcutaneous pen injector (Mounjaro) 2.5 mg subcut QWEEK 01/11/25 [History Confirmed 03/02/25] Held on 01/18/25. Instructions: F/u with PCP metoprolol succinate 25 mg tablet,extended release 24 hr 25 mg PO HS #30 tabs 01/18/25 [Rx Confirmed 03/02/25] amoxicillin 500 mg-potassium clavulanate 125 mg tablet 1 tab PO Q12H #10 tabs 01/29/25 [Rx Confirmed 03/02/25] oxycodone-acetaminophen 10 mg-325 mg tablet (Percocet) 1 tab PO Q4H PRN pain #30 tabs 02/01/25 [Rx Confirmed 03/02/25] tramadol 50 mg tablet 50 mg PO Q6H PRN pain #60 tabs 02/02/25 [Rx Confirmed 03/02/25] Exam Exam Patient is in no acute distress and is cooperative with the examination today. Patient has a normal mood and affect. Breathing is nonlabored. In no respiratory distress. Bilateral extremities were evaluated and demonstrates sensation intact to light touch. Palpable pedal pulses are present. No significant edema is present. Skin demonstrates lesions and open wounds Patient has significant pain with palpation laterally. Range of motion is 5 to 100 degrees X-rays from [facility] view are reviewed this demonstrates lateral joint space narrowing Assessment and Plan Problem List (1) Arthritis of both knees: Status: Acute Plan: 62-year-old female with bilateral knee osteoarthritis. She has failed conservative treatment. She is previously done well with cortisone injections and she would like knee cortisone injections today. She is not an operative candidate due to the lymphedema. Lymphedema has improved however. Recommend knee cortisone injection as patient would like to proceed with conservative treatment at this time. The risks and benefits of the procedure were reviewed with the patient and patient gave verbal consent to continue with the procedure. Procedure: performed by Dr. Mitchell Using sterile technique the left knee was thoroughly prepped with alcohol, and approximately 1 cc of Depo-Medrol 80mg/mL and 4 cc of 0.2% ropivacaine was injected without resistance into the medial tibial femoral joint space. The patient tolerated the procedure. Recommend knee cortisone injection as patient would like to proceed with conservative treatment at this time. The risks and benefits of the procedure were reviewed with the patient and patient gave verbal consent to continue with the procedure. Procedure: performed by Dr. Mitchell Using sterile technique the left knee was thoroughly prepped with alcohol, and approximately 1 cc of Depo-Medrol 80mg/mL and 4 cc of 0.2% ropivacaine was injected without resistance into the medial tibial femoral joint space. The patient tolerated the procedure. Advanced Care Planning Discussion Advance care planning discussed with:: patient Office Procedures GNS Level of Care Nursing/Assessment Patient Status: Established Patient Nursing Assessment/Reassesment: Medication Reconciliation, Update PMH in EMR and Vital Signs Coordination of Care: Complex Care and Chronic Disease 1-5, Education Complex Pt/Fam, Consent,records obtained, informed consent, Results/Orders obtained and Staff clarify orders Established Patient Charge Established Patient Point Assignment: 95 Established Patient Point Charge: EP Level 3 (80-115) Surgical Proc/IM SQ injection Minor Surgical Procedure: Yes (KNEE INJECTION) Medication Given Medication Given Medication Given: Yes Documented Dose Given: 2 Route: Infiitration Medication Given Medication Given Medication Given: Yes Documented Dose Given: 8 Route: Infiitration Office Meds methylprednisolone acetate 80 mg/mL suspension for injection Performing Provider: Bolivar Mitchell MD Performing Location: [facility] Administered by: Bolivar Mitchell MD on 03/02/25 14:13 Dose Route Admin Location Dispensed Lot Number Expiration Date Pack age [facility] Human Resources Assistant 160 mg intra-articular KNEE 2 mL [id number] 11/02/26 [address]-3 7 [id number] [employer] ropivacaine (PF) 2 mg/mL (0.2 %) injection solution Performing Provider: Bolivar Mitchell MD Performing Location: [facility] Administered by: Bolivar Mitchell MD on 03/02/25 14:13 Dose Route Admin Location Dispensed Lot Number Expiration Date Pack age [facility] Human Resources Assistant 40 mL Infiltration KNEE 40 mL [id number] 06/05/27 89268-505-75 [id number] [facility] Intake Visit Data Collection New Patient or Established: Established Patient (seen at [facility] within 3 years) Reason for Visit:: BL KNEE INJECTION FU Seen by Clinical Staff ONLY (RN/MA): No Fine Dining Server Required: No PCP or OBGYN visit in last 3 months: Yes Hx Now: No Do You Feel Safe at Home: Yes Authorities Contacted: N/A Questionairres Past Medical History Past Medical History Have you ever been diagnosed with any of the following: Neurological Problems Seizures: No Peripheral Neuropathy: Yes Cardiology Problems Atrial Fibrillation: Yes Hypercholesterolemia: Yes Congestive Heart Failure: No Hypertension: Yes Respiratory Problems Chronic Obstructive Pulmonary Disease (COPD): Yes (smoker) Asthma: No Smoking: Yes Smoking Cessation Counseling: Yes Stomache/Intestinal Problems Gall Bladder Disease: Yes Hiatal Hernia: Yes Obesity: Yes Genital/Urinary Problems Renal Disease: No Musculoskeletal Problems Arthritis: Yes Fibromyalgia: Yes Endocrine Problems Diabetes Mellitus Type 1: No Diabetes Mellitus Type 2: No Blood Problems Sickle Cell Disease: No Psychologic Problems Depression: Yes Other Problems Blood Transfusions: Yes Blood Transfusion Reaction: No Anesthesia Reactions: No Subjective Visit Visit for: follow up visit, knee (RIGHT KNEE ) and injections Immunization / Flu Flu Vaccine in the Last 12 Months: Yes Flu Vaccine Exclusion Criteria: Already Received History of Present Illness Chief complaint: bilateral knee injections Patient has bilateral knee pain and significant arthritis. She has lymphedema of bilateral knees and thus cannot get total knee replacement as possible candidate. The injections have provided some relief and she would like new injections today. She has had about 3 months of relief with the injection. Personal History Red flag PMH: none Pain Pain level (0-10): 9 Pain duration: 3 DAYS Pain location: anterior Pain quality: sharp, aching and shocking Pain timing: night and increases with activity Associated signs & symptoms: stiffness Ambulatory data Ambulatory device: none Walking distance (minutes): 1 Treatments Number of previous injections: 3 Improvement with previous injections: Yes Number of Physical Therapy sessions: 0 Improvement with PT: No Improvement with NSAIDS: n/a Review of Systems Review of Systems: All systems negative unless otherwise noted in HPI.
[2025-03-02 13:24] VITALS: BP 102/69; PULSE 91; RESP 19; TEMP 36.2; O2SAT 99; BMI 31.5
== END 2025-03-02 13:39 | disposition home or self-care (01) ==
LOC: HODSRG 13:08
PROVIDERS: PCP Family Medicine; Referring Provider Family Medicine; Supervising Provider Orthopaedic Surgery Adult Reconstructive Orthopaedic Surgery; Visit Provider Orthopaedic Surgery Adult Reconstructive Orthopaedic Surgery
DX: M25.562 Pain in left knee (principal); M25.561 Pain in right knee; M17.0 Bilateral primary osteoarthritis of knee; I89.0 Lymphedema, not elsewhere classified; I10 Essential (primary) hypertension; E66.9 Obesity, unspecified; Z68.31 Body mass index [BMI] 31.0-31.9, adult
CPT/HCPCS: 20610; 99213; J1010; J2795; G0463

== ENCOUNTER → 2025-03-19 | Outpatient (CLI) | payer MEDICARE, MEDICAID, SELFPAY ==
--- NOTE | 2025-03-19 11:47 | XR_ITS ---
Examination: CT abdomen with intravenous contrast CT pelvis with intravenous contrast 2-D coronal reconstructions 2-D sagittal reconstructions Date and time of exam: March 19, 2025, 1235 hours, comparison 01/11/2025 INDICATIONS: 1 month post laparotomy with upper abdominal pain. CTDI: vol (mGy) 11.4 DLP: (mGycm) 567 Technique: Multiple axial sections of the abdomen and pelvis have been obtained. 64 slice high-resolution scanner used. 3 mm axial sections have been obtained, post intravenous injection 60 cc Isovue 370 2-D sagittal, coronal reconstructions obtained. Low dose protocols were performed. One or more of the following dose reduction techniques were used; automated exposure control, adjustment of the mA and/or KV according to patient size, use of iterative reconstruction technique. Findings: Liver mildly irregular in contour Absent gallbladder Common bile duct 15 mm no stones noted Spleen is not enlarged No pancreatic mass Moderate renal scarring Abdominal aortic calcification no aneurysmal dilatation No bowel obstruction Moderate stool throughout the colon No abdominal or pelvic abscess Contracted urinary bladder Severe osteopenia IMPRESSION: Enlarged common bile duct, clinical correlation advised, recommend hepatobiliary sonography follow-up No abdominal or pelvic abscess
== END | disposition home or self-care (01) ==
PROVIDERS: PCP Nurse Practitioner Family; Referring Provider Surgery; Visit Provider Surgery
DX: K83.8 Other specified diseases of biliary tract (principal)
CPT/HCPCS: 74177; A4649; Q9967

== ENCOUNTER 2025-03-25 10:10 | Outpatient (AMB) | payer MEDICARE, MEDICAID, SELFPAY ==
[2025-03-25 10:43] VITALS: BP 134/85; PULSE 77; RESP 19; TEMP 36.5; O2SAT 93; BMI 31.6
--- NOTE | 2025-03-25 10:43 | GSCOFFNT_ITS ---
Vital Signs - [facility] 03/25/25 10:43 Height 1.68 m Height Method Stated Weight 89.386 kg Weight Measurement Method Standing Scale BMI 31.6 BP 134/85 H Blood Pressure Source Automatic Cuff Blood Pressure Location Right Upper Arm Position Sitting Respiration 19 Pulse 77 Pulse Source Monitor Temp 97.7 F Temp Source Temporal Artery Scan Pulse Oximetry (%) 93 L Oxygen Delivery Method Room Air Med/Allergies Allergies & Medications Allergies metoclopramide (From Reglan) Allergy (Verified 03/25/25 10:44) Shakiness Medication Reconciliation multivitamin 1 tab PO QAM 08/24/20 [History Confirmed 03/25/25] ropinirole 0.5 mg tablet 0.5 mg PO QDAY 08/24/20 [History Confirmed 03/25/25] furosemide 40 mg tablet 40 mg PO BID 11/04/24 [History Confirmed 03/25/25] losartan 100 mg tablet 100 mg PO DAILY 11/04/24 [History Confirmed 03/25/25] apixaban 5 mg tablet 5 mg PO BID #90 tabs 11/07/24 [Rx Confirmed 03/25/25] simethicone 80 mg chewable tablet 80 mg PO QID PRN Gas #90 tabs 11/07/24 [Rx Confirmed 03/25/25] citalopram 40 mg tablet 40 mg PO DAILY 01/11/25 [History Confirmed 03/25/25] ergocalciferol (vitamin D2) 1,250 mcg (50,000 unit) capsule 1,250 mcg PO QWEEK 01/11/25 [History Confirmed 03/25/25] loratadine 10 mg tablet 10 mg PO Q24H 01/11/25 [History Confirmed 03/25/25] omeprazole 20 mg capsule,delayed release 40 mg PO QAM 01/11/25 [History Confirmed 03/25/25] potassium chloride 20 mEq tablet,extended release(part/cryst) 20 meq PO DAILY 01/11/25 [History Confirmed 03/25/25] tirzepatide 2.5 mg/0.5 mL subcutaneous pen injector (Mounjaro) 2.5 mg subcut QWEEK 01/11/25 [History Confirmed 03/25/25] Held on 01/18/25. Instructions: F/u with PCP metoprolol succinate 25 mg tablet,extended release 24 hr 25 mg PO HS #30 tabs 01/18/25 [Rx Confirmed 03/25/25] amoxicillin 500 mg-potassium clavulanate 125 mg tablet 1 tab PO Q12H #10 tabs 01/29/25 [Rx Confirmed 03/25/25] oxycodone-acetaminophen 10 mg-325 mg tablet (Percocet) 1 tab PO Q4H PRN pain #30 tabs 02/01/25 [Rx Confirmed 03/25/25] tramadol 50 mg tablet 50 mg PO Q6H PRN pain #60 tabs 02/02/25 [Rx Confirmed 03/25/25] tramadol 50 mg tablet 50 mg PO Q6H PRN pain #30 tabs 03/05/25 [Rx Confirmed 03/25/25] hydrocodone 5 mg-acetaminophen 325 mg tablet 1 tab PO Q6H PRN pain #30 tabs 03/17/25 [Rx Confirmed 03/25/25] MA Intake Visit Data Collection New Patient or Established: Established Patient (seen at [facility] within 3 years) Reason for Visit:: F/U ON CT SCAN RESULTS Pain Present Currently: No Pain Scale Used: Pate-Castillo/Numerical Creative Arts Music Therapist Required: No PCP or OBGYN visit in last 3 months: Yes Hx Now: No Do You Feel Safe at Home: Yes Authorities Contacted: N/A Smoking Status Smoking Status: Current every day smoker Cessation Counseling Provided: RADHA was advised that quitting smoking is the single most important factor to protect the health of themselves and their family. Discussed the benefits of quitting smoking with patient. Encouraged patient to quit smoking and provided Cessation assistance materials and resources. Tobacco Use: Cigarette Years smoked: 20 Are you interested in quitting?: No Would you like additional Smoking Cessation Counseling?: No Immunization / Flu Flu Vaccine in the Last 12 Months: No Flu Vaccine Exclusion Criteria: No Exclusion Criteria Past Medical History Past Medical History NEUROLOGIC: Positive Peripheral Neuropathy; Negative Seizures CARDIAC: Positive Cardiac Disorders, Atrial Fibrillation, Hypercholesterolemia and Hypertension; Negative Congestive Heart Failure RESPIRATORY: Positive Chronic Obstructive Pulmonary Disease (COPD) (smoker), Smoking and Smoking Cessation Counseling; Negative Asthma GASTROINTESTINAL: Positive Gall Bladder Disease, Hiatal Hernia and Obesity GENITOURINARY: Negative Renal Disease MUSCULOSKELETAL: Positive Arthritis and Fibromyalgia ENDOCRINE: Negative Diabetes Mellitus Type 1 or Diabetes Mellitus Type 2 HEMATOLOGIC: Negative Sickle Cell Disease PSYCHO/SOCIAL: Positive Depression OTHER HISTORY: Positive Blood Transfusions; Negative Blood Transfusion Reaction or Anesthesia Reactions Surgical History SURGICAL: Positive Abdominal Surgery, Gastric Bypass Surgery and Tubal Ligation Social History SMOKING STATUS: Smoking status: Current every day smoker SUBSTANCE USE: Substance use type: does not use ALCOHOL: Alcohol Intake: Never HOUSING: Housing: House LIVES WITH: Lives With: Alone Travel Risk Travel Hx Recent Travel: No HPI HPI Narrative 64F s/p laparotomy with repair of gastric perforation 01/12/25 here for planned follow up. Pt reports ongoing upper abdominal pain, states that she did have similar pain before surgery so describes it as somewhat chronic in nature. She is taking norco but feels that percocet helps more. Also reports nausea but says she is eating well and having regular bowel function. She is no longer packing the incision ROS Review of Systems Systems Reviewed: All systems reviewed, normal except as documented Objective/Exam General General Appearance: alert, cooperative and well groomed Resp Respiratory exam: Absent respiratory distress Abdominal Abdominal exam: Present soft, tenderness (mild tenderness at the superior aspect of incision) and incision (midline incision healed with no erythema, no fluctuance or tenderness. induration at the superior aspect but no fluctuance and no sign of hernia); Absent distention Results CT AP from 03/19 reviewed: dilated CBD (post cholecystectomy) Assessment & Plan Diagnosis / Problem List (1) Perforated bowel: Status: Acute Assessment & Plan: 64F s/p laparotomy with repair of gastric perforation 01/12/25 here for planned follow up, recovering overall well however with ongoing epigastric pain which pt states is chronic in nature Plan: Follow up in 2 mos Advanced Care Planning Advance care planning discussed with:: other Office Procedures GNS Level of Care Nursing/Assessment Patient Status: Established Patient Nursing Assessment/Reassesment: Medication Reconciliation, Update PMH in EMR and Vital Signs Coordination of Care: Complex Care and Chronic Disease 1-5, Education Complex Pt/Fam, Consent,records obtained, informed consent, Results/Orders obtained and Staff clarify orders Established Patient Charge Established Patient Point Assignment: 95 Established Patient Point Charge: EP Level 3 (80-115) Patient Portal Questionaires Social History Living Situation History Housing: House Tobacco History Smoking Status: Current every day smoker Alcohol History Alcohol Intake: Never Substance Use History Substance Use: meth Domestic Abuse History Do You Feel Safe at Home: Yes Review of Systems Report any current symptoms Only answer those that you have currently: Past Medical History Past Medical History Have you ever been diagnosed with any of the following: Neurological Problems Seizures: No Peripheral Neuropathy: Yes Cardiology Problems Atrial Fibrillation: Yes Hypercholesterolemia: Yes Congestive Heart Failure: No Hypertension: Yes Respiratory Problems Chronic Obstructive Pulmonary Disease (COPD): Yes (smoker) Asthma: No Smoking: Yes Smoking Cessation Counseling: Yes Stomache/Intestinal Problems Gall Bladder Disease: Yes Hiatal Hernia: Yes Obesity: Yes Genital/Urinary Problems Renal Disease: No Musculoskeletal Problems Arthritis: Yes Fibromyalgia: Yes Endocrine Problems Diabetes Mellitus Type 1: No Diabetes Mellitus Type 2: No Blood Problems Sickle Cell Disease: No Psychologic Problems Depression: Yes Other Problems Blood Transfusions: Yes Blood Transfusion Reaction: No Anesthesia Reactions: No
== END 2025-03-25 10:53 | disposition home or self-care (01) ==
LOC: HODSRG 10:10
PROVIDERS: PCP Nurse Practitioner Family; Referring Provider Nurse Practitioner Family; Supervising Provider Surgery; Visit Provider Surgery
DX: Z48.815 Encounter for surgical aftercare following surgery on the digestive system (principal); R10.13 Epigastric pain; I10 Essential (primary) hypertension; E66.9 Obesity, unspecified; Z68.31 Body mass index [BMI] 31.0-31.9, adult; F17.210 Nicotine dependence, cigarettes, uncomplicated; Z71.6 Tobacco abuse counseling
CPT/HCPCS: 99213; G0463

== ENCOUNTER 2025-04-23 06:15 | Observation (INO) | payer MEDICARE, MEDICAID, SELFPAY ==
[2025-04-23] VITALS (7 sets, daily range): BP systolic 118–162; BP diastolic 61–84; PULSE 87–123; RESP 18–23; TEMP 36.4–36.6; O2SAT 96–99; BMI 32.5
--- NOTE | 2025-04-23 07:12 | EDRME_ITS ---
Rapid Medical Screening Exam [facility] Arrival date/time: 04/23/25 06:15 This is a 64-year-old female that comes into the emergency room with complaints of lymphedema. Patient has bilateral lower extremity swelling. Patient is managed as an outpatient by Brandin العلي. She was instructed to come to the emergency room to be admitted for IV diuretics as she has failed outpatient diuretic therapy per patient. Patient has a history of high blood pressure, diabetes, atrial fibrillation. Patient also recently had a laparoscopic repair of a gastric perforation in January 2025. Patient denies chest pain shortness of breath. Patient denies fever or chills. Patient reports that despite her being on diuretics she is not urinating that much and her urine feels very hot when it comes out per patient I have greeted and performed a focused initial assessment of this patient. Initial appropriate labs ordered at this time. A comprehensive ED assessment and evaluation of the patient and analysis of all test and completion of medical decision making process will be conducted by additional ED provider. Chief Complaint: Extremity Problem,Nontraumatic Time Seen by Provider: 04/23/25 06:42 Vital signs: Vital Signs Temperature 97.9 F 04/23/25 06:24 Respiratory Rate 19 04/23/25 06:24 Blood Pressure 118/61 04/23/25 06:24 Pulse Oximetry (%) 99 04/23/25 06:24 Oxygen Delivery Method Room Air 04/23/25 06:24 Exam: Awake alert, generalized edema to lower extremities. Breathing even and unlabored Clinical Impression: Bilateral leg swelling
--- NOTE | 2025-04-23 07:12 | EKG_ITS ---
[facility] Test Date: 2025-04-23 Pat Name: RADHA JORDAN Department: Room: - Gender: Female Software Development Engineer: : 1960 Requested By: Jessa Ulrich Order Number: [id number] Reading MD: Jessa Ulrich Measurements Intervals [place] Rate: 117 P: NH: QRS: -44 QRSD: 80 T: 29 QT: 337 QTc: 471 Interpretive Statements ATRIAL FIBRILLATION WITH RAPID VENTRICULAR RESPONSE INFERIOR MYOCARDIAL INFARCTION , PROBABLY OLD [40+ ms Q WAVE AND/OR ST/T ABNORMALITY IN II/aVF] ANTEROSEPTAL MYOCARDIAL INFARCTION , PROBABLY OLD [40+ ms Q WAVE IN V1-V4] Compared to ECG 01/10/2025 10:39:23 No significant changes /store/S0/[id number]/[id number].pdf
--- NOTE | 2025-04-23 07:12 | XR_ITS ---
EXAMINATION: PA chest single view TECHNIQUE: Upright PA chest single view Date and time: April 23, 2025, 0833 hours, comparison 01/11/2025 INDICATIONS: Chest pain bilateral leg swelling beginning March 2025 FINDINGS: Mild prominence left ventricle Mitral valvular calcification Mild vascular congestion. No lobar pneumonia or columba pulmonary edema Prominent osteopenia IMPRESSION: Mild vascular congestion No columba pulmonary edema, no pneumonia
[2025-04-23 07:59] LABS: Basophils # (Auto) 0.0 Thou/mm3 (0.0-0.2); Basophils % (Auto) 1 % (0-2.5); Eosinophils # (Auto) 0.1 Thou/mm3 (0.0-0.5); Eosinophils % (Auto) 1 % (0-10); Hematocrit 30.5 % (36.0-46.0); Hemoglobin 8.9 g/dL (12.0-16.0); Immature Granulocytes Auto 0.01 Thou/mm3 (0.00-0.00); Lymphocytes # (Auto) 2.5 Thou/mm3 (1.0-4.8); Lymphocytes % (Auto) 39 % (10-50); Mean Corpuscular HGB Conc 29.2 g/dl (31.0-37.0); Mean Corpuscular Hemoglobin 21.8 pg (25.0-35.0); Mean Corpuscular Volume 75 fL (80-100); Monocytes # (Auto) 0.8 Thou/mm3 (0.0-0.8); Monocytes % (Auto) 13 % (0-12); Neutrophils # (Auto) 3.1 Thou/mm3 (1.8-7.7); Neutrophils % (Auto) 47 % (37-80); Nucleated Red Blood Cell # 0.00 Thou/mm3 (0.00-0.00); Nucleated Red Blood Cell % 0 /100 WBC (0); Platelet Count 269 Thou/mm3 (140-440); RDW Standard Deviation 50.1 fL (36.4-46.3); Red Blood Count 4.09 Miln/mm3 (4.00-5.20); White Blood Count 6.5 Thou/mm3 (3.6-11.0)
[2025-04-23 08:16] LABS: B-Type Natriuretic Peptide 301 pg/mL (0-100)
[2025-04-23 08:18] LABS: Alanine Aminotransferase 18 U/L (10-49); Albumin, Serum 4.1 gm/dL (3.4-4.8); Albumin/Globulin Ratio 1.3 (1.2-2.2); Alkaline Phosphatase 108 U/L (46-116); Anion Gap 8 (7-16); Aspartate Amino Transferase 29 U/L (0-34); BUN/Creatinine Ratio 16 Ratio (12-20); Bilirubin,Total 0.3 mg/dL (0.3-1.2); Blood Urea Nitrogen 16 mg/dL (9-23); Calcium 9.4 mg/dL (8.3-10.6); Calcium (Corrected) 9.4 mg/dL (8.5-10.1); Carbon Dioxide 24.8 mMol/L (20.0-31.0); Chloride 109 mMol/L (98-107); Creatinine (Component) 1.0 mg/dL (0.6-1.3); Estimated Creatinine Clearance 64.0 mL/min (>60); Globulin 3.1 gm/dL (2.3-3.5); Glucose 100 mg/dL (74-106); Osmolality,Calculated 284 (275-295); Potassium 3.7 mMol/L (3.4-5.1); Sodium 142 mMol/L (136-145); Total Protein 7.2 gm/dL (5.7-8.2); Troponin I < 0.020 ng/mL (0.0-0.045); eGFR > 60 See Note
--- NOTE | 2025-04-23 09:03 | XR_ITS ---
Examination: Venous duplex lower extremity sonogram, bilateral. Date and time of exam: April 23, 2025, 1411 hours INDICATIONS: Bilateral leg swelling 1 month Technique: Multiple sonographic images of the deep venous system have been obtained. B-mode/2-D grayscale imaging of vascular structures and Doppler spectral analysis (waveforms) and color performed Both legs are examined. Findings: Deep venous systems do not demonstrate abnormal echogenicity. No diagnostic visualization peroneal and posterior tibial veins on the left secondary to edema All visualized deep veins exhibit compressibility. All visualized deep veins exhibit augmentation. Impression: Limited study No DVT demonstrated
--- NOTE | 2025-04-23 10:15 | PD.RESCONSUL ---
HPI Data of Consult Patient: known to practice within the last 3 years Consult date: 04/23/25 Requesting Physician: Sharonda Laureano MD Admitting Provider: Hcetor Lopez MD Attending Provider: Brandin العلي MD Primary Care Provider: SHEY Joel Consult Narrative History of present illness: Ms. Norris is a 64-year-old female with past medical history of prediabetes, hypertension, bilateral lower extremity lymphedema, depression, paroxysmal atrial fibrillation, status post repair of gastric perforation, osteoarthritis and chronic pain who presented to [facility] emergency department on April 23, 2025 with a chief complaint of lower extremity swelling. Patient reported worsening bilateral lower extremity edema, patient was seen in office yesterday, Patient was scheduled for NEO and cardioversion outpatient however patient was hesitant and wanted to proceed with the procedure after holidays. However she also reported that she has been taking 4 mg of Bumex orally and has not been able to urinate much and continues to have worsening lower extremity edema with seeping of fluid bilaterally, she endorses some shortness of breath, reports feeling weaker. She denies any palpitations, chest pain, syncope, presyncope and falls ED course: On presentation in ED blood pressure 118/61, heart rate 107, respiratory 19, temp 97.9, O2 sat 99 on room air. ED labs significant for CBC: Hemoglobin 8.4, hematocrit 29.1, MCV 75, MCH 21.6, MCHC 28.9, platelet count 278, WBC 6.4: CMP sodium 142, potassium 3.7, chloride 109, bicarb 25.9, BUN 17, creatinine 0.9, GFR greater than 60, glucose 102, osmolality 284, calcium 9.3, magnesium 1.9, phosphorus 4.0, AST ALT alk phos within normal limits troponin 0.020, BNP 273. Chest x-ray obtained in ED shows moderate vascular congestion, EKG shows atrial fibrillation with rapid ventricular response, rate 117, venous Doppler bilateral lower extremity obtained in hospital is negative for DVT Patient admitted inpatient for management of acute decompensated heart failure due to failure of outpatient diuretic therapy cc:: cc: Review of Systems Review of Systems Systems Reviewed: All systems reviewed, normal except as documented Past Medical History Past Medical History Comments PMH COMMENT: PMH: Positive for prediabetes, hypertension, bilateral lower extremity lymphedema, depression, paroxysmal atrial fibrillation, status post repair of gastric perforation, osteoarthritis and chronic pain PSHx: Gastric bypass, hernia repair, perforated peptic ulcer disease repair Allergies: Metoclopramide?shakiness Social history: -Smoking: Current active smoker, 40 pack years -Alcohol Use: Alcohol use 2 to 3 days a week -Illicit Drug Use: Denies, methamphetamine tox screen has been positive in the past -Occupation: Disabled -Martial Status: , with 2 children Family History: No pertinent family history Exam Vital Signs Temp Pulse Resp BP Pulse Ox O2 Del Method 97.9 F 107 H 20 134/84 H 97 Room Air 04/23/25 08:21 04/23/25 08:21 04/23/25 08:21 04/23/25 08:21 04/23/25 08:21 04/23/25 08:21 Narrative Exam Physical Exam General: Awake and in no acute distress. Conversational and non-toxic appearing. HEENT: Normocephalic, atraumatic, mucous membranes moist. Heart: Regular rate and rhythm, rate controlled, no murmurs. Lungs: Mild bilateral crackles Abdomen: Soft, nondistended, nontender, positive bowel sounds. ?No guarding or rebound tenderness. Neurologic: Alert and oriented x3, no gross neurological deficit, and patient able to move all 4 extremities. Extremities: 3+ bilateral lower extremity edema Skin: No rash or ecchymoses. Results Labs 04/25/25 05:41 04/25/25 05:41 Labs: Short CBC 04/23/25 Range/Units 07:44 WBC 6.5 (3.6-11.0) Thou/mm3 Hgb 8.9 L (12.0-16.0) g/dL Hct 30.5 L (36.0-46.0) % Plt Count 269 (140-440) Thou/mm3 BMP 04/23/25 07:44 Sodium 142 Potassium 3.7 Chloride 109 H Carbon Dioxide 24.8 BUN 16 Creatinine 1.0 Glucose 100 Calcium 9.4 Cardiac Enzymes 04/23/25 Range/Units 07:44 Troponin I < 0.020 (0.0-0.045) ng/mL Liver Function 04/23/25 Range/Units 07:44 Total Bilirubin 0.3 (0.3-1.2) mg/dL AST 29 (0-34) U/L ALT 18 (10-49) U/L Alkaline Phosphatase 108 (46-116) U/L Albumin 4.1 (3.4-4.8) gm/dL Quality Measures Quality Measures VTE prophylaxis Advance care planning discussed with:: patient and child Medications Home Medications and Allergies Home Medications ?Medication ?Instructions ?Recorded ?Confirmed ?Type multivitamin 1 tab PO QAM 08/24/20 04/23/25 History ropinirole 0.5 mg tablet 0.5 mg PO QDAY 08/24/20 04/23/25 History losartan 100 mg tablet 100 mg PO DAILY 11/04/24 03/25/25 History citalopram 40 mg tablet 40 mg PO DAILY 01/11/25 03/25/25 History ergocalciferol (vitamin D2) 1,250 1,250 mcg PO QWEEK 01/11/25 03/25/25 History mcg (50,000 unit) capsule loratadine 10 mg tablet 10 mg PO Q24H 01/11/25 03/25/25 History omeprazole 20 mg capsule,delayed 40 mg PO QAM 01/11/25 04/23/25 History release potassium chloride 20 mEq 20 meq PO DAILY 01/11/25 04/23/25 History tablet,extended release(part/cryst) tirzepatide 2.5 mg/0.5 mL 2.5 mg subcut QWEEK 01/11/25 03/25/25 History subcutaneous pen injector (Mounjaro) Held on 04/25/25. Instructions: Hold until you follow-up with your PCP Allergies Allergy/AdvReac Type Severity Reaction Status Date / Time metoclopramide (From Reglan) Allergy Shakiness Verified 04/23/25 06:16 Visit Medications Bumetanide (Bumetanide Inj 0.25 Mg/Ml Vial 4 Ml) 2 mg IVP BID ANTONIA Stop: 05/23/25 09:44 Assessment & Plan Plan Assessment and Plan: Summary: Ms. Norris is a 64-year-old female with past medical history of prediabetes, hypertension, bilateral lower extremity lymphedema, depression, paroxysmal atrial fibrillation, status post repair of gastric perforation, osteoarthritis and chronic pain who presented to [facility] emergency department on April 23, 2025 with a chief complaint of lower extremity swelling and seeping of fluid from bilateral lower legs. Patient admitted further for acute decompensated heart failure management. #Acute decompensated heart failure #Diastolic heart failure with preserved ejection fraction, EF 55 to 60% Patient presented with increased bilateral lower extremity edema, was taking 4 mg Bumex daily however reported that her bilateral lower extremity edema is worsening, complained of weeping from right lower extremity. Does have history of bilateral chronic lymphedema however does have worsening edema bilaterally. Complains of some shortness of breath at times and feeling of generalized tiredness, minimal bilateral crackles appreciated. BNP on presentation 273, troponin negative, BUN/creatinine within normal limits. Chest x-ray does show mild to moderate vascular congestion, venous Doppler bilateral lower extremity negative Will obtain hemoglobin A1c, TSH and free T4 for cardiac restratification Recommendations: - Diuresis with Bumex 2 mg IV twice daily - Strict intake and output, daily weights, low-sodium diet, fluid restriction 1500 cc - Will obtain iron panel #Atrial fibrillation, with rapid ventricular response Patient has history of paroxysmal A-fib, EKG on presentation shows A-fib with RVR, rate 117 [id number] score 4 points Holter monitoring 02/23/2025 for 47-hour shows predominating rhythm atrial fibrillation, average heart rate 121, no SVE's, max heart rate 214 0.003% VE's 1 couplet no VE runs no pauses greater than 2 seconds Recommendations: - Resume home dose metoprolol 25 mg at bedtime and 50 mg every morning, uptitrate dose if needed - Continue home dose Eliquis 5 mg p.o. twice daily - Continue telemetry monitoring - Keep magnesium greater than 2 and potassium greater than 4 at all times #Microcytic hypochromic anemia Hemoglobin 8.4, hematocrit 29.1, MCV 75, MCH 21.6, MCHC 28.9, RBC 3.88 on presentation - Will obtain iron panel. Nature of microcytic anemia, will consider IV iron replacement #Hypertension Monitor blood pressure, continue metoprolol dose #Prediabetes #Bilateral lower extremity lymphedema #Depression #History of gastric perforation #Osteoarthritis #Chronic pain Management as per primary team Thank you for the consult and allowing to participate in the care of the patient. Cardiology will continue to follow. Case discussed with Attending Physician Dr. Brandin Barker MD Internal Medicine PGY-2 Disclaimer: This note was dictated by speech recognition. Minor errors in shank paperer may be present due to voice recognition software. Attending Provider Attestation/Addendum I have personally seen and examined the patient separately on the above date of service and discussed the plan of care with the resident. I reviewed the resident Dr. Iveth Barker consultation progress note and agree with the resident findings and plan in the note above and have also edited the documentation to reflect my findings and plan. Brandin العلي M.D. Interventional Cardiology
[2025-04-23 10:52] LABS: Basophils # (Auto) 0.0 Thou/mm3 (0.0-0.2); Basophils % (Auto) 1 % (0-2.5); Eosinophils # (Auto) 0.1 Thou/mm3 (0.0-0.5); Eosinophils % (Auto) 1 % (0-10); Hematocrit 29.1 % (36.0-46.0); Immature Granulocytes Auto 0.02 Thou/mm3 (0.00-0.00); Lymphocytes # (Auto) 2.5 Thou/mm3 (1.0-4.8); Lymphocytes % (Auto) 38 % (10-50); Mean Corpuscular HGB Conc 28.9 g/dl (31.0-37.0); Mean Corpuscular Hemoglobin 21.6 pg (25.0-35.0); Mean Corpuscular Volume 75 fL (80-100); Monocytes # (Auto) 0.7 Thou/mm3 (0.0-0.8); Monocytes % (Auto) 10 % (0-12); Neutrophils # (Auto) 3.2 Thou/mm3 (1.8-7.7); Neutrophils % (Auto) 50 % (37-80); Nucleated Red Blood Cell # 0.00 Thou/mm3 (0.00-0.00); Nucleated Red Blood Cell % 0 /100 WBC (0); Platelet Count 278 Thou/mm3 (140-440); RDW Standard Deviation 49.8 fL (36.4-46.3); Red Blood Count 3.88 Miln/mm3 (4.00-5.20); White Blood Count 6.4 Thou/mm3 (3.6-11.0)
--- NOTE | 2025-04-23 10:53 | PD.EDEXREM ---
ED Extremity Problem RME/HPI General Chief complaint: Extremity Problem,Nontraumatic Stated complaint: BLE SWELLING AND SWEEPING, SENT BY CARDIO Time Seen by Provider: 04/23/25 06:42 Arrival date/time: 04/23/25 06:15 RME / HPI RME / HPI Narrative: 04/23/25 06:15 This is a 64-year-old female that comes into the emergency room with complaints of lymphedema. Patient has bilateral lower extremity swelling. Patient is managed as an outpatient by Brandin العلي. She was instructed to come to the emergency room to be admitted for IV diuretics as she has failed outpatient diuretic therapy per patient. Patient has a history of high blood pressure, diabetes, atrial fibrillation. Patient also recently had a laparoscopic repair of a gastric perforation in January 2025. Patient denies chest pain shortness of breath. Patient denies fever or chills. Patient reports that despite her being on diuretics she is not urinating that much and her urine feels very hot when it comes out per patient I have greeted and performed a focused initial assessment of this patient. Initial appropriate labs ordered at this time. A comprehensive ED assessment and evaluation of the patient and analysis of all test and completion of medical decision making process will be conducted by additional ED provider. DR. DENNIS MAIN ED EVALUATION 64 year old female with history of atrial fibrillation on Eliquis, hypertension, diabetes, chronic bilateral lower extremity lymphedema, s/p laparoscopic repair of a gastric perforation 01/2025 presents to the ED, referred by her manager harbor Dr. العلي for further evaluation and management of bilateral lower extremity swelling beginning 3 weeks ago. Patient states she had been started on Bumex 2mg BID with no change. The dose was recently increased to 4mg BID with no change/improvement. States she has noticed bilateral legs are weeping(R>L) and accompanied by pain. Followed up with her manager harbor yesterday and advised to come to the ED. No known modifying factors. Denies chest pain,cough, or shortness of breath. Exam: Awake alert, generalized edema to lower extremities. Breathing even and unlabored Impression: Bilateral leg swelling Related Data Home Medications ?Medication ?Instructions ?Recorded ?Confirmed multivitamin 1 tab PO QAM 08/24/20 03/25/25 ropinirole 0.5 mg tablet 0.5 mg PO QDAY 08/24/20 03/25/25 furosemide 40 mg tablet 40 mg PO BID 11/04/24 03/25/25 losartan 100 mg tablet 100 mg PO DAILY 11/04/24 03/25/25 citalopram 40 mg tablet 40 mg PO DAILY 01/11/25 03/25/25 ergocalciferol (vitamin D2) 1,250 1,250 mcg PO QWEEK 01/11/25 03/25/25 mcg (50,000 unit) capsule loratadine 10 mg tablet 10 mg PO Q24H 01/11/25 03/25/25 omeprazole 20 mg capsule,delayed 40 mg PO QAM 01/11/25 03/25/25 release potassium chloride 20 mEq 20 meq PO DAILY 01/11/25 03/25/25 tablet,extended release(part/cryst) tirzepatide 2.5 mg/0.5 mL 2.5 mg subcut QWEEK 01/11/25 03/25/25 subcutaneous pen injector (Trini) Held on 01/18/25. Instructions: F/u with PCP Previous Rx's ?Medication ?Instructions ?Recorded apixaban 5 mg tablet 5 mg PO BID #90 tabs 11/07/24 simethicone 80 mg chewable tablet 80 mg PO QID PRN Gas #90 tabs 11/07/24 metoprolol succinate 25 mg 25 mg PO HS #30 tabs 01/18/25 tablet,extended release 24 hr amoxicillin 500 mg-potassium 1 tab PO Q12H #10 tabs 01/29/25 clavulanate 125 mg tablet oxycodone-acetaminophen 10 mg-325 1 tab PO Q4H PRN pain #30 tabs 02/01/25 mg tablet (Percocet) tramadol 50 mg tablet 50 mg PO Q6H PRN pain #60 tabs 02/02/25 tramadol 50 mg tablet 50 mg PO Q6H PRN pain #30 tabs 03/05/25 hydrocodone 5 mg-acetaminophen 325 1 tab PO Q6H PRN pain #30 tabs 03/17/25 mg tablet oxycodone-acetaminophen 5 mg-325 1 tab PO Q6H PRN pain #30 tabs 04/05/25 mg tablet (Percocet) Allergies Allergy/AdvReac Type Severity Reaction Status Date / Time metoclopramide (From Reglan) Allergy Shakiness Verified 04/23/25 06:16 Review of Systems Review of Systems Systems Reviewed: All systems reviewed, normal except as documented Past Medical History Past Medical History NEUROLOGIC: Positive Peripheral Neuropathy CARDIAC: Positive Cardiac Disorders, Atrial Fibrillation, Hypercholesterolemia and Hypertension RESPIRATORY: Positive Chronic Obstructive Pulmonary Disease (COPD) (smoker), Smoking and Smoking Cessation Counseling GASTROINTESTINAL: Positive Gall Bladder Disease, Hiatal Hernia and Obesity MUSCULOSKELETAL: Positive Musculoskeletal Disorders, Arthritis and Fibromyalgia PSYCHO/SOCIAL: Positive Depression OTHER HISTORY: Positive Blood Transfusions Surgical History SURGICAL: Positive Abdominal Surgery, Gastric Bypass Surgery and Tubal Ligation Social History SMOKING STATUS: Current every day smoker SUBSTANCE USE: does not use ED Exam Narrative Physical exam: Constitutional: Awake, alert, nontoxic, appears uncomfortable, obese HEENT: Normocephalic, atraumatic, extraocular movements intact. Neck: Supple CV: Regular rate and rhythm, no murmurs/rubs/gallops Lungs: Clear to auscultation BL, no respiratory distress. Abd: Soft, mild epigastric tenderness to palpation, ND, no HSM noted to palpation Extremities: No deformities, 4+ pitting edema to bilateral lower extremities, no weeping noted at this time Neuro: AAOx3, no acute neuro deficits Skin: Warm, dry, intact Course Course Course Narrative: 0900h: I spoke with hospitalist team for admission. Discussed patients PMHx, HPI, ED course, exam findings, labs, and radiology results. The hospitalist agree to accept the patient for admission. Quality Measures none Orders Category Date Time Status COVID-19 Screening Questionnaire NOW Care 04/23/25 09:03 Active Decision to Admit X1 Care 04/23/25 09:03 Completed EKG (ED ONLY) *Do not use* NOW Care 04/23/25 07:12 Completed Consult to Cardiology Stat Cons 04/23/25 09:01 Ordered EKG (ED Only) Stat Exams 04/23/25 07:12 Draft US venous duplex LE BI Stat Exams 04/23/25 09:03 Completed XR chest 1V Stat Exams 04/23/25 07:12 Completed BNP [B-Type Natriuretic Peptide] Stat Lab 04/23/25 07:44 Completed BNP [B-Type Natriuretic Peptide] Stat Lab 04/23/25 10:28 Completed CBC Stat Lab 04/23/25 07:44 Completed CBC Stat Lab 04/23/25 10:28 Completed CMP [Comprehensive Metabolic Panel] Stat Lab 04/23/25 10:28 Completed Comprehensive Metabolic Panel Stat Lab 04/23/25 07:44 Completed Troponin I Stat Lab 04/23/25 07:44 Completed Urinalysis, C/S if Indicated Stat Lab 04/23/25 15:58 Ordered Vital Signs Vital signs: Vital Signs Temperature 97.9 F 04/23/25 06:24 Respiratory Rate 19 04/23/25 06:24 Blood Pressure 118/61 04/23/25 06:24 Pulse Oximetry (%) 99 04/23/25 06:24 Oxygen Delivery Method Room Air 04/23/25 06:24 Pulse ox is 99% on room air which is adequate. Extremity Problem MDM Narrative MDM Narrative:: Natasha Arguelles am scribing for and in the presence of Dr. Dennis. Patient data External records reviewed:: [facility] previous records Clinical information provided by:: patient Social determinants that could affect healthcare access:: none Patient has the following chronic illnesses:: atrial fibrillation on Eliquis, hypertension, diabetes, chronic bilateral lower extremity lymphedema, s/p laparoscopic repair of a gastric perforation 01/2025 How is presenting disease/condition affected by chronic disease/condition?: exacerbated by Evaluation data The following diagnostics were reviewed and interpreted by me:: lab results, radiology exam(s) and EKG tracing(s) (EKG @ 08:14am, atrial fibrillation with RVR, rate 117, no STEMI. ) Lab and/or radiology exams considered but not ordered:: None Interpretation Summary: Ordering Physician: Jessa Ulrich NP Date of Service: 04/23/25 Procedure(s): XR chest 1V Accession Number(s): [id number] cc: Елена Parkinson; Rodney Santos MD; Jessa Ulrich NP~ EXAMINATION: PA chest single view TECHNIQUE: Upright PA chest single view Date and time: April 23, 2025, 0833 hours, comparison 01/11/2025 INDICATIONS: Chest pain bilateral leg swelling beginning March 2025 FINDINGS: Mild prominence left ventricle Mitral valvular calcification Mild vascular congestion. No lobar pneumonia or columba pulmonary edema Prominent osteopenia IMPRESSION: Mild vascular congestion No columba pulmonary edema, no pneumonia Dictated By: Rodney Santos MD Signed By: <Electronically signed by Rodney Santos MD in OV> 04/23/25 0923 Medications / Prescriptions Medications or Prescriptions considered but not ordered:: None Medication administrations:: Medication Administration History Acetaminophen (Acetaminophen 325 Mg Tablet) 650 mg PO Q6H PRN PRN Reason: Fever >100.4 Stop: 05/23/25 14:13 Bumetanide (Bumetanide Inj 0.25 Mg/Ml Vial 4 Ml) 2 mg IVP BID ANTONIA Stop: 05/23/25 09:44 Heparin Sodium (Porcine) (Heparin Sod Inj 5000 Unit/Ml Vial) 5,000 unit SC BID ANTONIA Stop: 05/07/25 20:59 Magnesium Sulfate (Magnesium Sulfate Ivpb) 4 gm in 50 mls @ 12.5 mls/hr IV X1 ONE Stop: 04/23/25 21:07 Discontinued Medications Hydrocodone Bitart/Acetaminophen (Hydrocodone/Apap 5/325 Tablet) 1 tab PO Q6H PRN PRN Reason: PAIN 7-10 Stop: 04/28/25 14:23 Last Admin: 04/23/25 16:12 Dose: 1 tab Documented By: BD Citalopram Hydrobromide (Citalopram 20 Mg Tablet) 40 mg PO DAILY ANTONIA Stop: 05/24/25 08:59 Heparin Sodium (Porcine) (Heparin Sod Inj 5000 Unit/Ml Vial) 5,000 unit SC Q8HR ANTONIA Stop: 05/07/25 21:59 Loratadine (Loratadine 10 Mg Tablet) 10 mg PO Q24H ANTONIA Stop: 05/23/25 14:29 Last Admin: 04/23/25 16:12 Dose: 10 mg Documented By: BD Losartan Potassium (Losartan Potassium 25 Mg Tablet) 100 mg PO DAILY ANTONIA Stop: 05/24/25 08:59 Metoprolol Succinate (Metoprolol Succinate Xl 25 Mg Tabcr) 25 mg PO HS ANTONIA Stop: 05/23/25 20:59 Multivitamins (Multivitamins Tablet) 1 tab PO QAM ANTONIA Stop: 05/24/25 08:59 Non-Formulary Medication (Ergocalciferol (Vitamin D2)) 1,250 mcg PO QWEEK ANTONIA Stop: 05/30/25 08:59 Oxycodone/Acetaminophen (Oxycodone/Apap 5/325 Tablet) 1 tab PO X1 ONE Stop: 04/23/25 13:09 Last Admin: 04/23/25 16:13 Dose: Not Given Documented By: BD Non-Admin Reason: Duplicate Medication on eMAR Pantoprazole Sodium (Pantoprazole 40 Mg Tablet) 40 mg PO BID ANTOINA; Protocol Stop: 05/24/25 08:59 Potassium Chloride (Potassium Chloride 20 Meq Tabcr) 20 meq PO DAILY ANTONIA Stop: 05/24/25 08:59 Potassium Chloride (Potassium Chloride 10% 20 Meq/15 Ml Udc) 40 meq PO X1 ONE Stop: 04/23/25 16:56 Ropinirole HCl (Ropinirole Hcl 0.25 Mg Tablet) 0.5 mg PO QDAY ANTONIA Stop: 05/24/25 08:59 Simethicone (Simethicone 80 Mg Chew) 80 mg PO QID PRN PRN Reason: GAS Stop: 05/23/25 14:23 Tramadol HCl (Tramadol Hcl 50 Mg Tablet) 50 mg PO Q6H PRN PRN Reason: PAIN 4-6 Stop: 04/28/25 14:23 See above Consultations Consultation(s) initiated? (list below): Yes Consultation #1 (Physician, Specialty, Details): See above Diagnosis Most likely diagnosis given after review of the tests above:: Lymphedema bilateral lower extremities Fluid overload Admission Indicated Admission indicated?: indicated Admission Request Was there a request for admission?: Yes Admission Attestation Admission request attestation: Discussed case with [] from Hospitalist service regarding admission. Discussed patients ED course, exam findings, labs, and radiology results. The Hospitalist [agrees,declines] to accept the patient for admission. Disposition Plan Disposition Plan: Admit Discharge Plan Plan Patient Disposition: Admit Acute Care w/in Hospital Problem List Clinical Impression: Lymphedema, Fluid overload
[2025-04-23 10:56] LABS: Alanine Aminotransferase 18 U/L (10-49); Albumin, Serum 4.1 gm/dL (3.4-4.8); Albumin/Globulin Ratio 1.4 (1.2-2.2); Alkaline Phosphatase 109 U/L (46-116); Anion Gap 7 (7-16); Aspartate Amino Transferase 29 U/L (0-34); BUN/Creatinine Ratio 19 Ratio (12-20); Bilirubin,Total 0.3 mg/dL (0.3-1.2); Blood Urea Nitrogen 17 mg/dL (9-23); Calcium 9.3 mg/dL (8.3-10.6); Calcium (Corrected) 9.3 mg/dL (8.5-10.1); Carbon Dioxide 25.9 mMol/L (20.0-31.0); Chloride 109 mMol/L (98-107); Creatinine (Component) 0.9 mg/dL (0.6-1.3); Estimated Creatinine Clearance 71.1 mL/min (>60); Globulin 3.0 gm/dL (2.3-3.5); Glucose 102 mg/dL (74-106); Osmolality,Calculated 284 (275-295); Potassium 3.7 mMol/L (3.4-5.1); Sodium 142 mMol/L (136-145); Total Protein 7.1 gm/dL (5.7-8.2); eGFR > 60 See Note
[2025-04-23 11:04] LABS: Hemoglobin 8.4 g/dL (12.0-16.0)
[2025-04-23 11:23] LABS: B-Type Natriuretic Peptide 273 pg/mL (0-100)
--- NOTE | 2025-04-23 13:42 | ESHP_ITS ---
<Statement entered by Eugenio Boykin MD - 04/24/25 16:19> Patient was seen and examined at bedside. Agree on the assessment and plan on this note. - Patient's plan and care discussed with my attending, Dr. Jessica Boykin MD Internal Medicine PGY-3 Documentation for date of: 04/23/25 HPI History of Present Illness History of present illness: 64 year old female w/ a PMH of atrial fibrillation on Eliquis, Hypertension, diabetes, chronic bilateral lower extremity lymphedema, anemia and PSH significant for laparoscopic repair of a gastric perforated ulcer 01/28 presents to [facility] for lymphedema + BL LE swelling after failing outpatient diuretic therapy. She is also endorsing a burning sensation with urination this AM. Ms. Norris is seen by Dr. Brandin العلي. Per medical records, patient on 11/27 was diagnosed w/ new onset afib, echocardiogram estimated EF 55-60% 04/23 AM CXR demonstrates mild vascular congestion 04/23 AM EKG this AM Afib RVR 117 BPM QtC 471ms Patient today endorses bilateral lower extremity pain and swelling. DVT Duplex study this AM was negative. She is wheelchair-bound and confirmed that despite being on her home diuretic therapy, she has not been able to keep the swelling down. She saw Dr. العلي yesterday afternoon and he sent her to [facility] ED for further workup and IV diuretics. She denies any history of orthopnea nor shortness of breath; is able to sleep on her back at night without the help of pillows. For the past few days she has had swelling unimproved by her PO diuretic regimen. Denies any recent palpitations nor syncope. +3 Peripheral lower extremity edema noted on exam. Otherwise Ms. Norris is AxOx4, GCS 15. UTox last admission in January positive for opiates and methamphetamine. Per record review, pt is a chronic user who is attempting to cut back. Pt admitted to medicine for further workup and IV Diuretic therapy. Past Medical History: HTN, DMII, afib Family History: dad- [place] Surgical History: Gastric bypass in 2006 in [place], multiple hernia repairs Social History:smokes 1/2 PPD cigarettes, meth user. Denies alcohol use Allergies: reglan Exam Vital Signs Temp Pulse Resp BP Pulse Ox O2 Del Method 97.9 F 107 H 20 134/84 H 97 Room Air 04/23/25 08:21 04/23/25 08:21 04/23/25 08:21 04/23/25 08:21 04/23/25 08:21 04/23/25 08:21 Narrative Exam General: quiet but responsive, reserved, anxious HEENT: NC/AT, mucous membranes moist, bilateral sclera anicteric Cardiovascular: irregularly irregular, no murmurs appreciated on auscultation Pulmonary: clear to auscultation bilaterally, no rales/rhonchi/wheezes Abdominal: soft, nontender, present bowel sounds Musculoskeletal: +3 peripheral edema noted on exam Skin: Warm, well-perfused Results: Labs 04/24/25 05:55 04/24/25 05:55 Labs: Short CBC 04/23/25 04/23/25 Range/Units 07:44 10:28 WBC 6.5 6.4 (3.6-11.0) Thou/mm3 Hgb 8.9 L 8.4 L (12.0-16.0) g/dL Hct 30.5 L 29.1 L (36.0-46.0) % Plt Count 269 278 (140-440) Thou/mm3 BMP 04/23/25 04/23/25 07:44 10:28 Sodium 142 142 Potassium 3.7 3.7 Chloride 109 H 109 H Carbon Dioxide 24.8 25.9 BUN 16 17 Creatinine 1.0 0.9 Glucose 100 102 Calcium 9.4 9.3 Cardiac Enzymes 04/23/25 Range/Units 07:44 Troponin I < 0.020 (0.0-0.045) ng/mL Liver Function 04/23/25 04/23/25 Range/Units 07:44 10:28 Total Bilirubin 0.3 0.3 (0.3-1.2) mg/dL AST 29 29 (0-34) U/L ALT 18 18 (10-49) U/L Alkaline Phosphatase 108 109 (46-116) U/L Albumin 4.1 4.1 (3.4-4.8) gm/dL Quality Measures Quality Measures none Advance care planning discussed with:: patient and child Medications Home Medications and Allergies Home Medications ?Medication ?Instructions ?Recorded ?Confirmed ?Type multivitamin 1 tab PO QAM 08/24/20 History ropinirole 0.5 mg tablet 0.5 mg PO QDAY 08/24/2004/05 History furosemide 40 mg tablet 40 mg PO BID 11/04/24 History losartan 100 mg tablet 100 mg PO DAILY 11/04/24 History citalopram 40 mg tablet 40 mg PO DAILY 01/11/2503/07 History ergocalciferol (vitamin D2) 1,250 1,250 mcg PO QWEEK 0 01/11/25 03/25/25 History mcg (50,000 unit) capsule loratadine 10 mg tablet 10 mg PO Q24H 01/11/2503/25 History omeprazole 20 mg capsule,delayed 40 mg PO QAM 01/11/25 04/23/25 History release potassium chloride 20 mEq 20 meq PO DAILY 01/11/25 History tablet,extended release(part/cryst) tirzepatide 2.5 mg/0.5 mL 2.5 mg subcut QWEEK 01/11/25 03/25/25 History subcutaneous pen injector (Mounjaro) Held on 01/18/25. Instructions: F/u with PCP Allergies Allergy/AdvReac Type Severity Reaction Status Date / Time metoclopramide (From Reglan) Allergy Shakiness Verified 04/23/25 06:16 Visit Medications Bumetanide (Bumetanide Inj 0.25 Mg/Ml Vial 4 Ml) 2 mg IVP BID ANTONIA Stop: 05/23/25 09:44 Discontinued Medications Oxycodone/Acetaminophen (Oxycodone/Apap 5/325 Tablet) 1 tab PO X1 ONE Stop: 04/23/25 13:09 Assessment & Plan Plan Ms Gertrude Norris is a 64 year old female w/ a PMH significant for atrial fibrillation on eliquis, hypertension, chronic lymphedema here for inpatient management of lymphedema 2/2 failure of outpatient medications. #Chronic LL Lymphedema vs fluid overload #Leg Swelling long-standing history of bilateral leg swelling, edema PO bumex home dose not adequate therap Chronic Methamphetamine and substance use Last Echo 11/27 EF 55/60% no significant regurgitation DDx = Chronic Lymphedema >>> CHF exacerbation >>>> cellulitis No endorsement of orthopnea nor shortness of breath at baseline Afebrile, Bilateral lower extremities nontender to touch -Admit to medicine for management -2mg IV Bumetanide BID -Cardiac low sodium -Consult to cardiology, follow up recomendations -Strict ins and outs, daily weights #Atrial Fibrillation #Long QT Syndrome [id number] Score = 2 HAS-BLED Score = 3 Per Echo 04/23, pt in afib QTc = 471 Pt no admission of orthopnea, dyspnea. No chest pain indicative of ACS on exam nor on presentation to ED Troponin negative -Avoid QT-prolonging medication -Resume home Eliquis 5mg BID #Anemia Chronic, Hgb ranges between 8-10 Hgb 8.9 on admission Denies any history of gastrointestinal bleeding [id number] Score = 2 -Transfuse Hgb<7 -Daily CBC CMP -PT PTT INR #Essential Hypertension -Resume home metoprolol 25 mg PO HS #Restless Leg Syndrome -Resume home Ropinirole 0.5mg q24h General: alert and oriented to self/place/year, in slight distress, able to speak full sentences HEENT: NC/AT, mucous membranes moist, bilateral sclera anicteric Cardiovascular: regular rate and rhythm, S1/S2 present, no murmurs appreciated Pulmonary: clear to auscultation bilaterally, no rales/rhonchi/wheezes Abdominal: soft, nontender, present bowel sounds Musculoskeletal: +3 bilateral pitting edema Skin: Warm, well-perfused Plan discussed with attending physician Dr. Hector Lopez and senior resident Dr. Eugenio Elizondo MD, PGY1 Attending Provider Attestation/Addendum I have examined the patient, reviewed labs and imaging findings, discussed the case with the resident(s), and reviewed entered orders. I agree with the plan of care as outlined in this note, with these additional summaries/recommendations: After examination of the patient and review of the clinical data, I feel that this patient needs admission to the hospital for further treatment and evaluation. Dr. Jessica MD
[2025-04-23 14:02] LABS: Magnesium 1.9 mg/dL (1.6-2.6); Phosphorous 4.0 mg/dL (2.4-5.1)
--- NOTE | 2025-04-23 15:55 | PC.NURSE ---
ASSUMED CARE AT 1555
[2025-04-23] MEDS: HYDROcodone/APAP 5/325 TABLET 1 TAB PO (16:12)
[2025-04-23] MEDS: POTASSIUM CHLORIDE 10% 20 MEQ/15 ML UDC 40 MEQ PO (18:24)
[2025-04-23] MEDS: Magnesium Sulfate 4 GM Ivpb 4 GM/50 ML BAG IV (18:24)
[2025-04-23] MEDS: BUMETANIDE INJ 0.25 MG/ML VIAL 4 ML 2 MG IVP (18:24)
[2025-04-23] MEDS: HEPARIN SOD INJ 5000 UNIT/ML VIAL SC (20:12)
[2025-04-23] MEDS: METOPROLOL SUCCINATE XL 25 MG TABCR PO (20:12)
[2025-04-23 21:09] LABS: Collection Type, Urine Voided
[2025-04-23 21:29] LABS: Amphetamine/Methamp Scrn,U Positive (Negative); Bacteria,Urine Rare; Barbiturate Screen,Urine Negative (Negative); Benzodiazepines Screen,Urine Negative (Negative); Benzoylecgonine Screen, Ur Negative (Negative); Bilirubin,Urine Negative (Negative); Blood,Urine Negative (Negative); Clarity,Urine Clear (Clear/Hazy); Color,Urine Colorless (Lt Yel-Yel); Culture Indicated,Urine Not Indicated; Fentanyl Screen,Urine Negative (Negative); Glucose, Urine Negative (Negative); Ketones,Urine Negative (Negative); Leukocyte Esterase,Urine Positive (Negative); Nitrite,Urine Negative (Negative); Opiate Screen,Urine Positive (Negative); PH,Urine 5.5 (5.0-7.0); Protein,Urine Negative (Neg - Trace); RBC,Urine < 1 /hpf (0-3); Specific Gravity,Urine 1.006 (1.001-1.035); Squamous Epithelial Cell,Urine 2 /hpf (0-5); THC Screen,Urine Negative (Negative); Urobilinogen,Urine Negative mg/dL (0.0-1.0); WBC,Urine 1 /hpf (0-5)
[2025-04-24] VITALS (10 sets, daily range): BP systolic 100–149; BP diastolic 64–94; PULSE 87–106; RESP 12–19; TEMP 36.2–36.7; O2SAT 95–99
[2025-04-24] MEDS: ACETAMINOPHEN 325 MG TABLET 650 MG PO (04:48)
[2025-04-24 06:31] LABS: Basophils # (Auto) 0.0 Thou/mm3 (0.0-0.2); Basophils % (Auto) 0 % (0-2.5); Eosinophils # (Auto) 0.1 Thou/mm3 (0.0-0.5); Eosinophils % (Auto) 1 % (0-10); Hematocrit 29.7 % (36.0-46.0); Immature Granulocytes Auto 0.01 Thou/mm3 (0.00-0.00); Lymphocytes # (Auto) 2.3 Thou/mm3 (1.0-4.8); Lymphocytes % (Auto) 39 % (10-50); Mean Corpuscular HGB Conc 28.6 g/dl (31.0-37.0); Mean Corpuscular Hemoglobin 21.5 pg (25.0-35.0); Mean Corpuscular Volume 75 fL (80-100); Monocytes # (Auto) 0.7 Thou/mm3 (0.0-0.8); Monocytes % (Auto) 11 % (0-12); Neutrophils # (Auto) 2.9 Thou/mm3 (1.8-7.7); Neutrophils % (Auto) 49 % (37-80); Nucleated Red Blood Cell # 0.00 Thou/mm3 (0.00-0.00); Nucleated Red Blood Cell % 0 /100 WBC (0); Platelet Count 280 Thou/mm3 (140-440); RDW Standard Deviation 49.6 fL (36.4-46.3); Red Blood Count 3.96 Miln/mm3 (4.00-5.20); White Blood Count 5.9 Thou/mm3 (3.6-11.0)
[2025-04-24 06:32] LABS: Hemoglobin 8.5 g/dL (12.0-16.0)
[2025-04-24 06:45] LABS: INR 1.0 (0.9-1.3); Prothrombin Time 10.6 Seconds (9.0-12.2)
[2025-04-24 06:47] LABS: Glucose Estimated Average 123 mg/dL (80-131); Hemoglobin A1C 5.9 % Hgb (4.8-6.0)
[2025-04-24] MEDS: METOPROLOL SUCCINATE XL 25 MG TABCR 50 MG PO (08:25)
[2025-04-24] MEDS: HEPARIN SOD INJ 5000 UNIT/ML VIAL SC (08:26)
[2025-04-24] MEDS: BUMETANIDE INJ 0.25 MG/ML VIAL 4 ML 2 MG IVP ×2 (08:26→21:06)
[2025-04-24 08:40] LABS: Alanine Aminotransferase 17 U/L (10-49); Albumin, Serum 3.8 gm/dL (3.4-4.8); Albumin/Globulin Ratio 1.4 (1.2-2.2); Alkaline Phosphatase 98 U/L (46-116); Anion Gap 10 (7-16); Aspartate Amino Transferase 27 U/L (0-34); BUN/Creatinine Ratio 17 Ratio (12-20); Bilirubin,Total 0.3 mg/dL (0.3-1.2); Blood Urea Nitrogen 15 mg/dL (9-23); Calcium 9.2 mg/dL (8.3-10.6); Calcium (Corrected) 9.4 mg/dL (8.5-10.1); Carbon Dioxide 27.3 mMol/L (20.0-31.0); Cardiac Risk Estimate 2.2 RATIO (3.7-5.6); Chloride 109 mMol/L (98-107); Cholesterol 95 mg/dL (132-200); Creatinine (Component) 0.9 mg/dL (0.6-1.3); Estimated Creatinine Clearance 72.1 mL/min (>60); Free T4 (Free Thyroxine) 1.14 ng/dL (0.89-1.76); Globulin 2.8 gm/dL (2.3-3.5); Glucose 95 mg/dL (74-106); HDL Cholesterol 43 mg/dL (40-60); LDL Cholesterol,Calculated 37 mg/dL (0-130); Magnesium 2.3 mg/dL (1.6-2.6); Osmolality,Calculated 291 (275-295); Phosphorous 3.3 mg/dL (2.4-5.1); Potassium 3.8 mMol/L (3.4-5.1); Sodium 146 mMol/L (136-145); Thyroid Stimulating Hormone 0.97 uIU/mL (0.55-4.78); Total Protein 6.6 gm/dL (5.7-8.2); Triglycerides 77 mg/dL (30-150); eGFR > 60 See Note
[2025-04-24 08:43] LABS: Ferritin 51 ng/mL (7.3-270.7); Iron 35 mcg/dL (50-170); Percent Iron Saturation 11 % (20-55); Total Iron Binding Capacity 293 mcg/dL (250-425); Unsaturated Iron Binding 258 (225-295)
[2025-04-24] MEDS: HYDROcodone/APAP 5/325 TABLET 1 TAB PO ×2 (09:39→20:11)
[2025-04-24] MEDS: IRON SUCROSE CPLX INJ 20 MG/ML VIAL 5 ML 200 MG IVP (11:37)
--- NOTE | 2025-04-24 12:15 | ESPR_ITS ---
<Statement entered by Perico Harrell MD - 04/24/25 12:17> No acute overnight events. Seen and examined at bedside patient states that her lower extremity edema has significantly improved compared to yesterday. States that her discomfort in her lower extremities is also improved due to decreased swelling. Has a large container with ice and states that she is complying with the amount of fluid she intakes. Vital signs stable. CBC stable, CHEM panel stable though showing mildly low iron. She is net -2 L in the last 24 hours. Will continue with IV diuresis with Bumex 2 mg BID. Anticipate discharge in the next 24 to 48 hours and will follow-up on cardiology recommendations. ----- Note reviewed and agree with care plan as documented. Please refer to the note below for further details. Plan discussed with attending physician Dr. Jessica Harrell MD PGY-2 Internal Medicine Documentation for date of: 04/24/25 Subjective Subjective Interval history: Ms. Norris is much improved this morning regarding her lymphedema. She is still able to lie flat in bed and does not endorse any shortness of breath. +3 pitting edema yesterday to +1/+2. Plan is to continue one more day of diuresis and meds as recommended by cardiology. She states that this week she has been eating saltier foods; on a quick diet intake breakfast: eggs and roman lunch: toast, chicken/protein, vegetables lunch: vegetables with steak and potatoes States that she likes to eat ice and has a cannister at bedside. Otherwise denies any cravings for unusual foods/substances. Iron studies 04/24 denote Unsaturated iron binding levels, ferritin, TIBC WNL. Low iron and iron saturation levels. To continue one more day of diuretic therapy, ECHO scan and iron supplementation. Exam Vital Signs Temp Pulse Resp BP Pulse Ox O2 Del Method 97.1 F 87 19 100/64 96 Room Air 04/24/25 08:00 04/24/25 08:26 04/24/25 08:00 04/24/25 08:26 04/24/25 08:00 04/24/25 08:00 Narrative Exam General: alert and oriented to self/place/year, no acute distress, able to speak full sentences HEENT: NC/AT, mucous membranes moist, bilateral sclera anicteric Cardiovascular: regular rate and rhythm, S1/S2 present, no murmurs appreciated Pulmonary: clear to auscultation bilaterally, no rales/rhonchi/wheezes Abdominal: soft, nontender, present bowel sounds; scar from exploratory laparotomy in 01/2025 present Musculoskeletal: +1 pitting edema bilaterally Skin: Warm, well-perfused Objective Labs 04/25/25 05:41 04/25/25 05:41 Labs: Laboratory Results - last 24 hr 04/23/25 04/23/25 04/24/25 07:44 20:21 05:55 WBC 5.9 RBC 3.96 L Hgb 8.5 L Hct 29.7 L MCV 75 L MCH 21.5 L MCHC 28.6 L RDW Std Deviation 49.6 H Plt Count 280 Neut % (Auto) 49 Lymph % (Auto) 39 [place] % (Auto) 11 Eos % (Auto) 1 Baso % (Auto) 0 Neut # (Auto) 2.9 Lymph # (Auto) 2.3 [place] # (Auto) 0.7 Eos # (Auto) 0.1 Baso # (Auto) 0.0 Immature Gran # (Auto) 0.01 H Absolute Nucleated RBC 0.00 Immature Gran % 0 Nucleated RBC % 0 PT 10.6 INR 1.0 Sodium 146 H Potassium 3.8 Chloride 109 H Carbon Dioxide 27.3 Anion Gap 10 BUN 15 Creatinine 0.9 Estim Creat Clear Calc 72.1 eGFR > 60 BUN/Creatinine Ratio [address] Glu mg/dL 123 Hemoglobin A1c 5.9 Calculated Osmolality 291 Calcium 9.2 Corrected Calcium 9.4 Phosphorus 4.0 3.3 Magnesium 1.9 2.3 Iron 35 L TIBC 293 Iron Saturation 11 L Unsat Iron Binding 258 Ferritin 51 Total Bilirubin 0.3 AST 27 ALT 17 Alkaline Phosphatase 98 Total Protein 6.6 Albumin 3.8 Globulin 2.8 Albumin/Globulin Ratio 1.4 Triglycerides 77 Cholesterol 95 L LDL Cholesterol, Calc 37 HDL Cholesterol 43 Cholesterol/HDL Ratio 2.2 L TSH 0.97 Free T4 1.14 Ur Collection Type Voided Urine Color Colorless A Urine Clarity Clear Urine pH 5.5 Ur Specific [place] 1.006 Urine Protein Negative Urine Glucose (UA) Negative Urine Ketones Negative Urine Blood Negative Urine Nitrite Negative Urine Bilirubin Negative Urine Urobilinogen (Auto) Negative Ur Leukocyte Esterase Positive Urine RBC < 1 Urine WBC 1 Ur Squamous Epith Cells 2 Urine Bacteria Rare Ur Culture Indicated? Not Indicated Urine Opiates Screen Positive A Urine Fentanyl Screen Negative Ur Barbiturates Screen Negative U Amphetamin/Meth Scrn Positive A U Benzodiazepines Scrn Negative U Cocaine Metab Screen Negative U Marijuana (THC) Screen Negative Quality Measures Quality Measures VTE prophylaxis Advance care planning discussed with:: patient Assessment & Plan Assessment Current Active Medications: Generic Name Dose Route Start Last Admin Trade Name Freq PRN Reason Stop Dose Admin Acetaminophen 650 mg 04/24/25 04:43 04/24/25 04:48 Acetaminophen 325 Mg Tablet PO 05/23/25 14:13 650 mg Q6H PRN Administration Fever >100.4 or Pain Hydrocodone Bitart/Acetaminophen 1 tab 04/24/25 09:17 04/24/25 09:39 Hydrocodone/Apap 5/325 Tablet PO 05/06/25 09:16 1 tab Q6HR PRN Administration ABDOMINAL CRAMPING Apixaban 5 mg 04/24/25 21:00 Apixaban 2.5 Mg Tablet PO 05/15/25 20:59 BID ANTONIA Bumetanide 2 mg 04/23/25 18:30 04/24/25 08:26 Bumetanide Inj 0.25 Mg/Ml Vial 4 Ml IVP 05/23/25 18:29 2 mg BID ANTONIA Administration Metoprolol Succinate 50 mg 04/24/25 09:00 04/24/25 08:25 Metoprolol Succinate Xl 25 Mg Tabcr PO 05/24/25 08:59 50 mg QDAY ANTONIA Administration Metoprolol Succinate 25 mg 04/23/25 21:00 04/23/25 20:12 Metoprolol Succinate Xl 25 Mg Tabcr PO 05/23/25 20:59 25 mg HS ANTONIA Administration Ropinirole HCl 0.5 mg 04/24/25 09:00 04/24/25 08:26 Ropinirole Hcl 1 Mg Tablet PO 05/24/25 08:59 0.5 mg DAILY ANTONIA Administration Plan Ms Gertrude Norris is a 64 year old female w/ a PMH significant for atrial fibrillation on eliquis, hypertension, chronic lymphedema here for inpatient management of lymphedema 2/2 failure of outpatient medications. #Chronic Lymphedema HFpEF long-standing history of bilateral leg swelling, edema PO bumex home dose not adequate therapy Chronic Methamphetamine and substance use DDx = Chronic Lymphedema >>> CHF exacerbation >>>> cellulitis No endorsement of orthopnea nor shortness of breath at baseline Afebrile, Bilateral lower extremities nontender to touch 04/24 AM pt is doing much better, decreased lymphadema -2mg IV Bumetanide BID, to continue -Cardiac low sodium diet -Strict ins and outs, daily weights #Heart Failure, Preserved Ejection Fraction #Atrial Fibrillation #Long QT Syndrome [id number] Score = 2 HAS-BLED Score = 3 Per EKG 04/23, pt in afib QTc = 471 Last Echo 11/27 EF 55/60% no significant regurgitation Pt no admission of orthopnea, dyspnea. No chest pain indicative of ACS on exam nor on presentation to ED Troponin negative Chronic Methamphetamine use -Avoid QT-prolonging medication -Resume home Eliquis 5mg BID -follow up repeat ECHO #Anemia, chronic microcytic #Anemia of Chronic Disease #Iron Deficiency Anemia Ddx Iron deficiency anemia vs anemia of chronic disease vs both 04/23 Iron binding studies significant for low iron levels and iron saturation In the setting of TIBC WNL, may be more of a mixed disease of SCOOTER and ACD 04/23 Hgb 8.5 Hct 29.7 MCV 75 Chronic, Hgb ranges between 8-10 Hgb 8.9 on admission Denies any history of gastrointestinal bleeding [id number] Score = 2 -Transfuse Hgb<7 -Daily CBC CMP -PT PTT INR -Iron sucrose 200mg IV x1 04/24 #Essential Hypertension -Resume home metoprolol 25 mg PO HS; 50mg PO AM #Restless Leg Syndrome -Resume home Ropinirole 0.5mg q24h Hospital management: Disposition: Telemed Fluids: NA Diet: Cardiac diet Lines: PIV DVT prophylaxis: CODE STATUS: full code Patient seen and discussed with attending physician Dr. Hector Lopez and senior resident Dr. Perico Elizondo MD PGY-1 Attending Provider Attestation/Addendum I have examined the patient, reviewed labs and imaging findings, discussed the case with the resident(s), and reviewed entered orders. I agree with the plan of care as outlined in this note. Dr. Jessica MD
--- NOTE | 2025-04-24 12:46 | ESPR_ITS ---
Documentation for date of: 04/24/25 Subjective Subjective Interval history: Patient seen and examined at bedside. Patient -2 L in the last 24 hours, continue diuresis with Bumex 2 mg twice daily Iron deficiency anemia noted, will be given IV iron. Potassium and magnesium were repleted. Patient's urine drug screen positive for methamphetamine, discussed with patient she reports that she used methamphetamine 1 time last denies daily use. Exam Vital Signs Temp Pulse Resp BP Pulse Ox O2 Del Method 97.1 F 87 19 100/64 96 Room Air 04/24/25 08:00 04/24/25 08:26 04/24/25 08:00 04/24/25 08:26 04/24/25 08:00 04/24/25 08:00 Narrative Exam Physical Exam General: Awake and in no acute distress. Conversational and non-toxic appearing. HEENT: Normocephalic, atraumatic, mucous membranes moist. Heart: Regular rate and rhythm, rate controlled, no murmurs. Lungs: Mild bilateral crackles Abdomen: Soft, nondistended, nontender, positive bowel sounds. ?No guarding or rebound tenderness. Neurologic: Alert and oriented x3, no gross neurological deficit, and patient able to move all 4 extremities. Extremities: 3+ bilateral lower extremity edema, improving Skin: No rash or ecchymoses. Objective Labs 04/25/25 05:41 04/25/25 05:41 Labs: Laboratory Results - last 24 hr 04/23/25 04/23/25 04/24/25 07:44 20:21 05:55 WBC 5.9 RBC 3.96 L Hgb 8.5 L Hct 29.7 L MCV 75 L MCH 21.5 L MCHC 28.6 L RDW Std Deviation 49.6 H Plt Count 280 Neut % (Auto) 49 Lymph % (Auto) 39 [place] % (Auto) 11 Eos % (Auto) 1 Baso % (Auto) 0 Neut # (Auto) 2.9 Lymph # (Auto) 2.3 [place] # (Auto) 0.7 Eos # (Auto) 0.1 Baso # (Auto) 0.0 Immature Gran # (Auto) 0.01 H Absolute Nucleated RBC 0.00 Immature Gran % 0 Nucleated RBC % 0 PT 10.6 INR 1.0 Sodium 146 H Potassium 3.8 Chloride 109 H Carbon Dioxide 27.3 Anion Gap 10 BUN 15 Creatinine 0.9 Estim Creat Clear Calc 72.1 eGFR > 60 BUN/Creatinine Ratio [address] Glu mg/dL 123 Hemoglobin A1c 5.9 Calculated Osmolality 291 Calcium 9.2 Corrected Calcium 9.4 Phosphorus 4.0 3.3 Magnesium 1.9 2.3 Iron 35 L TIBC 293 Iron Saturation 11 L Unsat Iron Binding 258 Ferritin 51 Total Bilirubin 0.3 AST 27 ALT 17 Alkaline Phosphatase 98 Total Protein 6.6 Albumin 3.8 Globulin 2.8 Albumin/Globulin Ratio 1.4 Triglycerides 77 Cholesterol 95 L LDL Cholesterol, Calc 37 HDL Cholesterol 43 Cholesterol/HDL Ratio 2.2 L TSH 0.97 Free T4 1.14 Ur Collection Type Voided Urine Color Colorless A Urine Clarity Clear Urine pH 5.5 Ur Specific [place] 1.006 Urine Protein Negative Urine Glucose (UA) Negative Urine Ketones Negative Urine Blood Negative Urine Nitrite Negative Urine Bilirubin Negative Urine Urobilinogen (Auto) Negative Ur Leukocyte Esterase Positive Urine RBC < 1 Urine WBC 1 Ur Squamous Epith Cells 2 Urine Bacteria Rare Ur Culture Indicated? Not Indicated Urine Opiates Screen Positive A Urine Fentanyl Screen Negative Ur Barbiturates Screen Negative U Amphetamin/Meth Scrn Positive A U Benzodiazepines Scrn Negative U Cocaine Metab Screen Negative U Marijuana (THC) Screen Negative Quality Measures Quality Measures VTE prophylaxis Advance care planning discussed with:: patient Assessment & Plan Assessment Current Active Medications: Generic Name Dose Route Start Last Admin Trade Name Freq PRN Reason Stop Dose Admin Acetaminophen 650 mg 04/24/25 04:43 04/24/25 04:48 Acetaminophen 325 Mg Tablet PO 05/23/25 14:13 650 mg Q6H PRN Administration Fever >100.4 or Pain Hydrocodone Bitart/Acetaminophen 1 tab 04/24/25 09:17 04/24/25 09:39 Hydrocodone/Apap 5/325 Tablet PO 05/06/25 09:16 1 tab Q6HR PRN Administration ABDOMINAL CRAMPING Apixaban 5 mg 04/24/25 21:00 Apixaban 2.5 Mg Tablet PO 05/15/25 20:59 BID ANTONIA Bumetanide 2 mg 04/23/25 18:30 04/24/25 08:26 Bumetanide Inj 0.25 Mg/Ml Vial 4 Ml IVP 05/23/25 18:29 2 mg BID ANTONIA Administration Metoprolol Succinate 50 mg 04/24/25 09:00 04/24/25 08:25 Metoprolol Succinate Xl 25 Mg Tabcr PO 05/24/25 08:59 50 mg QDAY ANTONIA Administration Metoprolol Succinate 25 mg 04/23/25 21:00 04/23/25 20:12 Metoprolol Succinate Xl 25 Mg Tabcr PO 05/23/25 20:59 25 mg HS ANTONIA Administration Ropinirole HCl 0.5 mg 04/24/25 09:00 04/24/25 08:26 Ropinirole Hcl 1 Mg Tablet PO 05/24/25 08:59 0.5 mg DAILY ANTONIA Administration Plan Assessment and Plan: Summary: Ms. Norris is a 64-year-old female with past medical history of prediabetes, hypertension, bilateral lower extremity lymphedema, depression, paroxysmal atrial fibrillation, status post repair of gastric perforation, osteoarthritis and chronic pain who presented to [facility] emergency department on April 23, 2025 with a chief complaint of lower extremity swelling with seeping of fluid from bilateral lower extremities. Patient admitted further for acute decompensated heart failure management. #Acute decompensated heart failure #Diastolic heart failure with preserved ejection fraction, EF 55 to 60% Patient presented with increased bilateral lower extremity edema, was taking 4 mg Bumex daily however reported that her bilateral lower extremity edema is worsening, complained of weeping from right lower extremity. Does have history of bilateral chronic lymphedema however does have worsening edema bilaterally. Complains of some shortness of breath at times and feeling of generalized tiredness, minimal bilateral crackles appreciated. BNP on presentation 273, troponin negative, BUN/creatinine within normal limits. Chest x-ray does show mild to moderate vascular congestion, venous Doppler bilateral lower extremity negative Hemoglobin A1c 5.9, TSH 0.97, free T41.14, cholesterol 95, LDL 37, HDL 43, triglycerides 77 Recommendations: - Diuresis with Bumex 2 mg IV twice daily - Strict intake and output, daily weights, low-sodium diet, fluid restriction 1500 cc - Ordered echocardiogram #Atrial fibrillation, with rapid ventricular response Patient has history of paroxysmal A-fib, EKG on presentation shows A-fib with RVR, rate 117 [id number] score 4 points Holter monitoring 02/23/2025 for 47-hour shows predominating rhythm atrial fibrillation, average heart rate 121, no SVE's, max heart rate 214 0.003% VE's 1 couplet no VE runs no pauses greater than 2 seconds Recommendations: - Resume home dose metoprolol 25 mg at bedtime and 50 mg every morning, uptitrate dose if needed - Continue home dose Eliquis 5 mg p.o. twice daily - Continue telemetry monitoring - Keep magnesium greater than 2 and potassium greater than 4 at all times #Microcytic hypochromic anemia, iron deficiency anemia Hemoglobin 8.4, hematocrit 29.1, MCV 75, MCH 21.6, MCHC 28.9, RBC 3.88 on presentation Iron panel iron 35, TIBC 293, iron saturation 11%, unsaturated iron binding 258, ferritin 51 - Was given IV iron x 1, will continue daily infusions. #Hypertension Monitor blood pressure, continue metoprolol dose #Methamphetamine use Urine drug screen positive for methamphetamine, reports one-time use on - Counseled on abstaining from methamphetamine use #Prediabetes #Bilateral lower extremity lymphedema #Depression #History of gastric perforation #Osteoarthritis #Chronic pain #Restless leg syndrome Management as per primary team Thank you for the consult and allowing to participate in the care of the patient. Cardiology will continue to follow. Case discussed with Attending Physician Dr. Brandin Barker MD Internal Medicine PGY-2 Disclaimer: This note was dictated by speech recognition. Minor errors in lipstick molder may be present due to voice recognition software. Attending Provider Attestation/Addendum I have personally seen and examined the patient separately on the above date of service and discussed the plan of care with the resident. I reviewed the resident Dr. Jaylen Salazar / Iveth Barker consultation progress note and agree with the resident findings and plan in the note above and have also edited the documentation to reflect my findings and plan. Brandin العلي M.D. Interventional Cardiology
--- NOTE | 2025-04-24 14:26 | PC.SS ---
Medical And Health Services Manager (CONSTANTIN) Radha met with the patient at the bedside to complete an initial assessment and discuss a discharge plan. Patient is alert and oriented to person, place, time, and situation, and provided verbal consent to participate in the assessment. The patient was admitted for failed outpatient diuretic therapy. Patient is Gertrude Norris, 64 y/o Lithuanian-speaking female residing alone at [address] [place] [address]. Patient designated her daughter, Renetta Norris, , as her surrogate medical decision maker. Patient reports that at baseline she uses a walker, has oxygen for comfort (not on oxygen here), and is not connected to dialysis. The patient's pharmacy is [facility]. Patient's PCP is Dr. Елена Parkinson. The patient's discharge plan is home, and her daughter will provide transportation. No further needs from . Surrogate medical decision maker: Daughter, Renetta, Discharge plan: Home
[2025-04-24] MEDS: APIXABAN 2.5 MG TABLET 5 MG PO (20:11)
[2025-04-24] MEDS: METOPROLOL SUCCINATE XL 25 MG TABCR PO (20:11)
[2025-04-25] VITALS (8 sets, daily range): BP systolic 104–128; BP diastolic 61–95; PULSE 90–112; RESP 15–30; TEMP 36.4–37.2; O2SAT 93–98
[2025-04-25] MEDS: HYDROcodone/APAP 5/325 TABLET 1 TAB PO ×2 (03:47→10:08)
[2025-04-25 06:17] LABS: Basophils # (Auto) 0.0 Thou/mm3 (0.0-0.2); Basophils % (Auto) 1 % (0-2.5); Eosinophils # (Auto) 0.0 Thou/mm3 (0.0-0.5); Eosinophils % (Auto) 1 % (0-10); Hematocrit 29.8 % (36.0-46.0); Immature Granulocytes Auto 0.02 Thou/mm3 (0.00-0.00); Lymphocytes # (Auto) 1.4 Thou/mm3 (1.0-4.8); Lymphocytes % (Auto) 25 % (10-50); Mean Corpuscular HGB Conc 29.2 g/dl (31.0-37.0); Mean Corpuscular Hemoglobin 21.8 pg (25.0-35.0); Mean Corpuscular Volume 75 fL (80-100); Monocytes # (Auto) 0.5 Thou/mm3 (0.0-0.8); Monocytes % (Auto) 10 % (0-12); Neutrophils # (Auto) 3.6 Thou/mm3 (1.8-7.7); Neutrophils % (Auto) 64 % (37-80); Nucleated Red Blood Cell # 0.00 Thou/mm3 (0.00-0.00); Nucleated Red Blood Cell % 0 /100 WBC (0); Platelet Count 244 Thou/mm3 (140-440); RDW Standard Deviation 50.3 fL (36.4-46.3); Red Blood Count 3.99 Miln/mm3 (4.00-5.20); White Blood Count 5.6 Thou/mm3 (3.6-11.0)
[2025-04-25 06:23] LABS: Hemoglobin 8.7 g/dL (12.0-16.0)
[2025-04-25 06:48] LABS: Alanine Aminotransferase 15 U/L (10-49); Albumin, Serum 3.4 gm/dL (3.4-4.8); Albumin/Globulin Ratio 1.1 (1.2-2.2); Alkaline Phosphatase 102 U/L (46-116); Anion Gap 8 (7-16); Aspartate Amino Transferase 26 U/L (0-34); BUN/Creatinine Ratio 16 Ratio (12-20); Bilirubin,Total 0.4 mg/dL (0.3-1.2); Blood Urea Nitrogen 13 mg/dL (9-23); Calcium 9.2 mg/dL (8.3-10.6); Calcium (Corrected) 9.7 mg/dL (8.5-10.1); Carbon Dioxide 31.6 mMol/L (20.0-31.0); Chloride 104 mMol/L (98-107); Creatinine (Component) 0.8 mg/dL (0.6-1.3); Estimated Creatinine Clearance 79.5 mL/min (>60); Globulin 3.0 gm/dL (2.3-3.5); Glucose 84 mg/dL (74-106); Magnesium 1.8 mg/dL (1.6-2.6); Osmolality,Calculated 285 (275-295); Phosphorous 2.9 mg/dL (2.4-5.1); Potassium 3.9 mMol/L (3.4-5.1); Sodium 144 mMol/L (136-145); Total Protein 6.4 gm/dL (5.7-8.2); eGFR > 60 See Note
[2025-04-25] MEDS: METOPROLOL SUCCINATE XL 25 MG TABCR 50 MG PO (10:05)
[2025-04-25] MEDS: APIXABAN 2.5 MG TABLET 5 MG PO (10:06)
[2025-04-25] MEDS: Magnesium Sulfate 4 GM Ivpb 4 GM/50 ML BAG IV (10:10)
[2025-04-25] MEDS: BUMETANIDE INJ 0.25 MG/ML VIAL 4 ML 2 MG IVP (10:10)
--- NOTE | 2025-04-25 11:12 | ESDS_ITS ---
<Statement entered by Perico Harrell MD - 04/25/25 13:23> Note reviewed and agree with care plan as documented. Please refer to the note below for further details. Plan discussed with attending physician Dr. Jessica Harrell MD PGY-2 Internal Medicine Planned Discharge Date 04/25/25 DS: Providers Provider Date of admission: 04/23/25 09:35 Primary care physician: SHEY Joel Admitting Provider: Hector Lopez MD Attending Provider on Admission: Hector Lopez MD Consults: 04/23/25 09:01 Consult to Cardiology Stat Comment: Consulting Provider: Brandin العلي Instructions: admission for diuresis Attending Provider on DC: Perico Harrell MD Discharging Provider: Perico Harrell MD DS: Diagnosis Problem List Completed Was Problem List Reviewed/Reconciled?: Yes Hospital Course Hospital Course Hospital course: Summary Ms Gertrude Norris is a 64 year old female w/ a PMH significant for atrial fibrillation on eliquis, hypertension, chronic lymphedema, s/p laparoscopic repair of a gastric perforation 01/2025 present to [facility] on 04/23/25 with chief complaing of lymphedema. Admitted for for inpatient management of lymphedema 2/2 failure of outpatient medications. Patient was referred by her riddler operator Dr. العلي for further evaluation and management of bilateral lower extremity swelling beginning 3 weeks ago. Patient states she had been started on Bumex 2mg BID with no change. The dose was recently increased to 4mg BID with no change/improvement. Hence reported to the ED with worsening lymphedema. CXR mild vascular congestion. Venous Doppler ultrasound bilaterally showed no DVT. UA was positive for opioids and methamphetamines. Lab was significant for Hemoglobin A1c 5.9, TSH 0.97, free T41.14, cholesterol 95, LDL 37, HDL 43, triglycerides 77, Iron panel iron 35, TIBC 293, iron saturation 11%, unsaturated iron binding 258, ferritin 51. Cardiology was consulted patient was started on Bumex 2 mg IV twice daily, and iron sucrose 200 mg IV infusion . Patient noted significant improvement of lymphedema and bilateral respiratory crackles. For A- fib with RVR cardiology recommend recommend taking metoprolol 25 mg at bedtime and 50 mg every morning for better rate control. Throughout the hospital course patient other problems were managed and her condition improved remarkably with progression of hospital course. Further plan to discharge the patient home since she is stable and responded well to hospital treatment. Discharge recommendation: - Follow up with PCP in 1-2 weeks, If you don't have a PCP, you can make an appointment at the [facility] ? Take bumetanide 2 mg twice per day for 5 days and then go back to your previous regimen ? Continue taking all other home medications as prescribed ? Follow-up with PCP within 1-2 weeks of discharge ? Follow-up with your riddler operator within 1-2 weeks of discharge ? Obtain labs (BMP, magnesium) within 3 days and bring them to your riddler operator's office ? It is very important to keep track of how much fluid you take in a day and recommend to take no more than 1.5 L/day ? Recommend to keep your legs elevated as much as possible ? If you do not have a PCP, you can follow-up at the [facility] (you can call [phone] to make an appointment) ? Return to ED if symptoms worsen or recur Hospital Diagnoses: #Chronic Lymphedema #Heart Failure, Preserved Ejection Fraction #Atrial Fibrillation #Long QT Syndrome #Anemia, chronic microcytic #Anemia of Chronic Disease #Iron Deficiency Anemia #Essential Hypertension #Restless Leg Syndrome Patient assessed under supervision of attending physician and senior resident Dr. Harrell PGY-2 Marissa Dickson MD PGY-1, Internal Medicine Please note: this document was transcribed using voice recognition technology; minor inaccuracies may be present. Time Spent with Patient Time attestation: Total time spent providing and/or coordinating discharge services: Time spent: Greater than 30 minutes Exam Vital Signs Temp Pulse Resp BP Pulse Ox O2 Del Method 97.6 F 108 H 18 110/71 97 Room Air 04/25/25 07:55 04/25/25 10:10 04/25/25 07:55 04/25/25 10:10 04/25/25 07:55 04/25/25 07:55 Narrative Exam General: alert and oriented to self/place/year, no acute distress, able to speak full sentences HEENT: NC/AT, mucous membranes moist, bilateral sclera anicteric Cardiovascular: regular rate and rhythm, S1/S2 present, no murmurs appreciated Pulmonary: clear to auscultation bilaterally, no rales/rhonchi/wheezes Abdominal: soft, nontender, present bowel sounds; scar from exploratory laparotomy in 01/2025 present Musculoskeletal: +1 pitting edema bilaterally Skin: Warm, well-perfused Discharge Plan Plan Patient Disposition: HOME (Self Care) Patient condition on transfer: Stable Care Plan Goals: ? Take bumetanide 2 mg twice per day for 5 days and then go back to your prev ious regimen ? Continue taking all other home medications as prescribed ? Follow-up with PCP within 1-2 weeks of discharge ? Follow-up with your riddler operator within 1-2 weeks of discharge ? Obtain labs (BMP, magnesium) within 3 days and bring them to your riddler operator's office ? It is very important to keep track of how much fluid you take in a day and recommend to take no more than 1.5 L/day ? Recommend to keep your legs elevated as much as possible ? If you do not have a PCP, you can follow-up at the [facility] (you can call [phone] to make an appointment) ? Return to ED if symptoms worsen or recur Prescriptions/Referrals Prescriptions/Med Rec: New bumetanide 2 mg tablet 2 mg PO BID 5 Days Qty: 10 0RF Continued tramadol 50 mg tablet 50 mg PO Q6H MDD 4 tabs PRN (Reason: pain) Qty: 60 0RF Rx Instructions: Take 1 tablet as needed every 6 hours for moderate to severe pain multivitamin Tablet 1 tab PO QAM ropinirole 0.5 mg Tablet 0.5 mg PO QDAY citalopram 40 mg tablet 40 mg PO DAILY Patient Comments: TAKE ONE TABLET BY MOUTH EVERY DAY potassium chloride 20 mEq tablet,ER particles/crystals 20 meq PO DAILY Patient Comments: TAKE ONE TABLET BY MOUTH EVERY DAY omeprazole 20 mg capsule,delayed release(DR/EC) 40 mg PO QAM Patient Comments: TAKE TWO CAPSULES BY MOUTH EVERY MORNING 30 MINUTES BEFORE MEALS ergocalciferol (vitamin D2) 1,250 mcg (50,000 unit) capsule 1,250 mcg PO QWEEK Patient Comments: TAKE ONE CAPSULE BY MOUTH EVERY WEEK VITAMIN loratadine 10 mg tablet 10 mg PO Q24H Patient Comments: TAKE ONE TABLET BY MOUTH EVERY DAY FOR ALLERGY metoprolol succinate 25 mg Tablet Extended Release 24 Hr 25 mg PO HS Qty: 30 0RF tramadol 50 mg tablet 50 mg PO Q6H PRN (Reason: pain) Qty: 30 0RF hydrocodone-acetaminophen 5-325 mg tablet 1 tab PO Q6H MDD 4 tabs PRN (Reason: pain) Qty: 30 0RF Rx Instructions: Take 1 tablet as needed every 6 hours for moderate to severe pain losartan 100 mg tablet 100 mg PO DAILY Patient Comments: TAKE ONE TABLET BY MOUTH EVERY DAY FOR BLOOD PRESSURE apixaban 5 mg tablet 5 mg PO BID Qty: 90 0RF simethicone 80 mg Tablet,Chewable 80 mg PO QID PRN (Reason: Gas) Qty: 90 0RF Held Mounjaro 2.5 mg/0.5 mL pen injector 2.5 mg SUBCUT QWEEK Hold Instructions: Hold until you follow-up with your PCP Patient Comments: INJECT ONE PEN SUBCUTANEOUSLY EVERY WEEK FOR DIABETES Discontinued furosemide 40 mg tablet 40 mg PO BID Patient Comments: TAKE ONE TABLET EVERY DAY A DIURETIC No Action oxycodone-acetaminophen [Percocet] 10-325 mg tablet 1 tab PO Q4H MDD 6 tabs PRN (Reason: pain) Qty: 30 0RF Rx Instructions: Take 1 tablet every 4-6 hours as needed for moderate to severe pain amoxicillin-pot clavulanate 500-125 mg tablet 1 tab PO Q12H Qty: 10 0RF oxycodone-acetaminophen [Percocet] 5-325 mg tablet 1 tab PO Q6H MDD 4 tabs PRN (Reason: pain) Qty: 30 0RF Rx Instructions: Take 1 tablet as needed every 6 hours for moderate to severe pain Referrals: Елена Parkinson, [facility] [Primary Care Provider] Outpatient Orders (i.e. Home Health, Labs, Imaging): Basic Metabolic Panel (Routine) Timeframe: 3 Days Location: Determined by Patient Ordered By: Perico Harrell Magnesium (Routine) Timeframe: 3 Days Location: Determined by Patient Ordered By: Perico Harrell Patient/Caregiver Discharge Instructions Print Language: Telugu Stand Alone Forms: [employer] Award Info., Patient Portal Info Letter Discharge Order Discharge Orders: Discharge (Routine); Ordered 04/25/25 Ordered By: Perico Harrell Quality Discharge Quality Measures VTE prophylaxis Attestestation MD Attestation I have examined the patient, reviewed labs and imaging findings, discussed the case with the resident(s), and reviewed entered orders. I agree with the plan of care as outlined in this note. Time Spent: [address] Jessica MD
[2025-04-25] MEDS: IRON SUCROSE CPLX INJ 20 MG/ML VIAL 5 ML 100 MG IVP (11:51)
--- NOTE | 2025-04-25 14:02 | PD.RESPRO ---
Documentation for date of: 04/25/25 Subjective Subjective Interval history: Patient seen and examined at bedside, significant improvement in edema noted. Patient will be discharged on Bumex 2 mg p.o. twice daily. Continue metoprolol to tartrate 25 at bedtime and 50 mg every morning. Continue Eliquis on discharge. Consider discharging patient on oral iron. Will follow-up outpatient with repeat BMP and magnesium in cardiology clinic. Exam Vital Signs Temp Pulse Resp BP Pulse Ox O2 Del Method 98.1 F 105 H 15 108/64 93 L Room Air 04/25/25 12:00 04/25/25 12:00 04/25/25 12:00 04/25/25 12:00 04/25/25 12:00 04/25/25 12:00 Narrative Exam Physical Exam General: Awake and in no acute distress. Conversational and non-toxic appearing. HEENT: Normocephalic, atraumatic, mucous membranes moist. Heart: Irregularly irregular, rate controlled, no murmurs. Lungs: Mild bilateral crackles Abdomen: Soft, nondistended, nontender, positive bowel sounds. ?No guarding or rebound tenderness. Neurologic: Alert and oriented x3, no gross neurological deficit, and patient able to move all 4 extremities. Extremities: Trace bilateral lower extremity edema, improving Skin: No rash or ecchymoses. Objective Labs 04/25/25 05:41 04/25/25 05:41 Labs: Laboratory Results - last 24 hr 04/25/25 05:41 WBC 5.6 RBC 3.99 L Hgb 8.7 L Hct 29.8 L MCV 75 L MCH 21.8 L MCHC 29.2 L RDW Std Deviation 50.3 H Plt Count 244 D Neut % (Auto) 64 Lymph % (Auto) 25 Treasure % (Auto) 10 Eos % (Auto) 1 Baso % (Auto) 1 Neut # (Auto) 3.6 Lymph # (Auto) 1.4 Treasure # (Auto) 0.5 Eos # (Auto) 0.0 Baso # (Auto) 0.0 Immature Gran # (Auto) 0.02 H Absolute Nucleated RBC 0.00 Immature Gran % 0 Nucleated RBC % 0 Sodium 144 Potassium 3.9 Chloride 104 Carbon Dioxide 31.6 H Anion Gap 8 BUN 13 Creatinine 0.8 Estim Creat Clear Calc 79.5 eGFR > 60 BUN/Creatinine Ratio 16 Glucose 84 Calculated Osmolality 285 Calcium 9.2 Corrected Calcium 9.7 Phosphorus 2.9 Magnesium 1.8 Total Bilirubin 0.4 AST 26 ALT 15 Alkaline Phosphatase 102 Total Protein 6.4 Albumin 3.4 Globulin 3.0 Albumin/Globulin Ratio 1.1 L Quality Measures Quality Measures VTE prophylaxis Advance care planning discussed with:: patient Assessment & Plan Assessment Current Active Medications: Generic Name Dose Route Start Last Admin Trade Name Freq PRN Reason Stop Dose Admin Acetaminophen 650 mg 04/24/25 04:43 04/24/25 04:48 Acetaminophen 325 Mg Tablet PO 05/23/25 14:13 650 mg Q6H PRN Administration Fever >100.4 or Pain Hydrocodone Bitart/Acetaminophen 1 tab 04/24/25 09:17 04/25/25 10:08 Hydrocodone/Apap 5/325 Tablet PO 05/06/25 09:16 1 tab Q6HR PRN Administration ABDOMINAL CRAMPING Apixaban 5 mg 04/24/25 21:00 04/25/25 10:06 Apixaban 2.5 Mg Tablet PO 05/15/25 20:59 5 mg BID ANTONIA Administration Bumetanide 2 mg 04/23/25 18:30 04/25/25 10:10 Bumetanide Inj 0.25 Mg/Ml Vial 4 Ml IVP 05/23/25 18:29 2 mg BID ANTONIA Administration Metoprolol Succinate 50 mg 04/24/25 09:00 04/25/25 10:05 Metoprolol Succinate Xl 25 Mg Tabcr PO 05/24/25 08:59 50 mg QDAY ANTONIA Administration Metoprolol Succinate 25 mg 04/23/25 21:00 04/24/25 20:11 Metoprolol Succinate Xl 25 Mg Tabcr PO 05/23/25 20:59 25 mg HS ANTONIA Administration Ropinirole HCl 0.5 mg 04/24/25 09:00 04/25/25 10:07 Ropinirole Hcl 1 Mg Tablet PO 05/24/25 08:59 0.5 mg DAILY ANTONIA Administration Plan Assessment and Plan: Summary: Ms. Norris is a 64-year-old female with past medical history of prediabetes, hypertension, bilateral lower extremity lymphedema, depression, paroxysmal atrial fibrillation, status post repair of gastric perforation, osteoarthritis and chronic pain who presented to [facility] emergency department on April 23, 2025 with a chief complaint of lower extremity swelling. Patient admitted further for acute decompensated heart failure management. #Acute decompensated diastolic heart failure, resolved #Diastolic heart failure with preserved ejection fraction, EF 55 to 60% Patient presented with increased bilateral lower extremity edema, was taking 4 mg Bumex daily however reported that her bilateral lower extremity edema is worsening, complained of weeping from right lower extremity. Does have history of bilateral chronic lymphedema however does have worsening edema bilaterally. Complains of some shortness of breath at times and feeling of generalized tiredness, minimal bilateral crackles appreciated. BNP on presentation 273, troponin negative, BUN/creatinine within normal limits. Chest x-ray does show mild to moderate vascular congestion, venous Doppler bilateral lower extremity negative Hemoglobin A1c 5.9, TSH 0.97, free T41.14, cholesterol 95, LDL 37, HDL 43, triglycerides 77 Recommendations: - Diuresis with Bumex 2 mg IV twice daily was well-tolerated by patient; Discharge on Bumex 2 mg twice daily - Strict intake and output, daily weights, low-sodium diet, fluid restriction 1500 cc - Echocardiogram canceled, will obtained outpatient. #Atrial fibrillation, with rapid ventricular response Patient has history of paroxysmal A-fib, EKG on presentation shows A-fib with RVR, rate 117 [id number] score 4 points Holter monitoring 02/23/2025 for 47-hour shows predominating rhythm atrial fibrillation, average heart rate 121, no SVE's, max heart rate 214 0.003% VE's 1 couplet no VE runs no pauses greater than 2 seconds Recommendations: - Resume home dose metoprolol 25 mg at bedtime and 50 mg every morning, uptitrate dose if needed - Continue home dose Eliquis 5 mg p.o. twice daily - Continue telemetry monitoring - Keep magnesium greater than 2 and potassium greater than 4 at all times #Microcytic hypochromic anemia, iron deficiency anemia Hemoglobin 8.4, hematocrit 29.1, MCV 75, MCH 21.6, MCHC 28.9, RBC 3.88 on presentation Iron panel iron 35, TIBC 293, iron saturation 11%, unsaturated iron binding 258, ferritin 51 - Was given IV iron, discharged on oral iron. #Hypertension Monitor blood pressure, continue metoprolol dose #Methamphetamine use Urine drug screen positive for methamphetamine, reports one-time use on - Counseled on abstaining from methamphetamine use #Prediabetes #Bilateral lower extremity lymphedema #Depression #History of gastric perforation #Osteoarthritis #Chronic pain #Restless leg syndrome Management as per primary team Thank you for the consult and allowing to participate in the care of the patient. Cardiology will continue to follow. Case discussed with Attending Physician Dr. Brandin Barker MD Internal Medicine PGY-2 Disclaimer: This note was dictated by speech recognition. Minor errors in silk folder may be present due to voice recognition software. Attending Provider Attestation/Addendum I have personally seen and examined the patient separately on the above date of service and discussed the plan of care with the resident. I reviewed the resident Dr. Iveth Barker consultation progress note and agree with the resident findings and plan in the note above and have also edited the documentation to reflect my findings and plan. Brandin العلي M.D. Interventional Cardiology
== END 2025-04-25 16:36 | disposition home or self-care (01) ==
LOC: SERX 09:08 → SERHOLD 11:13 → S2NX 04-25 09:39 → SERHOLD 04-26 06:35 → S2NX 04-26 06:36
PROVIDERS: Nurse Practitioner Family; Student in an Organized Health Care Education/Training Program; Admitting Provider Student in an Organized Health Care Education/Training Program; Emergency Provider Family Medicine; PCP Nurse Practitioner Family; Visit Provider Student in an Organized Health Care Education/Training Program
DX: I89.0 Lymphedema, not elsewhere classified (principal); I11.0 Hypertensive heart disease with heart failure; I45.81 Long QT syndrome; I50.33 Acute on chronic diastolic (congestive) heart failure; I48.0 Paroxysmal atrial fibrillation; D63.8 Anemia in other chronic diseases classified elsewhere; D50.9 Iron deficiency anemia, unspecified; G25.81 Restless legs syndrome; E11.9 Type 2 diabetes mellitus without complications; Z98.84 Bariatric surgery status; Z99.3 Dependence on wheelchair; F32.A Depression, unspecified; M19.90 Unspecified osteoarthritis, unspecified site
CPT/HCPCS: 36415; 71045; 80053; 80061; 80307; 81001; 82728; 83036; 83540; 83550; 83735; 83880; 84100; 84439; 84443; 84484; 85025; 85610; 87081; 93005; 93970; 96372; 96374; 96375; 96376; 99283; G0378; J1644; J1756; J3475; J3490; A9270